=== PATIENT | female | born 1955 | race Caucasian/White ===

== ENCOUNTER 2024-02-07 10:33 | Emergency (ER) | payer MEDICARE, SELFPAY ==
[2024-02-07] VITALS (28 sets, daily range): BP systolic 164–186; BP diastolic 54–100; PULSE 82–110; RESP 12–38; TEMP 36.7; O2SAT 87–100; BMI 42.2
--- NOTE | 2024-02-07 11:01 | CT_ITS ---
The [address] [address] Patient Name: ALVIN MIX MRN: [id number] date: 1955 Sex: F Assigned Patient Location: ER Current Patient Location: ER Accession/Order Number: [id number] Exam Date: 02/07/2024 12:15 Report Date: 02/07/2024 12:54 At the request of: SANTOS NAVARRO Procedure: CT angio chest EXAM: CT angio chest HISTORY: sob COMPARISON: None. TECHNIQUE: Following intravenous administration of 100 mL of Omnipaque 350, axial soft tissue and lung windows of the chest were performed with coronal and sagittal reformats. 3-D MIPS reconstructions were created and reviewed. CT dose reduction technique was used including Automated Exposure Control. Findings: The heart is nonenlarged. No pericardial effusion. Coronary artery and aortic annular and valvular as well as mitral calcifications. The thoracic aorta is normal caliber with mild atherosclerotic disease. There is adequate opacification of the pulmonary arteries. No evidence of pulmonary embolism. There is a large left perihilar soft tissue mass invading into the mediastinum. This encases the adjacent vasculature and airways. The mass measures approximately 5.0 x 3.5 x 5.2 cm. No pneumothorax. No pleural effusion. Minimal by basilar atelectasis. There are mildly enlarged mediastinal and hilar lymph nodes, left greater than right. No enlarged axillary or supraclavicular nodes. Small hiatal hernia. The gallbladder is surgically absent. No aggressive sclerotic or lytic osseous lesions. Mild multilevel degenerative thoracic spondylosis. CT/CT angio chest IMPRESSION: 1. No pulmonary embolism. 2. Left perihilar soft tissue mass invading pneumomediastinum concerning for malignancy. 3. Enlarged mediastinal and hilar lymph nodes concerning for metastases. Electronically authenticated by: BENEDICTO PAUL Date: 02/07/2024 12:54
--- NOTE | 2024-02-07 11:03 | ED_ITS ---
HPI - General Adult General Chief complaint: Shortness of Breath/Dyspnea Stated complaint: SOB Time Seen by Provider: 02/07/24 11:00 Source: patient Mode of arrival: Wheelchair Limitations: no limitations History of Present Illness HPI narrative: Patient is a 68yo female who is presenting to the ER today with chief complaint of 2 days of cough, congestion, productive of yellowish sputum. Patient is a long-term smoker, patient says that she just quit smoking 2 days ago. Patient has not yet been diagnosed with emphysema or COPD. Patient has no nausea, vomiting, diarrhea, or any other acute complaints. Patient just traveled home from [place]. is at bedside. No sick contacts that patient is aware of. Patient has a significant history of left breast cancer. She had a lumpectomy 25 years ago, complete left mastectomy 5 years ago. Patient is on tamoxifen for 5 years after her mastectomy, this is her last year of taking tamoxifen. Patient has mild sinus congestion, intermittent blood-tinged rhinorrhea. Patient states when she has had rhinorrhea that is blood-tinged in the past she has had a sinus infection. Patient has a very harsh moist cough. All systems are negative except as noted/marked. All systems reviewed and otherwise negative. Nurses note and vital signs reviewed and patient is not hypoxic. General: The patient appears well and in no apparent distress. Patient is res ting comfortably on cart. Patient is not toxic, lethargic, or listless Skin: Warm, dry, no pallor noted. There is no rash noted. No petechiae, purpura. Head: Normocephalic, atraumatic; no tenderness to palpation to bilateral frontal and maxillary sinus Eye: Normal conjunctiva, no drainage, EOMI. PERRL Ears, Nose, Mouth, and Throat: oral mucosa is moist. Patient has clear/yellowish erythema to the posterior pharynx, no unilateral swelling, no other intraoral pathology. Nares patent. Mouth without vesicles. Cardiovascular: Regular Rate and Rhythm, no murmur, gallop, rub Respiratory: Patient is in no distress, no accessory muscle use, lungs decreased breath sounds bilateral, diffuse faint wheezing bilateral, no obvious rhonchi, crackles or rales. Back: non-tender, no CVA tenderness bilaterally to percussion. No CT LS midline pain GI: no tenderness to palpation, no masses appreciated. No rebound, guarding, or rigidity noted. No distention Musculoskeletal: Patient has full range of motion of all of the extremities, no motor, sensory, or focal neurological deficits Neurological: A&O x4, normal speech Psychiatric: Cooperative Related Data Home Medications Medication Instructions Recorded Confirmed metoprolol succinate 100 mg 100 mg PO DAILY 02/07/24 02/07/24 capsule sprinkle, ext. release 24 hr tamoxifen 20 mg tablet 20 mg PO DAILY 02/07/24 02/07/24 Previous Rx's Medication Instructions Recorded albuterol sulfate 90 mcg/actuation 2 inh inhalation Q4H PRN shortness 02/07/24 aerosol inhaler of breath or wheezing 7 days #8.5 grams mjhfdzmvrxbvevn-woxootjnusjxrzw-SJ 10 ml PO Q6H PRN cold symptoms 02/07/24 2 mg-30 mg-10 mg/5 mL oral syrup #200 mL (Bromfed DM) prednisone 50 mg tablet 50 mg PO DAILY 5 days #5 tabs 02/07/24 Allergies Allergy/AdvReac Type Severity Reaction Status Date / Time cephalexin Allergy Intermediate Rash Verified 02/07/24 12:04 Exam Constitutional Vital Signs, click to edit/add: Last Vital Signs Temp 98.0 F 02/07/24 10:40 Pulse 93 H 02/07/24 12:11 Resp 21 02/07/24 12:11 BP 173/70 H 02/07/24 12:11 Pulse Ox 95 02/07/24 12:11 O2 Del Method Room Air 02/07/24 10:40 Course Vital Signs Vital signs: Vital Signs Temperature 98.0 F 02/07/24 10:40 Pulse Rate 94 H 02/07/24 10:40 Respiratory Rate 22 02/07/24 10:40 Blood Pressure 184/100 H 02/07/24 10:40 Pulse Oximetry 88 L 02/07/24 10:40 Oxygen Delivery Method Room Air 02/07/24 10:40 Temperature 98.0 F 02/07/24 10:40 Pulse Rate 93 H 02/07/24 12:11 Respiratory Rate 21 02/07/24 12:11 Blood Pressure 173/70 H 02/07/24 12:11 Pulse Oximetry 95 02/07/24 12:11 Oxygen Delivery Method Room Air 02/07/24 10:40 Medical Decision Making MDM Narrative Medical decision making narrative: Patient had a cardiac workup along with a CTA of the chest was done. Patient was difficult IV access, patient had a ultrasound-guided IV placed by Sarah RAY, please see nursing notes. Patient did have a CT of the chest that did show concerns for left perihilar mass that is invading the left pneumomediastinum, and also several other lymph nodes that are concerning for possible metastasis. Patient has no signs of pneumonia or other infection. Patient felt better after DuoNeb breathing treatment initially. Patient was given a dose of IV Solu-Medrol along with IV fluids. Patient was given a second DuoNeb breathing treatment prior to discharge to help her with this afternoon. 1340 I did speak to Chata, nurse practitioner for Dr. Purcell. She is aware of the left perihilar mass that is invading the left pneumomediastinum, along with several lymph nodes that are suggestive for metastasis. Patient has no acute signs of infection. Patient refused to have influenza and COVID swabs. Patient will be treated for sinus congestion and upper respiratory infection with additional 5 days of steroids, along with inhaler and Tessalon Perles along with Bromfed. I had a discussion with patient and , they are aware and the concern of left lung cancer with mets. Difficult to assess at this time whether it secondary to previous left breast cancer or new left lung cancer secondary to her history of smoking. Patient quit smoking cold turkey 2 days ago. Patient has more thankful. Blameless apologies were given for length of stay in the ER today. They were understanding. No questions at discharge. Lab Data Lab results reviewed: Yes I reviewed the patient's lab results Labs: Lab Results 02/07/24 Range/Units 10:50 WBC 9.2 (4.0-11.0) 10^3/uL RBC 4.44 (4.20-5.40) 10^6/uL Hgb 14.2 (12.0-16.0) g/dL Hct 42.0 (36.0-48.0) % MCV 94.6 (81.0-99.0) fL MCH 32.0 (26.7-34.0) pg MCHC 33.8 (29.9-35.2) g/dL RDW 12.3 (11.0-15.0) % Plt Count 358 (150-450) 10^3/uL MPV 9.8 (9.5-13.5) fL Neut % (Auto) 72.0 (43.0-75.0) % Lymph % (Auto) 15.7 L (20.5-60.0) % [place] % (Auto) 11.7 (1.7-12.0) % Eos % (Auto) 0.2 L (0.9-7.0) % Baso % (Auto) 0.3 (0.2-2.0) % Neut # (Auto) 6.6 H (1.4-6.5) 10^3/uL Lymph # (Auto) 1.4 (1.2-3.8) 10^3/uL [place] # (Auto) 1.1 H (0.3-0.8) 10^3/uL Eos # (Auto) 0.0 (0.0-0.7) 10^3/uL Baso # (Auto) 0.0 (0.0-0.1) 10^3/uL Abs Immat Gran (auto) 0.01 (0.00-0.03) 10^3/uL Imm/Tot Granulo (auto) 0.1 (0.0-0.5) % VBG pH 7.397 (7.330-7.430) VBG pCO2 39.7 L (40.0-52.0) mmHg Sodium 126 L (136-145) mmol/L Potassium 4.6 (3.5-5.1) mmol/L Chloride 90 L (98-107) mmol/L Carbon Dioxide 23.7 (21.0-32.0) mmol/L Anion Gap 16.9 BUN 9.0 (7.0-18.0) mg/dL Creatinine 0.37 L (0.55-1.02) mg/dL Est GFR ( Amer) >60 (>=60) Est GFR (Non-Af Amer) >60 (>=60) BUN/Creatinine Ratio 24.3 Glucose 88 (74-106) mg/dL Calcium 8.5 (8.5-10.1) mg/dL Total Bilirubin 0.4 (0.2-1.0) mg/dL AST 61 H (15-37) U/L ALT 50 (14-59) U/L Alkaline Phosphatase 83 (46-116) U/L Troponin I High Sens 7.6 (4.0-51.3) pg/mL NT-Pro-B Natriuret Pep 1218.0 H* (<=900.0) pg/mL Total Protein 7.5 (6.4-8.2) g/dL Albumin 3.4 (3.4-5.0) g/dL Globulin 4.1 g/dL Albumin/Globulin Ratio 0.8 Imaging Data Chest x-ray: Radiologist's impression: ITS Impressions Chest CTA 02/07/24 11:01 IMPRESSION: 1. No pulmonary embolism. 2. Left perihilar soft tissue mass invading pneumomediastinum concerning for malignancy. 3. Enlarged mediastinal and hilar lymph nodes concerning for metastases. Electronically authenticated by: BENEDICTO PAUL Date: 02/07/2024 12:54 ECG Data Attestation: I personally reviewed and interpreted this ECG as follows: (EKG interpretation. Normal sinus rhythm 89 beats a minute. Normal axis deviation. No acute ST elevation, no acute ectopy. QTc 437.) Discharge Plan Discharge Stand Alone Forms: Portal Instructions Chief Complaint: Shortness of Breath/Dyspnea Clinical Impression: Sinus congestion, Mass of left lung, Bronchitis, Lymph node cancer Patient Disposition: Home, Self-Care Time of Disposition Decision: 13:54 Condition: Fair Prescriptions / Home Meds: New prednisone 50 mg tablet 50 mg PO DAILY 5 Days Qty: 5 0RF Rx Instructions: Start first dose on February 08, 2024 albuterol sulfate 90 mcg/actuation HFA aerosol inhaler 2 inh inhalation Q4H PRN (Reason: shortness of breath or wheezing) 7 Days Qty: 8.5 0RF hexlwjdmghropdj-ukhrmkura-UV [Bromfed DM] 2-30-10 mg/5 mL syrup 10 ml PO Q6H PRN (Reason: cold symptoms) Qty: 200 0RF No Action metoprolol succinate 100 mg capsule,sprinkle,ER 24hr 100 mg PO DAILY tamoxifen 20 mg tablet 20 mg PO DAILY Instructions: Upper Respiratory Infection (ED), Acute Bronchitis (ED), Cold Symptoms (ED), How to Use Nasal [place] (ED) Additional Instructions: Increase fluids at home, Gatorade, Powerade, or water. Alternate using DayQuil, NyQuil, and Flonase. Add Mucinex as well as needed. Alternate Tylenol and Motrin every 4 hours to help with fever control, body aches or joint pain. Use rzwg-jkn-hkmjvtm vitamin C, vitamin D3, and zinc to help fight infection and help with her immune system. A copy of your CTA chest report was given to you, there is concern for left lung cancer and lymph nodes that are concerning for possible cancer as well. I am not diagnosing you with left lung cancer or lymph node cancer, but there is a concern as discussed at bedside. You will need additional test through Dr. Purcell's office. I have spoken to Chata, nurse practitioner for Dr. Purcell. They will be calling you this afternoon to schedule a follow-up appointment for reevaluation. They will be looking at your images as well from your CTA chest. Take your next dose of prednisone tomorrow, use your inhaler every 4 hours while awake for the 4 to 5 days. Continue all other Occasions as prescribed. Referrals: MIRIAN CASTILLO [Primary Care Provider] - 1 week
[2024-02-07 11:09] LABS: Basophils Percent Auto 0.3 % (0.2-2.0); Eosinophils Percent Auto 0.2 % (0.9-7.0); Hemoglobin 14.2 g/dL (12.0-16.0); Immature Granulocytes Abs Auto 0.01 10^3/uL (0.00-0.03); Immature Granulocytes Pct Auto 0.1 % (0.0-0.5); Lymphocytes Absolute Auto 1.4 10^3/uL (1.2-3.8); Lymphocytes Percent Auto 15.7 % (20.5-60.0); Mean Corpuscular HGB Conc 33.8 g/dL (29.9-35.2); Mean Corpuscular Volume 94.6 fL (81.0-99.0); Mean Platelet Volume 9.8 fL (9.5-13.5); Monocytes Absolute Auto 1.1 10^3/uL (0.3-0.8); Monocytes Percent Auto 11.7 % (1.7-12.0); Neutrophils Absolute Auto 6.6 10^3/uL (1.4-6.5); Platelet Count 358 10^3/uL (150-450); Red Blood Count 4.44 10^6/uL (4.20-5.40); Red Cell Distribution Width 12.3 % (11.0-15.0); White Blood Count 9.2 10^3/uL (4.0-11.0)
[2024-02-07 11:10] LABS: PCO2 VBG 39.7 mmHg (40.0-52.0); pH VBG 7.397 (7.330-7.430)
[2024-02-07] MEDS: IPRATROPIUM/ALBUTEROL SULFATE 3 ML AMPUL.NEB IH ×2 (11:12→13:55)
[2024-02-07 11:41] LABS: Alanine Aminotransferase 50 U/L (14-59); Albumin Globulin Ratio 0.8; Albumin Level 3.4 g/dL (3.4-5.0); Alkaline Phosphatase 83 U/L (46-116); Anion Gap 16.9; Aspartate Amino Transferase 61 U/L (15-37); BUN Creatinine Ratio 24.3; Bilirubin Total 0.4 mg/dL (0.2-1.0); Calcium 8.5 mg/dL (8.5-10.1); Carbon Dioxide 23.7 mmol/L (21.0-32.0); Chloride 90 mmol/L (98-107); Estimated GFR (African America >60 (>=60); Estimated GFR (Non-African Ame >60 (>=60); Globulin 4.1 g/dL; Glucose 88 mg/dL (74-106); Potassium 4.6 mmol/L (3.5-5.1); Sodium 126 mmol/L (136-145); Total Protein 7.5 g/dL (6.4-8.2)
[2024-02-07 11:48] LABS: Troponin I High Sensitivity 7.6 pg/mL (4.0-51.3)
[2024-02-07] MEDS: METHYLPREDNISOLONE SOD SUCC PF 125 MG/2 ML VIAL IVP (12:06)
[2024-02-07] MEDS: 0.9 % SODIUM CHLORIDE 1,000 ML 1000 ML IV (13:32)
--- NOTE | 2024-02-07 13:42 | ECG_ITS ---
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
== END 2024-02-07 14:19 | disposition home or self-care (01) ==
PROVIDERS: Emergency Provider Emergency Medicine; PCP Family Medicine
DX: J40 Bronchitis, not specified as acute or chronic (principal); R09.81 Nasal congestion; R91.8 Other nonspecific abnormal finding of lung field; R59.0 Localized enlarged lymph nodes; Z87.891 Personal history of nicotine dependence; Z85.3 Personal history of malignant neoplasm of breast; Z90.12 Acquired absence of left breast and nipple; Z79.899 Other long term (current) drug therapy; R06.2 Wheezing
CPT/HCPCS: 36415; 71275; 80053; 82800; 83880; 84484; 85025; 87804; 87811; 93005; 94640; 99285; J2930; Q9967

== ENCOUNTER 2024-03-15 15:44 | Inpatient (IN) | payer MEDICARE, SELFPAY ==
[2024-03-15] VITALS (70 sets, daily range): BP systolic 120–177; BP diastolic 61–94; PULSE 72–158; TEMP 36.6–36.8; O2SAT 89–100; BMI 23.8
--- NOTE | 2024-03-15 16:00 | CT_ITS ---
The [address] [address] Patient Name: ALVIN MIX MRN: [id number] date: 1955 Sex: F Assigned Patient Location: ER Current Patient Location: Accession/Order Number: [id number] Exam Date: 03/15/2024 17:18 Report Date: 03/15/2024 20:22 At the request of: ATILIO MARTINEZ Procedure: CT angio abdomen pelvis EXAM: CT angio chest, CT angio abdomen pelvis HISTORY: Left sided chest pain . Left-sided abdominal pain. Breast cancer. COMPARISON: Prior CTA pulmonary artery study 02/07/2024. TECHNIQUE: Enhanced helical acquisition obtained during arterial phase through the chest, abdomen and the pelvis with MIP and MPR reconstructions. FINDINGS: CTA AORTA: Mild atherosclerotic disease of the thoracic aortic arch and descending thoracic aorta. The great vessels arising from the thoracic aortic arch are patent without evidence of significant stenosis. Moderate diffuse atherosclerotic disease throughout the abdominal aorta, iliac and common femoral arteries. No evidence of dissection or aneurysm. Moderate stenosis at the origin of the celiac trunk. Moderate focal stenosis of the proximal SMA secondary to noncalcified plaque. The NIKO is patent. The renal arteries are patent bilaterally without evidence of stenosis. CT CHEST: Moderate coronary arterial calcifications. Mild cardiomegaly. Large lobular left hilar soft tissue mass again identified, with the largest component currently measuring approximately 6.1 x 3.3 cm, invading into the adjacent mediastinum, encasing and severely narrowing the left superior pulmonary vein as well as the left upper lobe pulmonary artery and encasing and obstructing the left apical segmental bronchus. Enlarged left hilar lymph nodes are again noted, not significantly changed. Focal thrombus within the superior left pulmonary vein. The pleural spaces are clear. Moderate size sliding-type hiatal hernia is present with debris and fluid filling diffusely distended esophageal lumen. CT ABDOMEN: Free intraperitoneal gas within the abdomen. Extraluminal air noted adjacent to the distal sigmoid and rectosigmoid portions of the colon. Diffuse mesenteric edema with enhancement and diffuse thickening involving the small bowel throughout the abdomen and the pelvis, likely secondary to underlying peritonitis. Small volume of ascites throughout the abdomen and the pelvis. Hepatic steatosis. Prior cholecystectomy. Allowing for the early arterial phase of imaging, the spleen, pancreas and the right adrenal gland are unremarkable. Indeterminate 1.7 cm left adrenal nodule within the lateral limb. Mild to moderate left renal cortical scarring. Bilateral renal cysts. No enlarged lymph nodes within the abdomen. CT PELVIS: Normal appendix. No enlarged lymph nodes within the pelvis. Grade 1 degenerative anterolisthesis L5 on S1. Diffuse demineralization. CT/CT angio abdomen pelvis IMPRESSION: 1. Free intraperitoneal gas consistent with bowel perforation. Given extraluminal gas adjacent to the mid and distal sigmoid colon as well as thickening involving the distal sigmoid colon with pericolonic inflammation/edema, this is likely secondary to acute diverticulitis with perforation. 2. Diffuse thickening and enhancement involving small bowel throughout the abdomen and the pelvis, likely secondary to a diffuse peritonitis. Diffuse mesenteric edema is present. Small volume of ascites within the abdomen and the pelvis. 3. Interval increase size of a left hilar lobular soft tissue mass which invades the adjacent mediastinum. Encasement of the left superior pulmonary vein which is severely narrowed as well as the adjacent left upper lobe pulmonary artery. The mass encases and obstructs the left apical segmental bronchus. Stable enlarged left inferior hilar lymph nodes consistent with gurdeep metastatic disease. 4. Focal thrombus within the left superior pulmonary vein. 5. Moderate size sliding-type hernia. There is diffuse dilatation of fluid-filled and debris-filled esophagus. 6. Prior cholecystectomy. Hepatic steatosis. 7. Mild-moderate left renal cortical scarring. Bilateral renal cysts. Critical results were NOTIFIED by TELEPHONE BY Dr. Melvin Gomez to Dr. Peter At 03/15/2024 7:43 PM EDT. Electronically authenticated by: MELVIN GOMEZ Date: 03/15/2024 20:22
--- NOTE | 2024-03-15 16:00 | ECG_ITS ---
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
--- NOTE | 2024-03-15 16:00 | CT_ITS ---
The [address] [address] Patient Name: ALVIN MIX MRN: [id number] date: 1955 Sex: F Assigned Patient Location: ER Current Patient Location: ER Accession/Order Number: [id number] Exam Date: 03/15/2024 17:18 Report Date: 03/15/2024 20:22 At the request of: ATILIO MARTINEZ Procedure: CT angio chest EXAM: CT angio chest, CT angio abdomen pelvis HISTORY: Left sided chest pain . Left-sided abdominal pain. Breast cancer. COMPARISON: Prior CTA pulmonary artery study 02/07/2024. TECHNIQUE: Enhanced helical acquisition obtained during arterial phase through the chest, abdomen and the pelvis with MIP and MPR reconstructions. FINDINGS: CTA AORTA: Mild atherosclerotic disease of the thoracic aortic arch and descending thoracic aorta. The great vessels arising from the thoracic aortic arch are patent without evidence of significant stenosis. Moderate diffuse atherosclerotic disease throughout the abdominal aorta, iliac and common femoral arteries. No evidence of dissection or aneurysm. Moderate stenosis at the origin of the celiac trunk. Moderate focal stenosis of the proximal SMA secondary to noncalcified plaque. The NIKO is patent. The renal arteries are patent bilaterally without evidence of stenosis. CT CHEST: Moderate coronary arterial calcifications. Mild cardiomegaly. Large lobular left hilar soft tissue mass again identified, with the largest component currently measuring approximately 6.1 x 3.3 cm, invading into the adjacent mediastinum, encasing and severely narrowing the left superior pulmonary vein as well as the left upper lobe pulmonary artery and encasing and obstructing the left apical segmental bronchus. Enlarged left hilar lymph nodes are again noted, not significantly changed. Focal thrombus within the superior left pulmonary vein. The pleural spaces are clear. Moderate size sliding-type hiatal hernia is present with debris and fluid filling diffusely distended esophageal lumen. CT ABDOMEN: Free intraperitoneal gas within the abdomen. Extraluminal air noted adjacent to the distal sigmoid and rectosigmoid portions of the colon. Diffuse mesenteric edema with enhancement and diffuse thickening involving the small bowel throughout the abdomen and the pelvis, likely secondary to underlying peritonitis. Small volume of ascites throughout the abdomen and the pelvis. Hepatic steatosis. Prior cholecystectomy. Allowing for the early arterial phase of imaging, the spleen, pancreas and the right adrenal gland are unremarkable. Indeterminate 1.7 cm left adrenal nodule within the lateral limb. Mild to moderate left renal cortical scarring. Bilateral renal cysts. No enlarged lymph nodes within the abdomen. CT PELVIS: Normal appendix. No enlarged lymph nodes within the pelvis. Grade 1 degenerative anterolisthesis L5 on S1. Diffuse demineralization. CT/CT angio chest IMPRESSION: 1. Free intraperitoneal gas consistent with bowel perforation. Given extraluminal gas adjacent to the mid and distal sigmoid colon as well as thickening involving the distal sigmoid colon with pericolonic inflammation/edema, this is likely secondary to acute diverticulitis with perforation. 2. Diffuse thickening and enhancement involving small bowel throughout the abdomen and the pelvis, likely secondary to a diffuse peritonitis. Diffuse mesenteric edema is present. Small volume of ascites within the abdomen and the pelvis. 3. Interval increase size of a left hilar lobular soft tissue mass which invades the adjacent mediastinum. Encasement of the left superior pulmonary vein which is severely narrowed as well as the adjacent left upper lobe pulmonary artery. The mass encases and obstructs the left apical segmental bronchus. Stable enlarged left inferior hilar lymph nodes consistent with gurdeep metastatic disease. 4. Focal thrombus within the left superior pulmonary vein. 5. Moderate size sliding-type hernia. There is diffuse dilatation of fluid-filled and debris-filled esophagus. 6. Prior cholecystectomy. Hepatic steatosis. 7. Mild-moderate left renal cortical scarring. Bilateral renal cysts. Critical results were NOTIFIED by TELEPHONE BY Dr. Melvin Gomez to Dr. Peter At 03/15/2024 7:43 PM EDT. Electronically authenticated by: MELVIN GOMEZ Date: 03/15/2024 20:22
--- NOTE | 2024-03-15 16:04 | ED.ABDPAIN1 ---
Documented by User: [email or web address] Barker 03/15/24 21:31 HPI - Abdominal Pain General Chief Complaint: Abdominal Pain Stated Complaint: Abdominal Pain Time Seen by Provider: 03/15/24 15:46 Source: patient and family Mode of arrival: Wheelchair Limitations: no limitations History of Present Illness HPI narrative: Patient is a 68-year-old female who presents to the emergency department for an onset of pain to the left side of the abdomen and left chest that began yesterday. She states she was bending over to tie her shoe when she felt a sudden onset of pain. 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 She is currently being treated by [facility] oncology for this and is due to go to [facility] tomorrow for a gamma knife procedure for metastasis to the brain. She is currently on steroids for swelling from the brain cancer. She has not had any objective fevers, she reports pain diffusely from the left chest to the left abdomen, more significantly in the left abdomen. states they have also found cancer in her left kidney. She has not yet started chemotherapy. She has been having normal bowel movements although she did not have a bowel movement today. She states her abdomen hurts to Urinate. She has had a previous cholecystectomy. Related Data Home Medications ?Medication ?Instructions ?Recorded ?Confirmed metoprolol succinate 100 mg 150 mg PO DAILY 02/07/24 03/15/24 capsule sprinkle, ext. release 24 hr tamoxifen 20 mg tablet 20 mg PO DAILY 02/07/24 03/15/24 dexamethasone 4 mg tablet 4 mg PO DAILY 03/15/24 03/15/24 Previous Rx's ?Medication ?Instructions ?Recorded albuterol sulfate 90 mcg/actuation 2 inh inhalation Q4H PRN shortness 02/07/24 aerosol inhaler of breath or wheezing 7 days #8.5 grams Allergies Allergy/AdvReac Type Severity Reaction Status Date / Time cephalexin Allergy Intermediate Rash Verified 02/07/24 12:04 Review of Systems ROS Constitutional Denies: fever or chills Ears, nose, mouth, and throat Denies: throat pain or nasal congestion Cardiovascular Reports: chest pain Respiratory Reports: shortness of breath; Denies: cough Gastrointestinal Reports: abdominal pain and nausea; Denies: vomiting or diarrhea Genitourinary Denies: painful urination Integumentary/Breast Denies: rash Neurological Denies: headache Hematologic/Lymphatic Denies: easy bruising or easy bleeding Exam Narrative Exam Narrative: Gen.: Awake, alert, Moderately uncomfortable, restless on exam Head: Normocephalic, atraumatic ENT: Moist mucous membranes Respiratory: No respiratory distress, lungs clear bilaterally Cardio: Regular rate and rhythm Gastrointestinal: Abdomen is Distended but not rigid, diffusely tender in the left upper and left lower abdomen with no point tenderness, no guarding or rebound Extremities: Moves extremities equally Psych: Normal mood and affect Neuro: No focal neuro deficit Skin: Warm, dry, intact Constitutional Vital Signs, click to edit/add: Last Vital Signs Temp 97.8 F 03/15/24 18:33 Pulse 93 H 03/16/24 02:20 Resp 18 03/16/24 05:03 BP 178/76 H 03/16/24 05:30 Pulse Ox 91 L 03/16/24 05:30 O2 Del Method Nasal Cannula 03/16/24 03:15 O2 Flow Rate 2 03/16/24 03:15 Course Vital Signs Vital signs: Vital Signs Temperature 98.2 F 03/15/24 15:48 Pulse Rate 80 03/15/24 15:48 Respiratory Rate 20 03/15/24 15:48 Blood Pressure 172/86 H 03/15/24 15:48 Pulse Oximetry 96 03/15/24 15:48 Oxygen Delivery Method Room Air 03/15/24 15:48 Temperature 97.8 F 03/15/24 18:33 Pulse Rate 93 H 03/16/24 02:20 Respiratory Rate 18 03/16/24 05:03 Blood Pressure 178/76 H 03/16/24 05:30 Pulse Oximetry 91 L 03/16/24 05:30 Oxygen Delivery Method Nasal Cannula 03/16/24 03:15 Oxygen Delivery Flow Rate 2 03/16/24 03:15 MDM - Abdominal Pain MDM Narrative Medical decision making narrative: On arrival to the emergency department, patient was noted to have stable vital signs but had significant pain and had difficulty getting comfortable. We had difficulty establishing an IV and drawing labs for the patient but after multiple attempts an IV was able to be placed and Blood work was sent to the lab. Patient was found to have normal white blood cell count although she does have bandemia with an elevated lactic acid, hyponatremia which appears chronic for her as well as elevated LFTs. She is status postcholecystectomy. She has no focal tenderness in the right upper quadrant. Because of her sudden onset of pain and restlessness in the ER, she was sent for CT angio of the chest/abdomen/pelvis to rule out aortic dissection or other acute emergencies. There was significant delay in obtaining the radiology results due to a miscommunication with [facility]. We received results from the radiologist that were communicated to Dr. Peter over the phone after a 2-hour delay. Patient was found to have suspected diverticulitis with bowel perforation and free intraperitoneal gas as well as thickening of the distal sigmoid colon and pericolonic inflammation. Patient was also found to have diffuse thickening and enhancement of the small bowel secondary to diffuse peritonitis. The CT scan also shows an interval increase in a left hilar soft tissue mass invading the mediastinum with encasement of the left superior pulmonary vein which is severely narrowed and the patient was found to have a focal thrombus in the left superior pulmonary vein. I discussed these CT results with the patient and her . She and her verbalized understanding. Patient will need to be treated for the thrombus in the pulmonary vein, heparin infusion was started in the ER. Blood cultures were obtained with repeat lactic acid and Zosyn was given for antibiotic coverage for perforated diverticulitis with peritonitis. I discussed transfer to a tertiary care center with the patient and her , patient and her are in agreement with transferring to [facility] as she is supposed to have a gamma knife procedure there tomorrow for metastatic brain cancer and receives all of her cancer care through the [facility]. Transfer was initiated at 2030. Requesting ICU bed at [facility] facility. 2124: Discussed the case with Dr. Kaminski at [facility] for colorectal surgery, She accepted the patient for transfer for perforated diverticulitis. Patient will be put in as a level 1 transfer to [facility] but we were cautioned by the transfer center that there may be a significant delay in obtaining a bed for this patient. They feel she would be best served at [facility] given her comorbidities and additional pulmonary vein thrombosis which we have started IV heparin for her. At this time patient is hemodynamically stable. If there is a significant delay in transfer, patient may need to be transferred to a different facility. Case is turned over to attending physician at this time. Medical Records Attestation: I reviewed the patient's medical records. Lab Data Attestation: I reviewed the patient's lab results. Labs: Lab Results 03/15/24 03/15/24 03/15/24 Range/Units 16:40 18:55 20:40 WBC 6.4 (4.0-11.0) 10^3/uL RBC 4.33 (4.20-5.40) 10^6/uL Hgb 13.7 (12.0-16.0) g/dL Hct 41.5 (36.0-48.0) % MCV 95.8 (81.0-99.0) fL MCH 31.6 (26.7-34.0) pg MCHC 33.0 (29.9-35.2) g/dL RDW 13.4 (11.0-15.0) % Plt Count 315 (150-450) 10^3/uL MPV 10.3 (9.5-13.5) fL Seg Neuts % (Manual) 69.0 Band Neutrophils % 14.0 H (0-5) % Lymphocytes % (Manual) 10.0 L (20.5-60.0) % Atypical Lymphs % (Man) % Monocytes % (Manual) 7.0 (1.7-12.0) % Eosinophils % (Manual) 0.0 L (0.9-7.0) % Basophils % (Manual) 0.0 L (0.2-2.0) % Neutrophils # (Manual) 4.41 (1.4-6.5) 10^3/uL Band Neutrophils # 0.9 H (0.0-0.3) 10^3/uL Lymphocytes # (Manual) 0.64 L (1.20-3.80) 10^3/uL Abs Atypical Lymphs Man Monocytes # (Manual) 0.44 (0.30-0.80) 10^3/uL Eosinophils # (Manual) 0.00 (0.00-0.70) 10^3/uL Basophils # (Manual) 0.00 (0.00-0.10) 10^3/uL PT 11.5 (9.0-11.6) sec INR 1.09 PTT (Heparin Absorb) (48.2-68.6) sec Sodium 128 L (136-145) mmol/L Potassium 4.2 (3.5-5.1) mmol/L Chloride 95 L (98-107) mmol/L Carbon Dioxide 20.8 L (21.0-32.0) mmol/L Anion Gap 16.4 BUN 18.0 (7.0-18.0) mg/dL Creatinine 0.57 (0.55-1.02) mg/dL Est GFR ( Amer) >60 (>=60) Est GFR (Non-Af Amer) >60 (>=60) BUN/Creatinine Ratio 31.6 Glucose 129 H (74-106) mg/dL Lactate 3.2 H* 1.9 (0.4-2.0) mmol/L Calcium 8.8 (8.5-10.1) mg/dL Total Bilirubin 1.6 H (0.2-1.0) mg/dL Direct Bilirubin 1.0 H* (0.0-0.2) mg/dL AST 57 H (15-37) U/L ALT 81 H (14-59) U/L Alkaline Phosphatase 97 (46-116) U/L Troponin I High Sens 4.4 (4.0-51.3) pg/mL NT-Pro-B Natriuret Pep 1668.0 H* (<=900.0) pg/mL Total Protein 6.1 L (6.4-8.2) g/dL Albumin 2.5 L (3.4-5.0) g/dL Globulin 3.6 g/dL Albumin/Globulin Ratio 0.7 Lipase 18.0 (16.0-77.0) U/L Urine Color Dk. yellow (YELLOW) Urine Clarity Clear (CLEAR) Urine pH 7.0 (5.0-9.0) Ur Specific Blanchard <=1.005 A (1.005-1.025) Urine Protein 100 A (NEG/TRACE) mg/dL Urine Glucose (UA) Negative (NEGATIVE) mg/dL Urine Ketones Negative (NEGATIVE) mg/dL Urine Occult Blood Negative (NEGATIVE) Urine Nitrite Negative (NEGATIVE) Urine Bilirubin Small A (NEGATIVE) Urine Urobilinogen 2.0 A (0.2-1.0) EU/dL Ur Leukocyte Esterase Negative (NEGATIVE) Urine RBC 0-2 (0-2) #/HPF Urine WBC 5-10 A (NONE SEEN) #/HPF Ur Squamous Epith Cells Few A (NONE/RARE) #/LPF Urine Crystals None seen (None Seen) #/HPF Urine Bacteria None seen (NONE SEEN) #/HPF Urine Casts None seen (NONE SEEN) #/LPF Urine Mucus None seen (NONE SEEN) Ur Culture Indicated? Yes 03/16/24 03/16/24 Range/Units 03:15 04:55 WBC 5.3 (4.0-11.0) 10^3/uL RBC 4.39 (4.20-5.40) 10^6/uL Hgb 13.9 (12.0-16.0) g/dL Hct 42.1 (36.0-48.0) % MCV 95.9 (81.0-99.0) fL MCH 31.7 (26.7-34.0) pg MCHC 33.0 (29.9-35.2) g/dL RDW 13.4 (11.0-15.0) % Plt Count 237 (150-450) 10^3/uL MPV 10.3 (9.5-13.5) fL Seg Neuts % (Manual) 56.0 Band Neutrophils % 15.0 H (0-5) % Lymphocytes % (Manual) 5.0 L (20.5-60.0) % Atypical Lymphs % (Man) 6.0 % Monocytes % (Manual) 18.0 H (1.7-12.0) % Eosinophils % (Manual) 0.0 L (0.9-7.0) % Basophils % (Manual) 0.0 L (0.2-2.0) % Neutrophils # (Manual) 2.96 (1.4-6.5) 10^3/uL Band Neutrophils # 0.8 H (0.0-0.3) 10^3/uL Lymphocytes # (Manual) 0.26 L (1.20-3.80) 10^3/uL Abs Atypical Lymphs Man 0.31 Monocytes # (Manual) 0.95 H (0.30-0.80) 10^3/uL Eosinophils # (Manual) 0.00 (0.00-0.70) 10^3/uL Basophils # (Manual) 0.00 (0.00-0.10) 10^3/uL PT (9.0-11.6) sec INR PTT (Heparin Absorb) 39.9 L* (48.2-68.6) sec Sodium 131 L (136-145) mmol/L Potassium 4.4 (3.5-5.1) mmol/L Chloride 98 (98-107) mmol/L Carbon Dioxide 22.5 (21.0-32.0) mmol/L Anion Gap 14.9 BUN 18.0 (7.0-18.0) mg/dL Creatinine 0.61 (0.55-1.02) mg/dL Est GFR ( Amer) >60 (>=60) Est GFR (Non-Af Amer) >60 (>=60) BUN/Creatinine Ratio 29.5 Glucose 106 (74-106) mg/dL Lactate 1.6 (0.4-2.0) mmol/L Calcium 8.7 (8.5-10.1) mg/dL Total Bilirubin (0.2-1.0) mg/dL Direct Bilirubin (0.0-0.2) mg/dL AST (15-37) U/L ALT (14-59) U/L Alkaline Phosphatase (46-116) U/L Troponin I High Sens (4.0-51.3) pg/mL NT-Pro-B Natriuret Pep (<=900.0) pg/mL Total Protein (6.4-8.2) g/dL Albumin (3.4-5.0) g/dL Globulin g/dL Albumin/Globulin Ratio Lipase (16.0-77.0) U/L Urine Color (YELLOW) Urine Clarity (CLEAR) Urine pH (5.0-9.0) Ur Specific Blanchard (1.005-1.025) Urine Protein (NEG/TRACE) mg/dL Urine Glucose (UA) (NEGATIVE) mg/dL Urine Ketones (NEGATIVE) mg/dL Urine Occult Blood (NEGATIVE) Urine Nitrite (NEGATIVE) Urine Bilirubin (NEGATIVE) Urine Urobilinogen (0.2-1.0) EU/dL Ur Leukocyte Esterase (NEGATIVE) Urine RBC (0-2) #/HPF Urine WBC (NONE SEEN) #/HPF Ur Squamous Epith Cells (NONE/RARE) #/LPF Urine Crystals (None Seen) #/HPF Urine Bacteria (NONE SEEN) #/HPF Urine Casts (NONE SEEN) #/LPF Urine Mucus (NONE SEEN) Ur Culture Indicated? Imaging Data CT scan - chest: Attestation: I have reviewed the pertinent imaging results. Radiologist's impression: ITS Impressions Abdomen/Pelvis CTA 03/15/24 16:00 IMPRESSION: 1. Free intraperitoneal gas consistent with bowel perforation. Given extraluminal gas adjacent to the mid and distal sigmoid colon as well as thickening involving the distal sigmoid colon with pericolonic inflammation/edema, this is likely secondary to acute diverticulitis with perforation. 2. Diffuse thickening and enhancement involving small bowel throughout the abdomen and the pelvis, likely secondary to a diffuse peritonitis. Diffuse mesenteric edema is present. Small volume of ascites within the abdomen and the pelvis. 3. Interval increase size of a left hilar lobular soft tissue mass which invades the adjacent mediastinum. Encasement of the left superior pulmonary vein which is severely narrowed as well as the adjacent left upper lobe pulmonary artery. The mass encases and obstructs the left apical segmental bronchus. Stable enlarged left inferior hilar lymph nodes consistent with gurdeep metastatic disease. 4. Focal thrombus within the left superior pulmonary vein. 5. Moderate size sliding-type hernia. There is diffuse dilatation of fluid-filled and debris-filled esophagus. 6. Prior cholecystectomy. Hepatic steatosis. 7. Mild-moderate left renal cortical scarring. Bilateral renal cysts. Critical results were NOTIFIED by TELEPHONE BY Dr. Melvin Gomez to Dr. Peter At 03/15/2024 7:43 PM EDT. Electronically authenticated by: MELVIN GOMEZ Date: 03/15/2024 20:22 Chest CTA 03/15/24 16:00 IMPRESSION: 1. Free intraperitoneal gas consistent with bowel perforation. Given extraluminal gas adjacent to the mid and distal sigmoid colon as well as thickening involving the distal sigmoid colon with pericolonic inflammation/edema, this is likely secondary to acute diverticulitis with perforation. 2. Diffuse thickening and enhancement involving small bowel throughout the abdomen and the pelvis, likely secondary to a diffuse peritonitis. Diffuse mesenteric edema is present. Small volume of ascites within the abdomen and the pelvis. 3. Interval increase size of a left hilar lobular soft tissue mass which invades the adjacent mediastinum. Encasement of the left superior pulmonary vein which is severely narrowed as well as the adjacent left upper lobe pulmonary artery. The mass encases and obstructs the left apical segmental bronchus. Stable enlarged left inferior hilar lymph nodes consistent with gurdeep metastatic disease. 4. Focal thrombus within the left superior pulmonary vein. 5. Moderate size sliding-type hernia. There is diffuse dilatation of fluid-filled and debris-filled esophagus. 6. Prior cholecystectomy. Hepatic steatosis. 7. Mild-moderate left renal cortical scarring. Bilateral renal cysts. Critical results were NOTIFIED by TELEPHONE BY Dr. Melvin Gomez to Dr. Peter At 03/15/2024 7:43 PM EDT. Electronically authenticated by: MELVIN GOMEZ Date: 03/15/2024 20:22 ECG Data Attestation: I personally reviewed and interpreted this ECG as follows: (Sinus rhythm at a rate of 82 with artifact present, no acute ST elevation or ectopy. EKG reviewed by attending physician) Discharge Plan Discharge Patient Disposition: Still a Patient Documented by User: Kandis Peter MD 03/16/24 07:04 HPI - Abdominal Pain General Chief Complaint: Abdominal Pain Stated Complaint: Abdominal Pain Time Seen by Provider: 03/15/24 15:46 Related Data Home Medications ?Medication ?Instructions ?Recorded ?Confirmed metoprolol succinate 100 mg 150 mg PO DAILY 02/07/24 03/15/24 capsule sprinkle, ext. release 24 hr tamoxifen 20 mg tablet 20 mg PO DAILY 02/07/24 03/15/24 dexamethasone 4 mg tablet 4 mg PO DAILY 03/15/24 03/15/24 Previous Rx's ?Medication ?Instructions ?Recorded albuterol sulfate 90 mcg/actuation 2 inh inhalation Q4H PRN shortness 02/07/24 aerosol inhaler of breath or wheezing 7 days #8.5 grams Allergies Allergy/AdvReac Type Severity Reaction Status Date / Time cephalexin Allergy Intermediate Rash Verified 02/07/24 12:04 Exam Constitutional Vital Signs, click to edit/add: Last Vital Signs Temp 97.8 F 03/15/24 18:33 Pulse 93 H 03/16/24 02:20 Resp 18 03/16/24 05:03 BP 178/76 H 03/16/24 05:30 Pulse Ox 91 L 03/16/24 05:30 O2 Del Method Nasal Cannula 03/16/24 03:15 O2 Flow Rate 2 03/16/24 03:15 Course Vital Signs Vital signs: Vital Signs Temperature 98.2 F 03/15/24 15:48 Pulse Rate 80 03/15/24 15:48 Respiratory Rate 20 03/15/24 15:48 Blood Pressure 172/86 H 03/15/24 15:48 Pulse Oximetry 96 03/15/24 15:48 Oxygen Delivery Method Room Air 03/15/24 15:48 Temperature 97.8 F 03/15/24 18:33 Pulse Rate 93 H 03/16/24 02:20 Respiratory Rate 18 03/16/24 05:03 Blood Pressure 178/76 H 03/16/24 05:30 Pulse Oximetry 91 L 03/16/24 05:30 Oxygen Delivery Method Nasal Cannula 03/16/24 03:15 Oxygen Delivery Flow Rate 2 03/16/24 03:15 MDM - Abdominal Pain MDM Narrative Medical decision making narrative: On arrival to the emergency department, patient was noted to have stable vital signs but had significant pain and had difficulty getting comfortable. We had difficulty establishing an IV and drawing labs for the patient but after multiple attempts an IV was able to be placed and Blood work was sent to the lab. Patient was found to have normal white blood cell count although she does have bandemia with an elevated lactic acid, hyponatremia which appears chronic for her as well as elevated LFTs. She is status postcholecystectomy. She has no focal tenderness in the right upper quadrant. Because of her sudden onset of pain and restlessness in the ER, she was sent for CT angio of the chest/abdomen/pelvis to rule out aortic dissection or other acute emergencies. There was significant delay in obtaining the radiology results due to a miscommunication with [facility]. We received results from the radiologist that were communicated to Dr. Peter over the phone after a 2-hour delay. Patient was found to have suspected diverticulitis with bowel perforation and free intraperitoneal gas as well as thickening of the distal sigmoid colon and pericolonic inflammation. Patient was also found to have diffuse thickening and enhancement of the small bowel secondary to diffuse peritonitis. The CT scan also shows an interval increase in a left hilar soft tissue mass invading the mediastinum with encasement of the left superior pulmonary vein which is severely narrowed and the patient was found to have a focal thrombus in the left superior pulmonary vein. I discussed these CT results with the patient and her . She and her verbalized understanding. Patient will need to be treated for the thrombus in the pulmonary vein, heparin infusion was started in the ER. Blood cultures were obtained with repeat lactic acid and Zosyn was given for antibiotic coverage for perforated diverticulitis with peritonitis. I discussed transfer to a tertiary care center with the patient and her , patient and her are in agreement with transferring to [facility] as she is supposed to have a gamma knife procedure there tomorrow for metastatic brain cancer and receives all of her cancer care through the [facility]. Transfer was initiated at 2030. Requesting ICU bed at [facility] facility. 2124: Discussed the case with Dr. Kaminski at [facility] for colorectal surgery, She accepted the patient for transfer for perforated diverticulitis. Patient will be put in as a level 1 transfer to [facility] but we were cautioned by the transfer center that there may be a significant delay in obtaining a bed for this patient. They feel she would be best served at [facility] given her comorbidities and additional pulmonary vein thrombosis which we have started IV heparin for her. At this time patient is hemodynamically stable. If there is a significant delay in transfer, patient may need to be transferred to a different facility. Case is turned over to attending physician at this time. This patient was seen and evaluated in conjunction with the physician mail handler assistant. Please refer to her full H and P. We are awaiting transfer to [facility]. She was started on heparin and IV antibiotics were instituted for the perforated diverticulum. The patient has been comfortable and asleep and upon awakening is very anxious and complaining of pain. She has been remedicated with IV fluids and placed on normal saline 125 mL an hour. At 8 hours, a repeat dose of Zosyn was ordered. She was medicated with additional IV dose of Ativan. She remains hemodynamically stable in the emergency department. She understands that there is a wait for a bed at [facility]. AM labs were ordered; her WBC count is 5.3 with persistant bandemia of 15 and Hb of 13.9 and lactic acid remains stable at 1.6. She remains hemodynamically stable overnight in the ER and we will attempt to expedite her transfer to [facility] this morning Lab Data Attestation: I reviewed the patient's lab results. Labs: Lab Results 03/15/24 03/15/24 03/15/24 Range/Units 16:40 18:55 20:40 WBC 6.4 (4.0-11.0) 10^3/uL RBC 4.33 (4.20-5.40) 10^6/uL Hgb 13.7 (12.0-16.0) g/dL Hct 41.5 (36.0-48.0) % MCV 95.8 (81.0-99.0) fL MCH 31.6 (26.7-34.0) pg MCHC 33.0 (29.9-35.2) g/dL RDW 13.4 (11.0-15.0) % Plt Count 315 (150-450) 10^3/uL MPV 10.3 (9.5-13.5) fL Seg Neuts % (Manual) 69.0 Band Neutrophils % 14.0 H (0-5) % Lymphocytes % (Manual) 10.0 L (20.5-60.0) % Atypical Lymphs % (Man) % Monocytes % (Manual) 7.0 (1.7-12.0) % Eosinophils % (Manual) 0.0 L (0.9-7.0) % Basophils % (Manual) 0.0 L (0.2-2.0) % Neutrophils # (Manual) 4.41 (1.4-6.5) 10^3/uL Band Neutrophils # 0.9 H (0.0-0.3) 10^3/uL Lymphocytes # (Manual) 0.64 L (1.20-3.80) 10^3/uL Abs Atypical Lymphs Man Monocytes # (Manual) 0.44 (0.30-0.80) 10^3/uL Eosinophils # (Manual) 0.00 (0.00-0.70) 10^3/uL Basophils # (Manual) 0.00 (0.00-0.10) 10^3/uL PT 11.5 (9.0-11.6) sec INR 1.09 PTT (Heparin Absorb) (48.2-68.6) sec Sodium 128 L (136-145) mmol/L Potassium 4.2 (3.5-5.1) mmol/L Chloride 95 L (98-107) mmol/L Carbon Dioxide 20.8 L (21.0-32.0) mmol/L Anion Gap 16.4 BUN 18.0 (7.0-18.0) mg/dL Creatinine 0.57 (0.55-1.02) mg/dL Est GFR ( Amer) >60 (>=60) Est GFR (Non-Af Amer) >60 (>=60) BUN/Creatinine Ratio 31.6 Glucose 129 H (74-106) mg/dL Lactate 3.2 H* 1.9 (0.4-2.0) mmol/L Calcium 8.8 (8.5-10.1) mg/dL Total Bilirubin 1.6 H (0.2-1.0) mg/dL Direct Bilirubin 1.0 H* (0.0-0.2) mg/dL AST 57 H (15-37) U/L ALT 81 H (14-59) U/L Alkaline Phosphatase 97 (46-116) U/L Troponin I High Sens 4.4 (4.0-51.3) pg/mL NT-Pro-B Natriuret Pep 1668.0 H* (<=900.0) pg/mL Total Protein 6.1 L (6.4-8.2) g/dL Albumin 2.5 L (3.4-5.0) g/dL Globulin 3.6 g/dL Albumin/Globulin Ratio 0.7 Lipase 18.0 (16.0-77.0) U/L Urine Color Dk. yellow (YELLOW) Urine Clarity Clear (CLEAR) Urine pH 7.0 (5.0-9.0) Ur Specific Blanchard <=1.005 A (1.005-1.025) Urine Protein 100 A (NEG/TRACE) mg/dL Urine Glucose (UA) Negative (NEGATIVE) mg/dL Urine Ketones Negative (NEGATIVE) mg/dL Urine Occult Blood Negative (NEGATIVE) Urine Nitrite Negative (NEGATIVE) Urine Bilirubin Small A (NEGATIVE) Urine Urobilinogen 2.0 A (0.2-1.0) EU/dL Ur Leukocyte Esterase Negative (NEGATIVE) Urine RBC 0-2 (0-2) #/HPF Urine WBC 5-10 A (NONE SEEN) #/HPF Ur Squamous Epith Cells Few A (NONE/RARE) #/LPF Urine Crystals None seen (None Seen) #/HPF Urine Bacteria None seen (NONE SEEN) #/HPF Urine Casts None seen (NONE SEEN) #/LPF Urine Mucus None seen (NONE SEEN) Ur Culture Indicated? Yes 03/16/24 03/16/24 Range/Units 03:15 04:55 WBC 5.3 (4.0-11.0) 10^3/uL RBC 4.39 (4.20-5.40) 10^6/uL Hgb 13.9 (12.0-16.0) g/dL Hct 42.1 (36.0-48.0) % MCV 95.9 (81.0-99.0) fL MCH 31.7 (26.7-34.0) pg MCHC 33.0 (29.9-35.2) g/dL RDW 13.4 (11.0-15.0) % Plt Count 237 (150-450) 10^3/uL MPV 10.3 (9.5-13.5) fL Seg Neuts % (Manual) 56.0 Band Neutrophils % 15.0 H (0-5) % Lymphocytes % (Manual) 5.0 L (20.5-60.0) % Atypical Lymphs % (Man) 6.0 % Monocytes % (Manual) 18.0 H (1.7-12.0) % Eosinophils % (Manual) 0.0 L (0.9-7.0) % Basophils % (Manual) 0.0 L (0.2-2.0) % Neutrophils # (Manual) 2.96 (1.4-6.5) 10^3/uL Band Neutrophils # 0.8 H (0.0-0.3) 10^3/uL Lymphocytes # (Manual) 0.26 L (1.20-3.80) 10^3/uL Abs Atypical Lymphs Man 0.31 Monocytes # (Manual) 0.95 H (0.30-0.80) 10^3/uL Eosinophils # (Manual) 0.00 (0.00-0.70) 10^3/uL Basophils # (Manual) 0.00 (0.00-0.10) 10^3/uL PT (9.0-11.6) sec INR PTT (Heparin Absorb) 39.9 L* (48.2-68.6) sec Sodium 131 L (136-145) mmol/L Potassium 4.4 (3.5-5.1) mmol/L Chloride 98 (98-107) mmol/L Carbon Dioxide 22.5 (21.0-32.0) mmol/L Anion Gap 14.9 BUN 18.0 (7.0-18.0) mg/dL Creatinine 0.61 (0.55-1.02) mg/dL Est GFR ( Amer) >60 (>=60) Est GFR (Non-Af Amer) >60 (>=60) BUN/Creatinine Ratio 29.5 Glucose 106 (74-106) mg/dL Lactate 1.6 (0.4-2.0) mmol/L Calcium 8.7 (8.5-10.1) mg/dL Total Bilirubin (0.2-1.0) mg/dL Direct Bilirubin (0.0-0.2) mg/dL AST (15-37) U/L ALT (14-59) U/L Alkaline Phosphatase (46-116) U/L Troponin I High Sens (4.0-51.3) pg/mL NT-Pro-B Natriuret Pep (<=900.0) pg/mL Total Protein (6.4-8.2) g/dL Albumin (3.4-5.0) g/dL Globulin g/dL Albumin/Globulin Ratio Lipase (16.0-77.0) U/L Urine Color (YELLOW) Urine Clarity (CLEAR) Urine pH (5.0-9.0) Ur Specific [place] (1.005-1.025) Urine Protein (NEG/TRACE) mg/dL Urine Glucose (UA) (NEGATIVE) mg/dL Urine Ketones (NEGATIVE) mg/dL Urine Occult Blood (NEGATIVE) Urine Nitrite (NEGATIVE) Urine Bilirubin (NEGATIVE) Urine Urobilinogen (0.2-1.0) EU/dL Ur Leukocyte Esterase (NEGATIVE) Urine RBC (0-2) #/HPF Urine WBC (NONE SEEN) #/HPF Ur Squamous Epith Cells (NONE/RARE) #/LPF Urine Crystals (None Seen) #/HPF Urine Bacteria (NONE SEEN) #/HPF Urine Casts (NONE SEEN) #/LPF Urine Mucus (NONE SEEN) Ur Culture Indicated? Imaging Data CT scan - chest: Radiologist's impression: ITS Impressions Abdomen/Pelvis CTA 03/15/24 16:00 IMPRESSION: 1. Free intraperitoneal gas consistent with bowel perforation. Given extraluminal gas adjacent to the mid and distal sigmoid colon as well as thickening involving the distal sigmoid colon with pericolonic inflammation/edema, this is likely secondary to acute diverticulitis with perforation. 2. Diffuse thickening and enhancement involving small bowel throughout the abdomen and the pelvis, likely secondary to a diffuse peritonitis. Diffuse mesenteric edema is present. Small volume of ascites within the abdomen and the pelvis. 3. Interval increase size of a left hilar lobular soft tissue mass which invades the adjacent mediastinum. Encasement of the left superior pulmonary vein which is severely narrowed as well as the adjacent left upper lobe pulmonary artery. The mass encases and obstructs the left apical segmental bronchus. Stable enlarged left inferior hilar lymph nodes consistent with gurdeep metastatic disease. 4. Focal thrombus within the left superior pulmonary vein. 5. Moderate size sliding-type hernia. There is diffuse dilatation of fluid-filled and debris-filled esophagus. 6. Prior cholecystectomy. Hepatic steatosis. 7. Mild-moderate left renal cortical scarring. Bilateral renal cysts. Critical results were NOTIFIED by TELEPHONE BY Dr. Melvin Gomez to Dr. Peter At 03/15/2024 7:43 PM EDT. Electronically authenticated by: MELVIN GOMEZ Date: 03/15/2024 20:22 Chest CTA 03/15/24 16:00 IMPRESSION: 1. Free intraperitoneal gas consistent with bowel perforation. Given extraluminal gas adjacent to the mid and distal sigmoid colon as well as thickening involving the distal sigmoid colon with pericolonic inflammation/edema, this is likely secondary to acute diverticulitis with perforation. 2. Diffuse thickening and enhancement involving small bowel throughout the abdomen and the pelvis, likely secondary to a diffuse peritonitis. Diffuse mesenteric edema is present. Small volume of ascites within the abdomen and the pelvis. 3. Interval increase size of a left hilar lobular soft tissue mass which invades the adjacent mediastinum. Encasement of the left superior pulmonary vein which is severely narrowed as well as the adjacent left upper lobe pulmonary artery. The mass encases and obstructs the left apical segmental bronchus. Stable enlarged left inferior hilar lymph nodes consistent with gurdeep metastatic disease. 4. Focal thrombus within the left superior pulmonary vein. 5. Moderate size sliding-type hernia. There is diffuse dilatation of fluid-filled and debris-filled esophagus. 6. Prior cholecystectomy. Hepatic steatosis. 7. Mild-moderate left renal cortical scarring. Bilateral renal cysts. Critical results were NOTIFIED by TELEPHONE BY Dr. Melvin Gomez to Dr. Peter At 03/15/2024 7:43 PM EDT. Electronically authenticated by: MELVIN GOMEZ Date: 03/15/2024 20:22 Discharge Plan Discharge Patient Disposition: Still a Patient
[2024-03-15] MEDS: ONDANSETRON PF 4 MG/2 ML VIAL IV (16:12)
[2024-03-15] MEDS: HYDROMORPHONE HCL 1 MG/ML CARTRIDGE IVP (16:12)
[2024-03-15] MEDS: 0.9 % SODIUM CHLORIDE 1,000 ML 999 ML IV (16:13)
[2024-03-15] MEDS: LORAZEPAM 2 MG/ML VIAL 0.5 MG IV (16:34)
[2024-03-15 16:49] LABS: Hematocrit 41.5 % (36.0-48.0); Hemoglobin 13.7 g/dL (12.0-16.0); Mean Corpuscular Hemoglobin 31.6 pg (26.7-34.0); Mean Corpuscular Volume 95.8 fL (81.0-99.0); Mean Platelet Volume 10.3 fL (9.5-13.5); Platelet Count 315 10^3/uL (150-450); Red Blood Count 4.33 10^6/uL (4.20-5.40); Red Cell Distribution Width 13.4 % (11.0-15.0); White Blood Count 6.4 10^3/uL (4.0-11.0)
[2024-03-15 17:05] LABS: INR 1.09; Prothrombin Time 11.5 sec (9.0-11.6)
[2024-03-15 17:06] LABS: Alanine Aminotransferase 81 U/L (14-59); Albumin Globulin Ratio 0.7; Albumin Level 2.5 g/dL (3.4-5.0); Alkaline Phosphatase 97 U/L (46-116); Anion Gap 16.4; Aspartate Amino Transferase 57 U/L (15-37); BUN Creatinine Ratio 31.6; Bilirubin Total 1.6 mg/dL (0.2-1.0); Calcium 8.8 mg/dL (8.5-10.1); Carbon Dioxide 20.8 mmol/L (21.0-32.0); Chloride 95 mmol/L (98-107); Estimated GFR (African America >60 (>=60); Estimated GFR (Non-African Ame >60 (>=60); Globulin 3.6 g/dL; Glucose 129 mg/dL (74-106); Potassium 4.2 mmol/L (3.5-5.1); Sodium 128 mmol/L (136-145); Total Protein 6.1 g/dL (6.4-8.2)
[2024-03-15 17:12] LABS: Troponin I High Sensitivity 4.4 pg/mL (4.0-51.3)
[2024-03-15 17:14] LABS: Lactate/Lactic Acid 3.2 mmol/L (0.4-2.0)
[2024-03-15 17:19] LABS: Band Neutrophils Absolute 0.9 10^3/uL (0.0-0.3); Lymphocytes Absolute Manual 0.64 10^3/uL (1.20-3.80); Monocytes Absolute Manual 0.44 10^3/uL (0.30-0.80); Segmented Neut Absolute Manual 4.41 10^3/uL (1.4-6.5)
[2024-03-15 19:00] LABS: Bilirubin Urine SMALL (NEGATIVE); Blood Urine NEGATIVE (NEGATIVE); Clarity Urine CLEAR (CLEAR); Color Urine DK. YELLOW (YELLOW); Glucose Urine UA NEGATIVE (NEGATIVE); Ketones Urine NEGATIVE (NEGATIVE); Leukocyte Esterase Urine NEGATIVE (NEGATIVE); Nitrite Urine NEGATIVE (NEGATIVE); Protein Urine 100 mg/dL (NEG/TRACE); Specific Gravity Urine <=1.005 (1.005-1.025)
[2024-03-15 19:03] LABS: Urine Microscopic Indicated YES
[2024-03-15 19:08] LABS: Bacteria Urine NONE SEEN #/HPF (NONE SEEN); Mucus Urine NONE SEEN (NONE SEEN); RBC Urine 0-2 #/HPF (0-2); Squamous Epithelial Cell Urine FEW #/LPF (NONE/RARE)
[2024-03-15 19:09] LABS: Cast Seen? NONE SEEN #/LPF (NONE SEEN); Crystals Seen? None Seen #/HPF (None Seen); Urine Culture Indicated YES
[2024-03-15] MEDS: PIPERACILLIN SODIUM/TAZOBACTAM 4.5 GM in 0.9 % SODIUM CHLORIDE 50 ML IV (21:07)
[2024-03-15 21:12] LABS: Lactate/Lactic Acid 1.9 mmol/L (0.4-2.0)
[2024-03-15] MEDS: HYDROMORPHONE HCL 0.5 MG/0.5 ML SYRINGE IV (21:30)
[2024-03-15] MEDS: HEPARIN SODIUM,PORCINE/D5W 25,000 UNIT/500 ML IV.SOLN 18.6159999999999997 UNIT IV (21:35)
[2024-03-16] VITALS (117 sets, daily range): BP systolic 95–183; BP diastolic 53–103; PULSE 82–130; O2SAT 87–98
[2024-03-16] MEDS: LORAZEPAM 2 MG/ML VIAL 1 MG IV (01:37)
--- NOTE | 2024-03-16 02:02 | PC.NURSE ---
Patient was heard yelling out from the next room over. This RN went into her room to find her lying diagonally in the bed, crying, she states that she is in pain, she didn't know where she was at, she was upset because she could not figure out how to control her bed, she could not remember why she was here, she was anxious. I spent a great deal of time in her room explaining her situation to her, trying to calm her down. She did eventually calm down and was able to ambulate to the bathroom with assistance. She became emotional again, stating she couldn't deal with being in so much pain and didn't think she was going to make it through. She didn't want to put her family through this, she doesn't think her understands how bad she really is or how much pain she is really in. Patient is medicated with Ativan and is able to relax and go to sleep.
[2024-03-16] MEDS: LIDOCAINE 5% PATCH 1 PATCH TOPICAL (03:03)
[2024-03-16] MEDS: ONDANSETRON PF 4 MG/2 ML VIAL IV (03:03)
[2024-03-16] MEDS: FENTANYL CITRATE/PF 100 MCG/2 ML VIAL 50 MCG IV ×3 (03:03→21:40)
[2024-03-16] MEDS: 0.9 % SODIUM CHLORIDE 500 ML IV (03:08)
[2024-03-16] MEDS: PIPERACILLIN SODIUM/TAZOBACTAM 3.375 GM in 0.9 % SODIUM CHLORIDE 50 ML IV ×2 (03:30→16:05)
[2024-03-16 03:50] LABS: PTT Heparin Monitor 39.9 sec (48.2-68.6)
--- NOTE | 2024-03-16 03:53 | PC.NURSE ---
Patient was again heard yelling out from the room next to hers. When I entered her room, patient had removed her gown and all monitoring devices and was holding her abdomen rocking back and forth in her bed. She was crying in pain and also speaking about things that did not make sense. She thought she was at [facility]. After sitting and speaking with her for a short time, she became more oriented, however she would not put a gown back on. She was too hot and uncomfortable. She was asking for Voltaren gel to be rubbed on her back, but I asked Dr. Peter if we could have an order for a Lidocaine patch. One was entered, Lidocaine patch was applied to mid back where she said the greatest amount of pain was. Order for pain medication was given also. Oxygen was applied at 2LPNC after the pain medication was given due to SPo2 dropping to 87%. It came back up to 97% on the 2L. Patient is resting at this time, door to room remains open.
[2024-03-16] MEDS: 0.9 % SODIUM CHLORIDE 1,000 ML 125 ML IV (04:06)
[2024-03-16 05:00] LABS: Hematocrit 42.1 % (36.0-48.0); Hemoglobin 13.9 g/dL (12.0-16.0); Mean Corpuscular Hemoglobin 31.7 pg (26.7-34.0); Mean Corpuscular Volume 95.9 fL (81.0-99.0); Mean Platelet Volume 10.3 fL (9.5-13.5); Platelet Count 237 10^3/uL (150-450); Red Blood Count 4.39 10^6/uL (4.20-5.40); Red Cell Distribution Width 13.4 % (11.0-15.0); White Blood Count 5.3 10^3/uL (4.0-11.0)
[2024-03-16 05:09] LABS: Anion Gap 14.9; BUN Creatinine Ratio 29.5; Calcium 8.7 mg/dL (8.5-10.1); Carbon Dioxide 22.5 mmol/L (21.0-32.0); Chloride 98 mmol/L (98-107); Estimated GFR (African America >60 (>=60); Estimated GFR (Non-African Ame >60 (>=60); Glucose 106 mg/dL (74-106); Potassium 4.4 mmol/L (3.5-5.1); Sodium 131 mmol/L (136-145)
[2024-03-16 05:18] LABS: Lactate/Lactic Acid 1.6 mmol/L (0.4-2.0)
[2024-03-16 05:22] LABS: Atypical Lymphocytes Abs Man 0.31; Band Neutrophils Absolute 0.8 10^3/uL (0.0-0.3); Lymphocytes Absolute Manual 0.26 10^3/uL (1.20-3.80); Monocytes Absolute Manual 0.95 10^3/uL (0.30-0.80); Segmented Neut Absolute Manual 2.96 10^3/uL (1.4-6.5)
--- NOTE | 2024-03-16 05:33 | PC.NURSE ---
Bedside commode taken into patient room to assist with ease of toileting. Patient willing to put gown back on, and up to bedside commode. Once back to bed, she asked about the next time she would be allowed to have pain medication. She rated her pain a 7/10. Dr. Peter notified. Patient is back to bed at this time.
[2024-03-16] MEDS: HYDROMORPHONE HCL 1 MG/ML CARTRIDGE IV ×2 (08:35→13:58)
[2024-03-16] MEDS: PIPERACILLIN SODIUM/TAZOBACTAM 4.5 GM in 0.9 % SODIUM CHLORIDE 50 ML IV (09:35)
--- NOTE | 2024-03-16 15:37 | ECG_ITS ---
[facility] Test Date: 2024-03-16 Pat Name: ALVIN MIX Department: Room: - Gender: Female Director Business Travel: : 1955 Requested By: MIRIAN CASTILLO Order Number: [id number] Reading MD: REILLY HOROWITZ Measurements Intervals [place] Rate: 123 P: 74 PA: 146 QRS: 44 QRSD: 80 T: 65 QT: 310 QTc: 383 Interpretive Statements 1120 Sinus tachycardia 0102 ARTIFACT PRESENT 9140 abnormal rhythm ECG Compared to ECG 03/15/2024 16:21:25 Sinus rhythm no longer present Electronically Signed On 03-17-2024 6:53:00 EDT by REILLY HOROWITZ
[2024-03-16] MEDS: 0.9 % SODIUM CHLORIDE 1,000 ML 200 ML IV (16:05)
[2024-03-16] MEDS: LORAZEPAM 2 MG/ML VIAL 0.5 MG IV (16:06)
[2024-03-16 16:14] LABS: Hematocrit 43.2 % (36.0-48.0); Hemoglobin 14.1 g/dL (12.0-16.0); Mean Corpuscular HGB Conc 32.6 g/dL (29.9-35.2); Mean Corpuscular Hemoglobin 31.2 pg (26.7-34.0); Mean Corpuscular Volume 95.6 fL (81.0-99.0); Mean Platelet Volume 10.5 fL (9.5-13.5); Platelet Count 248 10^3/uL (150-450); Red Blood Count 4.52 10^6/uL (4.20-5.40); Red Cell Distribution Width 13.7 % (11.0-15.0); White Blood Count 9.5 10^3/uL (4.0-11.0)
[2024-03-16 16:35] LABS: Alanine Aminotransferase 58 U/L (14-59); Albumin Level 1.8 g/dL (3.4-5.0); Alkaline Phosphatase 126 U/L (46-116); Anion Gap 18.8; Aspartate Amino Transferase 38 U/L (15-37); BUN Creatinine Ratio 23.8; Bilirubin Total 1.4 mg/dL (0.2-1.0); Calcium 8.9 mg/dL (8.5-10.1); Carbon Dioxide 17.6 mmol/L (21.0-32.0); Chloride 97 mmol/L (98-107); Estimated GFR (African America >60 (>=60); Estimated GFR (Non-African Ame 52 (>=60); Glucose 103 mg/dL (74-106); Potassium 4.4 mmol/L (3.5-5.1); Sodium 129 mmol/L (136-145); Total Protein 5.8 g/dL (6.4-8.2)
[2024-03-16 16:47] LABS: Albumin Globulin Ratio 0.5
[2024-03-16 16:59] LABS: Band Neutrophils Absolute 3.1 10^3/uL (0.0-0.3); Lymphocytes Absolute Manual 0.66 10^3/uL (1.20-3.80); Metamyelocytes Absolute Manual 0.28; Monocytes Absolute Manual 0.85 10^3/uL (0.30-0.80); Segmented Neut Absolute Manual 4.56 10^3/uL (1.4-6.5)
[2024-03-16] MEDS: 0.9 % SODIUM CHLORIDE 1,000 ML 1000 ML IV (17:08)
--- NOTE | 2024-03-16 19:17 | PC.NURSE ---
Patient resting in bed, eyes closed, appears to be sleeping comfortably. at bedside. seems to understand the plan for patient to possibly be transferred to [place] [facility] at this point and no [facility] main [facility], and if that does not work out, she may end up being transferred to [facility]. He is on board with whatever ends up working out.
[2024-03-16] MEDS: METHYLPREDNISOLONE SOD SUCC PF 125 MG/2 ML VIAL IVP (21:40)
--- NOTE | 2024-03-16 22:13 | PC.NURSE ---
patient's is leaving for the evening. I tell him that I will call him if the patient ends up being transferred during my shift. Patient gets up to the bedside commode, needing significant assistance. This causes the patient a great deal of pain, also increased shortness of breath. There is also wheezing noted that was not present when this RN cared for this patient last evening. This finding is passed on to Dr. Gardner. He orders Solumedrol and for the normal saline infusion to be turned down to 150mL/hr. Patient asks for pain medication at this time. She gets back to bed and is medicated for pain with 50mcg Fentanyl.
[2024-03-16 22:59] LABS: PTT Heparin Monitor 113.2 sec (48.2-68.6)
[2024-03-17] VITALS (50 sets, daily range): BP systolic 102–174; BP diastolic 58–107; PULSE 99–131; TEMP 36.1–36.4; O2SAT 3–99; BMI 28.8
[2024-03-17] MEDS: IPRATROPIUM/ALBUTEROL SULFATE 3 ML AMPUL.NEB IH (00:22)
--- NOTE | 2024-03-17 00:40 | PC.NURSE ---
1449- call made to [facility] transfer line to get update on transfer to [place], since at 1730 Dr Buenrostro was told there were beds available and we still have not heard anything. At this time, I am told that there are not beds available at any facility and that they are all boarding patients in their own EDs awaiting admission. There are also patients ahead of this patient at other facilities awaiting transfer, so she will not be getting a bed anytime soon.
--- OUTSIDE RECORDS SUMMARY | 2024-03-17 01:42 | XMS_ITS | CCD ---
Author Organization [facility] Care Team Providers Care Telehealth Case Manager Name Role Phone Mirian Castillo Unavailable Unavailable Unavailable Unavailable DR MIRIAN CASTILLO Primary Care Unavailable DR AMALIA NGUYEN Consulting Unavailable POP BREAUX Attending Unavailable POP BREAUX Admitting Unavailable DO Mirian Castillo Primary Care Provider [phone] DO Mirian Castillo Attending Provider [phone] Mirian Castillo Unavailable Mirian Castillo Primary Care Physician DO Mirian Castillo Primary Care Provider DO Mirian Castillo Attending Provider MD Merissa Santizo Attending Provider [phone] DO Ramsey Kaur Attending Provider [phone] Mirian Castillo DO Primary Care Provider Merissa Santizo Attending Unavailable Mirian Castillo Referring Unavailabl e Merissa Santizo Admitting Unavailable Merissa Santizo Attending Unavailable Merissa Santizo Attending Unavailable Merissa Santizo Attending Unavailable Merissa Santizo Attending Unavailable DO Ramsey Kaur Attending Provider [phone] MD Marco Purcell Referring Provider DO Mirian Castillo Primary Care Provider Mirian Castillo Primary Care Unavailable Ramsey Kaur Attending Unavailable Ramsey Kaur Admitting Unavailable Marco Purcell Referring Unavailable VALARIE MONTERROSO Attending Unavailable RAMSEY KAUR H Attending Unavailable Mirian Castillo DO Primary Care Provider MIRIAN CASTILLO Primary Care Unavailable JEANNE AWAD Attending Unavailable JEANNE AWAD Admitting Unavailable Mirian Castillo DO Primary Care Provider [phone] MIRIAN CASTILLO Primary Care Unavailable MARCO PURCELL Attending Unavailable MIRIAN CASTILLO Primary Care Unavailable MARCO PURCELL Referring Unavailable MIRIAN CASTILLO Primary Care Unavailable MARCO PURCELL Referring Unavailable FLORIN CASILLAS Attending Unavailable MIRIAN CASTILLO Primary Care Unavailable MARCO PURCELL Referring Unavailable MIRIAN CASTILLO Primary Care Unavailable MARCO PURCELL Referring Unavailable MIRIAN CASTILLO Primary Care Unavailable MARCO PURCELL Referring Unavailable MIRIAN CASTILLO Primary Care Unavailable MIRIAN CASTILLO Primary Care Unavailable MARCO PURCELL Attending Unavailable MIRIAN CASTILLO Primary Care Unavailable ABBEY MCKEON Attending Unavailable MIRIAN CASTILLO Primary Care Unavailable MIRIAN CASTILLO Primary Care Unavailable MARCO PURCELL Referring Unavailable MARCO PURCELL Attending Unavailable MARCO PURCELL Referring Unavailable MIRIAN CASTILLO Primary Care Unavailable MARCO PURCELL Attending Unavailable MIRIAN CASTILLO Primary Care Unavailable MARCO PURCELL Referring Unavailable MARCO PURCELL Attending Unavailable MIRIAN CASTILLO Primary Care Unavailable MIRIAN CASTILLO Primary Care Unavailable MAX KAY Referring Unavailable MIRIAN CASTILLO Primary Care Unavailable MARCO PURCELL Referring Unavailable MIRIAN CASTILLO Primary Care Unavailable Allergies Allergy Classification Reported Allergen(s) Allergy Type Date of Onset Reaction(s) Facility (6 sources) Loratadine; Translations: [loratadine] [facility] [address] [facility] ([facility] Pseudoephedrine ; Translations: [pseudoephedrin e] Drug Allergy 9 Agitated [facility] (3 sources) Cephalexin Drug Allergy rash [facility] Other (18 sources) Loratadine / Pseudoephedrine ; Translations: [LORATADINE-PSE UDOEPHEDRINE] Drug Allergy 9 Other: See Comments [facility] (3 sources) Cephalexin; Translations: [CEPHALEXIN] Drug Allergy 2 [facility] (9 sources) Cephalexin Drug Allergy [address] [facility] Medications Current Medications Medication Drug Class(es) Dates Sig (Normalized) Sig (Original) acetaminophen 325 mg / HYDROcodone bitartrate 5 mg oral tablet (5 sources) Opioid Agonist Start: 09-15-2019 take 1 tablet by mouth every four to six hours Hydrocodone-Aceta minophen ([place]) 5-325 mg tablet Active 1 - 2 TAB PO EVERY 4-6 HOURS 20 September 15, 2019 acetaminophen 325 mg / oxyCODONE hydrochloride 5 mg oral tablet (5 sources) Opioid Agonist Start: 08-22-2019 take 1 tablet by mouth every four to six hours Oxycodone-Acetami nophen (Percocet) 5-325 mg tablet Active 1 - 2 TAB PO EVERY 4-6 HOURS 14 August 22, 2019 calcium carbonate 1250 mg oral tablet (3 sources) take 1 tablet by mouth every twelve hours Calcium 500 MG 1 tablet with meals Orally Twice a day for 30 day(s) Active calcium carbonate 1500 mg / cholecalciferol 0.01 mg oral tablet (20 sources) Vitamin D Start: 08-15-2019 take 1 tablet by mouth once daily calcium carbonate 600 mg-cholecalcifero l 400 units 600 mg(1,500mg) -400 unit tab Take 1 tablet by mouth once daily. 0 08/15/2019 Active Start: 08-15-2019 take 1 tablet by nicolasa th three times daily Calcium Carbonate-Vitamin D3 (Calcium 600 + D(3)) 600 mg(1,500mg) -400 unit Tablet Active 1 TAB PO Three times daily August 14, 2019 11:00pm Comment on above: Take 1 tablet by nicolasa th once daily. dexamethasone 4 mg oral tablet (5 sources) Corticosteroid Start: 03-01-20 take 1 tablet by mouth every twelve hours dexAMETHasone (DECADRON) 4 mg tablet Take 1 tablet by mouth every 12 hours. Or as directed 50 tablet 0 03/01/2024 Active Comment on above: Take 1 tablet by nicolasa th every 12 hours. Or as directed fluticasone propionate 0.05 mg/actuat metered dose nasal spray (20 sources) Corticosteroid Start: 03-25-20 take 2 spray(s) nasal route once daily Fluticasone Propionate 50 MCG/ACT 2 sprays each nostril Nasally Once a day for 90 days March, Active Start: 07-12-2019 fluticasone (F LONASE) 50 mcg/actuation nasal spray 1 [place] as needed. 0 07/12/2019 Active Start: 11-14-2018 Fluticasone Pr opionate (Flonase Allergy Relief) 50 mcg/actuation [place],Suspension Active 1 SPRAY INTRANASAL Daily November 14, 2018 12:00am Comment on above: 1 [place] as needed. gluc/chnd/om3/dha/epa/fis h/str ([id number]-[id number]-DHA-EPA-F GRACE-ST ORAL) (8 sources) take 2 tablets by mouth once daily gluc/chnd/om3/dha/epa/fi sh/str (QKEF-LKNQM-EE5-DHA-EPA- FISH-ST ORAL) Take by mouth. 2 tabs daily 0 Active Comment on above: Take by mouth. 2 tab s daily hydroCHLOROthiazide 12.5 mg oral tablet (2 sources) Thiazide Diuretic Start: 2021 take 1 tablet by mouth every twenty-four hours hydroCHLOROthiazide 12.5 MG 1 tablet in the morning Orally Once a day for 90 days Jul, Active ibuprofen 800 mg oral tablet (20 sources) Nonsteroidal Anti-inflammatory Drug Start: 2019 take 1 tablet by mouth every eight hours as needed for pain ibuprofen (MOTRIN) 800 mg tablet TAKE ONE TABLET BY MOUTH EVERY 8 HOUR NEEDED FOR PAIN 50 tablet 0 06/11/2020 Active Start: 08-22-2019 End: 11-02-2022 Ibuprofen Discontinued 600 M G PO EVERY 4-6 HOURS September 14, 2019 11:00pm November 02, 2022 12:07pm do not exceed 4 doses in a 24 hour period Comment on above: TAKE ONE TABLET BY M OUTH EVERY 8 HOUR NEEDED FOR PAIN iv contrast (will be provided with radiology test) (13 sources) Start: 03-07-2024 iv contrast (will be provided with radiology test) MRI Brain Localization Inject, intravenously, once for 1 dose.No IV access, insert saline lock prior to beginning of sedation, infusion, injection of imaging exam.Discontinue saline lock post exam. If Pt. has a central line or IVAD, may access for administration according to line specific nursing protocol.Once exam is complete flush line and de-access according to line specific nursing protocol in the MR contrast administration guidelines link 0 03/07/2024 Active Start: 03-07-2024 inject 1 dose intravenously on ce iv contrast (will be provided with radiology test) MRI Brain Inject, intravenously, once for 1 dose.No IV access, insert saline lock prior to beginning of sedation, infusion, injection of imaging exam.Discontinue saline lock post exam. If Pt. has a central line or IVAD, may access for administration according to line specific nursing protocol.Once exam is complete flush line and de-access according to line specific nursing protocol in the MR contrast administration guidelines link 1 Each 0 03/07/2024 Active Start: 02-29-2024 End: 03-01-2024 inject 1 dose intravenously once iv contrast (will be provided with radiology test) CT Brain W IVCON-No IV access, insert saline lock prior to the sedation, infusion, injection for imaging exam. Discontinue saline lock post exam. If Pt. has a central line or IVAD, may access for administration according to line specific nursing protocol. Once exam is complete flush line and de-access according to line specific nursing protocol in the CT contrast administration guidelines link. 1 Each 0 02/29/2024 03/01/2024 Start: 02-29-2024 End: 03-01-2024 iv contrast (will be provide d with radiology test) CT Chest ABD/PEL-Inject, intravenously, once for 1 dose.No IV access, insert saline lock prior to the beginning of sedation, infusion, injection of imaging exam. Discontinue saline lock post exam. If Pt. has a central line or IVAD, may access for administration according to line specific nursing protocol. Once exam is complete flush line and de-access according to line specific nursing protocol in the CT contrast administration guidelines link. 1 Each 0 02/29/2024 03/01/2024 Start: 02-29-2024 End: 03-01-2024 inject 1 dose intravenously once iv contrast (will be provided with radiology test) CT Brain W IVCON-No IV access, insert saline lock prior to the sedation, infusion, injection for imaging exam. Discontinue saline lock post exam. If Pt. has a central line or IVAD, may access for administration according to line specific nursing protocol. Once exam is complete flush line and de-access according to line specific nursing protocol in the CT contrast administration guidelines link. 1 Each 0 02/29/2024 03/01/2024 Active Start: 02-29-2024 End: 03-01-2024 iv contrast (will be provide d with radiology test) CT Chest ABD/PEL-Inject, intravenously, once for 1 dose.No IV access, insert saline lock prior to the beginning of sedation, infusion, injection of imaging exam. Discontinue saline lock post exam. If Pt. has a central line or IVAD, may access for administration according to line specific nursing protocol. Once exam is complete flush line and de-access according to line specific nursing protocol in the CT contrast administration guidelines link. 1 Each 0 02/29/2024 03/01/2024 Active Start: 02-10-2024 End: 02-11-2024 inject 1 dose intravenously once iv contrast (will be provided with radiology test) MRI Brain Inject, intravenously, once for 1 dose.No IV access, insert saline lock prior to beginning of sedation, infusion, injection of imaging exam.Discontinue saline lock post exam. If Pt. has a central line or IVAD, may access for administration according to line specific nursing protocol.Once exam is complete flush line and de-access according to line specific nursing protocol in the MR contrast administration guidelines link 1 Each 0 02/10/2024 02/11/2024 Start: 02-10-2024 End: 02-11-2024 inject 1 dose intravenously once iv contrast (will be provided with radiology test) MRI Brain Inject, intravenously, once for 1 dose.No IV access, insert saline lock prior to beginning of sedation, infusion, injection of imaging exam.Discontinue saline lock post exam. If Pt. has a central line or IVAD, may access for administration according to line specific nursing protocol.Once exam is complete flush line and de-access according to line specific nursing protocol in the MR contrast administration guidelines link 1 Each 0 02/10/2024 02/11/2024 Active Comment on above: MRI Brain Inject, in travenously, once for 1 dose.No IV access, insert saline lock prior to beginning of sedation, infusion, injection of imaging exam.Discontinue saline lock post exam. If Pt. has a central line or IVAD, may access for administration according to line specific nursing protocol.Once exam is complete flush line and de-access according to line specific nursing protocol in the MR contrast administration guidelines link CT Brain W IVCON-No IV access, insert saline lock prior to the sedation, infusion, injection for imaging exam. Discontinue saline lock post exam. If Pt. has a central line or IVAD, may access for administration according to line specific nursing protocol. Once exam is complete flush line and de-access according to line specific nursing protocol in the CT contrast administration guidelines link. CT Chest ABD/PEL-Inj ect, intravenously, once for 1 dose.No IV access, insert saline lock prior to the beginning of sedation, infusion, injection of imaging exam. Discontinue saline lock post exam. If Pt. has a central line or IVAD, may access for administration according to line specific nursing protocol. Once exam is complete flush line and de-access according to line specific nursing protocol in the CT contrast administration guidelines link. MRI Brain Localizati on Inject, intravenously, once for 1 dose.No IV access, insert saline lock prior to beginning of sedation, infusion, injection of imaging exam.Discontinue saline lock post exam. If Pt. has a central line or IVAD, may access for administration according to line specific nursing protocol.Once exam is complete flush line and de-access according to line specific nursing protocol in the MR contrast administration guidelines link LORazepam 0.5 mg oral tablet (5 sources) Benzodiazepine Start: 4 End: 4 LORazepam (ATIVAN) 0.5 mg Indications: Metastasis to brain (HCC) Take 1 tablet 1 hour prior to PET; may repeat 1 tablet 15 minutes prior to PET, if needed) for up to 4 doses. 4 tablet 0 03/01/2024 03/15/2024 Active Comment on above: Take 1 tablet 1 hour prior to PET; may repeat 1 tablet 15 minutes prior to PET, if needed) for up to 4 doses. 24 hr metoprolol succinate 50 mg extended release oral capsule (20 sources) beta-Adrenergic Alfonso Start: 2 take 50 mg by mouth once daily Metoprolol Succinate Active 50 MG PO Daily November 02, 2022 12:00am Start: 08-19-2022 take 1 tablet by nicolasa once daily in the evening Metoprolol Succinate ER 50 MG 1 tablet Orally once a day in the evening for 90 days Jul, Active Start: 08-27-2021 take 100 mg by mouth once daily, then take 100 mg by mouth in the morning, then take 50 mg by mouth in the evening metoprolol succinate ER (TOPROL XL) 100 mg Take 100 mg by mouth once daily. 100mg in AM, 50mg in PM 0 08/27/2021 Active Comment on above: Take 100 mg by mouth once daily. 100mg in AM, 50mg in PM multivit with minerals/lutein (MULTIVITAMIN 50 PLUS ORAL) (8 sources) take 1 tablet by mouth once daily multivit with minerals/lutein (MULTIVITAMIN 50 PLUS ORAL) Take by mouth. Take one(1) tablet daily. 0 Active Comment on above: Take by mouth. Take one(1) tablet daily. Multivitamin (Multiple Vitamins) Tablet (5 sources) Start: 08-15-2019 take 1 tablet by mouth once daily Multivitamin (Multiple Vitamins) Tablet Active 1 TAB PO Daily August 14, 2019 11:00pm Start: 08-15-2019 take 1 tablet by nicolasa th once daily Multivitamin (Multiple Vitamins) Tablet Active 1 TAB PO Daily August 15, 2019 12:00am Multivitamins (3 sources) Multivitamins as directed Orally Active Osteo Bi-Flex Adv Double St (3 sources) Osteo Bi-Flex Ad v Double St as directed Orally Active tamoxifen 20 mg oral tablet (20 sources) Estrogen Agonist/Antagonis t Start: take 1 tablet by mouth once daily tamoxifen (NOLVADEX) 20 mg tablet TAKE 1 TABLET BY MOUTH ONCE DAILY 90 tablet 3 11/26/2023 Active Start: 10-23-2022 tamoxifen Oral Start Date: 10/23/22 Status: Ordered Start: 01-15-2022 End: 01-29-2023 take 1 tablet by mouth once daily tamoxifen (NOLVADEX) 20 mg tablet Take 1 tablet (20 mg) by mouth once daily. 90 tablet 3 01/29/2023 Active Tamoxifen Citrat e Active take 1 tablet by nicolasa th once daily Tamoxifen Citrate 20 MG Oral Tablet TAKE 1 TABLET DAILY. Quantity: 0 Refills: 0 Ordered: 27-Aug-2021 DO Active Comment on above: Take 1 tablet (20 mg ) by mouth once daily. TAKE 1 TABLET BY NICOLASA TH ONCE DAILY 24 hr venlafaxine 37.5 mg extended release oral capsule (16 sources) Serotonin and Norepinephrine Reuptake Inhibitor Start: 05-30-20 take 1 capsule by mouth once daily venlafaxine ER (EFFEXOR XR) 37.5 mg 24 hr capsule Take 1 capsule by mouth once daily. 90 capsule 3 05/30/2021 Active Comment on above: Take 1 capsule by [facility] once daily. Completed/Discontinued Medications Medication Drug Class(es) Dates Sig (Normalized) Sig (Original) B Complex - (3 sources) Start: 07-23-2021 B Complex - as directed Orally Jul, Not-Taking enteric contrast (will be provided with radiology test) (2 sources) Start: 02-29-2024 End: 03-01-2024 enteric contrast (will be provided with radiology test) For CT CHESTABD/PEL W IVCON Routine order Administer, As Directed One Time Only, via Oral, Rectal, both Oral and Rectal, Enteric Tube, Stoma or Indwelling Catheter, Enteric Contrast as designated per enteric contrast guidelines 1 Each 0 02/29/2024 03/01/2024 Start: 02-29-2024 End: 03-01-2024 enteric contrast (will be pr ovided with radiology test) For CT CHESTABD/PEL W IVCON Routine order Administer, As Directed One Time Only, via Oral, Rectal, both Oral and Rectal, Enteric Tube, Stoma or Indwelling Catheter, Enteric Contrast as designated per enteric contrast guidelines 1 Each 0 02/29/2024 03/01/2024 Active Comment on above: For CT CHESTABD/PEL W IVCON Routine order Administer, As Directed One Time Only, via Oral, Rectal, both Oral and Rectal, Enteric Tube, Stoma or Indwelling Catheter, Enteric Contrast as designated per enteric contrast guidelines irbesartan 300 mg oral tablet (20 sources) Angiotensin 2 Receptor Alfonso Start: 8 End: 4 take 1 tablet by mouth once daily irbesartan (AVAPRO) 300 mg tablet Take 300 mg by mouth once daily. 0 06/19/2019 02/17/2024 Discontinued Comment on above: Take 300 mg by mouth once daily. nystatin [id number] unt/ml topical cream (8 sources) Polyene Antifungal Start: 9 End: 4 nystatin (MYCOSTATIN) cream Apply to affected area as needed. 0 07/21/2019 02/17/2024 Discontinued Comment on above: Apply to affected ar ea as needed. Vitamin B12 1000 MCG (3 sources) Start: 1 take 1 tablet by mouth once daily Vitamin B12 1000 MCG 1 tablet Orally Once a day Jul, Not-Taking Problems Active Problems Problem Classification Problem Date Documented Date Episodic/Chronic Biliary tract disease (4 sources) Gallstone 10-23-2022 Episodic Cancer of breast (20 sources) Malignant tumor of breast ; Translations: [Malignant neoplasm of breast (female), unspecified] Onset: 07-29-2022 Resolved: 07-29-2022 Chronic Cancer of breast (8 sources) History of malignant neoplasm of breast; Translations: [Personal history of malignant neoplasm of breast] Onset: 11-03-2023 07-10-2019 Episodic Cancer of bronchus; lung (8 sources) Malignant tumor of lung; Translations: [Malignant neoplasm of left main bronchus] Onset: 02-29-2024 02-10-2024 Chronic Chronic obstructive pulmonary disease and bronchiectasis (2 sources) Chronic obstructive lung disease; Translations: [Chronic obstructive pulmonary disease, unspecified] 02-29-2024 Chronic Disorders of teeth and jaw (1 source) Dislocation of tooth, initial encounter; Translations: [DISLOCATION TOOTH INITIAL ENCOUNTER] Onset: 07-23-2022 Episodic E Codes: Fall (1 source) Unspecified fall, initial encounter; Translations: [UNSPECIFIED FALL INITIAL ENCOUNTER] Onset: 07-23-2022 Episodic Essential hypertension (20 sources) Benign essential hypertension; Translations: [Benign essential hypertension] Onset: 07-29-2022 Resolved: 07-29-2022 Chronic Genitourinary symptoms and ill-defined conditions (7 sources) Stress incontinence (female) (male); Translations: [Female stress incontinence] Onset: 10-23-2022 Chronic Genitourinary symptoms and ill-defined conditions (7 sources) Hematuria, unspecified; Translations: [Nocturia] Onset: 07-29-2022 Resolved: 07-29-2022 Episodic Menopausal disorders (2 sources) Atrophic vaginitis; Translations: [Postmenopausal atrophic vaginitis] Onset: 12-08-2022 Chronic Neoplasms of unspecified nature or uncertain behavior (1 source) Neoplasm of unspecified behavior of respiratory system; Translations: [Neoplasm of lung] Onset: 03-06-2024 Episodic Nonmalignant breast conditions (5 sources) Mammographic breast mass; Translations: [Unspecified lump in the left breast, unspecified quadrant] 07-10-2019 Episodic Open wounds of head; neck; and trunk (4 sources) Laceration without foreign body of lip, initial encounter; Translations: [LACERATION W/O FB LIP INITIAL ENC] Onset: 07-22-2022 Episodic Osteoarthritis (4 sources) Arthritis 10-23-2022 Chronic Other lower respiratory disease (10 sources) Lung mass; Translations: [Other nonspecific abnormal finding of lung field] Onset: 02-17-2024 02-10-2024 Episodic Other lower respiratory disease (1 source) Other nonspecific abnormal finding of lung field; Translations: [Lung mass] Onset: 02-17-2024 Episodic Other screening for suspected conditions (not mental disorders or infectious disease) (1 source) Abnormal findings on diagnostic imaging of other specified body structures; Translations: [Abnormal chest CT] Onset: 02-10-2024 Chronic Cuca-; endo-; and myocarditis; cardiomyopathy (except that caused by tuberculosis or sexually transmitted disease) (2 sources) Idiopathic hypertrophic subaortic stenosis; 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 Residual codes; unclassified (2 sources) Estrogen receptor positive status [ER+]; Translations: [Malignant neoplasm of upper-outer quadrant of left breast in female, estrogen receptor positive (HCC)] Onset: 11-11-2023 Episodic Screening and history of mental health and substance abuse codes (9 sources) Ex-smoker; Translations: [Personal history of nicotine dependence] Onset: 02-17-2024 02-17-2024 Episodic Secondary malignancies (3 sources) Secondary malignant neoplasm of brain; Translations: [Secondary malignant neoplasm of brain] 02-29-2024 Chronic Secondary malignancies (1 source) Secondary malignant neoplasm of brain; Translations: [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)] Onset: 03-03-2024 Chronic Substance-related disorders (10 sources) Smokes tobacco daily; Translations: [Tobacco use disorder] Onset: 07-23-2022 Chronic Comment on above: 1/2 PPD; Thyroid disorders (4 sources) Hyperthyroidism 10-23-2022 Chronic Unclassified (4 sources) Asymptomatic microscopic hematuria 10-23-2022 Urinary tract infections (4 sources) Cystitis; Translations: [Other cystitis without hematuria] Onset: 11-10-2022 Episodic Past or Other Problems Problem Classification Problem Date Documented Da te Episodic/Chronic Heart valve disorders (1 source) Cardiac murmur, unspecified Onset: 09-07-2022 Resolved: 07-29-2022 Episodic Other aftercare (1 source) Other [facility] (current) drug therapy Onset: 07-29-2022 Resolved: 07-29-2022 Episodic Other nutritional; endocrine; and metabolic disorders (1 source) Abnormal weight loss Onset: 07-29-2022 Resolved: 07-29-2022 Episodic Results Test Name Value Interpretation Reference Range Facility CBC W Auto Differential pane l (Bld)on 03-14-2024 Basophils (Bld) [#/Vol] 0.03 10*3/uL Normal <0.11 [facility] Comment on above: Order Comment: Speci men Type: BLOOD SPECIMENOrdering Facility: [facility] Address: [address] [place] [address] Performed By: #### [id number] 7021-8 ####[facility] LABCLIA [id number] [place] [address] Basophils/100 WBC (Bld) 0.2 % Normal [facility] Comment on above: Order Comment: Speci men Type: BLOOD SPECIMENOrdering Facility: [facility] Address: [address] [place] [address] Performed By: #### [id number] 7021-8 ####[facility] LABCLIA [id number] [place] [address] Differential cell count method Nom (Bld) Auto Normal [facility] Comment on above: Order Comment: Speci men Type: BLOOD SPECIMENOrdering Facility: [facility] Address: [address] [place] [address] Performed By: #### 5 7021-8 ####[facility] LABCLIA [id number] [place] [address] Eosinophils (Bld) [#/Vol] 10*3/uL Normal <0.46 [facility] Comment on above: Order Comment: Speci men Type: BLOOD SPECIMENOrdering Facility: [facility] Address: [address] [place] [address] Performed By: #### 5 7021-8 ####[facility] LABCLIA [id number] [place] [address] Eosinophils/100 WBC (Bld) 0.1 % Normal [facility] Comment on above: Order Comment: Speci men Type: BLOOD SPECIMENOrdering Facility: [facility] Address: [address] [place] [address] Performed By: #### 5 7021-8 ####[facility] LABCLIA [id number] [place] [address] Erythrocyte distribution width (RBC) [Ratio] 13.1 % Normal 11.5-15.0 [facility] Comment on above: Order Comment: Speci men Type: BLOOD SPECIMENOrdering Facility: [facility] Address: [address] [place] [address] Performed By: #### 5 7021-8 ####[facility] LABIA [id number] [place] [address] Hematocrit (Bld) [Volume fraction] 39.1 % Normal 36.0-46.0 [facility] Comment on above: Order Comment: Speci men Type: BLOOD SPECIMENOrdering Facility: [facility] Address: [address] [place] [address] Performed By: #### 5 7021-8 ####[facility] LABCLIA [id number] [place] [address] Hemoglobin (Bld) [Mass/Vol] 13.3 g/dL Normal 11.5-15.5 [facility] Comment on above: Order Comment: Speci men Type: BLOOD SPECIMENOrdering Facility: [facility] Address: [address] [place] [address] Performed By: #### 5 7021-8 ####[facility] LABIA [id number] [place] [address] Immature granulocytes (Bld) [#/Vol] 0.10 10*3/uL High <0.10 [facility] Comment on above: Order Comment: Speci men Type: BLOOD SPECIMENOrdering Facility: [facility] Address: [address] [place] [address] Performed By: #### 5 7021-8 ####[facility] LABCLIA [id number] [place] [address] Immature granulocytes/100 WBC (Bld) 0.7 % Normal [facility] Comment on above: Order Comment: Speci men Type: BLOOD SPECIMENOrdering Facility: [facility] Address: [address] [place] [address] Performed By: #### 5 7021-8 ####[facility] LABCLIA [id number] [place] [address] Lymphocytes (Bld) [#/Vol] 1.07 10*3/uL Normal 1.00-4.00 [facility] Comment on above: Order Comment: Speci men Type: BLOOD SPECIMENOrdering Facility: [facility] Address: [address] [place] [address] Performed By: #### 5 7021-8 ####[facility] LABCLIA [id number] [place] [address] Lymphocytes/100 WBC (Bld) 7.1 % Normal [facility] Comment on above: Order Comment: Speci men Type: BLOOD SPECIMENOrdering Facility: [facility] Address: [address] [place] [address] Performed By: #### 5 7021-8 ####[facility] LABCLIA [id number] [place] [address] MCH (RBC) [Entitic mass] 31.3 pg Normal 26.0-34.0 [facility] Comment on above: Order Comment: Speci men Type: BLOOD SPECIMENOrdering Facility: [facility] Address: [address] [place] [address] Performed By: #### 5 7021-8 ####[facility] LABCLIA [id number] [place] [address] MCHC (RBC) [Mass/Vol] 34.0 g/dL Normal 30.5-36.0 [facility] Comment on above: Order Comment: Speci men Type: BLOOD SPECIMENOrdering Facility: [facility] Address: [address] [place] [address] Performed By: #### 5 7021-8 ####[facility] LABCLIA [id number] [place] [address] MCV (RBC) [Entitic vol] 92.0 fL Normal 80.0-100.0 [facility] Comment on above: Order Comment: Speci men Type: BLOOD SPECIMENOrdering Facility: [facility] Address: [address] [place] [address] Performed By: #### 5 7021-8 ####[facility] LABCLIA [id number] [place] [address] Monocytes (Bld) [#/Vol] 0.65 10*3/uL Normal <0.87 [facility] Comment on above: Order Comment: Speci men Type: BLOOD SPECIMENOrdering Facility: [facility] Address: [address] [place] [address] Performed By: #### 5 7021-8 ####[facility] LABCLIA [id number] [place] [address] Monocytes/100 WBC (Bld) 4.3 % Normal [facility] Comment on above: Order Comment: Speci men Type: BLOOD SPECIMENOrdering Facility: [facility] Address: [address] [place] [address] Performed By: #### 5 7021-8 ####[facility] LABCLIA [id number] [place] [address] Neutrophils (Bld) [#/Vol] 13.15 10*3/uL High 1.45-7.50 [facility] Comment on above: Order Comment: Speci men Type: BLOOD SPECIMENOrdering Facility: [facility] Address: [address] [place] [address] Performed By: #### 5 7021-8 ####[facility] LABCLIA [id number] [place] [address] Neutrophils/100 WBC (Bld) 87.6 % Normal [facility] Comment on above: Order Comment: Speci men Type: BLOOD SPECIMENOrdering Facility: [facility] Address: [address] [place] [address] Performed By: #### 5 7021-8 ####[facility] LABCLIA [id number] [place] [address] Nucleated RBC (Bld) [#/Vol] 10*3/uL Normal <0.01 [facility] Comment on above: Order Comment: Speci men Type: BLOOD SPECIMENOrdering Facility: [facility] Address: [address] [place] [address] Performed By: #### 5 7021-8 ####[facility] LABCLIA [id number] [place] [address] Nucleated RBC/100 WBC (Bld) [Ratio] 0.0 /100 WBC Normal [facility] Comment on above: Order Comment: Speci men Type: BLOOD SPECIMENOrdering Facility: [facility] Address: [address] [place] [address] Performed By: #### 5 7021-8 ####[facility] LABCLIA [id number] [place] [address] Platelet mean volume (Bld) [Entitic vol] 9.8 fL Normal 9.0-12.7 [facility] Comment on above: Order Comment: Speci men Type: BLOOD SPECIMENOrdering Facility: [facility] Address: [address] [place] [address] Performed By: #### 5 7021-8 ####[facility] LABCLIA [id number] [place] [address] Platelets (Bld) [#/Vol] 346 10*3/uL Normal 150-400 [facility] Comment on above: Order Comment: Speci men Type: BLOOD SPECIMENOrdering Facility: [facility] Address: [address] [place] [address] Performed By: #### 5 7021-8 ####[facility] LABIA [id number] [place] [address] RBC (Bld) [#/Vol] 4.25 10*6/uL Normal 3.90-5.20 [facility] Comment on above: Order Comment: Speci men Type: BLOOD SPECIMENOrdering Facility: [facility] Address: [address] [place] [address] Performed By: #### 5 7021-8 ####[facility] LABIA [id number] [place] [address] WBC (Bld) [#/Vol] 15.01 10*3/uL High 3.70-11.00 [facility] Comment on above: Order Comment: Speci men Type: BLOOD SPECIMENOrdering Facility: [facility] Address: [address] [place] [address] Performed By: #### 5 7021-8 ####[facility] LABIA [id number] [place] [address] Basophils (Bld) [#/Vol] 0.03 10*3/uL [facility] Basophils/100 WBC (Bld) 0.2 % [facility] Differential cell count method Nom (Bld) Auto [facility] Eosinophils (Bld) [#/Vol] [facility] Eosinophils/100 WBC (Bld) 0.1 % [facility] Erythrocyte distribution width (RBC) [Ratio] 13.1 % 11.5 - 15.0 % [facility] Hematocrit (Bld) [Volume fraction] 39.1 % 36.0 - 46.0 % [facility] Hemoglobin (Bld) [Mass/Vol] 13.3 g/dL 11.5 - 15.5 g/dL [facility] Immature granulocytes (Bld) [#/Vol] 0.10 10*3/uL High [facility] Immature granulocytes/100 WBC (Bld) 0.7 % [facility] Interpretation and review of laboratory results Abnormal [facility] Lymphocytes (Bld) [#/Vol] 1.07 10*3/uL [facility] Lymphocytes/100 WBC (Bld) 7.1 % [facility] MCH (RBC) [Entitic mass] 31.3 pg 26.0 - 34.[address] [facility] MCHC (RBC) [Mass/Vol] 34.0 g/dL 30.5 - 36.0 g/dL [facility] MCV (RBC) [Entitic vol] 92.0 fL 80.0 - 100.[address] [facility] Monocytes (Bld) [#/Vol] 0.65 10*3/uL [facility] Monocytes/100 WBC (Bld) 4.3 % [facility] Neutrophils (Bld) [#/Vol] 13.15 10*3/uL High [facility] Neutrophils/100 WBC (Bld) 87.6 % [facility] Nucleated RBC (Bld) [#/Vol] [facility] Nucleated RBC/100 WBC (Bld) [Ratio] 0.0 % /[address] [facility] Platelet mean volume (Bld) [Entitic vol] 9.8 fL 9.0 - 12.[address] [facility] Platelets (Bld) [#/Vol] 346 10*3/uL [facility] RBC (Bld) [#/Vol] 4.25 10*6/uL 3.90 - 5.2 0 m/uL [facility] WBC (Bld) [#/Vol] 15.01 10*3/uL High [facility] CNOVSPon 03-14-2024 CNOVSP Visit (SP) Office (HEMCELENA) KARIN MIX ([id number]) 1955 F Date Time Provider Department 03/14/24 8:15 AM MARCO PURCELL During your visit today, we recorded the following information about you: Temperature Pulse Respiration Blood pressure 97.8 degrees 60/minute 16/minute 198/81 Weight Height 52.4 kg 1.485 m Marco Purcell MD 03/15/2024 6:00 AM Signed PATIENT NAME: Karin Mix DATE: 03/14/2024 PRIMARY CARE PHYSICIAN: Dr. Tariq Paul OTHER PHYSICIANS: Dr. Kaur, Dr. Peres, Dr. Jack Rees Portions of this encounter note have been copied from the note from 02/29/2024 and has been updated where appropriate, and reflect my current medical decision making from today. CC: This is a 68 year old female with recently diagnosed metastatic lung cancer, seen for scheduled follow-up. INTERIM HISTORY: Since the patient's last visit here she underwent a brain CT, which unfortunately revealed evidence of brain metastases. She was started on steroids (Decadron 4 mg twice daily) and was referred to [facility] to evaluate for gamma knife. Further staging with a PET scan revealed locally advanced disease in her left lung, as well as evidence of metastases to the left adrenal gland and mesenteric lymph nodes. She has ongoing anxiety which has been a long-term problem. Her breathing actually has improved since she stopped smoking. She remains on tamoxifen for breast cancer. She has noticed no changes in her breasts. MEDICATIONS: iv contrast (will be provided with radiology test) MRI Brain Localization Inject, intravenously, once for 1 dose.No IV access, insert saline lock prior to beginning of sedation, infusion, injection of imaging exam.Discontinue saline lock post exam. If Pt. has a central line or IVAD, may access for administration according to line specific nursing protocol.Once exam is complete flush line and de-access according to line specific nursing protocol in the MR contrast administration guidelines link iv contrast (will be provided with radiology test) MRI Brain Inject, intravenously, once for 1 dose.No IV access, insert saline lock prior to beginning of sedation, infusion, injection of imaging exam.Discontinue saline lock post exam. If Pt. has a central line or IVAD, may access for administration according to line specific nursing protocol.Once exam is complete flush line and de-access according to line specific nursing protocol in the MR contrast administration guidelines link LORazepam (ATIVAN) 0.5 mg Take 1 tablet 1 hour prior to PET; may repeat 1 tablet 15 minutes prior to PET, if needed) for up to 4 doses. dexAMETHasone (DECADRON) 4 mg tablet Take 1 tablet by mouth every 12 hours. Or as directed multivit with minerals/lutein (MULTIVITAMIN 50 PLUS ORAL) Take by mouth. Take one(1) tablet daily. gluc/chnd/om3/dha/epa/f grace/str (SJJQ-UOJJH-PL6-DHA-EPA -FISH-ST ORAL) Take by mouth. 2 tabs daily tamoxifen (NOLVADEX) 20 mg tablet TAKE 1 TABLET BY MOUTH ONCE DAILY metoprolol succinate ER (TOPROL XL) 100 mg Take 100 mg by mouth once daily. 100mg in AM, 50mg in PM venlafaxine ER (EFFEXOR XR) 37.5 mg 24 hr capsule Take 1 capsule by mouth once daily. ibuprofen (MOTRIN) 800 mg tablet TAKE ONE TABLET BY MOUTH EVERY 8 HOUR NEEDED FOR PAIN calcium carbonate 600 mg-cholecalciferol 400 units 600 mg(1,500mg) -400 unit tab Take 1 tablet by mouth once daily. fluticasone (FLONASE) 50 mcg/actuation nasal spray 1 [place] as needed. 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 Positive hot flashes. HEENT: Negative for frequent or significant headaches. No changes in hearing or vision, no nose bleeds or other nasal problems. Respiratory: Negative for cough, wheezing or shortness of breath. Cardiovascular: Negative for chest pain, leg swelling or palpitations. GI: Negative for abdominal discomfort, blood in stools or black stools or change in bowel habits. : No history of dysuria, frequency or incontinence. Musculoskeletal: Negative for joint pain or swelling, back pain and muscle pain. Skin: Negative for lesions, rash and itching. Hematology/Lymphology: Negative for prolonged bleeding, bruising easily or swollen nodes. Neuro: No history of headaches, syncope, paralysis, seizures or tremors. PHYSICAL EXAM: Vitals: BP 198/81 Pulse 60 Temp 36.6 ?C (97.8 ?F) (Temporal) Resp 16 Ht 148.5 cm (4' 10.47 ) Wt 52.4 kg (11 (more content not included)... Normal [facility] Comprehensive metabolic 2000 panelon 03-14-2024 Albumin [Mass/Vol] 3.9 g/dL Normal 3.9-4.9 [facility] Comment on above: Order Comment: Speci men Type: BLOOD SPECIMENOrdering Facility: [facility] Address: [address] [place] [address] Performed By: #### 2 4323-8 ####[facility] LABCLIA [id number] [place] [address] ALP [Catalytic activity/Vol] 64 U/L Normal 34-123 [facility] Comment on above: Order Comment: Speci men Type: BLOOD SPECIMENOrdering Facility: [facility] Address: [address] [place] [address] Performed By: #### 2 4323-8 ####[facility] LABCLIA [id number] [place] [address] ALT [Catalytic activity/Vol] 50 U/L High 7-38 [facility] Comment on above: Order Comment: Speci men Type: BLOOD SPECIMENOrdering Facility: [facility] Address: [address] [place] [address] Performed By: #### 2 4323-8 ####[facility] LABCLIA [id number] [place] [address] Anion gap [Moles/Vol] 12 mmol/L Normal 9-18 [facility] Comment on above: Order Comment: Speci men Type: BLOOD SPECIMENOrdering Facility: [facility] Address: [address] [place] [address] Performed By: #### 2 4323-8 ####[facility] LABCLIA [id number] [place] [address] AST [Catalytic activity/Vol] 27 U/L Normal 13-35 [facility] Comment on above: Order Comment: Speci men Type: BLOOD SPECIMENOrdering Facility: [facility] Address: [address] [place] [address] Performed By: #### 2 4323-8 ####[facility] LABCLIA [id number] [place] [address] Bilirubin [Mass/Vol] 0.3 mg/dL Normal 0.2-1.3 [facility] Comment on above: Order Comment: Speci men Type: BLOOD SPECIMENOrdering Facility: [facility] Address: [address] [place] [address] Performed By: #### 2 4323-8 ####[facility] LABCLIA [id number] [place] [address] Calcium [Mass/Vol] 9.1 mg/dL Normal 8.5-10.2 [facility] Comment on above: Order Comment: Speci men Type: BLOOD SPECIMENOrdering Facility: [facility] Address: [address] [place] [address] Performed By: #### 2 4323-8 ####[facility] LABCLIA [id number] [place] [address] Chloride [Moles/Vol] 99 mmol/L Normal 97-105 [facility] Comment on above: Order Comment: Speci men Type: BLOOD SPECIMENOrdering Facility: [facility] Address: [address] [place] [address] Performed By: #### 2 4323-8 ####[facility] LABCLIA [id number] [place] [address] CO2 [Moles/Vol] 24 mmol/L Normal 22-30 [facility] Comment on above: Order Comment: Speci men Type: BLOOD SPECIMENOrdering Facility: [facility] Address: [address] [place], [place] [address] Performed By: #### 2 4323-8 ####[facility] LABCLIA [id number] [place] [address] Creatinine [Mass/Vol] 0.49 mg/dL Low 0.58-0.96 [facility] Comment on above: Order Comment: Ilene green Type: BLOOD SPECIMENOrdering Facility: [facility] Address: [address] [place] [address] Performed By: #### 2 4323-8 ####[facility] LABCLIA [id number] [place] [address] Creatinine and Glomerular filtration rate.predicted panel (S/P/Bld) 102 mL/min/1.73m??? Normal >=60 [facility] Comment on above: Order Comment: Ilene green Type: BLOOD SPECIMENOrdering Facility: [facility] Address: [address] [place] [address] Result Comment: Radha mated Glomerular Filtration Rate (eGFR) is calculated using the 2020 CKD-EPI creatinine equation. This equation utilizes serum creatinine, sex, and age as parameters. The creatinine assay has traceable calibration to isotope dilution-mass spectrometry. Refer to KDIGO guidelines for clinical interpretation. In patients with unstable renal function, e.g. those with acute kidney injury, the eGFR may not accurately reflect actual GFR. Performed By: #### 2 4323-8 ####[facility] LABCLIA [id number] [place] [address] Glucose [Mass/Vol] 109 mg/dL High 74-99 [facility] Comment on above: Order Comment: Ilene green Type: BLOOD SPECIMENOrdering Facility: [facility] Address: [address] [place], [place] [address] Result Comment: The [place] Diabetes Association (ADA) provides guidance for cutoff values for fasting glucose and random glucose. The ADA defines fasting as no caloric intake for at least 8 hours. Fasting plasma glucose results between 100 to 125 mg/dL indicate increased risk for diabetes (prediabetes). Fasting plasma glucose results greater than or equal to 126 mg/dL meet the criteria for diagnosis of diabetes. In the absence of unequivocal hyperglycemia, results should be confirmed by repeat testing. In a patient with classic symptoms of hyperglycemia or hyperglycemic crisis, random plasma glucose results greater than or equal to 200 mg/dL meet the criteria for diagnosis of diabetes. Reference: Standards of Medical Care in Diabetes 2016, [place] Diabetes Association. Diabetes Care. 2016.39(Suppl 1). Performed By: #### 2 4323-8 ####[facility] LABCLIA [id number] [place] [address] Potassium [Moles/Vol] 4.5 mmol/L Normal 3.7-5.1 [facility] Comment on above: Order Comment: Speci men Type: BLOOD SPECIMENOrdering Facility: [facility] Address: [address] [place] [address] Performed By: #### 2 4323-8 ####[facility] LABCLIA [id number] [place] [address] Protein [Mass/Vol] 6.5 g/dL Normal 6.3-8.0 [facility] Comment on above: Order Comment: Speci men Type: BLOOD SPECIMENOrdering Facility: [facility] Address: [address] [place] [address] Performed By: #### 2 4323-8 ####[facility] LABCLIA [id number] [place] [address] Sodium [Moles/Vol] 135 mmol/L Low 136-144 [facility] Comment on above: Order Comment: Speci men Type: BLOOD SPECIMENOrdering Facility: [facility] Address: [address] [place] [address] Performed By: #### 2 4323-8 ####[facility] LABCLIA [id number] [place] [address] Urea nitrogen [Mass/Vol] 16 mg/dL Normal 7-21 [facility] Comment on above: Order Comment: Speci men Type: BLOOD SPECIMENOrdering Facility: [facility] Address: [address] [place] [address] Performed By: #### 2 4323-8 ####[facility] LABCLIA [id number] [place] [address] Comprehensive metabolic 2000 panelOrdered By: Onel Araya on 03-14-2024 Albumin [Mass/Vol] 3.9 g/dL 3.9 - 4.9 g/dL [facility] ALP [Catalytic activity/Vol] 64 U[facility]L 34 - [facility] [Catalytic activity/Vol] 50 U/L [facility] 7 - 38 [facility] Anion gap [Moles/Vol] 12 mmol/L 9 - 18 mmol/L [facility] AST [Catalytic activity/Vol] 27 U/L 13 - 35 U/L [facility] Bilirubin [Mass/Vol] 0.3 mg/dL 0.2 - 1 .3 mg/dL [facility] Calcium [Mass/Vol] 9.1 mg/dL 8.5 - 10. 2 mg/dL [facility] Chloride [Moles/Vol] 99 mmol/L 97 - 10 5 mmol/L [facility] CO2 [Moles/Vol] 24 mmol/L 22 - 30 mmol/L [facility] Creatinine [Mass/Vol] 0.49 mg/dL Low 0.58 - 0.96 mg/dL [facility] GFR/1.73 sq M.predicted among non-blacks MDRD (S/P/Bld) [Vol rate/Area] 102 mL/min/{1.73_m2} - PINF [facility] Comment on above: Estimated Glomerular Filtration Rate (eGFR) is calculated using the 2020 CKD-EPI creatinine equation. This equation utilizes serum creatinine, sex, and age as parameters. The creatinine assay has traceable calibration to isotope dilution-mass spectrometry. Refer to KDIGO guidelines for clinical interpretation. In patients with unstable renal function, e.g. those with acute kidney injury, the eGFR may not accurately reflect actual GFR. Glucose [Mass/Vol] 109 mg/dL High 74 - 99 mg/dL [facility] Comment on above: The [place] Diabete s Association (ADA) provides guidance for cutoff values for fasting glucose and random glucose. The ADA defines fasting as no caloric intake for at least 8 hours. Fasting plasma glucose results between 100 to 125 mg/dL indicate increased risk for diabetes (prediabetes). Fasting plasma glucose results greater than or equal to 126 mg/dL meet the criteria for diagnosis of diabetes. In the absence of unequivocal hyperglycemia, results should be confirmed by repeat testing. In a patient with classic symptoms of hyperglycemia or hyperglycemic crisis, random plasma glucose results greater than or equal to 200 mg/dL meet the criteria for diagnosis of diabetes. Reference: Standards of Medical Care in Diabetes 2016, [place] Diabetes Association. Diabetes Care. 2016.39(Suppl 1). Interpretation and review of laboratory results Abnormal [facility] Potassium [Moles/Vol] 4.5 mmol/L 3.7 - 5.1 mmol/L [facility] Protein [Mass/Vol] 6.5 g/dL 6.3 - 8.0 g/dL [facility] Sodium [Moles/Vol] 135 mmol/L Low 136 - 144 mmol/L [facility] Urea nitrogen [Mass/Vol] 16 mg/dL 7 - 21 mg/dL [facility] CNPNon 03-09-2024 CNPN Telephone (HEMASA) KARIN MIX ([id number]) 1955 F Date Time Provider Department 03/09/24 JULIANE CHANDLER During your visit today, we recorded the following information about you: Juliane Chandler RN 03/09/2024 2:32 PM Signed Pt requesting her PET results. Please review and advise. Thanks! FLOR Olmstead Rebecca, RN 03/09/2024 2:59 PM Signed Results reviewed w/ Dr Purcell. instructs to inform the pt that the scans show disease in the lung and lymph nodes which we knew about. There appears to be disease in the left adrenal gland and surrounding lymph nodes. Per Dr Purcell, this is a common site of mets in lung cancer. On a positive note, there was no disease found in the bones or liver. Will review scans is greater detail at next week's visit. Pt notified and verbalizes understanding. States that they've had plans come up and asks if she can move her appointment time to either Wednesday or earlier in the day on Wednesday. Call transferred to ADEEL Yeboah, for scheduling. Juliane Chandler RN Allergies As of Date: 03/09/2024 Noted Allergy Reaction CEPHALEXIN 07/29/2022 2 - Rash LORATADINE-PSEUDOEPHEDR INE 07/21/2019 14 - Other: See Comments Comments: keeps me up all night Date Reviewed: 02/29/2024 Reviewed by: Sherita Nguyen MA - Fully Assessed Reason for Visit: Care Coordination [3491] Cmt: PET Results Prescriptions as of 03/09/2024 - iv contrast (will be provided with radiology test) MRI Brain Localization Inject, intravenously, once for 1 dose.No IV access, insert saline lock prior to beginning of sedation, infusion, injection of imaging exam.Discontinue saline lock post exam. If Pt. has a central line or IVAD, may access for administration according to line specific nursing protocol.Once exam is complete flush line and de-access according to line specific nursing protocol in the MR contrast administration guidelines link - iv contrast (will be provided with radiology test) MRI Brain Inject, intravenously, once for 1 dose.No IV access, insert saline lock prior to beginning of sedation, infusion, injection of imaging exam.Discontinue saline lock post exam. If Pt. has a central line or IVAD, may access for administration according to line specific nursing protocol.Once exam is complete flush line and de-access according to line specific nursing protocol in the MR contrast administration guidelines link - LORazepam (ATIVAN) 0.5 mg Take 1 tablet 1 hour prior to PET; may repeat 1 tablet 15 minutes prior to PET, if needed) for up to 4 doses. - dexAMETHasone (DECADRON) 4 mg tablet Take 1 tablet by mouth every 12 hours. Or as directed - multivit with minerals/lutein (MULTIVITAMIN 50 PLUS ORAL) Take by mouth. Take one(1) tablet daily. - gluc/chnd/om3/dha/epa/f grace/str ([id number]-DHA-EPA -FISH-ST ORAL) Take by mouth. 2 tabs daily - tamoxifen (NOLVADEX) 20 mg tablet TAKE 1 TABLET BY MOUTH ONCE DAILY - metoprolol succinate ER (TOPROL XL) 100 mg Take 100 mg by mouth once daily. 100mg in AM, 50mg in PM - venlafaxine ER (EFFEXOR XR) 37.5 mg 24 hr capsule Take 1 capsule by mouth once daily. - ibuprofen (MOTRIN) 800 mg tablet TAKE ONE TABLET BY MOUTH EVERY 8 HOUR NEEDED FOR PAIN - calcium carbonate 600 mg-cholecalciferol 400 units 600 mg(1,500mg) -400 unit tab Take 1 tablet by mouth once daily. - fluticasone (FLONASE) 50 mcg/actuation nasal spray 1 [place] as needed. Problem List As Of Date 03/09/2024 Noted Resolved Benign essential hypertension [I10] 10/25/2023 Malignant neoplasm of unspecified site of left *04/26/2023 Lung mass [R91.8] 02/17/2024 Former smoker [Z87.891] 02/17/2024 Encounter Status:Closed by [facility]09[facility] (HEMASA[facility] KARIN MIX ([id number]) 1955 F Date Time Provider Department 03/08/24 JULIANE CHANDLER During your visit today, we recorded the following information about you: Juliane Chandler RN 03/08/2024 11:00 AM Signed Pt taking Dexamethasone 4 mg BID. C/o severe heartburn and indigestion since starting the med. Pt has been taking it w/ food as suggested. Recommended she begin taking OTC Pepcid twice daily while taking the dexamethasone. Do you have any other suggestions? FLOR Olmstead Holly, JEREMIAS.PHYSICIAN OBSTETRICIAN 03/08/2024 12:02 PM Signed Agree with recommendation. Thanks, Vidhya Kamara APRN.Juliane Barahona RN 03/08/2024 12:09 PM Signed Call placed to pt. No answer. No voicemail. Unable to leave a message. FLOR Olmstead Rebecca, RN 03/08/2024 1:25 PM Signed Pt notified and verbalizes understanding. Juliane Chandler RN Allergies As of Date: 03/08/2024 Noted Allergy Reaction CEPHALEXIN 07/29/2022 2 - Rash LORATADINE-PSEUDOEPHEDR INE 07/21/2019 14 - Other: See Comments Comments: keeps me up all night Date Reviewed: 02/29/2024 Reviewed by: Sherita Nguyen MA - Fully Assessed Reason for Visit: Care Coordination [3491] Cmt: Heartburn AND Indigestion Prescriptions as of 03/08/2024 - iv contrast (will be provided with radiology test) MRI Brain Localization Inject, intravenously, once for 1 dose.No IV access, insert saline lock prior to beginning of sedation, infusion, injection of imaging exam.Discontinue saline lock post exam. If Pt. has a central line or IVAD, may access for administration according to line specific nursing protocol.Once exam is complete flush line and de-access according to line specific nursing protocol in the MR contrast administration guidelines link - iv contrast (will be provided with radiology test) MRI Brain Inject, intravenously, once for 1 dose.No IV access, insert saline lock prior to beginning of sedation, infusion, injection of imaging exam.Discontinue saline lock post exam. If Pt. has a central line or IVAD, may access for administration according to line specific nursing protocol.Once exam is complete flush line and de-access according to line specific nursing protocol in the MR contrast administration guidelines link - LORazepam (ATIVAN) 0.5 mg Take 1 tablet 1 hour prior to PET; may repeat 1 tablet 15 minutes prior to PET, if needed) for up to 4 doses. - dexAMETHasone (DECADRON) 4 mg tablet Take 1 tablet by mouth every 12 hours. Or as directed - multivit with minerals/lutein (MULTIVITAMIN 50 PLUS ORAL) Take by mouth. Take one(1) tablet daily. - gluc/chnd/om3/dha/epa/f grace/str (OWHQ-QMLZJ-CC8-DHA-EPA -FISH-ST ORAL) Take by mouth. 2 tabs daily - tamoxifen (NOLVADEX) 20 mg tablet TAKE 1 TABLET BY MOUTH ONCE DAILY - metoprolol succinate ER (TOPROL XL) 100 mg Take 100 mg by mouth once daily. 100mg in AM, 50mg in PM - venlafaxine ER (EFFEXOR XR) 37.5 mg 24 hr capsule Take 1 capsule by mouth once daily. - ibuprofen (MOTRIN) 800 mg tablet TAKE ONE TABLET BY MOUTH EVERY 8 HOUR NEEDED FOR PAIN - calcium carbonate 600 mg-cholecalciferol 400 units 600 mg(1,500mg) -400 unit tab Take 1 tablet by mouth once daily. - fluticasone (FLONASE) 50 mcg/actuation nasal spray 1 [place] as needed. Problem List As Of Date 03/08/2024 Noted Resolved Benign essential hypertension [I10] 10/25/2023 Malignant neoplasm of unspecified site of left *04/26/2023 Lung mass [R91.8] 02/17/2024 Former smoker [Z87.891] 02/17/2024 Encounter Status:Closed by JULIANE CHANDLER on 03/08/24 Normal [facility] PET/CT SKULL-THIGH INITon 03-06-2024 TX PET/CT SKULL-THIGH INIT * * *Final Report* * * DATE OF EXAM: Mar 06 2024 11:25AM NRN [id number] - TX PET/CT SKULL-THIGH INIT / PROCEDURE REASON: Neoplasm of lung * * * * Physician Interpretation * * * * RESULT: EXAMINATION: BODY FDG PET-CT CLINICAL HISTORY: 68 years old Female with Neoplasm of lung . INDICATION: Initial treatment strategy. TECHNIQUE: Radiopharmaceutical was administered IV followed about 60 minutes later by PET imaging from skull base to proximal thighs. Free breathing, low dose CT of the same body region was acquired without IV contrast for attenuation correction and anatomic localization. * CT Dose-Length Product (DLP): 144 mGy*cm * CT Dose Reduction Employed: Yes * Blood glucose (mg/dL): 98 * Radiopharmaceutical Dose: 6.8 mCi * Radiopharmaceutical: V11-Wuvzvchbntcimffzvw (FDG) COMPARISON: No prior PET/CT CORRELATION: CT chest abdomen pelvis 02/29/2024 RESULT: REFERENCES: SUV reference values: * Blood pool (descending aorta) activity: SUVmax 2.1 * Background liver activity: SUVmax 2.7; SUVmean 1.8 Engineering Supervisor (topogram) images: Unremarkable. Notes and limitations: * Standardized uptake values indicate the highest activity concentration (SUVmax) at a given location but can be variable and are not absolute. * Physiologic/non-neoplas tic uptake is common in the brain, extraocular muscles, oral cavity, tonsils, salivary glands, vocal cords, myocardium, liver, GI tract, urinary tract, and bone marrow among others. Certain regions and organ systems can have more intense uptake, which could confound or obscure some pathology. * Unenhanced imaging is limited for the evaluation of some pathology and the acquired CT was not designed to produce or replace diagnostic CT scan quality. * PET-CT is often not sensitive for pulmonary nodules less than 8 mm. HEAD AND NECK: Imaged Head: No abnormal uptake. Neck and Lymph Nodes: No abnormal uptake. Thyroid: No abnormal uptake. CHEST: Lungs and Airways: FDG avid left perihilar lung mass measuring approximately 5.3 x 3.6 cm in largest transaxial metabolic extent with SUV max 15.9. No other FDG avid lung nodules or lesions. Pleura and Pericardium: No abnormal uptake. Cardiovascular: No abnormal uptake. Coronary artery and aortic atherosclerotic calcifications. Mediastinum and Lymph Nodes: Multiple FDG avid mediastinal and right hilar lymphadenopathy including subcarinal 2.7 x 2.3 cm conglomerate with SUV max 17.2, prevascular/AP window 4.6 x 1.4 cm conglomerate with SUV max 15.8. ABDOMEN AND PELVIS: Hepatobiliary: No abnormal uptake. Cholecystectomy. Spleen: No abnormal uptake. Pancreas: No abnormal uptake. Adrenals: FDG avid left adrenal lesion 1.5 x 1.9 cm with SUV max 14.2. Urinary Tract: No abnormal uptake. GI Tract: No abnormal uptake. Peritoneum: Mid to lower abdomen FDG avid lesions including 2.8 x 2.5 cm conglomerate with SUV max 10.2. Vasculature: No abnormal uptake. Retroperitoneum and Lymph Nodes: No abnormal uptake. Pelvis: No abnormal uptake. MUSCULOSKELETAL: Osseous: No abnormal uptake. Soft Tissues: No abnormal uptake. IMPRESSION: HEAD/NECK: * No FDG avid neoplastic process. CHEST: * FDG avid left upper lobe perihilar mass likely primary, with FDG avid enlarged mediastinal and right hilar lymphadenopathy. ABDOMEN/PELVIS: * FDG avid left adrenal lesion and mesenteric lymphadenopathy likely metastatic. MUSCULOSKELETAL: * No FDG avid neoplastic process. Transcribe Date/Time: Mar 08 2024 12:24P Dictated by: BRIGITTE VANESSA MD This examination was interpreted and the report reviewed and electronically signed by: BRIGITTE VANESSA MD on Mar 08 2024 12:41PM EST Thank you for allowing us to participate in the care of your patient. Should there be any questions regarding this interpretation, please call [phone]. If you are unable to reach us at the number above, please feel free to contact [facility] eRadiology at [phone]. [id number] Normal [facility] CNPNon 03-01-2024 CNPN Telephone (HEMASA) KARIN MIX ([id number]) 1955 F Date Time Provider Department 03/01/24 ATILIO BARRAGAN During your visit today, we recorded the following information about you: Atilio Barragan RN 03/01/2024 1:13 PM Addendum BRM called with orders for pt to begin Decadron 4mg (#50)BID for brain met. He discussed the results of CT CAP from yesterday. Pt will need to complete PET, as ordered, for further evaluation of endometrial and adrenal abnormal findings on CT. RX for Ativan 0.5mg (#4) to be sent to complete PET scan. I called and spoke with pt. She is overwhelmed, but agreeable to plan of care; gamma knife, PET, etc. Discussed RX's. She will come today to [employer] spot [facility] and begin the Decadron, as prescribed. Pt is aware she can call at any time to discuss any questions, needs concerns. BRM: please review and sign pended RX's PSS: Please call to schedule pt for PET CHUCHO FLOR Estrada Tiffany 03/01/2024 1:57 PM Signed Patient is scheduled for Wednesday for pet scan Allergies As of Date: 03/01/2024 Noted Allergy Reaction CEPHALEXIN 07/29/2022 2 - Rash LORATADINE-PSEUDOEPHEDR INE 07/21/2019 14 - Other: See Comments Comments: keeps me up all night Date Reviewed: 02/29/2024 Reviewed by: Sherita Nguyen MA - Fully Assessed Reason for Visit: Results [95] Orders [681] Primary Visit Diagnosis:Metastasis to brain (HCC) [C79.31] Order(s):LORazepam (ATIVAN) 0.5 mgTake 1 tablet 1 hour prior to PET; may repeat 1 tablet 15 minutes prior to PET, if needed) for up to 4 doses.Disp: 4 tabletRfl: 0 dexAMETHasone (DECADRON) 4 mg tabletTake 1 tablet by mouth every 12 hours. Or as directedDisp: 50 tabletRfl: 0 Prescriptions as of 03/01/2024 - LORazepam (ATIVAN) 0.5 mg Take 1 tablet 1 hour prior to PET; may repeat 1 tablet 15 minutes prior to PET, if needed) for up to 4 doses. - dexAMETHasone (DECADRON) 4 mg tablet Take 1 tablet by mouth every 12 hours. Or as directed - iv contrast (will be provided with radiology test) CT Brain W IVCON-No IV access, insert saline lock prior to the sedation, infusion, injection for imaging exam. Discontinue saline lock post exam. If Pt. has a central line or IVAD, may access for administration according to line specific nursing protocol. Once exam is complete flush line and de-access according to line specific nursing protocol in the CT contrast administration guidelines link. - iv contrast (will be provided with radiology test) CT Chest ABD/PEL-Inject, intravenously, once for 1 dose.No IV access, insert saline lock prior to the beginning of sedation, infusion, injection of imaging exam. Discontinue saline lock post exam. If Pt. has a central line or IVAD, may access for administration according to line specific nursing protocol. Once exam is complete flush line and de-access according to line specific nursing protocol in the CT contrast administration guidelines link. - enteric contrast (will be provided with radiology test) For CT CHESTABD/PEL W IVCON Routine order Administer, As Directed One Time Only, via Oral, Rectal, both Oral and Rectal, Enteric Tube, Stoma or Indwelling Catheter, Enteric Contrast as designated per enteric contrast guidelines - multivit with minerals/lutein (MULTIVITAMIN 50 PLUS ORAL) Take by mouth. Take one(1) tablet daily. - gluc/chnd/om3/dha/epa/f grace/str ([id number]-TT7-DHA-EPA -FISH-ST ORAL) Take by mouth. 2 tabs daily - tamoxifen (NOLVADEX) 20 mg tablet TAKE 1 TABLET BY MOUTH ONCE DAILY - metoprolol succinate ER (TOPROL XL) 100 mg Take 100 mg by mouth once daily. 100mg in AM, 50mg in PM - venlafaxine ER (EFFEXOR XR) 37.5 mg 24 hr capsule Take 1 capsule by mouth once daily. - ibuprofen (MOTRIN) 800 mg tablet TAKE ONE TABLET BY MOUTH EVERY 8 HOUR NEEDED FOR PAIN - calcium carbonate 600 mg-cholecalciferol 400 units 600 mg(1,500mg) -400 unit tab Take 1 tablet by mouth once daily. - fluticasone (FLONASE) 50 mcg/actuation nasal spray 1 [place] as needed. Problem List As Of Date 03/01/2024 Noted Resolved Benign essential hypertension [I10] 10/25/2023 Malignant neoplasm of unspecified site of left *04/26/2023 Lung mass [R91.8] 02/17/2024 Former smoker [Z87.891] 02/17/2024 Prescriptions ordered this encounter Disp Refills Start End LORAZEPAM 0.5 MG TABLET 4 ta* 0 03/01/2024 03/15/2024 Route: ORAL Sig: Take 1 tablet 1 hour prior to PET; may repeat 1 tablet 15 minutes prior to PET, if needed) for up to 4 doses. DEXAMETHASONE 4 MG TABLET 50 t* 0 03/01/2024 Route: ORAL Sig: Take 1 tablet by mouth every 12 hours. Or as directed Encounter Status:Closed by ATILIO BARRAGAN on 03/01/24 [facility] CNOVSSilvestre 02-29-2024 OVS Visit (SP) Office (FERNANDO) KARIN MIX ([id number]) 1955 F Date Time Provider Department 02/29/24 1:00 PM MARCO PURCELL During your visit today, we recorded the following information about you: Temperature Pulse Respiration Blood pressure 97.6 degrees 81/minute 16/minute 172/70 Weight Height 51.2 kg 1.485 m Marco Purcell MD 02/29/2024 8:19 PM Signed PATIENT NAME: Karin Mix DATE: 02/29/2024 PRIMARY CARE PHYSICIAN: Dr. Tariq Paul OTHER PHYSICIANS: Dr. Kaur, Dr. Peres, Dr. Jack Rees Portions of this encounter note have been copied from the note from 02/10/2024 and has been updated where appropriate, and reflect my current medical decision making from today. CC: This is a 68 year old female with a history of left-sided breast cancer and recently diagnosed lung cancer, seen for scheduled follow-up. INTERIM HISTORY: Since the patient's last visit here she was seen by [facility] pulmonary and underwent bronchoscopy with EBUS biopsy on 02/22/2024. She was found to have no endobronchial lesions. However, bronchoscopic biopsy of the regional lymph nodes revealed adenocarcinoma consistent with pulmonary origin. Further staging was a PET scan was scheduled, but the patient could not complete the scan due to anxiety/claustrophobia. Brain MRI also was scheduled, but the patient canceled the scan for fear of anxiety. Clinically she feels about the same. Chronic shortness of breath with dry cough persist. No hemoptysis. No fevers or other signs of infection. She denies any headaches or other neurological symptoms. She has ongoing anxiety which has been a long-term problem. She remains on tamoxifen for breast cancer. She has noticed no changes in her breasts. MEDICATIONS: multivit with minerals/lutein (MULTIVITAMIN 50 PLUS ORAL) Take by mouth. Take one(1) tablet daily. gluc/chnd/om3/dha/epa/f grace/str (WEYD-YFYPM-TO8-DHA-EPA -FISH-ST ORAL) Take by mouth. 2 tabs daily tamoxifen (NOLVADEX) 20 mg tablet TAKE 1 TABLET BY MOUTH ONCE DAILY metoprolol succinate ER (TOPROL XL) 100 mg Take 100 mg by mouth once daily. 100mg in AM, 50mg in PM venlafaxine ER (EFFEXOR XR) 37.5 mg 24 hr capsule Take 1 capsule by mouth once daily. (Patient not taking: Reported on 02/17/2024) ibuprofen (MOTRIN) 800 mg tablet TAKE ONE TABLET BY MOUTH EVERY 8 HOUR NEEDED FOR PAIN calcium carbonate 600 mg-cholecalciferol 400 units 600 mg(1,500mg) -400 unit tab Take 1 tablet by mouth once daily. fluticasone (FLONASE) 50 mcg/actuation nasal spray 1 [place] as needed. 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 Positive hot flashes. HEENT: Negative for frequent or significant headaches. No changes in hearing or vision, no nose bleeds or other nasal problems. Respiratory: Negative for cough, wheezing or shortness of breath. Cardiovascular: Negative for chest pain, leg swelling or palpitations. GI: Negative for abdominal discomfort, blood in stools or black stools or change in bowel habits. : No history of dysuria, frequency or incontinence. Musculoskeletal: Negative for joint pain or swelling, back pain and muscle pain. Skin: Negative for lesions, rash and itching. Hematology/Lymphology: Negative for prolonged bleeding, bruising easily or swollen nodes. Neuro: No history of headaches, syncope, paralysis, seizures or tremors. PHYSICAL EXAM: Vitals: BP 172/70 Pulse 81 Temp 36.4 ?C (97.6 ?F) (Temporal) Resp 16 Ht 148.5 cm (4' 10.47 ) Wt 51.2 kg (112 lb 14 oz) SpO2 97% BMI 23.22 kg/m? ECOG 1 Exam limited to gross visualization where appropriate due to COVID-19. Gen.: This is an age-appropriate patient in no acute distress. Head: Appears atraumatic with no visible lesions. Eyes: Pupils equally round and reactive to light, extraocular muscles are intact. Neck: Supple. Mouth: Mucous membranes appeared to be moist. Respiratory: Appears to be respiring comfortably. Neurologic: Nonfocal to gross visualization. Alert and oriented ?3. Psychiatric: No evidence of inappropriate anxiety or depression. Skin: Visible areas of skin without rash, lesions, wounds or petechiae. Pulmonary exam: Bilateral wheezing, no rales. PATHOLOGY: 02/22/2024 Bronchoscopic EBUS biopsy lymph node, station 7: Adenocarcinoma, consistent with pulmonary origin PD-L1 analysis: ALK1: NGS analysis: RADIOLOGIC DATA: 02/29/2024 CT brain IMPRESSION: Right orbital frontal pole meta (more content not included)... Normal [facility] CNPNon 02-29-2024 CNPN Telephone (RADTSA) KARIN MIX ([id number]) 1955 F Date Time Provider Department 02/29/24 MARCO PURCELL During your visit today, we recorded the following information about you: Hannah Torres RN 02/29/2024 3:45 PM Signed Pt has solitary brain met per CT. She did not do MRI due to claustrophobia. Dr Peres and Dr Purcell spoke. Pt needs set up for Gamma knife [facility]. They will likely need to sedate her for MRI. PSS- please coordinate with Gamma Knife team. Thank you! BRM- please sign pended Rad Onc Order. FLOR Staples Tiffany 03/01/2024 7:08 AM Signed Sent Email to Gammaknife team Eri Julian 03/01/2024 10:04 AM Signed Called patient to help set up my chart, spoke with roula they are hoping to schedule patient for Wednesday to meet with the doctors,thanks Eri Julian 03/02/2024 8:18 AM Signed Patient is scheduled for Pet on Wednesday and gammaknife tommoorw she is aware of all appointment dates and times. Allergies As of Date: 02/29/2024 Noted Allergy Reaction CEPHALEXIN 07/29/2022 2 - Rash LORATADINE-PSEUDOEPHEDR INE 07/21/2019 14 - Other: See Comments Comments: keeps me up all night Date Reviewed: 02/29/2024 Reviewed by: Sherita Nguyen MA - Fully Assessed Reason for Visit: Future Appointment [256] Primary Visit Diagnosis: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) [C34.90, C79.31] Order(s):RAD/ONC CONSULT [9037] Order #: [id number]: 1 FUTURE Prescriptions as of 03/02/2024 - LORazepam (ATIVAN) 0.5 mg Take 1 tablet 1 hour prior to PET; may repeat 1 tablet 15 minutes prior to PET, if needed) for up to 4 doses. - dexAMETHasone (DECADRON) 4 mg tablet Take 1 tablet by mouth every 12 hours. Or as directed - multivit with minerals/lutein (MULTIVITAMIN 50 PLUS ORAL) Take by mouth. Take one(1) tablet daily. - gluc/chnd/om3/dha/epa/f grace/str (LPIA-OAYHW-RF3-DHA-EPA -FISH-ST ORAL) Take by mouth. 2 tabs daily - tamoxifen (NOLVADEX) 20 mg tablet TAKE 1 TABLET BY MOUTH ONCE DAILY - metoprolol succinate ER (TOPROL XL) 100 mg Take 100 mg by mouth once daily. 100mg in AM, 50mg in PM - venlafaxine ER (EFFEXOR XR) 37.5 mg 24 hr capsule Take 1 capsule by mouth once daily. - ibuprofen (MOTRIN) 800 mg tablet TAKE ONE TABLET BY MOUTH EVERY 8 HOUR NEEDED FOR PAIN - calcium carbonate 600 mg-cholecalciferol 400 units 600 mg(1,500mg) -400 unit tab Take 1 tablet by mouth once daily. - fluticasone (FLONASE) 50 mcg/actuation nasal spray 1 [place] as needed. Problem List As Of Date 02/29/2024 Noted Resolved Benign essential hypertension [I10] 10/25/2023 Malignant neoplasm of unspecified site of left *04/26/2023 Lung mass [R91.8] 02/17/2024 Former smoker [Z87.891] 02/17/2024 Encounter Status:Closed by ATILIO BARRAGAN on 03/02/[address] [facility] [address] ABD/PEL W IVCONon 09-[address] ABD/PEL W IVCON * * *Final Report* * * DATE OF EXAM: Feb 29 2024 3:05PM [facility] 0530 - CT ABD/PEL W IVCON / PROCEDURE REASON: Malignant neoplasm of upper lobe of left lung (HCC) * * * * Physician Interpretation * * * * RESULT: EXAMINATION: CT ABDOMEN AND PELVIS WITH IV CONTRAST CLINICAL HISTORY: Lung cancer follow-up TECHNIQUE: CT of the abdomen and pelvis was performed using standard technique, scanning from just above the dome of the diaphragm to the symphysis pubis. MQ: CTAP_3 Contrast: IV: 105 ml of Omnipaque 300 Oral: 500 ml of Omni 240 10-25ml diluted with water CT Radiation dose: Integrated Dose-length product (DLP) for this visit = 1290 mGy*cm. CT Dose Reduction Employed: Automated exposure control (AEC) COMPARISON: CT chest dated 02/07/24. RESULT: Liver: No mass. Biliary: No bile duct dilation. Gallbladder is absent. Spleen: No mass. No splenomegaly. Pancreas: No mass or duct dilation. Main pancreatic duct drain separately from the common duct compatible with pancreatic divisum. Adrenals: Indeterminate 1.7 x 1.2 cm left adrenal nodule. Right adrenal gland is unremarkable. Kidneys: Bilateral renal cysts measuring up to 3-4 cm. No suspicious enhancing renal mass or hydronephrosis. GI tract: No dilation or wall thickening. Sigmoid colon diverticulosis is noted without evidence of diverticulitis. Lymph nodes: Mesenteric lymphadenopathy. For example (short axis measurement): 1.4 cm left mesenteric (3:70) 1.1 cm left mesenteric (3:72) Mesentery/Peritoneum: No ascites or mass. Retroperitoneum: No mass. Vasculature: - Abdominal aorta and iliac arteries: Atherosclerotic calcifications without aneurysm. - Celiac and SMA: Borderline/mild enlargement of the SMA measuring 1.3 x 1.0 cm in diameter, containing mural thrombus. The celiac artery is diminutive. The gastroduodenal artery is replaced to the SMA. - Portal venous system (SMV, splenic vein, portal vein and branches): Patent. - Hepatic veins: Incompletely opacified, likely due to early phase of enhancement. Pelvis: Indeterminate heterogeneous enlargement of the endometrium measuring up to 1.7 cm in thickness (sagittal image 5:45). Urinary bladder is decompressed. Bones/Soft Tissues: No suspicious lytic or blastic osseous lesions. Lower thorax: A chest CT performed will be reported separately. Engineering Supervisor (topogram) images: No additional findings. IMPRESSION: 1. Indeterminate heterogeneous enlargement of the endometrium measuring 1.7 cm in thickness. Differential diagnosis includes second primary neoplasm (such as an endometrial neoplasm) and endometrial hyperplasia. Recommend further workup. 2. Indeterminate 1.7 cm left adrenal nodule. Consider further evaluation via PET scan, adrenal protocol CT/MRI or interval follow-up. 3. Mild mesenteric lymphadenopathy. 4. Sigmoid colon diverticulosis without evidence of diverticulitis. Transcribe Date/Time: Mar 01 2024 11:44A Dictated by: MENDY VELA MD This examination was interpreted and the report reviewed and electronically signed by: MENDY VELA MD on Mar 01 2024 11:59AM EST Thank you for allowing us to participate in the care of your patient. Should there be any questions regarding this interpretation, please call [phone]. If you are unable to reach us at the number above, please feel free to contact [facility] eRadiology at [phone]. [id number] Normal [facility] CT BRAIN W IVCONon 4 CT BRAIN W IVCON * * *Final Report* * * DATE OF EXAM: Feb 29 2024 3:05PM [facility] 0005 - CT BRAIN W IVCON / PROCEDURE REASON: Malignant neoplasm of upper lobe of left lung (HCC) * * * * Physician Interpretation * * * * RESULT: EXAMINATION: CT BRAIN W IVCON CLINICAL HISTORY: Malignant neoplasm of upper lobe of left lung (HCC) TECHNIQUE: Serial axial images with IV contrast were obtained from the vertex to the foramen magnum. MQ: CTBWOW_1 Contrast: 105 mL Omnipaque [address] Radiation dose: Integrated Dose-Length Product (DLP) for this visit = 1290 mGy*cm CT Dose Reduction Employed: Automated exposure control (AEC) COMPARISON: None. RESULT: Localizer images: No significant findings. Post-operative change: None. Acute change: No evidence of an acute intracranial process. Hemorrhage: There is no clear evidence of acute intracranial hemorrhage with the constraints of the contrast enhanced acquisition. ECASS hemorrhagic transformation score: Not Applicable Mass Lesion / Mass Effect: There is a peripheral enhancing lesion in the right orbital frontal pole, measuring up to 1 cm, consistent with intracranial metastasis with adjacent vasogenic edema and local mass effect Chronic change: None apparent. Parenchyma: There is no significant volume loss. The brain parenchyma is otherwise within normal limits for age. Ventricles: The ventricles are within normal limits of size and configuration for age. Paranasal sinuses and skull base: Mild mucosal thickening in the visualized portion of the right maxillary sinus. . The skull base and imaged soft tissues are unremarkable. IMPRESSION: Right orbital frontal pole metastasis with local mass effect. COMMUNICATION: Communicated with MARCO PURCELL on 02/29/2024 3:21 PM via verbal communication. Transcribe Date/Time: Feb 29 2024 3:11P Dictated by: BETHANY SILVER MD This examination was interpreted and the report reviewed and electronically signed by: BETHANY SILVER MD on Feb 29 2024 3:21PM EST Thank you for allowing us to participate in the care of your patient. Should there be any questions regarding this interpretation, please call [phone]. If you are unable to reach us at the number above, please feel free to contact [facility] eRadiology at [phone]. [id number] Normal [facility] CT CHEST W IVCONon 4 CT CHEST W IVCON * * *Final Report* * * DATE OF EXAM: Feb 29 2024 3:05PM [facility] 0539 - CT CHEST W IVCON / PROCEDURE REASON: Malignant neoplasm of upper lobe of left lung (HCC) * * * * Physician Interpretation * * * * RESULT: EXAMINATION: CHEST CT WITH CONTRAST CLINICAL HISTORY: Lung cancer follow-up Technique: Spiral CT acquisition of the chest from the thoracic inlet to the upper abdomen following IV contrast. MQ: CTCW_6 Contrast: 105 mL Omnipaque [address] Radiation dose: Integrated Dose-length product (DLP) for this visit = 1290 mGy*cm CT Dose Reduction Employed: Automated exposure control (AEC) Comparison: 02/07/24 RESULT: Limitations: None. Lines, tubes, and devices: None. Lung parenchyma and airways: Left upper lobe perihilar mass/lymphadenopathy measuring 6.2 x 3.8 cm (3:76), previously 5.8 x 3.3 cm, stable. Opacification of the adjacent left upper lobe bronchi are noted. Patchy opacities and reticular nodular opacities in the left upper lobe may represent a combination of postobstructive pneumonia and lymphangitic carcinomatosis. Subpleural reticular opacities in the left anterior lung field most likely due to post radiation change. Moderately severe emphysematous changes of the lungs. New subtle groundglass opacities in right lower lobe (4:144) most likely infectious/inflammatory in etiology. More conspicuous 3 mm left lower lobe nodular opacity (4:159). Pleural space: No pleural effusion. No pleural thickening. Lower neck, lymph nodes, and mediastinum: The imaged thyroid gland is normal. Thoracic lymphadenopathy. For example (short axis measurement): * 1.8 cm subcarinal (3:96), previously 1.4 cm, increased * 2.3 cm left infrahilar (3:87), previously 2.1 cm, stable Heart, pericardium, and thoracic vessels: The thoracic aorta and main pulmonary artery are normal in caliber. The cardiac chambers are normal in size. Atherosclerotic coronary artery calcifications are noted. No pericardial effusion or thickening. Bones and soft tissues: Status post left mastectomy. No new osseous abnormalities. Upper abdomen: Please refer to the abdomen CT scan report for the abdomen findings. Engineering Supervisor (topogram) images: No additional findings. IMPRESSION: 1. 6.2 x 3.8 cm left upper lobe perihilar masslike opacity, stable since 02/07/24. 2. Persistent opacification of adjacent left upper lobe bronchi. Associated upper lobe reticular nodular opacities and patchy opacities may represent a combination of postobstructive pneumonia and lymphangitic carcinomatosis. 3. Moderate mediastinal and hilar lymphadenopathy, some are stable and some have increased. 4. More conspicuous 3 mm left lower lobe nodular opacity. 4. New subtle right lower lobe groundglass opacity. . Transcribe Date/Time: Mar 01 2024 10:46A Dictated by: MENDY VELA MD This examination was interpreted and the report reviewed and electronically signed by: MENDY VELA MD on Mar 01 2024 11:57AM EST Thank you for allowing us to participate in the care of your patient. Should there be any questions regarding this interpretation, please call [phone]. If you are unable to reach us at the number above, please feel free to contact [facility] eRadiology at [phone]. [id number] Normal [facility] No Panel Informationon 02-[address] [facility] CNPNon 02-24-2024 CNPN Telephone (NCCAP) KARIN MIX ([id number]) 1955 F Date Time Provider Department 02/24/24 MARCO PURCELL NCCAP During your visit today, we recorded the following information about you: Vania Fofana 02/24/2024 12:34 PM Signed Patient on the schedule for PET scan on 02/27. Calling to confirm patient's appointment due to solar eclipse. Per patient, she wants to cancel this PET scan and not reschedule. Per patient, she just doesn't want to go through with it. She will be here as scheduled on Wednesday, 02/28 w/ [facility]. PET scan cancelled. Vania Fofana Allergies As of Date: 02/24/2024 Noted Allergy Reaction CEPHALEXIN 07/29/2022 2 - Rash LORATADINE-PSEUDOEPHEDR INE 07/21/2019 14 - Other: See Comments Comments: keeps me up all night Date Reviewed: 02/22/2024 Reviewed by: Amber Helms, RN - Fully Assessed Reason for Visit: FYI-No Action Needed [265] Cmt: PET scan Prescriptions as of 03/06/2024 - LORazepam (ATIVAN) 0.5 mg Take 1 tablet 1 hour prior to PET; may repeat 1 tablet 15 minutes prior to PET, if needed) for up to 4 doses. - dexAMETHasone (DECADRON) 4 mg tablet Take 1 tablet by mouth every 12 hours. Or as directed - multivit with minerals/lutein (MULTIVITAMIN 50 PLUS ORAL) Take by mouth. Take one(1) tablet daily. - gluc/chnd/om3/dha/epa/f grace/str (RFRP-FFMSK-AD2-DHA-EPA -FISH-ST ORAL) Take by mouth. 2 tabs daily - tamoxifen (NOLVADEX) 20 mg tablet TAKE 1 TABLET BY MOUTH ONCE DAILY - metoprolol succinate ER (TOPROL XL) 100 mg Take 100 mg by mouth once daily. 100mg in AM, 50mg in PM - venlafaxine ER (EFFEXOR XR) 37.5 mg 24 hr capsule Take 1 capsule by mouth once daily. - ibuprofen (MOTRIN) 800 mg tablet TAKE ONE TABLET BY MOUTH EVERY 8 HOUR NEEDED FOR PAIN - calcium carbonate 600 mg-cholecalciferol 400 units 600 mg(1,500mg) -400 unit tab Take 1 tablet by mouth once daily. - fluticasone (FLONASE) 50 mcg/actuation nasal spray 1 [place] as needed. Problem List As Of Date 02/24/2024 Noted Resolved Benign essential hypertension [I10] 10/25/2023 Malignant neoplasm of unspecified site of left *04/26/2023 Lung mass [R91.8] 02/17/2024 Former smoker [Z87.891] 02/17/2024 Encounter Status:Closed by VANIA FOFANA on 03/06/24 [facility] ANES POSTPROC EVALon 024 ANES POSTPROC EVAL HNO ID: [id number] Author: JESSICA GOMEZ MD Service: Anesthesiology Author Type: Anesthesiologist Type: Anesthesia Postprocedure Evaluation Filed: 02/22/2024 11:55 Note Text: POST ANESTHESIA EVALUATION NOTE : 1955 Procedure Summary Date: 02/22/24 Room / Location: GI02 / [facility] Anesthesia Start: 1027 Anesthesia Stop: 1149 Procedure: BRONCHOSCOPY,RIGID/FLEX IBLE W/ FLUORO,W/ENDOBRONCHIAL ULTRASOUND (EBUS) GUIDED TRANSTRACHEAL/ TRANSBRONCHIAL ASPIRATION/BIOPSY,1 OR 2 MEDIASTINAL AND/OR HILAR LYMPH NODE STATIONS/STRUCTURES (Bronchus) Diagnosis: Lung mass (Lung mass [R91.8]) Surgeons: Jeanne Awad MD Responsible Provider: Jessica Gomez MD Anesthesia Type: general ASA Status: 3 Anesthesia Type: general Airway Type: LMA Last Vitals Vitals Value Taken Time BP 129/59 02/22/24 1149 Temp 36.4 ?C (97.5 ?F) 02/22/24 1147 Pulse 83 02/22/24 1155 Resp 20 02/22/24 1155 SpO2 92 % 02/22/24 1155 Vitals shown include unfiled device data. Post Anesthesia Patient Status Patient Evaluation: PACU. PACU/ICU Patient Condition: stable. Neurological Status: aware and responsive. Pulmonary Status: breathing comfortably on room air Airway Control: returned to baseline unsupported. Cardiovascular Status: stable. Pain Management: clinically adequate Postoperative Hydration: acceptable. Intraoperative Events: no significant anesthesia events Post Operative Nausea/Vomiting Status: no significant post operative nausea or vomiting Recommendation: continue current plan of care. Anesthesia Observations No Documentation SIGNATURE: Jessica Gomez MD PATIENT NAME: Karin Mix DATE: February 22, 2024 TIME: 11:55 AM CSN: [id number] [facility] ANES PRE-OPon 02-22-2024 ANES PRE-OP HNO ID: [id number] Author: JESSICA GOMEZ MD Service: Anesthesiology Author Type: Anesthesiologist Type: Anesthesia Preprocedure Evaluation Filed: 02/22/2024 10:12 Note Text: ANESTHESIOLOGY DAY OF SURGERY NOTE : 1955 Procedure Information Date/Time: 02/22/24 1030 Procedure: BRONCHOSCOPY,RIGID/FLEX IBLE W/ FLUORO,W/ENDOBRONCHIAL ULTRASOUND (EBUS) GUIDED TRANSTRACHEAL/ TRANSBRONCHIAL ASPIRATION/BIOPSY,1 OR 2 MEDIASTINAL AND/OR HILAR LYMPH NODE STATIONS/STRUCTURES (Bronchus) Location: [facility] Surgeons: Jeanne Awad MD Estimated body mass index is 22.67 kg/m? as calculated from the following: Height as of 02/17/24: 148.5 cm (4' 10.47 ). Weight as of 02/17/24: 50 kg (110 lb 3.7 oz). Most recent hematocrit and potassium results: Hematocrit 40.6 02/10/2024 Potassium 4.3 02/10/2024 Relevant Problems CARDIO (+) Benign essential hypertension I - PHYSICAL EVALUATION AIRWAY Patient intubated: No. Tracheostomy tube not present Mallampati: II. TM distance: >3 FB. Neck ROM: full ROM without neurological symptoms. Mouth opening: adequate. Short neck: no. Thick neck: no DENTAL Dental findings: teeth intact. Additional exam findings: no II - ANESTHESIA PLAN ASA Score: 3 Anesthetic Plan: general Airway type: LMA The patient is not a current smoker. NPO Status: adequate Beta Alfonso Monitoring Plan Monitoring plan: standard ASA. Post Procedure Analgesic Plan Postoperative analgesic plan: multimodal analgesia. Informed Consent Anesthetic risks, benefits, alternatives, personnel and consent discussed: yes. Patient / Responsible Libertarian agrees to proceed: yes Patient / Surrogate agrees to blood products: Yes Potential Anesthesia issues that may suggest increased risk of complications or contraindication to planned procedure: none. No vitals data found for the desired time range. No current facility-administered medications on file as of 02/22/2024. Outpatient Medications as of 02/22/2024 Medication Sig - tamoxifen (NOLVADEX) 20 mg tablet TAKE 1 TABLET BY MOUTH ONCE DAILY - metoprolol succinate ER (TOPROL XL) 100 mg Take 100 mg by mouth once daily. 100mg in AM, 50mg in PM - ibuprofen (MOTRIN) 800 mg tablet TAKE ONE TABLET BY MOUTH EVERY 8 HOUR NEEDED FOR PAIN - calcium carbonate 600 mg-cholecalciferol 400 units 600 mg(1,500mg) -400 unit tab Take 1 tablet by mouth once daily. - fluticasone (FLONASE) 50 mcg/actuation nasal spray 1 [place] as needed. - venlafaxine ER (EFFEXOR XR) 37.5 mg 24 hr capsule Take 1 capsule by mouth once daily. (Patient not taking: Reported on 02/17/2024) I have interviewed and examined the patient. I have reviewed the medical record and/or the pre-anesthesia evaluation, pertinent labs, and test results. This contains updated information obtained within 48 hours of Surgery/Procedure. SIGNATURE: Jessica Gomez MD PATIENT NAME: Karin Mix DATE: February 22, 2024 TIME: 10:12 AM CSN: [id number] Normal [facility] CYTOLOGY NON-GYNon ADEQUACY INTERPRETATION Normal [facility] Comment on above: Order Comment: Speci men Type: SPECIMEN OBTAINED BY ASPIRATION Ordering Facility: [facility] Address: [address] [place] [address] Result Comment: A: # 1: Limited lymphoid sample #2: Lymphoid sample B: #1: Limited lymphoid sample #2: Lymphoid sample #3: Non-diagnostic C: #1: Rare atypical cells #2-5: Non-diagnostic D: #1: Rare atypical cells #2: Non-diagnostic #3: Positive, non-small cell carcinoma Dr. Bossman South / Chay Shahid Each letter in the above intra-procedural assessment refers to a unique site. The specific site is indicated in the final diagnosis portion of the report. Each number in this assessment references a discrete evaluation episode. Intra-procedural assessment performed at [facility], [address] [place] [address] Performed By: #### T KLAUS DAMIAN #### [facility] CLIA [id number] [address] [place] [address] [place] #### [place] #### [facility] CLIA [id number] [address] [place] [address] [place] CASE REPORT Normal [facility] Comment on above: Order Comment: Speci men Type: SPECIMEN OBTAINED BY ASPIRATION Ordering Facility: [facility] Address: [address] [place] [address] Result Comment: [facility] Cytology Report Case: [id number] Authorizing Provider: Jeanne Awad MD Collected: 02/22/2024 10:28 AM Ordering Location: [facility] Received: 02/22/2024 11:44 AM Endoscopy - ENDO Pathologist: Amalia South MD Specimens: A) - EBUS TRANSBRONCHIAL FINE NEEDLE ASPIRATE, LYMPH NODE, 11RS B) - EBUS TRANSBRONCHIAL FINE NEEDLE ASPIRATE, LYMPH NODE, 4R C) - EBUS TRANSBRONCHIAL FINE NEEDLE ASPIRATE, LYMPH NODE, 4L D) - EBUS TRANSBRONCHIAL FINE NEEDLE ASPIRATE, LYMPH NODE, STATION 7 Performed By: #### T OPCJuly FSHTPA #### [facility] CLIA [id number] [address] [place] [address] [place] #### [place] #### [facility] CLIA [id number] [address] [place] [address] CLINICAL HISTORY Normal [facility] Comment on above: Order Comment: Speci men Type: SPECIMEN OBTAINED BY ASPIRATION Ordering Facility: [facility] Address: [address] [place] [address] Result Comment: Pre- op diagnosis: Lung mass [R91.8] Large left perihilar mass Performed By: #### T OPCY, FSHTPA #### [facility] CLIA [id number] [address] [place] [address] [place] #### [place] #### [facility] CLIA [id number] [address] [place] [address] DIAGNOSIS COMMENT C, D. This case was interpreted in conjunction with the related surgical pathology case [id number] with diagnostic concurrence. The atypical cells seen at NEEL correspond to the adenocarcinoma, which is best seen on both ThinPrep slides. Molecular studies are pending and the results will be reported separately. Normal [facility] Comment on above: Order Comment: Speci men Type: SPECIMEN OBTAINED BY ASPIRATION Ordering Facility: [facility] Address: [address] [place] [address] Performed By: #### T OPCY, FSHTPA #### [facility] CLIA [id number] [address] [place] [address] [place] #### [place] #### [facility] CLIA [id number] [address] [place] [address] FINAL DIAGNOSIS [facility] Comment on above: Order Comment: Speci men Type: SPECIMEN OBTAINED BY ASPIRATION Ordering Facility: [facility] Address: [address] [place] [address] Result Comment: A - EBUS TRANSBRONCHIAL FINE NEEDLE ASPIRATE, LYMPH NODE - 11RS Negative for malignant cells. Benign lymphoid sample. B - EBUS TRANSBRONCHIAL FINE NEEDLE ASPIRATE, LYMPH NODE - 4R Negative for malignant cells. Benign lymphoid sample. C - EBUS TRANSBRONCHIAL FINE NEEDLE ASPIRATE, LYMPH NODE - 4L Positive for malignant cells. Scant malignant cells derived from adenocarcinoma. D - EBUS TRANSBRONCHIAL FINE NEEDLE ASPIRATE, LYMPH NODE - STATION 7 Positive for malignant cells. Adenocarcinoma (see comment). The following cell blocks were associated with this case: A1 Cell Block, Alcohol Fixed B1 Cell Block, Alcohol Fixed C1 Cell Block, Alcohol Fixed D1 Cell Block, Alcohol Fixed Performed By: #### T OPCY, FSHTPA #### [facility] CLIA [id number] [address] [place] [address] [place] #### [place] #### [facility] CLIA [id number] [address] [place] [address] [place] [facility] FIN[facility] PERFORMING [facility] Normal [facility] Comment on above: Order Comment: Speci men Type: SPECIMEN OBTAINED BY ASPIRATION Ordering Facility: [facility] Address: [address] [place] [address] Result Comment: Tech nical component, nuclear powerplant supervisor screening performed at [facility], [id number] [place] [address] CLIA# [id number] Diagnostic interpretation performed at [facility], [address] [place] [address] CLIA# [id number] Insulating Machine Operator: Amalia South M.D. Performed By: #### T OPCY, FSHTPA #### [facility] CLIA [id number] [address] [place] [address] STATES [place] #### [place] #### [facility] CLIA [id number] [address] [place] [address] STATES [facility] GROSS DESCRIPTION Normal [facility] Comment on above: Order Comment: Speci men Type: SPECIMEN OBTAINED BY ASPIRATION Ordering Facility: [facility] Address: [address] [place] [address] Result Comment: A. E BUS TRANSBRONCHIAL FINE NEEDLE ASPIRATE, LYMPH NODE 30 cc clear pink CytoLyt with particles. ThinPrep and Cell Block prepared and 4 smears (2 air dried and 2 fixed). B. EBUS TRANSBRONCHIAL FINE NEEDLE ASPIRATE, LYMPH NODE 30 cc hazy red CytoLyt with particles. ThinPrep and Cell Block prepared and 6 smears (3 air dried and 3 fixed). C. EBUS TRANSBRONCHIAL FINE NEEDLE ASPIRATE, LYMPH NODE 30 cc clear red CytoLyt with particles. ThinPrep and Cell Block prepared and 10 smears (5 air dried and 5 fixed). D. EBUS TRANSBRONCHIAL FINE NEEDLE ASPIRATE, LYMPH NODE 30 cc hazy red CytoLyt with particles. ThinPrep and Cell Block prepared and 6 smears (3 air dried and 3 fixed). Performed By: #### T OPCY, FSHTPA #### [facility] CLIA [id number] [address] [place] [address] [place] #### [place] #### [facility] CLIA [id number] [address] [place] [address] [place] ORDER COMMENT Normal [facility] Comment on above: Order Comment: Speci men Type: SPECIMEN OBTAINED BY ASPIRATION Ordering Facility: [facility] Address: [address] [place] [address] Result Comment: Pre- op diagnosis: Lung mass [R91.8] Performed By: #### T OPCY, FSHTPA #### [facility] CLIA [id number] [address] [place] [address] [place] #### [place] #### [facility] CLIA [id number] [address] [place] [address] [place] FISH FOR ALK (2P23) THINPREP NSCLCon 02-22-2024 FISH FOR ALK (2P23) THINPREP NSCLC Normal [facility] Comment on above: Order Comment: Speci men Type: SPECIMEN OBTAINED BY ASPIRATION Ordering Facility: [facility] Address: [address] [place] [address] Result Comment: FISH FOR ALK (2P23) THINPREP NSCLC Laboratory Accession Number: [id number] Case: [id number] Block: D1 Sample Type: FNA Sample Description: TRANSBRONCHIAL FNA, LYMPH NODE, STATION 7 Received Date: 02/25/2024 Number of nuclei scored: 50 RESULT: Result Reference Range ALK Rearrangement 0% (0-14%) INTERPRETATION: Interphase FISH was negative for a rearrangement involving the ALK gene at 2p23.2. Nomenclature: nuc grace(ALKx3~5)[44/50] METHODOLOGY: The dual color, ALK (2p23.2-2p23.1) Break Apart FISH Probe Kit ([place], [place], [place]), approved for formalin-fixed, paraffin- embedded tissue by the Food and Drug Administration (FDA) for selection of locally advanced or metastatic non-small cell lung cancer patients for treatment with crizotinib, was modified for use with ThinPrep cytopathology slides as a laboratory developed test. Fifty (50) interphase cancer cells were analyzed. The slides were scored manually. REFERENCES: 1) Vanessa EL, Dat Y-J, Kyara CARDOZA, et al. Anaplastic Lymphoma Kinase Inhibition in Dhm-Vemyy-Hqkk Lung Cancer. N Engl J Med 2010;363:1325-5387. 2) Tara NI, Trini PT, González MARIE, et al. Molecular Testing Guideline for the Selection of Lung Cancer Patients for EGFR and ALK Tyrosine Kinase Inhibitors: Guideline from the [employer] [place] [employer] [place] Pathologists, International Association for the Study of Lung Cancer, and Association for Molecular Pathology. J Mol Diagn 2013;15:415-53. 3) NCCN Clinical Practice Guidelines in Oncology: Non-Small Cell Lung Cancer, National Comprehensive Cancer Network, Inc. Available at NCCN.org. 4) Theo SJ, Diana M, Mary S, et al. Unique clinicopathologic features characterize ALK-rearranged lung adenocarcinoma in the western population. Clin Cancer Res 2009;15:2973-8850. LIMITATIONS: This test will not identify all rearrangements in ALK. Rare, cryptic abnormalities may be below the resolution of the assay, or may otherwise be undetected. Specimen size, quality or representativeness can affect the quality of the results. DISCLAIMER: This test was developed and its performance characteristics determined by the [facility]'s Russ Suzette [facility] Pathology and Laboratory Medicine [place] ([facility]). It has not been cleared or approved by the FDA. [facility] is regulated under CLIA as qualified to perform high- complexity testing. This test is used for clinical purposes. It should not be regarded as investigational or for research. Interpretation performed at [facility], [address] [place], [place] [id number]. CLIA Number: [id number] As reviewed by Evelyn Tejada MD Performed By: #### T OPCY, FSHTPA #### [facility] CLIA [id number] [address] [place] #### CYTONON #### [facility] CLIA [id number] NURSING PROGon 02-22-2024 NURSING PROG HNO ID: [id number] Author: AMBER HELMS RN Service: Nursing Author Type: Registered Nurse Type: Nursing Progress Note Filed: 02/22/2024 12:54 Note Text: PATIENT EDUCATION TOPIC: PROCEDURE / SURGERY: Post Procedure Teaching: Symptom Management PATIENT NAME: Karin Mix PATIENT LOCATION: [facility] ENDO POOL/[facility] ENDO POOL READINESS TO LEARN COGNITIVE ABILITY: Alert and oriented MOTIVATION TO LEARN: Interested FAMILY SUPPORT: High - Very involved in pt care INSTRUCTION PROVIDED TO: Patient and family member PATIENT LEARNS BEST BY: Written Instruction - Hand-outs Verbal Instruction FACTORS AFFECTING LEARNING: None PHYSICAL LIMITATIONS AFFECTING LEARNING: None LEARNING RESPONSE PATIENT/FAMILY RESPONSE: Verbalizes understanding of: PAIN MANAGEMENT-Effective strategies to manage pain in addition to pain medication PHYSICAL RESTRICTIONS-Physical restrictions and recommendations after discharge from the hospital WORSENING CONDITION-Signs and symptoms of a worsening condition that warrant a call to the physician METHOD OF INSTRUCTION: Written instruction - handouts Verbal instruction FOLLOW-UP PLAN: Patient instructed to call with any further issues INSTRUCTIONAL AIDS USED: NA SUPPLEMENTAL MATERIAL PROVIDED TO PATIENT: None REFERRAL (RECOMMENDATION): None Electronically Signed By: Amber Helms [facility] NURSING PROG HNO ID: [id number] Author: MIRACLE VILLALTA RN Service: Nursing Author Type: Registered Nurse Type: Nursing Progress Note Filed: 02/22/2024 10:12 Note Text: PATIENT EDUCATION TOPIC: PROCEDURE / SURGERY: Pre Procedure Teaching: EBUS PATIENT NAME: Karin Mix PATIENT LOCATION: [facility] ENDO POOL READINESS TO LEARN COGNITIVE ABILITY: Alert and oriented MOTIVATION TO LEARN: Interested FAMILY SUPPORT: Unable to assess - Family not present INSTRUCTION PROVIDED TO: Patient PATIENT LEARNS BEST BY: Written Instruction - Hand-outs Verbal Instruction FACTORS AFFECTING LEARNING: None PHYSICAL LIMITATIONS AFFECTING LEARNING: None LEARNING RESPONSE DIAGNOSIS: ADULT: EBUS PATIENT/FAMILY RESPONSE: Verbalizes understanding of: PRE-PROCEDURE INSTRUCTIONS-Correct action to take to follow pre-procedure instructions METHOD OF INSTRUCTION: Written instruction - handouts Verbal instruction FOLLOW-UP PLAN: TBD INSTRUCTIONAL AIDS USED: NA SUPPLEMENTAL MATERIAL PROVIDED TO PATIENT: None REFERRAL (RECOMMENDATION): None Electronically Signed By: Miracle Villalta [facility] PD-L1 22C3on 02-22-2024 PD-L1 BY IMMUNOHISTOCHEMISTY [facility] Comment on above: Order Comment: Speci men Type: TISSUE SPECIMEN Ordering Facility: [facility] Address: [address] [place] [address] Result Comment: Immu nohistochemistry for PD-L1 expression Tumor Proportion Score: 1% Block Analyzed: A1 PD-L1 Clone: 22C3 Comment: N/A Method: Immunohistochemistry was performed on formalin fixed paraffin-embedded tissue using the mouse monoclonal antibody 22C3 ([employer]; [place], [place]) followed by ultrasensitive bright field detection (Optiview with amplification [[employer], [place]]). Criteria for interpretation require that tumor cells show membrane staining of any intensity for PD-L1. Laboratory Developed Test (LDT) Disclaimer: Performance characteristics of immunohistochemical, immunofluorescent and chromogenic in-situ hybridization tests have been determined by the performing laboratory within [facility]???s Russ Juárez Pathology and Laboratory Medicine [place] ([facility], [facility], [facility], [facility], [facility], [facility], or [facility]) in a manner consistent with CLIA requirements. One or more of these tests have not been cleared or approved by the FDA. [facility] is regulated under CLIA as qualified to perform high-complexity testing. These tests are used for clinical purposes. They should not be regarded as investigational or for research. Positive and negative controls stain appropriately. Electronically signed out by: Lm Lemos MD Performed By: #### S , [id number] #### [facility] CLIA [id number] [address] [place] [address] [place] [address] [place] SURGICAL PATHOLOGYon 024 ADDENDUM 1: [facility] Comment on above: Order Comment: Speci men Type: TISSUE SPECIMEN Ordering Facility: [facility] Address: [address] [place] [address] Result Comment: PAX8 immunostain was also performed on the biopsy and was negative in tumor cells. Addendum electronically signed by Lm Lemos MD on 02/28/2024 at 10:42 AM Performed By: #### S , [id number] #### [facility] CLIA [id number] [address] [place] [address] [place] CASE REPORT Normal [facility] Comment on above: Order Comment: Specedmundo green Type: TISSUE SPECIMEN Ordering Facility: [facility] Address: [address] [place] [address] Result Comment: Surg [facility] Pathology Report Case: [id number] Authorizing Provider: Jeanne Awad MD Collected: 02/22/2024 11:23 AM Ordering Location: [facility] Received: 02/22/2024 01:43 PM Endoscopy - ENDO Pathologist: Lm Leoms MD Specimen: BRONCHUS BIOPSY, station 7 core biopsy Performed By: #### S , [id number] #### [facility] CLIA [id number] [address] [place] [address] [place] CLINICAL HISTORY Normal [facility] Comment on above: Order Comment: Ilene green Type: TISSUE SPECIMEN Ordering Facility: [facility] Address: [address] [place] [address] Result Comment: Pre- op diagnosis: Lung mass [R91.8] History of DCIS Performed By: #### S , [id number] #### [facility] CLIA [id number] [address] [place] [address] [place] DIAGNOSIS COMMENT Normal [facility] Comment on above: Order Comment: Ilene green Type: TISSUE SPECIMEN Ordering Facility: [facility] Address: [address] [place] [address] Result Comment: By i mmunohistochemistry, tumor cells are weakly positive for TTF-1 and negative for p40, GATA3 and ER. PD-L1 immunostain will be performed on the biopsy. See concurrent cytology specimen [id number]. Laboratory Developed Test (LDT) Disclaimer: Performance characteristics of immunohistochemical, immunofluorescent and chromogenic in-situ hybridization tests have been determined by the performing laboratory within [facility]???s Russ [facility] Pathology and Laboratory Medicine [place] ([facility], [facility], [facility], [facility], [facility], [facility], or [facility]) in a manner consistent with CLIA requirements. One or more of these tests have not been cleared or approved by the FDA. [facility] is regulated under CLIA as qualified to perform high-complexity testing. These tests are used for clinical purposes. They should not be regarded as investigational or for research. Positive and negative controls stain appropriately. Performed By: #### S , [id number] #### [facility] CLIA [id number] [address] [place] [address] [place] FINAL DIAGNOSIS Normal [facility] Comment on above: Order Comment: Speci men Type: TISSUE SPECIMEN Ordering Facility: [facility] Address: [address] [place] [address] Result Comment: Lymp h node, station 7, biopsy: -Adenocarcinoma, consistent with pulmonary origin (see comment). -Lymph tissue present. Performed By: #### S , [id number] #### [facility] CLIA [id number] [address] [place] [address] [place] FINAL PERFORMING LAB Normal [facility] Comment on above: Order Comment: Speci men Type: TISSUE SPECIMEN Ordering Facility: [facility] Address: [address] [place] [address] Result Comment: Diag nostic interpretation performed at [facility], [address] [place] [address] CLIA# [id number] Insulating Machine Operator: Jimmy Carlton M.D. Performed By: #### S , [id number] #### [facility] CLIA [id number] [address] [place] [address] [place] GROSS DESCRIPTION Normal [facility] Comment on above: Order Comment: Speci men Type: TISSUE SPECIMEN Ordering Facility: [facility] Address: [address] [place] [address] Result Comment: A. B CARLOSUS BIOPSY Received in formalin, labeled station 7 core biopsy, are multiple brown, soft and friable cylindrical tissue segments aggregating to 1.5 x 1.0 x 0.1 cm. Totally submitted in one cassette. Gross examination performed at [facility], [address] [place] [address]. MDM 02/22/2024 4:37 PM Performed By: #### S , [id number] #### [facility] CLIA [id number] [address] [place] [address] [place] [address] [place] TARGETED ONCOLOGY PANEL NEXT GENERATION SEQUENCING CYTOLOGYon 02-22-2024 TARGETED ONCOLOGY PANEL NEXT GENERATION SEQUENCING CYTOLOGY Normal [facility] Comment on above: Order Comment: Speci men Type: SPECIMEN OBTAINED BY ASPIRATION Ordering Facility: [facility] Address: [address] [place] [address] Result Comment: [facility] Targeted Oncology Panel Laboratory Accession Number: [id number] Case #: [id number] Part ID: D1 Sample Type: FFPET % Tumor: 30 CASE SUMMARY: 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 Please note that the detected TP53 variant has been previously reported as a pathogenic germline change in individuals with Li-Fraumeni syndrome. This test does not distinguish between variants that are germline versus somatic. These results should be interpreted in the context of the clinical and pathological findings for a final evaluation. *Unless otherwise stated, all assay hotspot regions have been tested (see EVALUATED GENES below) and only positive genes are reported. 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 This alteration, located in the DNA binding domain, has a loss of function effect. This alteration has been reported as a pathogenic germline alteration associated with Li-Fraumeni syndrome (ClinVar [id number]). TP53 encodes for tumor protein p53, a survey rodman factor involved in DNA damage pathway, cell cycle arrest and apoptosis (PMID: 06456856). Germline mutations occur in cancer predisposition syndrome and Li-Fraumeni syndrome (PMID: 04995899). Somatic missense and loss of function mutations are common in every tumor type and some impart resistance to chemotherapy (PMID: 2208646). Variants of uncertain significance detected: None Detected METHODOLOGY: Extracted nucleic acid from the specimen, both DNA and RNA, were subjected to separate targeted amplification reactions, using AmpliSeq custom primers designed by [employer] ([employer], [place], [place]). Hotspots and selected fusions in gene regions listed below were sequenced using [employer] ([place], [place]) 2x150 paired-end cycle chemistry. A customized bioinformatics analytical platform was used for read alignment (Genome Build GRCh37/hg19), variant identification and annotation. Single nucleotide variants (SNVs), insertion, deletion (indels) and copy number gain variants are detected by DNA sequencing. Select fusions and aberrant transcripts (EGFR vIII and MET exon 14 skipping transcripts) are detected by RNA sequencing. Variants are classified according to established guidelines (1). Reported results include variants of strong or potential clinical significance and variants of unclear clinical significance. Benign population polymorphisms are not included in the report. Based on validation, the DNA testing delivered an average of >500x coverage and >99% of targeted regions showed over 100x coverage. A minimum coverage depth of 100 reads is required across the entire region of interest; a list of low coverage areas is included in the report as applicable. The test demonstrated 100% sensitivity and 100% specificity in identifying SNVs, indels and copy number gains. The lower limit of detection of this assay is approximately 5% variant allele fraction (VAF) for SNV/indels and 6 copies or greater for copy number gains. Variants below these thresholds may be reported at the discretion of the molecular pathology professional staff if the technical quality of the sequencing is sufficient at that location and the call is unequivocal. Based on validation, the RNA fusion testing averaged >150,000 total reads. The test demonstrated 93% sensitivity and 100% specificity in gene fusion identification compared to NGS sequencing, and 69% sensitivity and 100% specificity compared to FISH of fusion drivers (unknown fusion partner). Overall sensitivity is 78% and accuracy is 99%. The lower limit of detection is approximately 1% of total sequencing reads. LIMITATIONS: Sequence changes outside the analyzed alterations hotspots, including intronic and noncoding regions, will not be identified by this test. Insertions and deletions larger than 20 and 40 bp, respectively, may not be identified by this test. Negative results from specimens for which the percentage of tumor cells is 10% or less should be interpreted with caution. Although variant allele fraction is provided as a percentage, this is not a quantitative test. RNA fusions involving alternative partners or breakpoints outside of the targeted regions cannot be detected by this test. This test does not distinguish between somatic and inherited variants. Tumor heterogeneity, tumor burden, specimen degradation or other limitations of the technology may affect the sensitivity and limit of detection, either broadly across the regions of interest or for specific regions and may lead to false negative resu (more content not included)... Performed By: #### T OPCY, FSHTPA #### [facility] CLIA [id number] [address] OF [place] #### CYTODALIA #### [facility] CLIA [id number] [place] [address] [facility] KARIN MIX ([id number]) 1955 F Date Time Provider Department 02/18/24 2:00 PM SAMMY NURSE LEENA KING During your visit today, we recorded the following information about you: Jeanine Iyer MA 02/18/2024 2:12 PM Signed EKG performed as ordered. Electronically sent to [facility] main. Placed paper copy in scan folder. 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 Take one(1) tablet daily. - gluc/chnd/om3/dha/epa/f grace/str (NPFY-EQFKF-JX6-DHA-EPA -FISH-ST ORAL) Take by mouth. 2 tabs daily - diazePAM (VALIUM) 5 mg tablet Take 0.5 tablets by mouth as directed for 1 day. Take 2.5 mg(1/2 tablet) 1 hour prior to scan; may repeat 30 mins prior to scan, if needed. Pt must have sales route driver helper when taking - tamoxifen (NOLVADEX) 20 mg tablet TAKE 1 TABLET BY MOUTH ONCE DAILY - metoprolol succinate ER (TOPROL XL) 100 mg Take 100 mg by mouth once daily. 100mg in AM, 50mg in PM - venlafaxine ER (EFFEXOR XR) 37.5 mg 24 hr capsule Take 1 capsule by mouth once daily. - ibuprofen (MOTRIN) 800 mg tablet TAKE ONE TABLET BY MOUTH EVERY 8 HOUR NEEDED FOR PAIN - calcium carbonate 600 mg-cholecalciferol 400 units 600 mg(1,500mg) -400 unit tab Take 1 tablet by mouth once daily. - fluticasone (FLONASE) 50 mcg/actuation nasal spray 1 [place] as needed. Problem List As Of Date 02/18/2024 Noted Resolved Benign essential hypertension [I10] 10/25/2023 Malignant neoplasm of unspecified site of left *04/26/2023 Lung mass [R91.8] 02/17/2024 Former smoker [Z87.891] 02/17/2024 Visit Notes: >> Jeanine Iyer MA Fri Feb 18, 2024 2:06 PM Status: Signed EKG performed as ordered. Electronically sent to [facility] main. Placed paper copy in scan folder. Jeanine Iyer MA Encounter Status:Closed by IYERJEANINE on 02/18/24 [facility] 02-17-2024 SAÚL Telephone (KEIKO) MIXKARIN FAGAN ([id number]) 1955 F Date Time Provider Department 02/17/24 RUBINA HASSAN During your visit today, we recorded the following information about you: Rubina Hassan APRN.SHANIA 02/17/2024 2:10 PM Signed I saw patient for pre anesthesia appointment today. She relays she tried to get PET scan but was unable d/t claustrophobia. Said she never heard back from your office regarding the valium. I told her it was sent over so it must have been a miscommunication. Patient would like a call from office in regard as to how to proceed. Patient is getting a Bronchoscopy 02/21 and is on tamoxifen is it okay for her to continue all the way up until Wednesday? Thank you for reviewing, Rubina Hassan APRN.Marco Wilson MD 02/17/2024 4:23 PM Signed Thanks for the update. There should be no contraindications to taking tamoxifen with her upcoming bronchoscopy. We will call the patient today to reschedule her PET, make sure she has Valium to take before the procedure. Yours, Atilio Shane RN 02/17/2024 4:45 PM Signed Attempted to call and notify pt of Valium ready for molded goods spot picker at our [place] location, as she requested. No answer; no VM. PSS: Pt will need r/s for her PET scan when here tomorrow for EKG at 2pm. Please let her know the prescription for Valium is ready in pharmacy for pickup. FLOR Estrada Courtney 02/18/2024 7:43 AM Signed Patient is scheduled for her PET scan on Wednesday, 02/27 at 12:45pm. The front end specialist will notify her today, 02/17 when she comes in for her EKG of her PET scan date/time. Also, we will let her know her prescription for Valium is ready in the pharmacy. Thanks, Edilia Jacob Allergies As of Date: 02/17/2024 Noted Allergy Reaction CEPHALEXIN 07/29/2022 2 - Rash LORATADINE-PSEUDOEPHEDR INE 07/21/2019 14 - Other: See Comments Comments: keeps me up all night Date Reviewed: 02/17/2024 Reviewed by: Rubina Hassan APRN.PHYSICIAN OBSTETRICIAN - Fully Assessed Reason for Visit: Anesthesia Consult [0152] Prescriptions as of 02/18/2024 - multivit with minerals/lutein (MULTIVITAMIN 50 PLUS ORAL) Take by mouth. Take one(1) tablet daily. - gluc/chnd/om3/dha/epa/f grace/str (AVKO-RHQGN-KZ3-DHA-EPA -FISH-ST ORAL) Take by mouth. 2 tabs daily - tamoxifen (NOLVADEX) 20 mg tablet TAKE 1 TABLET BY MOUTH ONCE DAILY - metoprolol succinate ER (TOPROL XL) 100 mg Take 100 mg by mouth once daily. 100mg in AM, 50mg in PM - venlafaxine ER (EFFEXOR XR) 37.5 mg 24 hr capsule Take 1 capsule by mouth once daily. - ibuprofen (MOTRIN) 800 mg tablet TAKE ONE TABLET BY MOUTH EVERY 8 HOUR NEEDED FOR PAIN - calcium carbonate 600 mg-cholecalciferol 400 units 600 mg(1,500mg) -400 unit tab Take 1 tablet by mouth once daily. - fluticasone (FLONASE) 50 mcg/actuation nasal spray 1 [place] as needed. Problem List As Of Date 02/17/2024 Noted Resolved Benign essential hypertension [I10] 10/25/2023 Malignant neoplasm of unspecified site of left *04/26/2023 Lung mass [R91.8] 02/17/2024 Former smoker [Z87.891] 02/17/2024 Encounter Status:Closed by ATILIO BARRAGAN on 02/18/24 [facility] H[facility] PHYSICAL[facility] HISTORY PHYSICAL HNO ID: [id number] Author: RUBINA HASSAN APRN.SHANIA Service: ? Author Type: Nurse Practitioner Type: H&P Filed: 02/21/2024 09:17 Note Text: HISTORY AND PHYSICAL EXAMINATION SERVICE DATE: 02/17/2024 SERVICE TIME: 1:38 PM PRIMARY CARE PHYSICIAN: Mirian Castillo DO REASON FOR VISIT: Karin Mix is a 68 year old female who is scheduled for BRONCHOSCOPY,RIGID/FLEX IBLE W/ FLUORO,W/ENDOBRONCHIAL ULTRASOUND (EBUS) GUIDED TRANSTRACHEAL/ TRANSBRONCHIAL ASPIRATION/BIOPSY,1 OR 2 MEDIASTINAL AND/OR HILAR LYMPH NODE STATIONS/STRUCTURES at the request of Dr. Max Kay for consultation. My final recommendation will be communicated back to the requesting physician by way of shared medical record or letter. Assessment Patient has the following medical conditions which may affect cuca-operative course: Benign essential hypertension Assessment: Stable on medication Has white coat syndrome Follows with PCP Malignant neoplasm of unspecified site of left female breast (HCC) Assessment: S/p mastectomy 2019 On Tamoxifen Former smoker Assessment: States she quit 02/07/2024 Benign essential hypertension Assessment: Stable on medication Has white coat syndrome Follows with PCP Malignant neoplasm of unspecified site of left female breast (HCC) Assessment: S/p mastectomy 2019 On Tamoxifen Former smoker Assessment: States she quit 02/07/2024 Miller Activity Status Index: METS: Do moderate work around the house, such as vacuuming, sweeping floors, or carrying in groceries (3.50 METs) Climb a flight of stairs or walk up a hill (5.50 METs) DASI Score: 9 Patient denies any chest pain or undue shortness of breath with the above physical activity. STOP-Bang Score: Has or is being treated for high blood pressure Patient over 50 years old Denies snoring loudly Denies feeling tired, fatigued, or sleepy during the daytime Has not been observed to stop breathing or choking/gasping during sleep BMI less than or equal to 35 kg/m2 Does not have a large neck Non-male patient STOP-Bang Score: 2 ANESTHESIA FINDINGS: Intubation History: No history of difficult intubation Significant Anesthesia Considerations: none Airway History: No history of difficult airway I - PHYSICAL EVALUATION AIRWAY Patient intubated: No. Tracheostomy tube not present Mallampati: I. TM distance: >3 FB. Neck ROM: full ROM without neurological symptoms. Mouth opening: adequate. Short neck: no. Thick neck: no Lip Bite Test: I Microretrognathia/Micro nagthia/Recessed Chin: No DENTAL Dental findings: teeth intact. II - ANESTHESIA PLAN Beta Alfonso Monitoring Plan Post Procedure Analgesic Plan Prepared for surgery: This patient is optimally prepared for surgery. Per Dr. Binh walls for patient to continue Tamoxifen- See tele enc. CONSULTS: Patient does not require consults for optimization at this time. The Following Tests/Procedures Have Been Initiated: Labs not indicated per [facility] protocol, EKG not indicated per [facility] protocol Planned Anesthetic: Per anesthesia choice Subjective CHIEF COMPLAINT: Lung Mass HPI: 68 year old year old presents to [facility] for evaluation. Patient found to have lung mass has been recommended for above procedure. She has elected for surgical intervention. PAST MEDICAL HISTORY Diagnosis Date Breast mass, left DCIS (ductal carcinoma in situ) of breast 06/2019 Lump of left breast PAST SURGICAL HISTORY Procedure Laterality Date BREAST BIOPSY Left PAST SURGICAL HISTORY OF Ankle sx with hardware REMOVAL GALLBLADDER TONSILLECTOMY AND ADENOIDECTOMY FAMILY HISTORY Problem Relation Age of Onset Cancer Mother Cervical Cancer Mother Anesthesia Problems No Family History SOCIAL HISTORY: Social History Tobacco Use Smoking status: Former Types: Cigarettes Quit date: 02/07/2024 Years since quittin.0 Passive exposure: Past Smokeless tobacco: Never Vaping Use Vaping Use: Never used Substance Use Topics Alcohol use: Yes Comment: socially Drug use: Never Prior to Admission medications as of 02/17/24 1342 Medication Sig Last Dose Taking multivit with minerals/lutein (MULTIVITAMIN 50 PLUS ORAL) Take by mouth. Take one(1) tablet daily. Taking Yes gluc/chnd/om3/dha/epa/f grace/str (DSBT-OYMPF-NH6-DHA-EPA -FISH-ST ORAL) Take by mouth. 2 tabs daily Taking Yes tamoxifen (NOLVADEX) 20 mg tablet TAKE 1 TABLET BY MOUTH ONCE DAILY Taking Yes metoprolol succinate ER (TOPROL XL) 100 mg Take 100 mg by mouth once daily. 100mg in AM, 50mg in PM Taking Yes calcium carbonate 600 mg-cholecalciferol 400 units 600 mg(1,500mg) -400 unit tab Take 1 tablet by mouth once daily. Taking Yes fluticasone (FLONASE) 50 mcg/actuation nasal spray 1 [place] as needed. Taking Yes diazePAM (VALIUM) 5 mg tablet Take 0.5 tablets by mouth as directed for 1 day. Take 2.5 mg(1/2 tablet) 1 hour prior to scan; may repeat 30 mins prior to scan, if n (more content not included)... Normal [facility] NM PET/CT SKULL-THIGH INITon 02-17-2024 NM PET/CT SKULL-THIGH INIT * * *Final Report* * * DATE OF EXAM: Feb 17 2024 11:39AM LNP 0060 - NM PET/CT SKULL-THIGH INIT / PROCEDURE REASON: Neoplasm of lung * * * * Physician Interpretation * * * * CANCELLED IMAGING EXAM RESULT: Radiation Exposure: Nuclear Medicine Dose: 6.9?mCi?F18 FDG IV Intravenous Contrast Administered: No IV contrast administered Findings: No images were obtained. IMPRESSION: NM PET/CT SKULL-THIGH INIT could not be completed. Reason for cancellation: Patient was not able to tolerate the exam. By time of dictation on 02/18/2024, ordering provider has already been made aware of study cancellation. New PET/CT order is in place. Bander And Cell[employer]er Machine Helper: AYO Transcribe Date/Time: Feb 18 2024 3:23P Dictated by : DAISY HINOJOSA MD This examination was interpreted and the report reviewed and electronically signed by: SADE GRESHAM MD on Feb 18 2024 4:40PM EST [id number] Normal [facility] Abhishek 02-16-2024 SAÚL Telephone (FERNANDO) KARIN MIX ([id number]) 1955 F Date Time Provider Department 02/16/24 ATILIO BARRAGAN During your visit today, we recorded the following information about you: Atilio Barragan RN 02/16/2024 10:16 AM Signed Pt claustrophobic and requesting medication for PET tomorrow. 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 Take 2.5 mg(1/2 tablet) 1 hour prior to scan; may repeat 30 mins prior to scan, if needed. Pt must have sales route driver helper when takingDisp: 1 tabletRfl: 0 Prescriptions as of 02/16/2024 - diazePAM (VALIUM) 5 mg tablet Take 0.5 tablets by mouth as directed for 1 day. Take 2.5 mg(1/2 tablet) 1 hour prior to scan; may repeat 30 mins prior to scan, if needed. Pt must have sales route driver helper when taking - tamoxifen (NOLVADEX) 20 mg tablet TAKE 1 TABLET BY MOUTH ONCE DAILY - metoprolol succinate ER (TOPROL XL) 100 mg Take 100 mg by mouth once daily. 100mg in AM, 50mg in PM - venlafaxine ER (EFFEXOR XR) 37.5 mg 24 hr capsule Take 1 capsule by mouth once daily. - ibuprofen (MOTRIN) 800 mg tablet TAKE ONE TABLET BY MOUTH EVERY 8 HOUR NEEDED FOR PAIN - calcium carbonate 600 mg-cholecalciferol 400 units 600 mg(1,500mg) -400 unit tab Take 1 tablet by mouth once daily. - nystatin (MYCOSTATIN) cream Apply to affected area as needed. - irbesartan (AVAPRO) 300 mg tablet Take 300 mg by mouth once daily. - fluticasone (FLONASE) 50 mcg/actuation nasal spray 1 [place] as needed. Problem List As Of Date: 02/16/2024 (None) Prescriptions ordered this encounter Disp Refills Start End DIAZEPAM 5 MG TABLET 1 ta* 0 02/16/2024 02/17/2024 Route: ORAL Sig: Take 0.5 tablets by mouth as directed for 1 day. Take 2.5 mg(1/2 tablet) 1 hour prior to scan; may repeat 30 mins prior to scan, if needed. Pt must have sales route driver helper when taking Encounter Status:Closed by MARCO PURCELL on 02/16/24 Normal [facility] CA 27.29 BLOODon 02-10-2024 Cancer Ag - Qn 93.0 [arb'U]/mL High <38.6 U/mL [facility] CBC W Auto Differential pane l (Bld)on 02-10-2024 Basophils (Bld) [#/Vol] 0.03 10*3/uL Normal <0.11 [facility] Comment on above: Order Comment: Speci men Type: BLOOD SPECIMEN Ordering Facility: [facility] Address: [address] [place] [address] Performed By: #### 5 7021-8 #### [facility] CLIA [id number] [address] [place] [address] 08686 Basophils/100 WBC (Bld) 0.2 % Normal [facility] Comment on above: Order Comment: Speci men Type: BLOOD SPECIMEN Ordering Facility: [facility] Address: [address] [place] [address] Performed By: #### 5 7021-8 #### [facility] CLIA [id number] [address] [place] [address] 25265 Differential cell count method Nom (Bld) Auto Normal [facility] Comment on above: Order Comment: Speci men Type: BLOOD SPECIMEN Ordering Facility: [facility] Address: [address] [place] [address] Performed By: #### 5 7021-8 #### [facility] CLIA [id number] [address] [place] [address] 13928 Eosinophils (Bld) [#/Vol] 10*3/uL Normal <0.46 [facility] Comment on above: Order Comment: Speci men Type: BLOOD SPECIMEN Ordering Facility: [facility] Address: [address] [place] [address] Performed By: #### 5 7021-8 #### [facility] CLIA [id number] [address] [place] [address] 58524 Eosinophils/100 WBC (Bld) 0.2 % Normal [facility] Comment on above: Order Comment: Speci men Type: BLOOD SPECIMEN Ordering Facility: [facility] Address: [address] [place] [address] Performed By: #### 5 7021-8 #### [facility] CLIA [id number] [address] [place] [address] 32677 Erythrocyte distribution width (RBC) [Ratio] 12.5 % Normal 11.5-15.0 [facility] Comment on above: Order Comment: Speci men Type: BLOOD SPECIMEN Ordering Facility: [facility] Address: [address] [place] [address] Performed By: #### 5 7021-8 #### [facility] CLIA [id number] [address] [place] [address] 04773 Hematocrit (Bld) [Volume fraction] 40.6 % Normal 36.0-46.0 [facility] Comment on above: Order Comment: Speci men Type: BLOOD SPECIMEN Ordering Facility: [facility] Address: [address] [place] [address] Performed By: #### 5 7021-8 #### [facility] CLIA [id number] [address] [place] [address] 46173 Hemoglobin (Bld) [Mass/Vol] 14.0 g/dL Normal 11.5-15.5 [facility] Comment on above: Order Comment: Speci men Type: BLOOD SPECIMEN Ordering Facility: [facility] Address: [address] [place] [address] Performed By: #### 5 7021-8 #### [facility] CLIA [id number] [address] [place] [address] 42857 Immature granulocytes (Bld) [#/Vol] 0.04 10*3/uL Normal <0.10 [facility] Comment on above: Order Comment: Speci men Type: BLOOD SPECIMEN Ordering Facility: [facility] Address: [address] [place] [address] Performed By: #### 5 7021-8 #### [facility] CLIA [id number] [address] [place] [address] Immature granulocytes/100 WBC (Bld) 0.3 % Normal [facility] Comment on above: Order Comment: Speci men Type: BLOOD SPECIMEN Ordering Facility: [facility] Address: [address] [place] [address] Performed By: #### 5 7021-8 #### [facility] CLIA [id number] [address] [place] [address] 26596 Lymphocytes (Bld) [#/Vol] 3.65 10*3/uL Normal 1.00-4.00 [facility] Comment on above: Order Comment: Speci men Type: BLOOD SPECIMEN Ordering Facility: [facility] Address: [address] [place] [address] Performed By: #### 5 7021-8 #### [facility] CLIA [id number] [address] [place] [address] 08997 Lymphocytes/100 WBC (Bld) 27.9 % Normal [facility] Comment on above: Order Comment: Speci men Type: BLOOD SPECIMEN Ordering Facility: [facility] Address: [address] [place] [address] Performed By: #### 5 7021-8 #### [facility] CLIA [id number] [address] [place] [address] 18470 MCH (RBC) [Entitic mass] 31.6 pg Normal 26.0-34.0 [facility] Comment on above: Order Comment: Speci men Type: BLOOD SPECIMEN Ordering Facility: [facility] Address: [address] [place] [address] Performed By: #### 5 7021-8 #### [facility] CLIA [id number] [address] [place] [address] 24615 MCHC (RBC) [Mass/Vol] 34.5 g/dL Normal 30.5-36.0 [facility] Comment on above: Order Comment: Speci men Type: BLOOD SPECIMEN Ordering Facility: [facility] Address: [address] [place], [place] [address] Performed By: #### 5 7021-8 #### [facility] CLIA [id number] [address] [place] [address] 06887 MCV (RBC) [Entitic vol] 91.6 fL Normal 80.0-100.0 [facility] Comment on above: Order Comment: Speci men Type: BLOOD SPECIMEN Ordering Facility: [facility] Address: [address] [place] [address] 95[address] Performed By: #### 5 7021-8 #### [facility] CLIA [id number] [address] [place] [address] 83049 Monocytes (Bld) [#/Vol] 1.08 10*3/uL High <0.87 [facility] Comment on above: Order Comment: Speci men Type: BLOOD SPECIMEN Ordering Facility: [facility] Address: [address] [place] [address] 38741 Performed By: #### 5 7021-8 #### [facility] CLIA [id number] [address] [place] [address] 18867 Monocytes/100 WBC (Bld) 8.2 % Normal [facility] Comment on above: Order Comment: Speci men Type: BLOOD SPECIMEN Ordering Facility: [facility] Address: [address] [place] [address] 64780 Performed By: #### 5 7021-8 #### [facility] CLIA [id number] [address] [place] [address] 37128 Neutrophils (Bld) [#/Vol] 8.28 10*3/uL High 1.45-7.50 [facility] Comment on above: Order Comment: Speci men Type: BLOOD SPECIMEN Ordering Facility: [facility] Address: [address] [place] [address] 27970 Performed By: #### 5 7021-8 #### [facility] CLIA [id number] [address] [place] [address] Neutrophils/100 WBC (Bld) 63.2 % Normal [facility] Comment on above: Order Comment: Speci men Type: BLOOD SPECIMEN Ordering Facility: [facility] Address: [address] [place] [address] Performed By: #### 5 7021-8 #### [facility] CLIA [id number] [address] [place] [address] Nucleated RBC (Bld) [#/Vol] 10*3/uL Normal <0.01 [facility] Comment on above: Order Comment: Speci men Type: BLOOD SPECIMEN Ordering Facility: [facility] Address: [address] [place] [address] Performed By: #### 5 7021-8 #### [facility] CLIA [id number] [address] [place] [address] 94808 Nucleated RBC/100 WBC (Bld) [Ratio] 0.0 /100 WBC Normal [facility] Comment on above: Order Comment: Speci men Type: BLOOD SPECIMEN Ordering Facility: [facility] Address: [address] [place] [address] Performed By: #### 5 7021-8 #### [facility] CLIA [id number] [address] [place] [address] 55344 Platelet mean volume (Bld) [Entitic vol] 9.1 fL Normal 9.0-12.7 [facility] Comment on above: Order Comment: Speci men Type: BLOOD SPECIMEN Ordering Facility: [facility] Address: [address] [place] [address] Performed By: #### 5 7021-8 #### [facility] CLIA [id number] [address] [place] [address] 55743 Platelets (Bld) [#/Vol] 353 10*3/uL Normal 150-400 [facility] Comment on above: Order Comment: Speci men Type: BLOOD SPECIMEN Ordering Facility: [facility] Address: [address] [place], [place] [address] Performed By: #### 5 7021-8 #### [facility] CLIA [id number] [address] [place] [address] 31722 RBC (Bld) [#/Vol] 4.43 10*6/uL Normal 3.90-5.20 [facility] Comment on above: Order Comment: Speci men Type: BLOOD SPECIMEN Ordering Facility: [facility] Address: [address] [place], [place] [address] Performed By: #### 5 7021-8 #### [facility] CLIA [id number] [address] [place] [address] 02370 WBC (Bld) [#/Vol] 13.10 10*3/uL High 3.70-11.00 [facility] Comment on above: Order Comment: Speci men Type: BLOOD SPECIMEN Ordering Facility: [facility] Address: [address] [place], [place] [address] Performed By: #### 5 7021-8 #### [facility] CLIA [id number] [address] [place] [address] 02024 Basophils (Bld) [#/Vol] 0.03 10*3/uL <0.11 k/uL [facility] Basophils/100 WBC (Bld) 0.2 % [facility] Differential cell count method Nom (Bld) Auto [facility] Eosinophils (Bld) [#/Vol] <0.46 k/uL [facility] Eosinophils/100 WBC (Bld) 0.2 % [facility] Erythrocyte distribution width (RBC) [Ratio] 12.5 % 11.5 - 15.0 % [facility] Hematocrit (Bld) [Volume fraction] 40.6 % 36.0 - 46.0 % [facility] Hemoglobin (Bld) [Mass/Vol] 14.0 g/dL 11.5 - 15.5 g/dL [facility] Immature granulocytes (Bld) [#/Vol] 0.04 10*3/uL <0.10 k/uL [facility] Immature granulocytes/100 WBC (Bld) 0.3 % [facility] Lymphocytes (Bld) [#/Vol] 3.65 10*3/uL 1.00 - 4.00 k/uL [facility] Lymphocytes/100 WBC (Bld) 27.9 % [facility] MCH (RBC) [Entitic mass] 31.6 pg 26.0 - 34.[address] [facility] MCHC (RBC) [Mass/Vol] 34.5 g/dL 30.5 - 36.0 g/dL [facility] MCV (RBC) [Entitic vol] 91.6 fL 80.0 - 100.[address] [facility] Monocytes (Bld) [#/Vol] 1.08 10*3/uL High <0.87 k/uL [facility] Monocytes/100 WBC (Bld) 8.2 % [facility] Neutrophils (Bld) [#/Vol] 8.28 10*3/uL High 1.45 - 7.50 k/uL [facility] Neutrophils/100 WBC (Bld) 63.2 % [facility] Nucleated RBC (Bld) [#/Vol] <0.01 k/uL [facility] Nucleated RBC/100 WBC (Bld) [Ratio] 0.0 /[address] [facility] Platelet mean volume (Bld) [Entitic vol] 9.1 fL 9.0 - 12.[address] [facility] Platelets (Bld) [#/Vol] 353 10*3/uL 150 - 400 k/uL [facility] RBC (Bld) [#/Vol] 4.43 10*6/uL 3.90 - 5.2 0 m/uL [facility] WBC (Bld) [#/Vol] 13.10 10*3/uL High 3.70 - 11.00 k/uL [facility] CNOVSPon 02-10-2024 CNOVSP Visit (SP) Office ([facility]) KARIN MIX ([id number]) 1955 F Date Time Provider Department 02/10/24 8:45 AM MARCO PURCELL During your visit today, we recorded the following information about you: Temperature Pulse Respiration Blood pressure 97.4 degrees 80/minute 16/minute 214/82 Weight Height 51.9 kg 1.472 m Marco Purcell MD 02/10/2024 5:24 PM Signed PATIENT NAME: Karin Mix DATE: 02/10/2024 PRIMARY CARE PHYSICIAN: Dr. Tariq Paul OTHER PHYSICIANS: Dr. Kaur, Dr. Peres, Dr. Jack Rees Portions of this encounter note have been copied from the note from 11/11/2023 and has been updated where appropriate, and reflect my current medical decision making from today. CC: This is a 68 year old female with a history of left-sided breast cancer, seen on an urgent basis for evaluation of abnormal chest CT. INTERIM HISTORY: Since the patient's last visit here she was seen at the [facility] emergency room on 02/07/2024 for acute shortness of breath. The patient has a long history of smoking, but has had minimal pulmonary symptoms. For just 2 to 3 days prior to arrival she developed increasing shortness of breath and a dry cough. She was found to have extensive wheezing, given bronchodilators, steroids, and a cough syrup, and her symptoms have improved significantly. However, chest CT obtained in the emergency room revealed a large left perihilar mass with regional lymphadenopathy, suspicious for malignancy. On follow-up today she feels fairly well. Still shortness of breath, not severe. She has had no hemoptysis. No unusual pain. No weight loss. She has a history of smoking 1 pack/day since age 15. She states that she quit on 02/05/2024, and has no intentions of resuming. She remains on tamoxifen for breast cancer. She has noticed no changes in her breasts. MEDICATIONS: tamoxifen (NOLVADEX) 20 mg tablet TAKE 1 TABLET BY MOUTH ONCE DAILY metoprolol succinate ER (TOPROL XL) 100 mg Take 100 mg by mouth once daily. 100mg in AM, 50mg in PM venlafaxine ER (EFFEXOR XR) 37.5 mg 24 hr capsule Take 1 capsule by mouth once daily. ibuprofen (MOTRIN) 800 mg tablet TAKE ONE TABLET BY MOUTH EVERY 8 HOUR NEEDED FOR PAIN calcium carbonate 600 mg-cholecalciferol 400 units 600 mg(1,500mg) -400 unit tab Take 1 tablet by mouth once daily. nystatin (MYCOSTATIN) cream Apply to affected area as needed. irbesartan (AVAPRO) 300 mg tablet Take 300 mg by mouth once daily. (Patient not taking: Reported on 12/03/2022) fluticasone (FLONASE) 50 mcg/actuation nasal spray 1 [place] as needed. 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 Positive hot flashes. HEENT: Negative for frequent or significant headaches. No changes in hearing or vision, no nose bleeds or other nasal problems. Respiratory: Negative for cough, wheezing or shortness of breath. Cardiovascular: Negative for chest pain, leg swelling or palpitations. GI: Negative for abdominal discomfort, blood in stools or black stools or change in bowel habits. : No history of dysuria, frequency or incontinence. Musculoskeletal: Negative for joint pain or swelling, back pain and muscle pain. Skin: Negative for lesions, rash and itching. Hematology/Lymphology: Negative for prolonged bleeding, bruising easily or swollen nodes. Neuro: No history of headaches, syncope, paralysis, seizures or tremors. PHYSICAL EXAM: Vitals: BP (!) 214/82 Pulse 80 Temp 36.3 ?C (97.4 ?F) (Temporal) Resp 16 Ht 147.2 cm (4' 9.95 ) Wt 51.9 kg (114 lb 6.7 oz) SpO2 92% BMI 23.95 kg/m? ECOG 1 Exam limited to gross visualization where appropriate due to COVID-19. Gen.: This is an age-appropriate patient in no acute distress. Head: Appears atraumatic with no visible lesions. Eyes: Pupils equally round and reactive to light, extraocular muscles are intact. Neck: Supple. Mouth: Mucous membranes appeared to be moist. Respiratory: Appears to be respiring comfortably. Neurologic: Nonfocal to gross visualization. Alert and oriented ?3. Psychiatric: No evidence of inappropriate anxiety or depression. Skin: Visible areas of skin without rash, lesions, wounds or petechiae. Pulmonary exam: Bilateral wheezing, no rales. RADIOLOGIC DATA: 02/07/2024 Chest CTA ([facility]) There is a large left perihilar soft tissue mass invading into the mediastinum. This encases the adjacent vasculature and airways. The mass measures approximately 5 x 3.5 x 5.2 cm. There are mildly enlarged mediastinal and hilar lymph nodes, left greater than (more content not included)... Normal [facility] CNPNon 02-10-2024 CNPN Telephone (NCCAP) KARIN MIX ([id number]) 1955 F Date Time Provider Department 02/10/24 [facility] During your visit today, we recorded the following information about you: Vania Fofana 02/10/2024 12:55 PM Addendum [facility] would like to refer this patient to: Scheduling Instructions Dr Lisa Sesay or Dr Ahuja - PT NEEDS BRONCHOSCOPY Dx: Abnormal CT chest Thank you, Vania Faustin 02/15/2024 10:57 AM Signed Trevin Blanco, Is this appointment still in the works? Just making sure she's not missed! Thank you! Vania Munoz Fitting Room Checker, Daniela Castillo MD 4 days ago JT thank you Daniela Mack MD You; Alexander Fitting Room CheckerBella; Peyman Sesay MD 4 days ago SG Yes she needs a New patient visit with a pulmonary provider at [facility]. As this is just for ebus This can be me, calin or any pulmonary doctor at who ever has availability prior to 02/21 Thank you. Alexander Fitting Room CheckerBella You; Daniela Mack MD; Peyman Sesay MD 4 days ago JT Good Morning, This patient was scheduled today for a Bronchoscopy with Dr. Kay on 02/22/2024 (at [facility]). Is a New Consultation needed prior to procedure. Did you still want patient to see Dr. Mack or Dr. Sesay? Please let me know either way. thanks Allergies As of Date: 02/10/2024 Noted Allergy Reaction LORATADINE-PSEUDOEPHEDR INE 07/21/2019 14 - Other: See Comments Comments: keeps me up all night Date Reviewed: 02/10/2024 Reviewed by: Emily Lewis MA - Fully Assessed Reason for Visit: Consult [173] Prescriptions as of 02/21/2024 - multivit with minerals/lutein (MULTIVITAMIN 50 PLUS ORAL) Take by mouth. Take one(1) tablet daily. - gluc/chnd/om3/dha/epa/f grace/str (BTNJ-XTVQB-GA7-DHA-EPA -FISH-ST ORAL) Take by mouth. 2 tabs daily - tamoxifen (NOLVADEX) 20 mg tablet TAKE 1 TABLET BY MOUTH ONCE DAILY - metoprolol succinate ER (TOPROL XL) 100 mg Take 100 mg by mouth once daily. 100mg in AM, 50mg in PM - venlafaxine ER (EFFEXOR XR) 37.5 mg 24 hr capsule Take 1 capsule by mouth once daily. - ibuprofen (MOTRIN) 800 mg tablet TAKE ONE TABLET BY MOUTH EVERY 8 HOUR NEEDED FOR PAIN - calcium carbonate 600 mg-cholecalciferol 400 units 600 mg(1,500mg) -400 unit tab Take 1 tablet by mouth once daily. - fluticasone (FLONASE) 50 mcg/actuation nasal spray 1 [place] as needed. Problem List As Of Date: 02/10/2024 (None) Encounter Status:Closed by VANIA FOFANA on 02/21/24 Normal [facility] Cancer Ag27-29 SerPl-aCncon 02-10-2024 Cancer Ag 27-29 Qn 93.0 [arb'U]/mL [facility].6 [facility] Comment on above: Order Comment: Speci men Type: BLOOD SPECIMEN Ordering Facility: [facility] Address: [address] [place] [address] [place] [address] Result Comment: The CA27.29 test was performed using the Siemens Centaur XP chemiluminometric immunoassay method. Results obtained with different assay methods or kits cannot be used interchangeably. Performed By: #### 2 4323-8, 2531-0 #### [facility] CLIA [id number] [address] [place] [address] 58376 Comprehensive metabolic 2000 panelon 02-10-2024 Albumin [Mass/Vol] 4.2 g/dL Normal 3.9-4.9 [facility] [facility] Comment on above: Order Comment: Speci men Type: BLOOD SPECIMEN Ordering Facility: [facility] Address: [address] [id number] Performed By: #### 2 4323-8, 2531-0 #### [facility] CLIA [id number] [address] [place] [address] 85733 ALP [Catalytic activity/Vol] 82 U/L Normal 34-123 [facility] Comment on above: Order Comment: Speci men Type: BLOOD SPECIMEN Ordering Facility: [facility] Address: [address] [place] [address] Performed By: #### 2 432-8, 2531-0 #### [facility] CLIA [id number] [address] [place] [address] 56688 ALT [Catalytic activity/Vol] 28 U/L Normal 7-38 [facility] Comment on above: Order Comment: Speci men Type: BLOOD SPECIMEN Ordering Facility: [facility] Address: [address] [id number] Performed By: #### 2 4323-8, 2-0 #### [facility] CLIA [id number] [address] [place] [address] 67208 Anion gap [Moles/Vol] 10 mmol/L Normal 9-18 [facility] Comment on above: Order Comment: Speci men Type: BLOOD SPECIMEN Ordering Facility: [facility] Address: [address] [place] [address] Performed By: #### 2 4323-8, 2532-0 #### [facility] CLIA [id number] [address] [place] [address] AST [Catalytic activity/Vol] 30 U/L Normal 13-35 [facility] Comment on above: Order Comment: Speci men Type: BLOOD SPECIMEN Ordering Facility: [facility] Address: [address] [place], [place] [address] Performed By: #### 2 4323-8, 2531-0 #### [facility] CLIA [id number] [address] [place] [address] 57109 Bilirubin [Mass/Vol] 0.3 mg/dL Normal 0.2-1.3 [facility] Comment on above: Order Comment: Speci men Type: BLOOD SPECIMEN Ordering Facility: [facility] Address: [address] [place], [place] [address] Performed By: #### 2 4323-8, 2531-0 #### [facility] CLIA [id number] [address] [place] [address] 92819 Calcium [Mass/Vol] 9.3 mg/dL Normal 8.5-10.2 [facility] Comment on above: Order Comment: Speci men Type: BLOOD SPECIMEN Ordering Facility: [facility] Address: [address] [place], [place] [address] Performed By: #### 2 4323-8, 2531-0 #### [facility] CLIA [id number] [address] [place] [address] 72705 Chloride [Moles/Vol] 91 mmol/L Low 97-105 [facility] Comment on above: Order Comment: Speci men Type: BLOOD SPECIMEN Ordering Facility: [facility] Address: [address] [place] [address] Performed By: #### 2 4323-8, 2-0 #### [facility] CLIA [id number] [address] [place] [address] 67131 CO2 [Moles/Vol] 25 mmol/L Normal 22-30 [facility] Comment on above: Order Comment: Speci men Type: BLOOD SPECIMEN Ordering Facility: [facility] Address: [address] [place] [address] Performed By: #### 2 4323-8, 2531-0 #### [facility] CLIA [id number] [address] [place] [address] 44397 Creatinine [Mass/Vol] 0.48 mg/dL Low 0.58-0.96 [facility] Comment on above: Order Comment: Ilene green Type: BLOOD SPECIMEN Ordering Facility: [facility] Address: [address] [address] Performed By: #### 2 4323-8, 2531-0 #### [facility] CLIA [id number] [address] [place] [address] 62056 Creatinine and Glomerular filtration rate.predicted panel (S/P/Bld) 102 mL/min/1.73m??? Normal >=60 [facility] Comment on above: Order Comment: Ilene green Type: BLOOD SPECIMEN Ordering Facility: [facility] Address: [address] [place] [address] Result Comment: Radha mated Glomerular Filtration Rate (eGFR) is calculated using the 2020 CKD-EPI creatinine equation. This equation utilizes serum creatinine, sex, and age as parameters. The creatinine assay has traceable calibration to isotope dilution-mass spectrometry. Refer to KDIGO guidelines for clinical interpretation. In patients with unstable renal function, e.g. those with acute kidney injury, the eGFR may not accurately reflect actual GFR. Performed By: #### 2 4323-8, 2531-0 #### [facility] CLIA [id number] [address] [place] [address] 38826 Glucose [Mass/Vol] 116 mg/dL High 74-99 [facility] Comment on above: Order Comment: Ilene green Type: BLOOD SPECIMEN Ordering Facility: [facility] Address: [address] [place] [address] Result Comment: The [place] Diabetes Association (ADA) provides guidance for cutoff values for fasting glucose and random glucose. The ADA defines fasting as no caloric intake for at least 8 hours. Fasting plasma glucose results between 100 to 125 mg/dL indicate increased risk for diabetes (prediabetes). Fasting plasma glucose results greater than or equal to 126 mg/dL meet the criteria for diagnosis of diabetes. In the absence of unequivocal hyperglycemia, results should be confirmed by repeat testing. In a patient with classic symptoms of hyperglycemia or hyperglycemic crisis, random plasma glucose results greater than or equal to 200 mg/dL meet the criteria for diagnosis of diabetes. Reference: Standards of Medical Care in Diabetes 2016, [place] Diabetes Association. Diabetes Care. 2016.39(Suppl 1). Performed By: #### 2 43238, 2531-0 #### [facility] CLIA [id number] [address] [place] [address] Potassium [Moles/Vol] 4.3 mmol/L Normal 3.7-5.1 [facility] Comment on above: Order Comment: Ilene green Type: BLOOD SPECIMEN Ordering Facility: [facility] Address: [address] [place], [place] [address] Performed By: #### 2 4323-06, 0 #### [facility] CLIA [id number] [address] [place] [address] 28872 Protein [Mass/Vol] 7.1 g/dL Normal 6.3-8.0 [facility] Comment on above: Order Comment: Ilene green Type: BLOOD SPECIMEN Ordering Facility: [facility] Address: [address] [place], [place] [address] Performed By: #### 2 43201-27, 0 #### [facility] CLIA [id number] [address] [place] [address] 10024 Sodium [Moles/Vol] 126 mmol/L Low 136-144 [facility] Comment on above: Order Comment: Ilene green Type: BLOOD SPECIMEN Ordering Facility: [facility] Address: [address] [place] [address] Performed By: #### 2 4328, 0 #### [facility] CLIA [id number] [address] [place] [address] 72738 Urea nitrogen [Mass/Vol] 7 mg/dL Normal 7-21 [facility] Comment on above: Order Comment: Speci men Type: BLOOD SPECIMEN Ordering Facility: [facility] Address: [address] [place] [address] Performed By: #### 2 4323-8, 2532-0 #### [facility] CLIA [id number] [address] [place] [address] Albumin [Mass/Vol] 4.2 g/dL 3.9 - 4.9 g/dL [facility] ALP [Catalytic activity/Vol] 82 U/L 34 - 123 U/L [facility] ALT [Catalytic activity/Vol] 28 U/L 7 - 38 U/L [facility] Anion gap [Moles/Vol] 10 mmol/L 9 - 18 mmol/L [facility] AST [Catalytic activity/Vol] 30 U/L 13 - 35 U/L [facility] Bilirubin [Mass/Vol] 0.3 mg/dL 0.2 - 1 .3 mg/dL [facility] Calcium [Mass/Vol] 9.3 mg/dL 8.5 - 10. 2 mg/dL [facility] Chloride [Moles/Vol] 91 mmol/L Low 97 - 10 5 mmol/L [facility] CO2 [Moles/Vol] 25 mmol/L 22 - 30 mmol/L [facility] Creatinine [Mass/Vol] 0.48 mg/dL Low 0.58 - 0.96 mg/dL [facility] Estimated Glomerular Filtration Rate 102 mL/min/1.73m >=60 mL/min/1.[address] [facility] Glucose [Mass/Vol] 116 mg/dL High 74 - 99 mg/dL [facility] Potassium [Moles/Vol] 4.3 mmol/L 3.7 - 5.1 mmol/L [facility] Protein [Mass/Vol] 7.1 g/dL 6.3 - 8.0 g/dL [facility] Sodium [Moles/Vol] 126 mmol/L Low 136 - 144 mmol/L [facility] Urea nitrogen [Mass/Vol] 7 mg/dL 7 - 21 mg/dL [facility] LD LACTATE DEHYDROon 024 LDH [Catalytic activity/Vol] 277 U/L High 135 - 214 U/L [facility] LDH SerPl-cCncon 02-10-2024 LDH [Catalytic activity/Vol] 277 U/L High 135-214 [facility] Comment on above: Order Comment: Speci men Type: BLOOD SPECIMEN Ordering Facility: [facility] Address: [address] [place] [address] Performed By: #### 2 4323-8, 2532-0 #### [facility] CLIA [id number] [address] [place] [address] 70342 CNPDalia 02-07-2024 CNPN Telephone ([place]) KARIN MIX ([id number]) 1955 F Date Time Provider Department 02/07/24 ATILIO BARRAGAN During your visit today, we recorded the following information about you: Atilio Barragan RN 02/07/2024 2:[address] Trevino, [facility] ED called with abnormal CT results. Pt in today for cough, URI symptoms. Perihilar mass with mediastinal involvement and multiple lung nodules. (Pt with h/o Breast cancer, on Tamoxifen). [place]: please obtain records/images PSS: please call to get scheduled with BRM BRM: FLOR Jones Jodi 02/07/2024 2:11 PM Signed Patient scheduled February 09 at 845am. Confirmed date and time with Nina Elam 02/08/2024 9:35 AM Signed Records scanned. Images requested. Allergies As of Date: 02/07/2024 Noted Allergy Reaction LORATADINE-PSEUDOEPHEDR INE 07/21/2019 14 - Other: See Comments Comments: keeps me up all night Date Reviewed: 11/11/2023 Reviewed by: Emily Lewis MA - Fully Assessed Reason for Visit: Abnormal CT Chest [Other] Prescriptions as of 02/08/2024 - tamoxifen (NOLVADEX) 20 mg tablet TAKE 1 TABLET BY MOUTH ONCE DAILY - metoprolol succinate ER (TOPROL XL) 100 mg Take 100 mg by mouth once daily. 100mg in AM, 50mg in PM - venlafaxine ER (EFFEXOR XR) 37.5 mg 24 hr capsule Take 1 capsule by mouth once daily. - ibuprofen (MOTRIN) 800 mg tablet TAKE ONE TABLET BY MOUTH EVERY 8 HOUR NEEDED FOR PAIN - calcium carbonate 600 mg-cholecalciferol 400 units 600 mg(1,500mg) -400 unit tab Take 1 tablet by mouth once daily. - nystatin (MYCOSTATIN) cream Apply to affected area as needed. - irbesartan (AVAPRO) 300 mg tablet Take 300 mg by mouth once daily. - fluticasone (FLONASE) 50 mcg/actuation nasal spray 1 [place] as needed. Problem List As Of Date: 02/07/2024 (None) Encounter Status:Closed by ATILIO BARRAGAN on 02/08/24 Normal [facility] CBC W Auto Differential pane l (Bld)on 11-11-2023 Basophils (Bld) [#/Vol] 0.05 10*3/uL Normal <0.11 [facility] Comment on above: Order Comment: Speci men Type: BLOOD SPECIMEN Ordering Facility: [facility] Address: [address] [place] [address] Performed By: #### 2 4323-8, 2531-0 #### [facility] CLIA [id number] [address] [place] [address] 32750 Basophils/100 WBC (Bld) 0.5 % Normal [facility] Comment on above: Order Comment: Speci men Type: BLOOD SPECIMEN Ordering Facility: [facility] Address: [address] [place] [address] Performed By: #### 2 4323-8, 2531-0 #### [facility] CLIA [id number] [address] [place] [address] 48026 Differential cell count method Nom (Bld) Auto Normal [facility] Comment on above: Order Comment: Speci men Type: BLOOD SPECIMEN Ordering Facility: [facility] Address: [address] [place] [address] Performed By: #### 2 4328, 2531-0 #### [facility] CLIA [id number] [address] [place] [address] 23630 Eosinophils (Bld) [#/Vol] 0.09 10*3/uL Normal <0.46 [facility] Comment on above: Order Comment: Speci men Type: BLOOD SPECIMEN Ordering Facility: [facility] Address: [address] [place] [address] Performed By: #### 2 4328, 2531-0 #### [facility] CLIA [id number] [address] [place] [address] 13021 Eosinophils/100 WBC (Bld) 0.9 % Normal [facility] Comment on above: Order Comment: Speci men Type: BLOOD SPECIMEN Ordering Facility: [facility] Address: [address] [place] [address] Performed By: #### 2 4323-06, 2531-0 #### [facility] CLIA [id number] [address] [place] [address] 58016 Erythrocyte distribution width (RBC) [Ratio] 12.1 % Normal 11.5-15.0 [facility] Comment on above: Order Comment: Speci men Type: BLOOD SPECIMEN Ordering Facility: [facility] Address: [address] [place] [address] Performed By: #### 2 8, 2531-0 #### [facility] CLIA [id number] [address] [place] [address] 41624 Hematocrit (Bld) [Volume fraction] 41.2 % Normal 36.0-46.0 [facility] Comment on above: Order Comment: Speci men Type: BLOOD SPECIMEN Ordering Facility: [facility] Address: [address] [place] [address] Performed By: #### 2 4328, 2531-0 #### [facility] CLIA [id number] [address] [place] [address] 69331 Hemoglobin (Bld) [Mass/Vol] 14.3 g/dL Normal 11.5-15.5 [facility] Comment on above: Order Comment: Speci men Type: BLOOD SPECIMEN Ordering Facility: [facility] Address: [address] [place] [address] Performed By: #### 2 4323-8, 2532-0 #### [facility] CLIA [id number] [address] [place] [address] 66155 Immature granulocytes (Bld) [#/Vol] 10*3/uL Normal <0.10 [facility] Comment on above: Order Comment: Speci men Type: BLOOD SPECIMEN Ordering Facility: [facility] Address: [address] [place] [address] Performed By: #### 2 432-8, 2-0 #### [facility] CLIA [id number] [address] [place] [address] 46664 Immature granulocytes/100 WBC (Bld) 0.2 % Normal [facility] Comment on above: Order Comment: Speci men Type: BLOOD SPECIMEN Ordering Facility: [facility] Address: [address] [place] [address] Performed By: #### 2 432-8, 2-0 #### [facility] CLIA [id number] [address] [place] [address] 57554 Lymphocytes (Bld) [#/Vol] 2.43 10*3/uL Normal 1.00-4.00 [facility] Comment on above: Order Comment: Speci men Type: BLOOD SPECIMEN Ordering Facility: [facility] Address: [address] [place] [address] Performed By: #### 2 432-8, 2532-0 #### [facility] CLIA [id number] [address] [place] [address] 86915 Lymphocytes/100 WBC (Bld) 24.4 % Normal [facility] Comment on above: Order Comment: Speci men Type: BLOOD SPECIMEN Ordering Facility: [facility] Address: [address] [place], [place] [address] Performed By: #### 2 4328, 2531-0 #### [facility] CLIA [id number] [address] [place] [address] 74970 MCH (RBC) [Entitic mass] 32.4 pg Normal 26.0-34.0 [facility] Comment on above: Order Comment: Speci men Type: BLOOD SPECIMEN Ordering Facility: [facility] Address: [address] [place] [address] Performed By: #### 2 4328, 2531-0 #### [facility] CLIA [id number] [address] [place] [address] 89407 MCHC (RBC) [Mass/Vol] 34.7 g/dL Normal 30.5-36.0 [facility] Comment on above: Order Comment: Speci men Type: BLOOD SPECIMEN Ordering Facility: [facility] Address: [address] [place] [address] Performed By: #### 2 4328, 2531-0 #### [facility] CLIA [id number] [address] [place] [address] 18934 MCV (RBC) [Entitic vol] 93.2 fL Normal 80.0-100.0 [facility] Comment on above: Order Comment: Speci men Type: BLOOD SPECIMEN Ordering Facility: [facility] Address: [address] [place] [address] Performed By: #### 2 4328, 2531-0 #### [facility] CLIA [id number] [address] [place] [address] 77832 Monocytes (Bld) [#/Vol] 0.75 10*3/uL Normal <0.87 [facility] Comment on above: Order Comment: Speci men Type: BLOOD SPECIMEN Ordering Facility: [facility] Address: [address] [place] [address] Performed By: #### 2 4328, 2531-0 #### [facility] CLIA [id number] [address] [place] [address] 21195 Monocytes/100 WBC (Bld) 7.5 % Normal C [facility] Comment on above: Order Comment: Speci men Type: BLOOD SPECIMEN Ordering Facility: [facility] Address: [address] [place], [place] [address] Performed By: #### 2 4323-8, 2532-0 #### [facility] CLIA [id number] [address] [place] [address] 15352 Neutrophils (Bld) [#/Vol] 6.61 10*3/uL Normal 1.45-7.50 [facility] Comment on above: Order Comment: Speci men Type: BLOOD SPECIMEN Ordering Facility: [facility] Address: [address] [place] [address] Performed By: #### 2 4323-8, 2532-0 #### [facility] CLIA [id number] [address] [place] [address] 76699 Neutrophils/100 WBC (Bld) 66.5 % Normal [facility] Comment on above: Order Comment: Speci men Type: BLOOD SPECIMEN Ordering Facility: [facility] Address: [address] [place] [address] Performed By: #### 2 4323-8, 2532-0 #### [facility] CLIA [id number] [address] [place] [address] 56150 Nucleated RBC (Bld) [#/Vol] 10*3/uL Normal <0.01 [facility] Comment on above: Order Comment: Speci men Type: BLOOD SPECIMEN Ordering Facility: [facility] Address: [address] [place] [address] Performed By: #### 2 4323-8, 2532-0 #### [facility] CLIA [id number] [address] [place] [address] 05857 Nucleated RBC/100 WBC (Bld) [Ratio] 0.0 /100 WBC Normal [facility] Comment on above: Order Comment: Speci men Type: BLOOD SPECIMEN Ordering Facility: [facility] Address: [address] [place] [address], [place] [address] Performed By: #### 2 432-8, 2-0 #### [facility] CLIA [id number] [address] [place] [address] 05581 Platelet mean volume (Bld) [Entitic vol] 8.7 fL Low 9.0-12.7 [facility] Comment on above: Order Comment: Speci men Type: BLOOD SPECIMEN Ordering Facility[facility] Address: [address] [place] [address] Performed By: #### 2 4328, 2-0 #### [facility] CLIA [id number] [address] [place] [address] 42452 Platelets (Bld) [#/Vol] 442 10*3/uL High 150-400 [facility] Comment on above: Order Comment: Speci men Type: BLOOD SPECIMEN Ordering Facility[facility] Address: [address] [place] [address] Performed By: #### 2 4328, 2531-0 #### [facility] CLIA [id number] [address] [place] [address] 60145 RBC (Bld) [#/Vol] 4.42 10*6/uL Normal 3.90-5.20 [facility] Comment on above: Order Comment: Speci men Type: BLOOD SPECIMEN Ordering Facility[facility] Address: [address] [place] [address] Performed By: #### 2 4328, 2531-0 #### [facility] CLIA [id number] [address] [place] [address] 40199 WBC (Bld) [#/Vol] 9.95 10*3/uL Normal 3.70-11.00 [facility] Comment on above: Order Comment: Speci men Type: BLOOD SPECIMEN Ordering Facility[facility] Address: [address] [place] [address] Performed By: #### 2 4328, 2-0 #### [facility] CLIA [id number] [address] [place] [address] 54066 CNOVSPon 11-11-2023 CNOVSP Visit (SP) Office ([place]) KARIN MIX ([id number]) 1955 F Date Time Provider Department 11/11/23 1:45 PM MARCO PURCELL During your visit today, we recorded the following information about you: Temperature Pulse Respiration Blood pressure 97.6 degrees 80/minute 16/minute 180/73 Weight Height 53.7 kg 1.472 m Marco Purcell MD 11/11/2023 8:42 PM Signed PATIENT NAME: Karin Mix DATE: 11/11/2023 PRIMARY CARE PHYSICIAN: Dr. Tariq Paul OTHER PHYSICIANS: Dr. Kaur, Dr. Peres, Dr. Jack Rees Portions of this encounter note have been copied from the note from 06/03/2023 and has been updated where appropriate, and reflect my current medical decision making from today. CC: This is a 67 year old female with a history of left-sided breast cancer, seen for scheduled follow-up. INTERIM HISTORY: Since the patient's last visit here she has had no significant medical changes. She remains on tamoxifen which she is tolerating well. She has noticed no change in her breast. No abdominal pain or other GI symptoms. Overall feels well with no particular complaints. MEDICATIONS: tamoxifen (NOLVADEX) 20 mg tablet Take 1 tablet (20 mg) by mouth once daily. metoprolol succinate ER (TOPROL XL) 100 mg Take 100 mg by mouth once daily. 100mg in AM, 50mg in PM venlafaxine ER (EFFEXOR XR) 37.5 mg 24 hr capsule Take 1 capsule by mouth once daily. ibuprofen (MOTRIN) 800 mg tablet TAKE ONE TABLET BY MOUTH EVERY 8 HOUR NEEDED FOR PAIN calcium carbonate 600 mg-cholecalciferol 400 units 600 mg(1,500mg) -400 unit tab Take 1 tablet by mouth once daily. nystatin (MYCOSTATIN) cream Apply to affected area as needed. irbesartan (AVAPRO) 300 mg tablet Take 300 mg by mouth once daily. (Patient not taking: Reported on 12/03/2022) fluticasone (FLONASE) 50 mcg/actuation nasal spray 1 [place] as needed. 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 Positive hot flashes. HEENT: Negative for frequent or significant headaches. No changes in hearing or vision, no nose bleeds or other nasal problems. Respiratory: Negative for cough, wheezing or shortness of breath. Cardiovascular: Negative for chest pain, leg swelling or palpitations. GI: Negative for abdominal discomfort, blood in stools or black stools or change in bowel habits. : No history of dysuria, frequency or incontinence. Musculoskeletal: Negative for joint pain or swelling, back pain and muscle pain. Skin: Negative for lesions, rash and itching. Hematology/Lymphology: Negative for prolonged bleeding, bruising easily or swollen nodes. Neuro: No history of headaches, syncope, paralysis, seizures or tremors. PHYSICAL EXAM: Vitals: BP 180/73 Pulse 80 Temp 36.4 ?C (97.6 ?F) (Temporal) Resp 16 Ht 147.2 cm (4' 9.95 ) Wt 53.7 kg (118 lb 6.2 oz) SpO2 96% BMI 24.78 kg/m? ECOG 0 Exam limited to gross visualization where appropriate due to COVID-19. Gen.: This is an age-appropriate patient in no acute distress. Head: Appears atraumatic with no visible lesions. Eyes: Pupils equally round and reactive to light, extraocular muscles are intact. Neck: Supple. Mouth: Mucous membranes appeared to be moist. Respiratory: Appears to be respiring comfortably. Neurologic: Nonfocal to gross visualization. Alert and oriented ?3. Psychiatric: No evidence of inappropriate anxiety or depression. Skin: Visible areas of skin without rash, lesions, wounds or petechiae. RADIOLOGIC DATA: 11/03/2023 Diagnostic Right Mammogram ([facility]) Impression: No mammographic evidence of malignancy in the right breast. Recommendations: Continue annual screening mammography. 11/02/2022 CT abdomen/pelvis ([facility]) No upper collecting system abnormalities identified to explain the patient's hematuria. Abnormal endometrial thickening of 16 mm. Endometrial hyperplasia or malignancy cannot be excluded. 07/12/2020 MRI cervical spine ([facility]) Broad-based disc bulging at C5 through C6 with severe bilateral neural foraminal narrowing and moderate spinal stenosis. 07/28/2019 Bone density exam Osteopenia LABORATORY DATA: Hemoglobin (g/dL) Date Value 11/11/2023 14.3 01/15/2022 13.5 Hematocrit (%) Date Value 11/11/2023 41.2 01/15/2022 41.4 WBC (k/uL) Date Value 11/11/2023 9.95 01/15/2022 8.94 Platelet Count (k/uL) Date Value 11/11/2023 442 01/15/2022 346 ASSESSMENT/PLAN: 1. 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 Status post lum (more content not included)... Normal [facility] Cancer Ag27-29 SerPl-aCncon 11-11-2023 Cancer Ag 27-29 Qn 24.7 [arb'U]/mL Normal <38.6 [facility] Comment on above: Order Comment: Speci men Type: BLOOD SPECIMEN Ordering Facility: [facility] Address: [address] [place] [address] Result Comment: The CA27.29 test was performed using the Siemens Centaur XP chemiluminometric immunoassay method. Results obtained with different assay methods or kits cannot be used interchangeably. Performed By: #### 2 4323-8, 2532-0 #### [facility] CLIA [id number] [address] [place] [address] Comprehensive metabolic 2000 panelon 11-11-2023 Albumin [Mass/Vol] 4.4 g/dL Normal 3.9-4.9 [facility] Comment on above: Order Comment: Speci men Type: BLOOD SPECIMEN Ordering Facility: [facility] Address: [address] [place] [address] Performed By: #### 2 4323-8, 2531-0 #### [facility] CLIA [id number] [address] [place] [address] ALP [Catalytic activity/Vol] 76 U/L Normal 34-123 [facility] Comment on above: Order Comment: Speci men Type: BLOOD SPECIMEN Ordering Facility: [facility] Address: [address] [place] [address] Performed By: #### 2 432-8, 2531-0 #### [facility] CLIA [id number] [address] [place] [address] ALT [Catalytic activity/Vol] 16 U/L Normal 7-38 [facility] Comment on above: Order Comment: Speci men Type: BLOOD SPECIMEN Ordering Facility: [facility] Address: [address] [place] [address] Performed By: #### 2 8, 2531-0 #### [facility] CLIA [id number] [address] [place] [address] Anion gap [Moles/Vol] 11 mmol/L Normal 9-18 [facility] Comment on above: Order Comment: Speci men Type: BLOOD SPECIMEN Ordering Facility: [facility] Address: [address] [place] [address] Performed By: #### 2 8, 2531-0 #### [facility] CLIA [id number] [address] [place] [address] AST [Catalytic activity/Vol] 25 U/L Normal 13-35 [facility] Comment on above: Order Comment: Speci men Type: BLOOD SPECIMEN Ordering Facility: [facility] Address: [address] [place] [address] Performed By: #### 2 432-8, 2-0 #### [facility] CLIA [id number] [address] [place] [address] Bilirubin [Mass/Vol] 0.2 mg/dL Normal 0.2-1.3 [facility] Comment on above: Order Comment: Speci men Type: BLOOD SPECIMEN Ordering Facility: [facility] Address: [address] [place] [address] Performed By: #### 2 4323-8, 2532-0 #### [facility] CLIA [id number] [address] [place] [address] Calcium [Mass/Vol] 9.7 mg/dL Normal 8.5-10.2 [facility] Comment on above: Order Comment: Speci men Type: BLOOD SPECIMEN Ordering Facility: [facility] Address: [address] [place] [address] Performed By: #### 2 4323-8, 2532-0 #### [facility] CLIA [id number] [address] [place] [address] Chloride [Moles/Vol] 93 mmol/L Low 97-105 [facility] Comment on above: Order Comment: Speci men Type: BLOOD SPECIMEN Ordering Facility: [facility] Address: [address] [place] [address] Performed By: #### 2 4323-8, 2532-0 #### [facility] CLIA [id number] [address] [place] [address] CO2 [Moles/Vol] 27 mmol/L Normal 22-30 [facility] Comment on above: Order Comment: Speci men Type: BLOOD SPECIMEN Ordering Facility: [facility] Address: [address] [place] [address] Performed By: #### 2 4323-8, 2532-0 #### [facility] CLIA [id number] [address] [place] [address] Creatinine [Mass/Vol] 0.55 mg/dL Low 0.58-0.96 [facility] Comment on above: Order Comment: Speci men Type: BLOOD SPECIMEN Ordering Facility: [facility] Address: [address] [id number] Performed By: #### 2 4323-8, 0 #### [facility] CLIA [id number] [address] [place] [address] Creatinine and Glomerular filtration rate.predicted panel (S/P/Bld) 99 mL/min/1.73m??? Normal >=60 [facility] Comment on above: Order Comment: Ilene green Type: BLOOD SPECIMEN Ordering Facility: [facility] Address: [address] [place] [address] Result Comment: Radha mated Glomerular Filtration Rate (eGFR) is calculated using the 2020 CKD-EPI creatinine equation. This equation utilizes serum creatinine, sex, and age as parameters. The creatinine assay has traceable calibration to isotope dilution-mass spectrometry. Refer to KDIGO guidelines for clinical interpretation. In patients with unstable renal function, e.g. those with acute kidney injury, the eGFR may not accurately reflect actual GFR. Performed By: #### 2 4323-8, 0 #### [facility] CLIA [id number] [address] [place] [address] Glucose [Mass/Vol] 117 mg/dL High 74-99 [facility] Comment on above: Order Comment: Ilene green Type: BLOOD SPECIMEN Ordering Facility: [facility] Address: [address] [place] [address] Result Comment: The [place] Diabetes Association (ADA) provides guidance for cutoff values for fasting glucose and random glucose. The ADA defines fasting as no caloric intake for at least 8 hours. Fasting plasma glucose results between 100 to 125 mg/dL indicate increased risk for diabetes (prediabetes). Fasting plasma glucose results greater than or equal to 126 mg/dL meet the criteria for diagnosis of diabetes. In the absence of unequivocal hyperglycemia, results should be confirmed by repeat testing. In a patient with classic symptoms of hyperglycemia or hyperglycemic crisis, random plasma glucose results greater than or equal to 200 mg/dL meet the criteria for diagnosis of diabetes. Reference: Standards of Medical Care in Diabetes 2016, [place] Diabetes Association. Diabetes Care. 2016.39(Suppl 1). Performed By: #### 2 4323-8, 2532-0 #### [facility] CLIA [id number] [address] [place] [address] Potassium [Moles/Vol] 4.1 mmol/L Normal 3.7-5.1 [facility] Comment on above: Order Comment: Speci men Type: BLOOD SPECIMEN Ordering Facility: [facility] Address: [address] [place] [address] Performed By: #### 2 4323-8, 2531-0 #### [facility] CLIA [id number] [address] [place] [address] Protein [Mass/Vol] 7.3 g/dL Normal 6.3-8.0 [facility] Comment on above: Order Comment: Speci men Type: BLOOD SPECIMEN Ordering Facility: [facility] Address: [address] [place] [address] Performed By: #### 2 4328, 2531-0 #### [facility] CLIA [id number] [address] [place] [address] Sodium [Moles/Vol] 131 mmol/L Low 136-144 [facility] Comment on above: Order Comment: Speci men Type: BLOOD SPECIMEN Ordering Facility: [facility] Address: [address] [place], [place] [address] Performed By: #### 2 43238, 2531-0 #### [facility] CLIA [id number] [address] [place] [address] Urea nitrogen [Mass/Vol] 8 mg/dL Normal 7-21 [facility] Comment on above: Order Comment: Speci men Type: BLOOD SPECIMEN Ordering Facility: [facility] Address: [address] [place] [address] Performed By: #### 2 4323-8, 2531-0 #### [facility] CLIA [id number] [address] [place] [address] MM diagnostic mammo RT w/CAD on 11-03-2023 MM diagnostic mammo RT w/CAD [facility] [address] [place] [address] Mammography Report Signed Patient: Karin Mix MR#: [id number] : 1955 Acct:[id number] Age/Sex: 67 / F ADM Date: 11/03/23 Loc: ID Room: Type: [facility] Attending Dr: Ramsey Kaur DO Copies to: MD Mirian Jones,DO Ramsey Kaur DO Ordering Provider: Ramsey Kaur DO Date of Service: 11/03/23 MM/MM diagnostic mammo RT w/CAD: Z85.3 DIAGNOSTIC ? MAMMOGRAM - FULL FIELD DIGITAL WITH TOMOSYNTHESIS CLINICAL DATA: History of left-sided breast cancer status post mastectomy Tomosynthesis Craniocaudal and mediolateral oblique views of the right breast were obtained using low-dose digital technique. Comparison is made to prior studies from 07/08/2020. This examination was reviewed with the aid of CAD. Benign-appearing lymph nodes are noted along the left chest wall. There are a few punctate benign- appearing calcifications. There is scattered fiber glandular tissue. There are no dominant masses, typically malignant calcifications or architectural distortion. There has been no significant interval change. MM/MM diagnostic mammo RT w/CAD IMPRESSION: NO MAMMOGRAPHIC EVIDENCE OF MALIGNANCY. ROUTINE FOLLOW-UP IS RECOMMENDED IN ONE YEAR. RESULT CODE: 2 Benign Findings(s) DENSITY CODE: 2 (approximately 25-50% glandular) FOLLOW UP: 1YR The false-negative rate of mammography is approximately 10-percent. Management of a palpable abnormality must be based on clinical grounds. Impression dictated by: Amalia Dominguez M.D.11/03/2023 1:47 PM Dictation Location: [facility] Transcribed By: [facility] 11/03/23 134 Dictated By: Amalia Dominguez II, MD 11/03/23 134 Signed By: 11/03/23 134 [facility] CBC W Auto Differential pane l (Bld)on 06-03-2023 Basophils (Bld) [#/Vol] 0.03 10*3/uL Normal <0.11 [facility] Comment on above: Order Comment: Speci men Type: BLOOD SPECIMENOrdering Facility: [facility] Address: [address] [address] Performed By: #### 5 7021-8 ####[facility] [id number] [place] [address] Basophils/100 WBC (Bld) 0.3 % Normal [facility] Comment on above: Order Comment: Speci men Type: BLOOD SPECIMENOrdering Facility: [facility] Address: [address] [place] [address] Performed By: #### 5 7021-8 ####[facility] [id number] [place] [address] Differential cell count method Nom (Bld) Auto Normal [facility] Comment on above: Order Comment: Speci men Type: BLOOD SPECIMENOrdering Facility: [facility] Address: [address] [place] [address] Performed By: #### 5 7021-8 ####[facility] [id number] [place] [address] Eosinophils (Bld) [#/Vol] 0.08 10*3/uL Normal <0.46 [facility] Comment on above: Order Comment: Speci men Type: BLOOD SPECIMENOrdering Facility: [facility] Address: [address] [place] [address] Performed By: #### 5 7021-8 ####[facility] [id number] [place] [address] Eosinophils/100 WBC (Bld) 0.8 % Normal [facility] Comment on above: Order Comment: Speci men Type: BLOOD SPECIMENOrdering Facility: [facility] Address: [address] [place] [address] Performed By: #### 5 7021-8 ####[facility] [id number] [place] [address] Erythrocyte distribution width (RBC) [Ratio] 12.6 % Normal 11.5-15.0 [facility] Comment on above: Order Comment: Speci men Type: BLOOD SPECIMENOrdering Facility: [facility] Address: [address] [place] [address] Performed By: #### 5 7021-8 ####[facility]IA [id number] [place] [address] Hematocrit (Bld) [Volume fraction] 42.9 % Normal 36.0-46.0 [facility] Comment on above: Order Comment: Speci men Type: BLOOD SPECIMENOrdering Facility: [facility] Address: [address] [place] [address] Performed By: #### 5 7021-8 ####[facility] [id number] [place] [address] Hemoglobin (Bld) [Mass/Vol] 14.3 g/dL Normal 11.5-15.5 [facility] Comment on above: Order Comment: Speci men Type: BLOOD SPECIMENOrdering Facility: [facility] Address: [address] [place] [address] Performed By: #### 5 7021-8 ####[facility] [id number] [place] [address] Immature granulocytes (Bld) [#/Vol] 0.03 10*3/uL Normal <0.10 [facility] Comment on above: Order Comment: Speci men Type: BLOOD SPECIMENOrdering Facility: [facility] Address: [address] [place] [address] Performed By: #### 5 7021-8 ####[facility] [id number] [place] [address] Immature granulocytes/100 WBC (Bld) 0.3 % Normal [facility] Comment on above: Order Comment: Speci men Type: BLOOD SPECIMENOrdering Facility: [facility] Address: [address] [place] [address] Performed By: #### 5 7021-8 ####[facility] [id number] [place] [address] Lymphocytes (Bld) [#/Vol] 2.69 10*3/uL Normal 1.00-4.00 [facility] Comment on above: Order Comment: Speci men Type: BLOOD SPECIMENOrdering Facility: [facility] Address: [address] [place] [address] Performed By: #### 5 7021-8 ####[facility] [id number] [place] [address] Lymphocytes/100 WBC (Bld) 25.9 % Normal [facility] Comment on above: Order Comment: Speci men Type: BLOOD SPECIMENOrdering Facility: [facility] Address: [address] [place] [address] Performed By: #### 5 7021-8 ####[facility] [id number] [place] [address] MCH (RBC) [Entitic mass] 32.4 pg Normal 26.0-34.0 [facility] Comment on above: Order Comment: Speci men Type: BLOOD SPECIMENOrdering Facility: [facility] Address: [address] [place] [address] Performed By: #### 5 7021-8 ####[facility]IA [id number] [place] [address] MCHC (RBC) [Mass/Vol] 33.3 g/dL Normal 30.5-36.0 [facility] Comment on above: Order Comment: Speci men Type: BLOOD SPECIMENOrdering Facility: [facility] Address: [address] [place] [address] Performed By: #### 5 7021-8 ####[facility]CLIA [id number] [place] [address] MCV (RBC) [Entitic vol] 97.1 fL Normal 80.0-100.0 [facility] Comment on above: Order Comment: Speci men Type: BLOOD SPECIMENOrdering Facility: [facility] Address: [address] [place] [address] Performed By: #### 5 7021-8 ####[facility] LABCLIA [id number] [place] [address] Monocytes (Bld) [#/Vol] 1.07 10*3/uL High <0.87 [facility] Comment on above: Order Comment: Speci men Type: BLOOD SPECIMENOrdering Facility: [facility] Address: [address] [address] Performed By: #### 5 7021-8 ####[facility] [id number] [place] [address] Monocytes/100 WBC (Bld) 10.3 % Normal [facility] Comment on above: Order Comment: Speci men Type: BLOOD SPECIMENOrdering Facility: [facility] Address: [address] [address] Performed By: #### 5 7021-8 ####[facility]IA [id number] [place] [address] Neutrophils (Bld) [#/Vol] 6.49 10*3/uL Normal 1.45-7.50 [facility] Comment on above: Order Comment: Speci men Type: BLOOD SPECIMENOrdering Facility: [facility] Address: [address] [address] Performed By: #### 5 7021-8 ####[facility]IA [id number] [place] [address] Neutrophils/100 WBC (Bld) 62.4 % Normal [facility] Comment on above: Order Comment: Speci men Type: BLOOD SPECIMENOrdering Facility: [facility] Address: [address] [address] Performed By: #### 5 7021-8 ####[facility]CLIA [id number] [place] [address] Nucleated RBC (Bld) [#/Vol] 10*3/uL Normal <0.01 [facility] Comment on above: Order Comment: Speci men Type: BLOOD SPECIMENOrdering Facility: [facility] Address: [address] [place] [address] Performed By: #### 5 7021-8 ####[facility]CLIA [id number] [place] [address] Nucleated RBC/100 WBC (Bld) [Ratio] 0.0 /100 WBC Normal [facility] Comment on above: Order Comment: Speci men Type: BLOOD SPECIMENOrdering Facility: [facility] Address: [address] [place] [address] Performed By: #### 5 7021-8 ####[facility]CLIA [id number] [place] [address] Platelet mean volume (Bld) [Entitic vol] 10.1 fL Normal 9.0-12.7 [facility] Comment on above: Order Comment: Speci men Type: BLOOD SPECIMENOrdering Facility: [facility] Address: [address] [place] [address] Performed By: #### 5 7021-8 ####[facility]CLIA [id number] [place] [address] Platelets (Bld) [#/Vol] 288 10*3/uL Normal 150-400 [facility] Comment on above: Order Comment: Speci men Type: BLOOD SPECIMENOrdering Facility: [facility] Address: [address] [place] [address] Performed By: #### 5 7021-8 ####[facility]IA [id number] [place] [address] RBC (Bld) [#/Vol] 4.42 10*6/uL Normal 3.90-5.20 [facility] Comment on above: Order Comment: Speci men Type: BLOOD SPECIMENOrdering Facility: [facility] Address: [address] [address] Performed By: #### 5 7021-8 ####[facility]CLIA [id number] [place] [address] WBC (Bld) [#/Vol] 10.39 10*3/uL Normal 3.70-11.00 [facility] Comment on above: Order Comment: Speci men Type: BLOOD SPECIMENOrdering Facility: [facility] Address: [address] [address] Performed By: #### 5 7021-8 ####[facility] LABCLIA [id number] [place] [address] Basophils (Bld) [#/Vol] 0.03 10*3/uL <0.11 k/uL [facility] Basophils/100 WBC (Bld) 0.3 % [facility] Differential cell count method Nom (Bld) Auto [facility] Eosinophils (Bld) [#/Vol] 0.08 10*3/uL <0.46 k/uL [facility] Eosinophils/100 WBC (Bld) 0.8 % [facility] Erythrocyte distribution width (RBC) [Ratio] 12.6 % 11.5 - 15.0 % [facility] Hematocrit (Bld) [Volume fraction] 42.9 % 36.0 - 46.0 % [facility] Hemoglobin (Bld) [Mass/Vol] 14.3 g/dL 11.5 - 15.5 g/dL [facility] Immature granulocytes (Bld) [#/Vol] 0.03 10*3/uL <0.10 k/uL [facility] Immature granulocytes/100 WBC (Bld) 0.3 % [facility] Lymphocytes (Bld) [#/Vol] 2.69 10*3/uL 1.00 - 4.00 k/uL [facility] Lymphocytes/100 WBC (Bld) 25.9 % [facility] MCH (RBC) [Entitic mass] 32.4 pg 26.0 - 34.[address] [facility] MCHC (RBC) [Mass/Vol] 33.3 g/dL 30.5 - 36.0 g/dL [facility] MCV (RBC) [Entitic vol] 97.1 fL 80.0 - 100.[address] [facility] Monocytes (Bld) [#/Vol] 1.07 10*3/uL High <0.87 k/uL [facility] Monocytes/100 WBC (Bld) 10.3 % [facility] Neutrophils (Bld) [#/Vol] 6.49 10*3/uL 1.45 - 7.50 k/uL [facility] Neutrophils/100 WBC (Bld) 62.4 % [facility] Nucleated RBC (Bld) [#/Vol] <0.01 k/uL [facility] Nucleated RBC/100 WBC (Bld) [Ratio] 0.0 /[address] [facility] Platelet mean volume (Bld) [Entitic vol] 10.1 fL 9.0 - 12.[address] [facility] Platelets (Bld) [#/Vol] 288 10*3/uL 150 - 400 k/uL [facility] RBC (Bld) [#/Vol] 4.42 10*6/uL 3.90 - 5.2 0 m/uL [facility] WBC (Bld) [#/Vol] 10.39 10*3/uL 3.70 - 11.00 k/uL [facility] CNOVSPon 06-03-2023 CNOVSP Visit (SP) Office ([facility]) MIXKARIN FAGAN ([id number]) 1955 F Date Time Provider Department 06/03/23 3:00 PM MARCO PURCELL During your visit today, we recorded the following information about you: Temperature Pulse Respiration Blood pressure 97.7 degrees 68/minute 16/minute 179/77 Weight Height 53.6 kg 1.472 m Marco Purcell MD 06/04/2023 7:08 AM Signed PATIENT NAME: Karin Mix DATE: 06/03/2023 PRIMARY CARE PHYSICIAN: Dr. Tariq Paul OTHER PHYSICIANS: Dr. Kaur, Dr. Peres, Dr. Jack Rees Portions of this encounter note have been copied from the note from 12/03/2022 and has been updated where appropriate, and reflect my current medical decision making from today. CC: This is a 67 year old female with a history of left-sided breast cancer, seen for scheduled follow-up and continue management INTERIM HISTORY: Since the patient's last visit here seen she was seen by her advertising campaign manager (Dr. Rees) on 12/29/2022 for evaluation of the endometrial thickening identified on her CT scan October 2022. Apparently her examination was unremarkable, and endometrial biopsy was negative. Throughout this time she has had no suspicious symptoms. She has had no other medical changes. She remains on tamoxifen and is tolerating it well. MEDICATIONS: tamoxifen (NOLVADEX) 20 mg tablet Take 1 tablet (20 mg) by mouth once daily. metoprolol succinate ER (TOPROL XL) 100 mg Take 100 mg by mouth once daily. 100mg in AM, 50mg in PM venlafaxine ER (EFFEXOR XR) 37.5 mg 24 hr capsule Take 1 capsule by mouth once daily. ibuprofen (MOTRIN) 800 mg tablet TAKE ONE TABLET BY MOUTH EVERY 8 HOUR NEEDED FOR PAIN calcium carbonate 600 mg-cholecalciferol 400 units 600 mg(1,500mg) -400 unit tab Take 1 tablet by mouth once daily. nystatin (MYCOSTATIN) cream Apply to affected area as needed. irbesartan (AVAPRO) 300 mg tablet Take 300 mg by mouth once daily. (Patient not taking: Reported on 12/03/2022) fluticasone (FLONASE) 50 mcg/actuation nasal spray 1 [place] as needed. 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 Positive hot flashes. HEENT: Negative for frequent or significant headaches. No changes in hearing or vision, no nose bleeds or other nasal problems. Respiratory: Negative for cough, wheezing or shortness of breath. Cardiovascular: Negative for chest pain, leg swelling or palpitations. GI: Negative for abdominal discomfort, blood in stools or black stools or change in bowel habits. : No history of dysuria, frequency or incontinence. Musculoskeletal: Negative for joint pain or swelling, back pain and muscle pain. Skin: Negative for lesions, rash and itching. Hematology/Lymphology: Negative for prolonged bleeding, bruising easily or swollen nodes. Neuro: No history of headaches, syncope, paralysis, seizures or tremors. PHYSICAL EXAM: Vitals: Temp 36.5 ?C (97.7 ?F) (Temporal) Resp 16 Ht 147.2 cm (4' 9.95 ) Wt 53.6 kg (118 lb 3.2 oz) SpO2 96% BMI 24.74 kg/m? ECOG 0 Exam limited to gross visualization where appropriate due to COVID-19. Gen.: This is an age-appropriate patient in no acute distress. Head: Appears atraumatic with no visible lesions. Eyes: Pupils equally round and reactive to light, extraocular muscles are intact. Neck: Supple. Mouth: Mucous membranes appeared to be moist. Respiratory: Appears to be respiring comfortably. Neurologic: Nonfocal to gross visualization. Alert and oriented ?3. Psychiatric: No evidence of inappropriate anxiety or depression. Skin: Visible areas of skin without rash, lesions, wounds or petechiae. RADIOLOGIC DATA: 11/05/2022 Diagnostic Right Mammogram ([facility]) Impression: No mammographic evidence of malignancy in the right breast. Recommendations: Continue annual screening mammography. 11/02/2022 CT abdomen/pelvis ([facility]) No upper collecting system abnormalities identified to explain the patient's hematuria. Abnormal endometrial thickening of 16 mm. Endometrial hyperplasia or malignancy cannot be excluded. 07/12/2020 MRI cervical spine ([facility]) Broad-based disc bulging at C5 through C6 with severe bilateral neural foraminal narrowing and moderate spinal stenosis. 07/28/2019 Bone density exam Osteopenia LABORATORY DATA: Hemoglobin (g/dL) Date Value 06/03/2023 14.3 01/15/2022 13.5 Hematocrit (%) Date Value 06/03/2023 42.9 01/15/2022 41.4 WBC (k/uL) Date Value 06/03/2023 10.39 01/15/2022 8.94 Platelet Count (k/uL) Date Value 06/03/2023 288 01/15/2022 346 ASSESSMENT/PLAN: Natan Daniels (more content not included)... Normal [facility] Cancer Ag27-29 SerPl-aCncon 06-03-2023 Cancer Ag 27-29 Qn 20.9 [arb'U]/mL Normal <38.6 [facility] Comment on above: Order Comment: Speci men Type: BLOOD SPECIMENOrdering Facility: [facility] Address: [address] [place] [address] Result Comment: The CA27.29 test was performed using the [employer] XP chemiluminometric immunoassay method. Results obtained with different assay methods or kits cannot be used interchangeably. Performed By: #### 1 7842-6 ####[facility] [id number] [address] [address] [place] [facility] Comprehensive metabolic 2000 panelon 06-03-2023 Albumin [Mass/Vol] 4.5 g/dL Normal 3.9-4.9 [facility] Comment on above: Order Comment: Speci men Type: BLOOD SPECIMEN [facility] Address: [address] [place] [address] Performed By: #### 2 4323-8, 2532-0 #### [facility] CLIA [id number] [address] [place] [address] ALP [Catalytic activity/Vol] 66 U/L Normal 34-123 [facility] Comment on above: Order Comment: Speci men Type: BLOOD SPECIMEN [facility] Address: [address] [place] [address] Performed By: #### 2 4323-8, 2532-0 #### [facility] CLIA [id number] [address] [place] [address] ALT [Catalytic activity/Vol] 16 U/L Normal 7-38 [facility] Comment on above: Order Comment: Speci men Type: BLOOD SPECIMEN [facility] Address: [address] [place] [address] Performed By: #### 2 4323-8, 2-0 #### [facility] CLIA [id number] [address] [place] [address] Anion gap [Moles/Vol] 8 mmol/L Low 9-18 [facility] Comment on above: Order Comment: Speci men Type: BLOOD SPECIMEN [facility] Address: [address] [place] [id number] Performed By: #### 2 432-8, 2-0 #### [facility] CLIA [id number] [address] [place] [address] AST [Catalytic activity/Vol] 30 U/L Normal 13-35 [facility] Comment on above: Order Comment: Speci men Type: BLOOD SPECIMEN [facility] Address: [address] [place] [address] Performed By: #### 2 4328, 2531-0 #### [facility] CLIA [id number] [address] [place] [address] Bilirubin [Mass/Vol] 0.3 mg/dL Normal 0.2-1.3 [facility] Comment on above: Order Comment: Speci men Type: BLOOD SPECIMEN [facility] Address: [address] [place] [address] Performed By: #### 2 432-8, 2531-0 #### [facility] CLIA [id number] [address] [place] [address] Calcium [Mass/Vol] 9.6 mg/dL Normal 8.5-10.2 [facility] Comment on above: Order Comment: Speci men Type: BLOOD SPECIMEN [facility] Address: [address] [place] [address] Performed By: #### 2 4323-8, 2532-0 #### [facility] CLIA [id number] [address] [place] [address] Chloride [Moles/Vol] 99 mmol/L Normal 97-105 [facility] Comment on above: Order Comment: Speci men Type: BLOOD SPECIMEN [facility] Address: [address] [id number] Performed By: #### 2 4323-8, 2531-0 #### [facility] CLIA [id number] [address] [place] [address] CO2 [Moles/Vol] 25 mmol/L Normal 22-30 [facility] Comment on above: Order Comment: Speci men Type: BLOOD SPECIMEN [facility] Address: [address] [place] [address] Performed By: #### 2 4323-8, 0 #### [facility] CLIA [id number] [address] [place] [address] Creatinine [Mass/Vol] 0.51 mg/dL Low 0.58-0.96 [facility] Comment on above: Order Comment: Speci men Type: BLOOD SPECIMEN [facility] Address: [address] [place] [address] Performed By: #### 2 4323-8, 0 #### [facility] CLIA [id number] [address] [place] [address] ESTIMATED GLOMERULAR FILTRATION RATE 101 mL/min/1.73m??? Normal >=60 [facility] Comment on above: Order Comment: Speci men Type: BLOOD SPECIMEN [facility] Address: [address] [place] [address] Result Comment: Radha mated Glomerular Filtration Rate (eGFR) is calculated using the 2020 CKD-EPI creatinine equation. This equation utilizes serum creatinine, sex, and age as parameters. The creatinine assay has traceable calibration to isotope dilution-mass spectrometry. Refer to KDIGO guidelines for clinical interpretation. In patients with unstable renal function, e.g. those with acute kidney injury, the eGFR may not accurately reflect actual GFR. Performed By: #### 2 4323-8, 2531-0 #### [facility] CLIA [id number] [address] [place] [address] Glucose [Mass/Vol] 103 mg/dL High 74-99 [facility] Comment on above: Order Comment: Ilene green Type: BLOOD SPECIMEN [facility] Address: [address] [place] [address] Result Comment: The [place] Diabetes Association (ADA) provides guidance for cutoff values for fasting glucose and random glucose. The ADA defines fasting as no caloric intake for at least 8 hours. Fasting plasma glucose results between 100 to 125 mg/dL indicate increased risk for diabetes (prediabetes). Fasting plasma glucose results greater than or equal to 126 mg/dL meet the criteria for diagnosis of diabetes. In the absence of unequivocal hyperglycemia, results should be confirmed by repeat testing. In a patient with classic symptoms of hyperglycemia or hyperglycemic crisis, random plasma glucose results greater than or equal to 200 mg/dL meet the criteria for diagnosis of diabetes. Reference: Standards of Medical Care in Diabetes 2016, [place] Diabetes Association. Diabetes Care. 2016.39(Suppl 1). Performed By: #### 2 4323-8, 2531-0 #### [facility] CLIA [id number] [address] [place] [address] Potassium [Moles/Vol] 4.5 mmol/L Normal 3.7-5.1 [facility] Comment on above: Order Comment: Ilene green Type: BLOOD SPECIMEN [facility] Address: [address] [place] [address] Performed By: #### 2 4323-8, 2531-0 #### [facility] CLIA [id number] [address] [place] [address] Protein [Mass/Vol] 7.3 g/dL Normal 6.3-8.0 [facility] Comment on above: Order Comment: Ilene green Type: BLOOD SPECIMEN [facility] Address: [address] [place] [address] Performed By: #### 2 4323-8, 2531-0 #### [facility] CLIA [id number] [address] [place] [address] Sodium [Moles/Vol] 132 mmol/L Low 136-144 [facility] Comment on above: Order Comment: Speci men Type: BLOOD SPECIMEN [facility] Address: [address] [place] [address] Performed By: #### 2 4323-8, 2-0 #### [facility] CLIA [id number] [address] [place] [address] Urea nitrogen [Mass/Vol] 8 mg/dL Normal 7-21 [facility] Comment on above: Order Comment: Speci men Type: BLOOD SPECIMEN [facility] Address: [address] [place], [place] [address] [address] Performed By: #### 2 4323-8, 2531-0 #### [facility] CLIA [id number] [address] [place] [address] Albumin [Mass/Vol] 4.5 g/dL 3.9 - 4.9 g/dL [facility] ALP [Catalytic activity/Vol] 66 U/L 34 - 123 U/L [facility] ALT [Catalytic activity/Vol] 16 U/L 7 - 38 U/L [facility] Anion gap [Moles/Vol] 8 mmol/L Low 9 - 18 mmol/L [facility] AST [Catalytic activity/Vol] 30 U/L 13 - 35 U/L [facility] Bilirubin [Mass/Vol] 0.3 mg/dL 0.2 - 1 .3 mg/dL [facility] Calcium [Mass/Vol] 9.6 mg/dL 8.5 - 10. 2 mg/dL [facility] Chloride [Moles/Vol] 99 mmol/L 97 - 10 5 mmol/L [facility] CO2 [Moles/Vol] 25 mmol/L 22 - 30 mmol/L [facility] Creatinine [Mass/Vol] 0.51 mg/dL Low 0.58 - 0.96 mg/dL [facility] Estimated Glomerular Filtration Rate 101 mL/min/1.73m >=60 mL/min/1.[address] [facility] Glucose [Mass/Vol] 103 mg/dL High 74 - 99 mg/dL [facility] Potassium [Moles/Vol] 4.5 mmol/L 3.7 - 5.1 mmol/L [facility] Protein [Mass/Vol] 7.3 g/dL 6.3 - 8.0 g/dL [facility] Sodium [Moles/Vol] 132 mmol/L Low 136 - 144 mmol/L [facility] Urea nitrogen [Mass/Vol] 8 mg/dL 7 - 21 mg/dL [facility] Consent for Procedure/Surger yon 12-09-2022 Consent for Procedure/Surgery [id number] D:127 Normal [facility] Screenson 12-09-2022 Screens [id number] CD:127 Normal [facility] Ambulatory Visit Summaryon 0 12-08-2022 Ambulatory Visit Summary KARIN MIX :1955 Visit Date:12/08/2022 Ambulatory Visit Instructions Your Diagnosis Asymptomatic microscopic hematuria Stress incontinence, female Current smoker History of UTI Vaginal atrophy Your Care Team Attending Physician - Merissa Santizo MD Primary Care Physician - Mirian Castillo DO This Is Your Medications List Contact prescribing physician if questions or concerns metoprolol (metoprolol 100 mg ER Tab) tamoxifen Procedures Performed Cystoscopy (12/08/2022), Cystoscopy (11/10/2022), Colonoscopy, Gallbladder, Mastectomy of left breast, Tonsillectomy, Tubal ligation. Discharge Vitals Heart Rate (Peripheral) 72 Blood Pressure 130/81 Height 153 cm Height 60 in Weight 55 kg Weight 121 lb BMI 23.5 What to do next Scheduled Follow-Up Appointments Wednesday 1:30 PM EDT With: Merissa Santizo MD Where: [facility] Urology Office/Clinic Noteon 12-08-2022 Urology Office/Clinic Note Chief Complaint Pt is here for cystoscopy HPI Staff Karin is a 66 y.o. female here for cystoscopy. History of Present Illness Tests reviewed: cytology. I have reviewed the previous health record information and history for this patient from Dr. Santizo. I have reviewed and verified the staff HPI to be accurate for this encounter. There have been no associated fever, chills, flank pain, or blood in the urine. Denies any urinary infections since last encounter. Review of Systems PHQ Score Initial Depression Screen Score: 0 ROS - Provider Constitutional: denies weight loss, denies hot flashes. Eyes: denies eye problems. Gastrointestinal: denies nausea, denies vomiting. Cardiovascular: denies chest pain or angina. Integumentary: no dryness Musculoskeletal: denies musculoskeletal symptoms. ENMT: denies otolaryngeal symptoms. Respiratory: no shortness of breath. Heme/Lymph: denies easy bleeding tendency, denies easy bruising tendency. Psychiatric: no confusion, no anxiety. Genitourinary: See HPI. Physical Exam Vitals & Measurements HR: 72(Peripheral) BP: 130/81 HT: 60 in HT: 153 cm WT: 55 kg WT: 121 lb BMI: 23.5 General Appearance: alert , no acute distress, well nourished, well developed female. Genitourinary: bladder nonpalpable, no flank pain. Procedure Operative Information Anesthesia Type: Local Procedure: Local Cystoscopy Complications: None Surgical risks, benefits, details of the procedure have been explained to the patient. Full informed consent has been obtained. Intraoperative Information Prepped: Patient is brought back to the endoscopy suite. Patient is placed in supine/frog leg position. Patient prepped in the usual fashion with Betadine solution. 2% Xylocaine Jelly is placed per Urethra. After waiting several minutes, the Cystoscope is introduced. The Urethra is: Normal The Bladder: Normal, Posterior bulge probably from stool. No bladder tumors or stones. Trabeculated: None (0) The Ureteral orifices: Show efflux of clear urine Specimens Removed: None Removal: Cystoscope is removed. The patient tolerated it well. Postoperative Information Patient is discharged home. Follow up arranged. Assessment/Plan 1. Asymptomatic microscopic hematuria (R31.21: Asymptomatic microscopic hematuria) UA done 07/28/22 shows 3-4 RBCs. UA done 08/05/22 shows 5-9 RBCs. Cyto done 11/17/22 was negative. AUA HIGH risk based on age and smoking hx. CTU done 11/02/22 shows no upper collecting system abnormalities identified to explain the pt's hematuria. Abnormal endometrial thickening of 16mm. Endometrial hyperplasia or malignancy cannot be excluded. Pt had IO cysto without complications today. - prior areas of inflammation resolved. Prior Cytology negative. Follow up in 1 year with UA, or sooner if problems arise. -Previously referred pt to her manager of sales Dr. Rees for endometrial thickening finding on CTU, has f/u coming up 2. Stress incontinence, female (N39.3: Stress incontinence (female) (male)) ICIQ-SF today 4, previously 4 on 11/10/22 and 7 on 10/23/22. PVR 0cc on 11/10/22. Denies bother Not on exam today -PFPT at home 3. Current smoker (F17.200: Nicotine dependence, unspecified, uncomplicated) 1/2 PPD. 50 years. Risk for malignancy. Having a hard time quitting, declined assistance 4. History of UTI (Z87.440: Personal history of urinary (tract) infections) Pos cx on 11/10/22: 100,000 cfu/ml Enterococcus faecalis, 1,000 cfu/ml mixed skin containments. Treated with Cipro 250 mg BID x 7 days starting 11/18/22. Dysuria and other mild sx resolved. Pt denies any more infections since last infection. Only 3 UTIs in lifetime Cont conservative mgmt, cranberry pills, fluids, bowel regimen 5. Vaginal atrophy (N95.2: Postmenopausal atrophic vaginitis) Noted on cysto from 11/10/22 and today. Unable to take estrace, on tamoxifen. Discussed OTC vaginal lubricants if becomes bothersome or with recurrent UTIs Follow-up With When Contact Information Sukhdev WOLFE, Merissa Keita, URL, URO Additional Instructions: Follow up in 1 year with UA Patient Education I, Irena Toledo, personally scribed for Dr. Santizo on 12/08/2022 10:08:03. . Documentation recorded by the scribe, Irena Toledo, accurately reflects the services(s) I performed and decisions made by me. Authenticated by Dr. Santizo on 12/08/2022 10:32:49. Problem List/Past Medical History Ongoing Arthritis Asymptomatic microscopic hematuria Breast cancer Current smoker Cystitis cystica Gall stone History of UTI HTN (hypertension) Hyperthyroidism Stress incontinence, female Vaginal atrophy Historical No qualifying data Procedure/Surgical History Cystoscopy (12/08/2022), Cystoscopy (11/10/2022), Colonoscopy, Gallbladder, Mastectomy of left breast, Tonsillectomy, Tubal ligation. Medications metoprolol 100 mg ER Tab, Oral, Daily tamoxifen, Oral Allergies (more content not included)... Normal [facility] Comment on above: Result Comment: Elec tronically Signed By: Merissa Santizo MD\.br\Date and Time Signed: 12/08/22 10:32 EST\.br\Electronically Co-Signed By: Irena Toledo\.br\Date and Time Co-Signed: 12/08/22 10:08 EST CBC W Auto Differential pane l (Bld)on 12-03-2022 Basophils (Bld) [#/Vol] 0.05 10*3/uL <0.11 k/uL [facility] Basophils/100 WBC (Bld) 0.5 % [facility] Differential cell count method Nom (Bld) Auto [facility] Eosinophils (Bld) [#/Vol] 0.10 10*3/uL <0.46 k/uL [facility] Eosinophils/100 WBC (Bld) 0.9 % [facility] Erythrocyte distribution width (RBC) [Ratio] 13.4 % 11.5 - 15.0 % [facility] Hematocrit (Bld) [Volume fraction] 44.1 % 36.0 - 46.0 % [facility] Hemoglobin (Bld) [Mass/Vol] 14.1 g/dL 11.5 - 15.5 g/dL [facility] Immature granulocytes (Bld) [#/Vol] <0.10 k/uL [facility] Immature granulocytes/100 WBC (Bld) 0.2 % [facility] Lymphocytes (Bld) [#/Vol] 3.69 10*3/uL 1.00 - 4.00 k/uL [facility] Lymphocytes/100 WBC (Bld) 34.6 % [facility] MCH (RBC) [Entitic mass] 31.6 pg 26.0 - 34.[address] [facility] MCHC (RBC) [Mass/Vol] 32.0 g/dL 30.5 - 36.0 g/dL [facility] MCV (RBC) [Entitic vol] 98.9 fL 80.0 - 100.[address] [facility] Monocytes (Bld) [#/Vol] 1.07 10*3/uL High <0.87 k/uL [facility] Monocytes/100 WBC (Bld) 10.0 % [facility] Neutrophils (Bld) [#/Vol] 5.73 10*3/uL 1.45 - 7.50 k/uL [facility] Neutrophils/100 WBC (Bld) 53.8 % [facility] Nucleated RBC (Bld) [#/Vol] <0.01 k/uL [facility] Nucleated RBC/100 WBC (Bld) [Ratio] 0.0 /[address] [facility] Platelet mean volume (Bld) [Entitic vol] 10.0 fL 9.0 - 12.[address] [facility] Platelets (Bld) [#/Vol] 245 10*3/uL 150 - 400 k/uL [facility] RBC (Bld) [#/Vol] 4.46 10*6/uL 3.90 - 5.2 0 m/uL [facility] WBC (Bld) [#/Vol] 10.66 10*3/uL 3.70 - 11.00 k/uL [facility] Pre-Certification Formon Pre-Certification Form [id number]#[id number] D:127 Normal [facility] Urine Cytology ([facility])on 01-18-2022 Urine Cytology Diagnosis Info Invalid Interpretation Code [facility] Comment on above: Result Comment: A:Ur ine,Urine:Voided Interpretation - MicroScopic Description - Adequacy - Gross Description Site ID:A color Light Yellow fixative Alcohol Specimen designated Urine received in alcohol preservative and labeled with the patient?s name, consists of 90ml clear light yellow fluid. Electronically signed by : on: 11/17/2022 10:53:29 Performed By: #### 1 [id number] ####[facility] [id number] [place] [address] Coding Summary.on 11-13-2022 Coding Summary. [id number] Gh0 bWw+PGhlYWQ+IE8WPSIjB01 wiSSjgO5QI3pPXX1ALDJYKA PFQM9LKA1efJQ3ZMsgE8Nqo iAv RdtmpVNgGK56PSq9IAI6iRw nWGffqL5jyPQnV6e1ArHtZN 48hQ33DGnqVXAnMcG6ZgYrf jsgbWFy D9ubEjJqhBIbSeq+PHRhYmx lIHdpZHRoPScxMDAlJyBzdH iyHN4fXl1sRFKpVUDrsSzpo HNlOiBj p3joUKHkBRknKP8ybFuaS9F ujKV7ETFus0t8Hw66dUU+PH GfFOF7rMiuWMxau715XvRrj 2vlDJI0 dPScMLlbYPP1Y57vn4G3PNO yEAPuYIS0hMN5hK7btQsrej khU7XloAQkAeY0LXW1aMKcn S9vdBcd wmzibR5hMxf+Z13PUL1UTKS XXM2PLha3J0ZhArtirMC+PC 99QMGfVJ09rDIeeKTkz3txj Fc5YsVg EOZcJRF1cNvsNSscn7ZgDOY uK48ejDSxi7L4HLPecXcjxF QpJfWglJF7bN5lUPzclyjnt 2hvdzsn Nrfkm2bqgh24uQ24W96jWZs nYYKtGRT4PZJfOVTjuZbhjt 9vwZ7rJa5+LNqxh7lgf5tmy Ji4JpSg JUNtucIpgFlnUMS4a2HwRl7 6A1YpaXnod5VoNar4os50iT Vcs4S3kWP8WCikIVYbgR4vE WxlZnQ6 ZKTnPtUhiM57nHCbWRyqSy0 ymCuacZkmHE9bMHJmsatyXV YxjC9nCFIapKMjzVfkZK0gD TBpbjtm x254FzPgEJP4UDKiwEBrX2Y axM2uQtKaLKTwKRDeI2TcvC BzEMzcY752NWthLjA9OGWhk kGcU0Dz KOCirBwzVcZ9z8E2Ty6Of4I mghnoHWF2QIdxBBYpTfZkSj XlPfO9Z5PtUce3DQFchCqfA D0gF5An CXRgvcohpsnhtQS3ZMLmMZC ylE69xWScSQcaLa7pl3I8m8 60ECCkVXBygA95Yo3uzZunZ TBwdCBU jC2rfgwza0kasheaXpGrLED hFZx0ZIt3CUMfqXdmArRfPM Y0UwM6QTJ6mMKuiW8koJqtn mbidR1z Oyc+J30uyH8sZXK7LZL4sou mUSQskqSyHW89ZQ76M7PlZb wvdGFibGU+PGRpdiBzdHlsZ R9lCwGl c0mko7YyPHqkI6SdNAPfUJr yHxv0LWYrDON6pRR7xH1wZI SoRBnxo6N1fRF2D0GptzMyc b5gk1um HWIsYLyhI29jcAUwv3Y3LQU jqCR3KCMopMagLfTeoZ27Mq c+YXZskDuwf7RsRxbca5plf 2yvwRf4 XaWhQMJxufQwdDlvOWL3m1Y lBe86C20zHHjtEMKzDZHeDT IiRVXwmWhzrl6imT1kLq5+P GNvbCB3 xXY7qH2jPNOuIzE7UChmP24 1YzChjLEjCcssv6tox6yblT a7TxNiXJJfhpCklDwzFEE3p 1RdHo73 F47sJWvpITJkSSUpMALnCLZ yqItlbq8wdE2nAr7+PC9jb2 djea65bH10yUP+ODJyGJZ8u WxlPSdw MNDuqE6qBYsmDgO7GRMlHzN otD00vZPpILpvLn9gsGmwfU icFZ5jCAYlzainh072DwQvx 2xkIDEw nMLiWKdlIYN3S26ub4S0OYE wFMNvHUO6oEQ3hC1bjHzyyf ogbGVmdDsgdmVydGljYWwtY OdxJ734 IHRvcDsnPlBhdGllbnQgTmF fXGo7V4GhUyx7MHUurKexFP 6gzBLqVXodHh9noVainTrrX K2uCYLl zcplx433RdIwt4cgPMOicOT zAAesPZI9Z62be1M1CSQlPZ MeXEZ7tZJ3yV1mnTiuhlxfq GVmdDsg dmRuoNhaGGqoXWgfM253LRC pvDbiUbZigwCnYISvdJV3PP 23DQ18xIEmc5U2pLB1X2KbP GRpbmct jtwbmUF9LNJxYJXajY62Bp7 chQpaNp4jBADgQXX3KFSwgD OtZ6CmrU2wBxRnYVDsKNFcW 3RleHQt ZHsrD699UXfxWpE0PKNzuvY pL5IwCNQqdEgmCnC6g7Y7Ll 8HV9B2DP78UG53gADty9U4d PV4N5Dc RKGpvbdupayvoEH1NKUwSAE nsQ95Hd9xgIhqSp7vYYRuFS U6GIMihEUsP5HdrE1mZiBqO DAwMDAw P5AqlMTwEXboB278DIivEoG 1GZBpppBjV7BeQKMzmFyaYp X7u9Z2Os4NYKs6YR68SW61e BWhe3L4 uIL4C9NsYFBbnxkbgfqoaWW 7JOZxHTCvzC98Zv8ocNfoUw 1vURKkCEN6DUVyeFUkI3Ivc D1kYsIm RQNxDXMcK9TbfRHuLDgvK62 0VQitTfO7ZNRtcvYeX8HiLT OuwMmpAiX2u3O3Bm4JFPKjF S03RIY6 eZD7ZT29BB38Y4QiIfmplQS ibGU+PHRhYmxlIHdpZHRoPS ohAMBwGnVdcVryXW7bKh6tE GVyLWNv qFzsjPEgPpNqs1wqWSBvBNu uUL4kvDtzA4DnqCA5HBCuo8 f0Hb00Q19qT5PvhXN+PGNvb VC6dBJ5 hT3jXtPvNsJ5SKnxZ024ExM gjHMoWecqy9qeg9cijHx8Oi L1JKEwtbFtlCruQIX6l1RhM d61V74s IHdpZHRoPSIxNSUiIHZhbGl eit6zbU4kTj7+KMXpjFZ0fX F5gX8iXhQlJpM2TBzkU586P nRvcCIv Mezgb3qnp5yafZn0EbJrRAI hiqUqtYrdVGW6t8GmCx42O7 LdwUzee3EgAih7dt93sMDsz 9B4wWA1 P9VmFIYqsklnyCUxmHfjOV2 yLNBcugfcZFYdgF6hDBAjS6 l2WxGvPbY7YErrP8UnqlJ1I DEwcHQg RKnmCAK2O41jy0W8QBUzBEK gJWR8fFN1aO8cuCteawxxtZ VmdDsgdmVydGljYWwtYWxpZ 246IHRv fDbyJORixC6tPROccYPacIx yDA5aUMEyatglSubVQxQhTR jJLiQFHJC7V7WuSkr3NGLtw MbgYJ5m qICkKBrrZx5smIyjyQmfLT0 nFFNdndzlOCBtfC5vKQTwvG ZcnCfyVK3lVXDdeiftt035M iAxMHB0 OLDtvWArV3YlyJ6kHjEhWPO nQAVrA1VisIWeVFwpO407JQ vvSdV1VZUxesUdH5AiPJXsl WduOiB0 w5D6Ug7wZk3pLB0uPOL6FL0 0KX62gHHpf9H1bLS2D6WdZO FlcrcdqaesaTJ5FLQeQFDvy Q65eBXk NBbfKl8jb8L8i061VPWaFNM ptJ60Vq0aiYplSCVbwSTOuL 6fenwen3yfyromKrNkSNVtB Mf0KRr7 ZNVfmEyeXrGdPZD1CrR4VTZ 7uTZhvQ0flJdxioosxK9rFw c+AnyxNJXasuI4X4KfXjz8D CBzdHls YA0ufJIvCNnlGg9xbRwqaKv qVK0iHYYmiinvEHNhiO6aBI JxjGTxiVqwSH3pGRYmpxegq 250OiAx NRB8AYAnnWQqB5TwoS5mPfC eFHLpRGYaV8JvsWFpYBqtN9 45ZVvcPpC8UXKlosAoI9OfI WFsaWdu CzR5n5H2Tv2ASH4fjPC7O6W hAso1AILrfIxgRW5dpDMnBV pvRg8ueFvccDteZR3gKWOxq jtwYWRk sQ8aZMYrbKNqsYkzHA5nUNP wimqki212FiHcOSR4WRYyuM WjA4TjoP1tUcXlFUAmMNBaX 3RleHQt WSaxV607IAvtCmU7XTHotzX dV1NkBKOacGoeKkM3g5L4Hi 4ZSNOzDHIwxKSeTqK4G4YeD jwvdHI+ YM35GHCiEL64yFAjrKLtz8t axWy1KyNzHXFjGRQ8yWvoGY xzc6SlKWZsM41nmFLwo9D2R GNvbGxh oBKaYfPgcSK6aF7iQOxfkwm od8lmxlifAppor0pctv20xF 45C40yRCxzYMSgWZUcZDHtM HZhbGln lw3noW3aKb7+SXJnqZP6oWS 9yV4fYsCtRsE1EVlkJ974Pb DxcYVsVengs5xud8jkuXc7S jIwJSIg qyXnhNgmNYO4n4FtIa55D58 sIHdpZHRoPSIyMCUiIHZhbG vuga8dhO2rAp1+VQ9vq4soi v05hX13 dHI+KTRwSXS0cKziMKyySCK ksR6fZJrxFqU7WHYlOzShuL 13iNWtSAgbEk8clZjjiPjbW Q8vZRXz vgnsc011ZbRyh5mnOELasXC hVPhsMMK6T55ge8G2STIhPR JfXMC2rVI0uM1gxRwfuajlp GVmdDsg njHbrKkuEPytAQxxB217LSF sqEqdMxJrjEQmB8sbztDNUJ 1lOjwvdGQ+YPZyGLY1fLojG SdwYWRk cP6kBFFbV0z8AhZhIzM5PNx zZ9IjkyN1HGVkiAZtOAKorX TUwO3mrlgvk0anxyflApYzF DAwMDt0 YPa7QPUteRasOlDrAWY5MhW 7BUB0fGImvS4mvDqcxasbeX 9wOyc+RklOOjwvdGQ+PHRkI FJ2sElf CUfjKAAjrB3sNSNhH1s6GfG uAtW1QOaeB3PaukF1UBMzwL AcZBWfrDLUjY2vzeavp9yze jogIzAw KWMdFWb9KEa4KSScxLzyKuV oYDI5HlV0KZJ4eYHsuK1iqL mvdyvodF8bEdy+TVJOOjwvd GQ+PHRk CRL9nXuaFAiaNATeaB1gUHE wB3k4OlTsZjH1PGqsW6Eqaj H9GVArcHWhAAOkrYMUwR9hn dixa9bx jsaeKyDoLIGeITq9DUd7EZY boNaiYiKjKMD0XgC6UGA5bK HisJ4ymHawnqzjeK8tSkq+U XY6ZRY4 HU33NA57K0NlFrewmXDnaDQ +PHRhYmxlIHdpZHRoPScxMD FoIjKveHvbUJ8oHv6sPCHmM WNvbGxh cHNl (more content not included)... Normal [facility] C Urineon 11-12-2022 Bacteria identified Cx Nom (U) Microbiology PROCEDURE: Urine Culture [R1] SOURCE: U CleanCatch BODY SITE: COLLECTED DATE/TIME: 11/10/2022 12:54 EST RECEIVED DATE/TIME: 11/10/2022 21:33 EST START DATE/TIME: 11/10/2022 21:33 EST FREE TEXT SOURCE: Sukhdev WOLFE, Merissa Santizo MD, Merissa Keita FINAL REPORTS Final Report [] Verified Date/Time: 11/12/2022 08:48 EST >100,000 cfu/ml Enterococcus faecalis 1,000 cfu/ml Mixed skin contaminants SUSCEPTIBILITY RESULTS ___ LEGEND: S=Susceptible, N/R=Not Reported, Blank=Data not available, or drug not advisable or tested, I=Intermediate, ESBL=Extended spectrum beta-lactamase, R=Resistant, TFG=Thymidine-dependent strain, VIN=Beta-lactamase positive, MICHAEL=mcg/m;(mg/L), S*=Predicted susceptible interp, R*=Predicted resistant interp ___ Entfaeca Antibiotic MICHAEL Dilutn MICHAEL Interp Ampicillin <=2 S Ciprofloxacin <=1 S Daptomycin <=1 S Levofloxacin 2 S Linezolid <=2 S Nitrofurantoin <=32 S Penicillin 2 S Rifampin >2 R Tetracycline <=4 S Vancomycin 1 S Performing Locations R1: This test was performed at: [facility], [address] [place] [address], [id number] , [place], Normal [facility] Comment on above: Performed By: #### 2 [id number] ####[facility] [address] [place] [id number] Consent for Procedure/Surger yon 11-11-2022 Consent for Procedure/Surgery [id number]#1.00C D:127 Normal [facility] Screenson 11-11-2022 Screens [id number] CD:127 Normal [facility] Patient Educationon 11-10-20 Patient Education Urology Hematuria, Adult Hematuria is blood in the urine. Blood may be visible in the urine, or it may be identified with a test. This condition can be caused by infections of the bladder, urethra, kidney, or prostate. Other possible causes include: ? Kidney stones. ? Cancer of the urinary tract. ? Too much calcium in the urine. ? Conditions that are passed from parent to child (inherited conditions). ? Exercise that requires a lot of energy. Infections can usually be treated with medicine, and a kidney stone usually will pass through your urine. If neither of these is the cause of your hematuria, more tests may be needed to identify the cause of your symptoms. It is very important to tell your health care provider about any blood in your urine, even if it is painless or the blood stops without treatment. Blood in the urine, when it happens and then stops and then happens again, can be a symptom of a very serious condition, including cancer. There is no pain in the initial stages of many urinary cancers. Follow these instructions at home: Medicines ? Take crkg-jgz-wpqhbmd and prescription medicines only as told by your health care provider. ? If you were prescribed an antibiotic medicine, take it as told by your health care provider. Do not stop taking the antibiotic even if you start to feel better. Eating and drinking ? Drink enough fluid to keep your urine clear or pale yellow. It is recommended that you drink 3?4 quarts (2.8?3.8 L) a day. If you have been diagnosed with an infection, it is recommended that you drink cranberry juice in addition to large amounts of water. ? Avoid caffeine, tea, and carbonated beverages. These tend to irritate the bladder. ? Avoid alcohol because it may irritate the prostate (men). General instructions ? If you have been diagnosed with a kidney stone, follow your health care provider's instructions about straining your urine to catch the stone. ? Empty your bladder often. Avoid holding urine for long periods of time. ? If you are female: ? After a bowel movement, wipe from front to back and use each piece of toilet paper only once. ? Empty your bladder before and after sex. ? Pay attention to any changes in your symptoms. Tell your health care provider about any changes or any new symptoms. ? It is your responsibility to get your test results. Ask your health care provider, or the department performing the test, when your results will be ready. ? Keep all follow-up visits as told by your health care provider. This is important. Contact a health care provider if: ? You develop back pain. ? You have a fever. ? You have nausea or vomiting. ? Your symptoms do not improve after 3 days. ? Your symptoms get worse. Get help right away if: ? You develop severe vomiting and are unable take medicine without vomiting. ? You develop severe pain in your back or abdomen even though you are taking medicine. ? You pass a large amount of blood in your urine. ? You pass blood clots in your urine. ? You feel very weak or like you might faint. ? You faint. Summary ? Hematuria is blood in the urine. It has many possible causes. ? It is very important that you tell your health care provider about any blood in your urine, even if it is painless or the blood stops without treatment. ? Take mxqa-wuk-rjhxocz and prescription medicines only as told by your health care provider. ? Drink enough fluid to keep your urine clear or pale yellow. This information is not intended to replace advice given to you by your health care provider. Make sure you discuss any questions you have with your health care provider. Document Released: 11/08/2006 Document Revised: 04/03/2020 Document Reviewed: 12/11/2017 [employer] Patient Education ? 2019 [employer] Normal [facility] URINALYSISOrdered By: Brayden cooper on 11-10-2022 Bilirubin Ql (U) Negative (11/10/22 1:12 PM) Normal Negative [facility] UA Auto SS Clarity (U) Clear (11/10/22 1:12 PM) Normal Clear [facility] UA Auto SS Color (U) Yellow (11/10/22 1:12 PM) Normal Yellow [facility] UA Auto SS Epithelial cells.squamous LM.HPF (Urine sed) [#/Area] 0-2 /HPF Normal 0-2/HPF [facility] UA Aut o SS Glucose Test strip (U) [Mass/Vol] Negative (11/10/22 1:12 PM) Normal Negative [facility] UA Auto SS Hemoglobin Ql (U) Negative (11/10/22 1:12 PM) Normal Negative [facility] UA Auto SS Ketones (U) [Mass/Vol] Negative (11/10/22 1:12 PM) Normal Negative [facility] UA Auto SS Repton.plasma/Repton. RBC (Bld) [Mass ratio] 0-3 /HPF Normal 0-3/HPF [facility] UA A uto SS Nitrite Ql (U) Negative (11/10/22 1:12 PM) Normal Negative [facility] UA Auto SS pH (U) 6.0 *NA* (11/10/22 1:12 PM) Invalid Interpretation Code 5.0 - 9.0 [facility] UA Auto SS Protein (U) [Mass/Vol] Negative (11/10/22 1:12 PM) Normal Negative [facility] UA Auto SS Specific gravity (U) [Rel density] <=1.005 *NA* (11/10/22 1:12 PM) Invalid Interpretation Code 1.005 - 1.030 [facility] UA Auto SS UA Spec Desc Clean Catch (11/10/22 1:12 PM) Normal [facility] UA Auto SS Urobilinogen Qn (U) 0.2084200 {Ryan'U}/dL Normal 0.0 - 1.0 EU/dL [facility] UA Auto SS WBC Auto Ql (U) Negative (11/10/22 1:12 PM) Normal Negative [facility] UA Auto SS WBC LM.HPF (Urine sed) [#/Area] 0-5 /HPF Normal 0-5/HPF [facility] UA Auto SS Urinalysison 11-10-2022 Bilirubin Ql (U) Negative Normal Negative [facility] Comment on above: Performed By: #### 1 [id number] ####[facility] [address] [place] [address] Clarity (U) CLEAR Normal Clear [facility] Comment on above: Performed By: #### 1 [id number] ####[address] [address] Color (U) YELLOW Normal Yellow [facility] Comment on above: Performed By: #### 1 [id number] ####[address] [address] Epithelial cells.squamous LM.HPF (Urine sed) [#/Area] 0-2 Normal 0-2 [facility] Comment on above: Performed By: #### 1 [id number] ####[address] [address] Glucose Test strip (U) [Mass/Vol] Negative Normal Negative [facility] Comment on above: Performed By: #### 1 [id number] ####[address] [address] Hemoglobin Ql (U) Negative Normal Negative [facility] Comment on above: Performed By: #### 1 [id number] ####[facility] [address] [place] [address] Ketones (U) [Mass/Vol] Negative Normal Negative [facility] Comment on above: Performed By: #### 1 [id number] ####[facility] [address] [place] [address] Repton.plasma/Repton. RBC (Bld) [Mass ratio] 0-3 Normal 0-3 [facility] Comment on above: Performed By: #### 1 [id number] ####[facility] [address] [place] [address] Nitrite Ql (U) Negative Normal Negative [facility] Comment on above: Performed By: #### 1 [id number] ####[facility] [address] [place] [address] pH (U) 6.0 [pH] Invalid Interpretation Code 5.0-9.0 [facility] Comment on above: Performed By: #### 1 [id number] ####[address] [address] Protein (U) [Mass/Vol] Negative Normal Negative [facility] Comment on above: Performed By: #### 1 [id number] ####[address] [address] Specific gravity (U) [Rel density] <=1.005 Invalid Interpretation Code 1.005-1.030 [facility] Comment on above: Performed By: #### 1 [id number] ####[address] [address] Type of Urine collection method Clean Catch Normal [facility] Comment on above: Performed By: #### 1 [id number] ####[address] [address] Urobilinogen Qn (U) 0.2 {Ryan'U}/dL Normal 0.0-1.0 [facility] Comment on above: Performed By: #### 1 [id number] ####[address] [address] WBC Auto Ql (U) Negative Normal Negative [facility] Comment on above: Performed By: #### 1 [id number] ####[address] [address] WBC LM.HPF (Urine sed) [#/Area] 0-5 Normal 0-5 [facility] Comment on above: Performed By: #### 1 [id number] ####[address] [address] Urine Cytology ([facility])on 01-11-2022 UC Method of Extraction [facility]ed [facility] Comment on above: Performed By: #### 1 [id number] ####[place] [address] [place] [address] Number of Jars 1 Invalid Interpretation Code [facility] Comment on above: Performed By: #### 1 [id number] ####[facility] [address] [place] [address] Specimen Urine Normal [facility] Comment on above: Performed By: #### 1 [id number] ####[facility] [address] [place] [address] Type of Service Technical Only Normal [facility] Comment on above: Performed By: #### 1 [id number] ####[facility] [address] [place] [address] Urology Office/Clinic Noteon 11-10-2022 Urology Office/Clinic Note Chief Complaint Pt is here today for Cysto HPI Staff Pt is here today for Cysto. History of Present Illness Tests reviewed: CTU. I have reviewed the previous health record information and history for this patient from Dr. Santizo. I have reviewed and verified the staff HPI to be accurate for this encounter. There have been no associated fever, chills, flank pain, or blood in the urine. Denies any urinary infections since last encounter. Review of Systems PHQ Score Initial Depression Screen Score: 0 ROS - Provider Constitutional: denies weight loss, denies hot flashes. Eyes: denies eye problems. Gastrointestinal: denies nausea, denies vomiting. Cardiovascular: denies chest pain or angina. Integumentary: no dryness Musculoskeletal: denies musculoskeletal symptoms. ENMT: denies otolaryngeal symptoms. Respiratory: no shortness of breath. Heme/Lymph: denies easy bleeding tendency, denies easy bruising tendency. Psychiatric: no confusion, no anxiety. Genitourinary: See HPI. Physical Exam Vitals & Measurements HR: 78(Peripheral) BP: 197/91 WT: 55.8 kg WT: 122.76 lb General Appearance: alert , no acute distress, well nourished, well developed female. Genitourinary: bladder nonpalpable, no flank pain. Procedure Operative Information Anesthesia Type: Local Procedure: Local Cystoscopy Complications: None Surgical risks, benefits, details of the procedure have been explained to the patient. Full informed consent has been obtained. Intraoperative Information Prepped: Patient is brought back to the endoscopy suite. Patient is placed in supine frogleg position. Patient prepped in the usual fashion with Betadine solution. 2% Xylocaine Jelly is placed per Urethra. After waiting several minutes, the Cystoscope is introduced. The Urethra is: Normal The Bladder: _, Scattered cystitis cystica on the posterior and inferior bladder wall. Squamous metaplasia on trigone. No bladder tumors or stones. Scattered inflammation. Trabeculated: None (0) The Ureteral orifices: Show efflux of clear urine Specimens Removed: Bladder wash sent for Cytology test Removal: Cystoscope is removed. The patient tolerated it well. Vaginal examination: Vaginal mucosa: There is severe vaginal atrophy The urethra is patent, orthotopic, minimal caruncle. There are no masses or lesions. There is mild urethral hypermobility and FEMRIN is not seen. She is able to correctly identify her pelvic muscles with coaching. Non tender, no masses palpable. No significant anterior/posterior prolapse Postoperative Information Patient is discharged home with antibiotic coverage. Follow up arranged. Assessment/Plan 1. Asymptomatic microscopic hematuria (R31.21: Asymptomatic microscopic hematuria) UA done 07/28/22 shows 3-4 RBCs. UA done 08/05/22 shows 5-9 RBC. Pt denies any incidence of gross blood. Pt is a current smoker, 1/2 PPD, 50 years. AUA HIGH risk. CTU done 11/02/22 shows no upper collecting system abnormalities identified to explain the pt's hematuria. Abnormal endometrial thickening of 16mm. Endometrial hyperplasia or malignancy cannot be excluded. Pt had IO cysto without complications today. - Bladder wash will be sent for cytology and UAUCx. -Will tx if cx is positive then follow with repeat cystoscopy in 1 month. Discussed CTU, will refer to her Group Chief Operator Dr. Rees, for finding on CTU about endometrial thickening All questions/concerns were discussed. Pt to call the office if sheencounters any issues prior. Pt acknowledges understanding and agrees with plan. Follow up 2. Stress incontinence, female (N39.3: Stress incontinence (female) (male)) ICIQ-SF 4 today, previously 7 on 10/23/22. Leaks a small amount 2-3 x/week according to ICIQ-SF. PVR today 0 cc. -PFPT at home 3. Current smoker (F17.200: Nicotine dependence, unspecified, uncomplicated) 1/2 PPD. 50 years. Risk for malignancy Follow-up With When Contact Information Sukhdev WOLFE, Merissa Keita, URL, URO Additional Instructions: f/u pending cyto and cx results Patient Education Hematuria, Adult I, Irenayoli Toledo, personally scribed for Dr. Santizo on 11/10/2022 11:14:56. . Documentation recorded by the scribe, Irena Toledo, accurately reflects the services(s) I performed and decisions made by me. Authenticated by Dr. Santizo on 11/10/2022 11:35:15. Problem List/Past Medical History Ongoing Arthritis Asymptomatic microscopic hematuria Breast cancer Current smoker Gall stone HTN (hypertension) Hyperthyroidism Stress incontinence, female Historical No qualifying data Procedure/Surgical History Cystoscopy (11/10/2022), Colonoscopy, Gallbladder, Mastectomy of left breast, Tonsillectomy, Tubal ligation. Medications metoprolol 100 mg ER Tab, Oral, Daily tamoxifen, Oral Allergies No Known Allergies Social History Tobacco 5-9 cigarettes (between 1/4 to 1/2 pack)/day in last 30 days Tobacco (more content not included)... Normal [facility] Comment on above: Result Comment: Elec tronically Signed By: Merissa Santizo MD\.br\Date and Time Signed: 11/10/22 11:35 EST\.br\Electronically Co-Signed By: Irena Toledo\.br\Date and Time Co-Signed: 11/10/22 11:25 EST\.br\Electronically Co-Signed By: Irena Toledo\.br\Date and Time Co-Signed: 11/10/22 11:25 EST RAD - CT Reporton 11-06-2022 RAD - CT Report [id number]#1.00C D:127 Normal [facility] Creatinine (Bld) [Mass/Vol]O rdered By: Merissa Santizo on 11-02-2022 Creatinine [Mass/Vol] 0.5 mg/dL 0.6-1.3 [facility] Comment on above: ER/ESD physician is notified/shown all ISTAT results.Critical values may be confirmed by laboratory testing ifdeemed necessary by ER attending doctor. No Panel InformationOrdered By: Merissa Santizo on 11-02-2022 POC Estimated GFR > 60 [facility] Comment on above: GFR estimated refere nce range: According to KDOQI guidelines, <60 ml/min/1.73m2 is sufficient to diagnose a patient with chronic kidney disease. POC Estimated GFR Non- Amer > 60 [facility] Pre-Certification Formon Pre-Certification Form [id number]#1.00C D:127 Normal [facility] Formson 10-26-2022 Forms [id number]#1.00C D:127 Normal [facility] Physician Referralon 022 Physician Referral [id number]#1.00C D:127 Normal [facility] Screenson 10-26-2022 Screens [id number]#1.00C D:127 Normal [facility] Patient Educationon 10-23-20 22 Patient Education Urology Hematuria, Adult Hematuria is blood in the urine. Blood may be visible in the urine, or it may be identified with a test. This condition can be caused by infections of the bladder, urethra, kidney, or prostate. Other possible causes include: ? Kidney stones. ? Cancer of the urinary tract. ? Too much calcium in the urine. ? Conditions that are passed from parent to child (inherited conditions). ? Exercise that requires a lot of energy. Infections can usually be treated with medicine, and a kidney stone usually will pass through your urine. If neither of these is the cause of your hematuria, more tests may be needed to identify the cause of your symptoms. It is very important to tell your health care provider about any blood in your urine, even if it is painless or the blood stops without treatment. Blood in the urine, when it happens and then stops and then happens again, can be a symptom of a very serious condition, including cancer. There is no pain in the initial stages of many urinary cancers. Follow these instructions at home: Medicines ? Take ijoq-mki-tspiaut and prescription medicines only as told by your health care provider. ? If you were prescribed an antibiotic medicine, take it as told by your health care provider. Do not stop taking the antibiotic even if you start to feel better. Eating and drinking ? Drink enough fluid to keep your urine clear or pale yellow. It is recommended that you drink 3?4 quarts (2.8?3.8 L) a day. If you have been diagnosed with an infection, it is recommended that you drink cranberry juice in addition to large amounts of water. ? Avoid caffeine, tea, and carbonated beverages. These tend to irritate the bladder. ? Avoid alcohol because it may irritate the prostate (men). General instructions ? If you have been diagnosed with a kidney stone, follow your health care provider's instructions about straining your urine to catch the stone. ? Empty your bladder often. Avoid holding urine for long periods of time. ? If you are female: ? After a bowel movement, wipe from front to back and use each piece of toilet paper only once. ? Empty your bladder before and after sex. ? Pay attention to any changes in your symptoms. Tell your health care provider about any changes or any new symptoms. ? It is your responsibility to get your test results. Ask your health care provider, or the department performing the test, when your results will be ready. ? Keep all follow-up visits as told by your health care provider. This is important. Contact a health care provider if: ? You develop back pain. ? You have a fever. ? You have nausea or vomiting. ? Your symptoms do not improve after 3 days. ? Your symptoms get worse. Get help right away if: ? You develop severe vomiting and are unable take medicine without vomiting. ? You develop severe pain in your back or abdomen even though you are taking medicine. ? You pass a large amount of blood in your urine. ? You pass blood clots in your urine. ? You feel very weak or like you might faint. ? You faint. Summary ? Hematuria is blood in the urine. It has many possible causes. ? It is very important that you tell your health care provider about any blood in your urine, even if it is painless or the blood stops without treatment. ? Take wtan-zic-hrqbkxt and prescription medicines only as told by your health care provider. ? Drink enough fluid to keep your urine clear or pale yellow. This information is not intended to replace advice given to you by your health care provider. Make sure you discuss any questions you have with your health care provider. Document Released: 11/08/2006 Document Revised: 04/03/2020 Document Reviewed: 12/11/2017 [employer] Patient Education ? 2019 [employer]. [facility] Urology Office/Clinic Noteon 10-23-2022 Urology Office/Clinic Note Chief Complaint Pt referred due to hematuria HPI Staff Pt referred due to hematuria. Pt unable to give urine sample today. Dysuria: denies pain and burning Incomplete bladder emptying: denies Hematuria: denies visible blood Frequency: 12x a day Urgency: denies Nocturia: maybe once a night Stream: denies hesitancy, okay stream Leaking: yes Post void dripping: yes Wearing pads/ Depends: denies Urge incontinence: denies Stress incontinence: yes Incontinence without Sensory Awareness: denies Abdominal pain: denies Flank pain: denies Sexual complaints: denies History of Present Illness Tests reviewed: reviewed UA, external referral records including labs, UA I have reviewed the previous health record information and history for this patient from PCP I have reviewed and verified the staff HPI to be accurate for this encounter. There have been no associated fever, chills, flank pain, or blood in the urine. Denies any urinary infections since last encounter. Review of Systems PHQ Score Initial Depression Screen Score: 0 ROS - Provider Constitutional: denies weight loss, denies hot flashes. Eyes: denies eye problems. Gastrointestinal: denies nausea, denies vomiting. Cardiovascular: denies chest pain or angina. Integumentary: no dryness Musculoskeletal: denies musculoskeletal symptoms. ENMT: denies otolaryngeal symptoms. Respiratory: no shortness of breath. Heme/Lymph: denies easy bleeding tendency, denies easy bruising tendency. Psychiatric: no confusion, no anxiety. Genitourinary: See HPI. Physical Exam Vitals & Measurements HR: 74(Peripheral) BP: 169/86 WT: 55.8 kg WT: 122.76 lb General Appearance: alert , no acute distress, well nourished, well developed female. Head: normocephalic . Eyes: normal orbit and globe. ENMT: normal examination of external ears. Chest: symmetric chest rise, respirations non labored . Cardiovascular: regular rate and rhythm. Abdomen: soft, non distended, no tenderness Genitourinary: bladder nonpalpable, no flank tenderness. Skin: warm, dry, no bruising. Psychiatric: cooperative, affect appropriate for age, normal judgement, euthymic mood. Assessment/Plan 1. Asymptomatic microscopic hematuria (R31.21: Asymptomatic microscopic hematuria) New patient referred by Mirian Castillo for microscopic hematuria. UA done 07/28/22 shows 3-4 RBCs. UA done 08/05/22 shows 5-9 RBC. Pt confirms clean catch. No UA provided today. Pt denies any incidence of gross blood. Pt is a current smoker, 1/2 PPD, 48 years. Asymptomatic microscopic hematuria: > 3 RBCs/HPF in absence of obvious benign cause, such as infection, menstruation, vigorous exercise, medical renal disease, viral illness, trauma or recent urological procedures. Risk factors for malignancy include male gender, age > 35 years, past/current tobacco use, exposure to chemicals/dyes (benzenes or aromatic amines) or carcinogenic agents, analgesic abuse, hx gross hematuria, urologic disease, LUTS, pelvic radiation, and chronic UTIs/indwelling ramos. AUA microhematuria risk assessment: age FM & M >60 : high smoking hx >30 pack years : high RBCs on UA 3-10 RBCs : low additional risk factors : irritative LUTS no family hx cancer no occupational exposure no hx chronic indwelling foreign body in urinary tract no previously low risk with no prior imaging/cysto : no, first episode based on the above risk assessment the pt is considered HIGH risk - will order cysto and CTU. -Obtain CT Urogram at [facility] -Will schedule cystoscopy with urine cytology (given current smoking and frequency). The risks and benefits for cystoscopy have been discussed. The risks include bleeding, infection, and irritation of the bladder and urinary channel, among others. The patient, after being informed of procedural details and after questions have been answered, wishes to proceed. Full informed consent has been obtained. Will order Local anesthesia. All questions/concerns were discussed. Pt. to call the office if she encounters any issues prior. Pt. acknowledges understanding. 2. Stress incontinence, female (N39.3: Stress incontinence (female) (male)) [id number] 7. Mild leaking and PVD. Denies bothersome urinary habits. Denies hx of UTIs (2 in life), vaginal delivery (had c-sections). -Discussed Kegels, educational pamphlet provided. 3. Current smoker (F17.200: Nicotine dependence, unspecified, uncomplicated) 1/2 PPD. 50 years. Discussed how this is a risk factor for urothelial malignancy. Encouraged smoking cessation Follow-up With When Contact Information Merissa Santizo MD, URL, URO Additional Instructions: schedule cysto, CTU Patient Education Hematuria, Adult I, Irena Toledo, personally scribed for Dr. Santizo on 10/23/2022 13:43:45. . Documentation recorded by the scribe, Irena Toledo, accurately reflects the services(s) I performed and decisions made by me. A (more content not included)... Normal [facility] Comment on above: Result Comment: Elec tronically Signed By: Merissa Santizo MD\.br\Date and Time Signed: 10/23/22 13:50 EST Urine culture routineOrdered By: Mirian Castillo on 08-21-2022 Bacteria identified Cx Nom (U) 2 Days [facility] Automated erythrocytes count in urine sediment (number/area)Ordered By: Mirian Castillo on 08-19-2022 RBC Auto (Urine sed) [#/Area] 5-9 [HPF] 0-4 [facility] Automated leukocytes count i n urine sediment (number/area)Ordered By: Mirian Castillo on 08-19-2022 WBC Auto (Urine sed) [#/Area] 5-9 [HPF] 0-4 [facility] Bilirubin Test strip Ql (U)O rdered By: Mirian Castillo on 08-19-2022 Bilirubin Ql (U) Negative Negative [facility] Casts typing in urine sedime nt by light microscopyOrdered By: Mirian Castillo on 08-19-2022 Casts LM Nom (Urine sed) N/A [facility] Color Auto (U)Ordered By: Igor Castillo on 09-28-2022 Color (U) Yellow Yellow [facility] Creatinine and Glomerular fi ltration rate.predicted panel (S/P/Bld)Ordered By: Mirian Castillo on 08-19-2022 Creatinine [Mass/Vol] 0.52 mg/dL 0.44-1.03 [facility] Estimated glomerular filtrat ion rate (GFR) non- AmericanOrdered By: Mirian Castillo on 08-19-2022 GFR/1.73 sq M.predicted among non-blacks MDRD (S/P/Bld) [Vol rate/Area] > 60 mL/Min [facility] Ketones Auto test strip (U) [Mass/Vol]Ordered By: Mirian Castillo on 08-19-2022 Ketones (U) [Mass/Vol] Negative Negative [facility] Laboratory - UrinalysisOrder ed By: Mirian Castillo on 08-19-2022 Hyaline casts LM Ql (Urine sed) N/A [facility] Nitrite Test strip Ql (U)Ord ered By: Mirian Castillo on 08-19-2022 Nitrite Ql (U) Negative Negative [facility] No Panel InformationOrdered By: Mirian Castillo on 08-19-2022 Estimated GFR () > 60 mL/Min [facility] Comment on above: GFR estimated refere nce range: According to KDOQI guidelines, <60 ml/min/1.73m2 is sufficient to diagnose a patient with chronic kidney disease. Pharmacy Creatinine Clearance (Chem N/A [facility] Protein Auto test strip (U) [Mass/Vol]Ordered By: Mirian Castillo on 08-19-2022 Protein (U) [Mass/Vol] 30 mg/dL Negative [facility] Serum or plasma anion gap de terminationOrdered By: Mirian Castillo on 08-19-2022 Anion gap [Moles/Vol] 14.3 mmol/L 6.0-15.0 [facility] Serum or plasma calcium eligio urement (mass/volume)Ordered By: Mirian Castillo on 08-19-2022 Calcium [Mass/Vol] 9.2 mg/dL 8.2-10.2 [facility] Serum or plasma chloride ramiro surement (moles/volume)Ordered By: Mirian Castillo on 08-19-2022 Chloride [Moles/Vol] 90 mmol/L 95-114 [facility] Serum or plasma glucose eligio urement (mass/volume)Ordered By: Mirian Castillo on 08-19-2022 Glucose [Mass/Vol] 116 mg/dL 70-100 [facility] Comment on above: ADA recommended refe rence rangeRandom Glucose Reference Range is dependent on time and content of last meal. Glucose of more than 200 mg/dL in a nonstressed, ambulatory subject supports the diagnosis of Diabetes Mellitus. Serum or plasma potassium me asurement (moles/volume)Ordered By: Mirian Castillo on 08-19-2022 Potassium [Moles/Vol] 4.0 mmol/L 3.5-5.1 [facility] Serum or plasma sodium measu rement (moles/volume)Ordered By: Mirian Castillo on 08-19-2022 Sodium [Moles/Vol] 125 mmol/L 136-146 [facility] Serum or plasma total carbon dioxide measurement (moles/volume)Ordered By: Mirian Castillo on 08-19-2022 CO2 [Moles/Vol] 24.7 mmol/L 22.0-30.0 [facility] Serum or plasma urea nitroge n measurement (mass/volume)Ordered By: Mirian Castillo on 08-19-2022 Urea nitrogen [Mass/Vol] 4 mg/dL 9-23 [facility] Specific gravity Auto test s trip (U) [Rel density]Ordered By: Mirian Castillo on 08-19-2022 Specific gravity (U) [Rel density] 1.012 1.001-1.030 [facility] Squamous epithelial cells de tection in urine sediment by light microscopyOrdered By: Mirian Castillo on 08-19-2022 Epithelial cells.squamous LM Ql (Urine sed) 5-9 [HPF] 0-2 [facility] Urine bacteria detection by automated methodOrdered By: Mirian Castillo on 08-19-2022 Bacteria Auto Ql (U) 1+ None Seen [facility] Urine clarity by refractomet ry automatedOrdered By: Mirian Castillo on 08-19-2022 Clarity Refractometry automated (U) Cloudy Clear [facility] Urine glucose measurement by automated test strip (mass/volume)Ordered By: Mirian Castillo on 08-19-2022 Glucose Auto test strip (U) [Mass/Vol] Normal mg/dL Normal [facility] Urine hemoglobin detection b y automated test stripOrdered By: Mirian Castillo on 08-19-2022 Hemoglobin Auto test strip Ql (U) Negative Negative [facility] Urine leukocyte esterase det ection by automated test stripOrdered By: Mirian Castillo on 08-19-2022 Leukocyte esterase Auto test strip Ql (U) Negative Negative [facility] Urobilinogen Auto test strip (U) [Mass/Vol]Ordered By: Mirian Castillo on 08-19-2022 Urobilinogen (U) [Mass/Vol] Normal mg/dL Normal [facility] pH Auto test strip (U)Ordere d By: Mirian Castillo on 08-19-2022 pH (U) 6.5 [pH] 5.0-9.0 [facility] Urine culture routineOrdered By: Mirian Castillo on 07-30-2022 Bacteria identified Cx Nom (U) 2 Days [facility] Automated erythrocytes count in urine sediment (number/area)Ordered By: Mirian Castillo on 07-28-2022 RBC Auto (Urine sed) [#/Area] 3-4 [HPF] 0-4 [facility] Automated leukocytes count i n urine sediment (number/area)Ordered By: Mirian Castillo on 07-28-2022 WBC Auto (Urine sed) [#/Area] 1-2 [HPF] 0-4 [facility] Automated urine hyaline cast s count (number/volume)Ordered By: Mirian Castillo on 07-28-2022 Hyaline casts Auto (U) [#/Vol] 3-4 [LPF] 0-1 [facility] Basophils Auto (Bld) [#/Vol] Ordered By: Mirian Castillo on 07-28-2022 Basophils (Bld) [#/Vol] 0.1 10*3/uL 0.0-0.2 [facility] Basophils/100 WBC Auto (Bld) Ordered By: Mirian Castillo on 07-28-2022 Basophils/100 WBC (Bld) 0.7 % . [facility] Bilirubin Test strip Ql (U)O rdered By: Mirian Castillo on 07-28-2022 Bilirubin Ql (U) Negative Negative [facility] Blood hemoglobin measurement (mass/volume)Ordered By: Mirian Castillo on 07-28-2022 Hemoglobin (Bld) [Mass/Vol] 14.7 g/dL 11.8-15.4 [facility] Blood leukocytes automated c ount (number/volume)Ordered By: Mirian Castillo on 07-28-2022 WBC (Bld) [#/Vol] 9.2 10*3/uL 4.5-11.0 [facility] Body fluid albumin measureme nt (mass/volume)Ordered By: Mirian Castillo on 07-28-2022 Albumin (Body fld) [Mass/Vol] 4.1 g/dL 3.2-5.5 [facility] Casts typing in urine sedime nt by light microscopyOrdered By: Mirian Castillo on 07-28-2022 Casts LM Nom (Urine sed) None seen [LPF] None Seen [facility] Cholesterol [Mass/volume] in Serum or PlasmaOrdered By: Mirian Castillo on 07-28-2022 Cholesterol [Mass/Vol] 142 mg/dL 140-200 [facility] Comment on above: Chol less than 200 m g/dl low risk Chol 201-239 mg/dl borderline risk Chol 240 mg/dl and greater high risk Chol less than 200 m g/dl low riskChol 201-239 mg/dl borderline riskChol 240 mg/dl and greater high risk Cholesterol in LDL Calc [Mas s/Vol]Ordered By: Mirian Castillo on 07-28-2022 Cholesterol in LDL [Mass/Vol] 64 mg/dL 0-100 [facility] Comment on above: LDL ATP III CLASSIFI CATION LDL less than 100 mg/dL Optimal LDL 100-129 mg/dL Near or above optimal LDL 130-159 mg/dL Borderline high LDL 160-189 mg/dL High LDL greater than 189 mg/dL Very high LDL ATP III CLASSIFI CATIONLDL less than 100 mg/dL OptimalLDL 100-129 mg/dL Near or above optimalLDL 130-159 mg/dL Borderline highLDL 160-189 mg/dL HighLDL greater than 189 mg/dL Very high Cholesterol in VLDL Calc [Ma ss/Vol]Ordered By: Mirian Castillo on 09-06-2022 Cholesterol in VLDL [Mass/Vol] 22 mg/dL [facility] Color Auto (U)Ordered By: Igor horn Pritesh on 07-28-2022 Color (U) Yellow Yellow [facility] Creatinine and Glomerular fi ltration rate.predicted panel (S/P/Bld)Ordered By: Mirian Castillo on 07-28-2022 Creatinine [Mass/Vol] 0.51 mg/dL 0.44-1.[address] [facility] Eosinophils Auto (Bld) [#/Vo l]Ordered By: Mirian Castillo on 07-28-2022 Eosinophils (Bld) [#/Vol] 0.2 10*3/uL 0.0-0.45 [facility] Eosinophils/100 WBC Auto (Bl d)Ordered By: Mirian Castillo on 07-28-2022 Eosinophils/100 WBC (Bld) 2.2 % . [facility] Erythrocyte distribution wid th Auto (RBC) [Ratio]Ordered By: Mirian Castillo on 07-28-2022 Erythrocyte distribution width (RBC) [Ratio] 13.4 % 11.9-15.3 [facility] Estimated glomerular filtrat ion rate (GFR) non- AmericanOrdered By: Mirian Castillo on 07-28-2022 GFR/1.73 sq M.predicted among non-blacks MDRD (S/P/Bld) [Vol rate/Area] > 60 mL/Min [facility] Globulin Calc (S) [Mass/Vol] Ordered By: Mirian Castillo on 07-28-2022 Globulin (S) [Mass/Vol] 2.6 g/dL [facility] Hematocrit Auto (Bld) [Volum e fraction]Ordered By: Mirian Castillo on 07-28-2022 Hematocrit (Bld) [Volume fraction] 43.9 % 34.0-46.4 [facility] Ketones Auto test strip (U) [Mass/Vol]Ordered By: Mirian Castillo on 07-28-2022 Ketones (U) [Mass/Vol] Negative [facility]ematology and Cell countsOrdered By: Mirian Castillo on 07-28-2022 Nucleated RBC/100 WBC (Bld) [Ratio] 0.0 % 0-0.5 [facility] Lymphocytes Auto (Bld) [#/Vo l]Ordered By: Mirian Castillo on 07-28-2022 Lymphocytes (Bld) [#/Vol] 2.8 10*3/uL 1.00-4.8 [facility] Lymphocytes/100 WBC Auto (Bl d)Ordered By: Mirian Castillo on 07-28-2022 Lymphocytes/100 WBC (Bld) 30.8 % . [facility] MCH Auto (RBC) [Entitic mass ]Ordered By: Mirian Castillo on 07-28-2022 MCH (RBC) [Entitic mass] 32.5 pg 24.7-34.3 [facility] MCHC Auto (RBC) [Mass/Vol]Or dered By: Mirian Castillo on 07-28-2022 MCHC (RBC) [Mass/Vol] 33.4 g/dL 32.0-35.0 [facility] MCV Auto (RBC) [Entitic vol] Ordered By: Mirian Castillo on 07-28-2022 MCV (RBC) [Entitic vol] 97.5 fL 80-100 [facility] Monocytes Auto (Bld) [#/Vol] Ordered By: Mirian Castillo on 07-28-2022 Monocytes (Bld) [#/Vol] 0.8 10*3/uL 0.0-0.8 [facility] Monocytes/100 WBC Auto (Bld) Ordered By: Mirian Castillo on 07-28-2022 Monocytes/100 WBC (Bld) 9.0 % . [facility] Neutrophils Auto (Bld) [#/Vo l]Ordered By: Mirian Castillo on 07-28-2022 Neutrophils (Bld) [#/Vol] 5.3 10*3/uL 1.8-7.7 [facility] Neutrophils/100 WBC Auto (Bl d)Ordered By: Mirian Castillo on 07-28-2022 Neutrophils/100 WBC (Bld) 57.3 % . [facility] Nitrite Test strip Ql (U)Ord ered By: Mirian Castillo on 07-28-2022 Nitrite Ql (U) Negative Negative [facility] No Panel InformationOrdered By: Mirian Castillo on 07-28-2022 Estimated GFR () > 60 mL/Min [facility] Comment on above: GFR estimated refere nce range: According to KDOQI guidelines, <60 ml/min/1.73m2 is sufficient to diagnose a patient with chronic kidney disease. Pharmacy Creatinine Clearance (Chem N/A [facility] Platelet mean volume Auto (B ld) [Entitic vol]Ordered By: Mirian Castillo on 07-28-2022 Platelet mean volume (Bld) [Entitic vol] 8.8 fL 6.3-10.7 [facility] Platelets Auto (Bld) [#/Vol] Ordered By: Mirian Castillo on 07-28-2022 Platelets (Bld) [#/Vol] 360 10*3/uL 150-450 [facility] Protein Auto test strip (U) [Mass/Vol]Ordered By: Mirian Castillo on 07-28-2022 Protein (U) [Mass/Vol] Trace mg/dL Negative [facility] Protein [Mass/volume] in Ser um or PlasmaOrdered By: Mirian Castillo on 07-28-2022 Protein [Mass/Vol] 6.7 g/dL 6.1-7.9 [facility] RBC Auto (Bld) [#/Vol]Ordere d By: Mirian Castillo on 07-28-2022 RBC (Bld) [#/Vol] 4.50 10*6/uL 3.60-5.00 [facility] Serum or plasma alanine fontanez otransferase measurement without P-5'-P (enzymatic activiOrdered By: Mirian Castillo on 07-28-2022 ALT No additional P-5'-P [Catalytic activity/Vol] 19 U/L 10-60 [facility] Serum or plasma albumin/glob ulin mass ratioOrdered By: Mirian Castillo on 07-28-2022 Albumin/Globulin [Mass ratio] 1.6 {ratio} [facility] Serum or plasma alkaline cameron sphatase measurement (enzymatic activity/volume)Ordered By: Mirian Castillo on 07-28-2022 ALP [Catalytic activity/Vol] 56 U/L 32-92 [facility] Serum or plasma anion gap de terminationOrdered By: Mirian Castillo on 07-28-2022 Anion gap [Moles/Vol] 20.2 mmol/L 6.0-15.0 [facility] Serum or plasma aspartate am inotransferase measurement (enzymatic activity/volume)Ordered By: Mirian Castillo on 07-28-2022 AST [Catalytic activity/Vol] 25 U/L 10-42 [facility] Serum or plasma calcium eligio urement (mass/volume)Ordered By: Mirian Castillo on 07-28-2022 Calcium [Mass/Vol] 10.1 mg/dL 8.2-10.2 [facility] Serum or plasma chloride ramiro surement (moles/volume)Ordered By: Mirian Castillo on 07-28-2022 Chloride [Moles/Vol] 100 mmol/L 95-114 [facility] Serum or plasma glucose eligio urement (mass/volume)Ordered By: Mirian Castillo on 07-28-2022 Glucose [Mass/Vol] 91 mg/dL 70-100 [facility] Comment on above: ADA recommended refe rence range Random Glucose Reference Range is dependent on time and content of last meal. Glucose of more than 200 mg/dL in a nonstressed, ambulatory subject supports the diagnosis of Diabetes Mellitus. ADA recommended refe rence rangeRandom Glucose Reference Range is dependent on time and content of last meal. Glucose of more than 200 mg/dL in a nonstressed, ambulatory subject supports the diagnosis of Diabetes Mellitus. Serum or plasma high density lipoprotein (HDL) cholesterol measurementOrdered By: Mirian Castillo on 07-28-2022 Cholesterol in HDL [Mass/Vol] 56 mg/dL 35-85 [facility] Comment on above: HDL CHOL ATP-III CLA SSIFICATION Cardiovascular Risk HDL > or equal to 60 mg/dL LOW HDL < 40 mg/dL HIGH HDL CHOL ATP-III CLA SSIFICATION Cardiovascular RiskHDL > or equal to 60 mg/dL LOWHDL < 40 mg/dL HIGH Serum or plasma potassium me asurement (moles/volume)Ordered By: Mirian Castillo on 07-28-2022 Potassium [Moles/Vol] 4.6 mmol/L 3.5-5.1 [facility] Serum or plasma sodium measu rement (moles/volume)Ordered By: Mirian Castillo on 07-28-2022 Sodium [Moles/Vol] 136 mmol/L 136-146 [facility] Serum or plasma total biliru bin measurement (mass/volume)Ordered By: Mirian Castillo on 07-28-2022 Bilirubin [Mass/Vol] 0.5 mg/dL 0.3-1.2 [facility] Serum or plasma total carbon dioxide measurement (moles/volume)Ordered By: Mirian Castillo on 07-28-2022 CO2 [Moles/Vol] 20.4 mmol/L 22.0-30.0 [facility] Serum or plasma total choles terol/high density lipoprotein (HDL) cholesterol mass ratOrdered By: Mirian Castillo on 07-28-2022 Cholesterol.total/[facility] sterol in HDL [Mass ratio] 2.5 {ratio} <5.0 [facility] Serum or plasma urea nitroge n measurement (mass/volume)Ordered By: Mirian Castillo on 07-28-2022 Urea nitrogen [Mass/Vol] 6 mg/dL 9- [facility] Specific gravity Auto test s trip (U) [Rel density]Ordered By: Mirian Castillo on 07-28-2022 Specific gravity (U) [Rel density] 1.010 1.001-1.030 [facility] Squamous epithelial cells de tection in urine sediment by light microscopyOrdered By: Mirian Castillo on 07-28-2022 Epithelial cells.squamous LM Ql (Urine sed) 5-9 [HPF] 0-2 [facility] TSH DL <= 0.005 mIU/L QnOrde red By: Mirian Castillo on 07-28-2022 TSH Qn 2.49 m[IU]/L 0.45-5.33 [facility] Triglyceride [Mass/volume] i n Serum or PlasmaOrdered By: Mirian Castillo on 07-28-2022 Triglyceride [Mass/Vol] 111 mg/dL 35-149 [facility] Comment on above: TRIG ATP III CLASSIF ICATION TRIG less than 150 mg/dL Normal TRIG 150-199 mg/dL Borderline high TRIG 200-500 mg/dL High TRIG greater than 500 mg/dL Very high Standard traceable to the Center for Disease Conrtrol and Prevention (CDC) test method. TRIG ATP III CLASSIF ICATIONTRIG less than 150 mg/dL NormalTRIG 150-199 mg/dL Borderline highTRIG 200-500 mg/dL High TRIG greater than 500 mg/dL Very highStandard traceable to the Center for Disease Conrtrol and Prevention (CDC) test method. Urine bacteria detection by automated methodOrdered By: Mirian Castillo on 07-28-2022 Bacteria Auto Ql (U) 1+ None Seen [facility] Urine clarity by refractomet ry automatedOrdered By: Mirian Castillo on 07-28-2022 Clarity Refractometry automated (U) Clear Clear [facility] Urine glucose measurement by automated test strip (mass/volume)Ordered By: Mirian Castillo on 07-28-2022 Glucose Auto test strip (U) [Mass/Vol] Normal mg/dL Normal [facility] Urine hemoglobin detection b y automated test stripOrdered By: Mirian Castillo on 07-28-2022 Hemoglobin Auto test strip Ql (U) Trace Negative [facility] Urine leukocyte esterase det ection by automated test stripOrdered By: Miiran Castillo on 07-28-2022 Leukocyte esterase Auto test strip Ql (U) Negative Negative [facility] Urobilinogen Auto test strip (U) [Mass/Vol]Ordered By: Mirian Castillo on 07-28-2022 Urobilinogen (U) [Mass/Vol] Normal mg/dL Normal [facility] pH Auto test strip (U)Ordere d By: Mirian Castillo on 07-28-2022 pH (U) 7.0 [pH] 5.0-9.0 [facility] Office Visit (Cardiology)on 08-27-2021 Follow-up visit Diagnoses/Problems Assessed Breast cancer (174.9) (C50.919) Essential hypertension, benign (401.1) (I10) 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) Current every day smoker (305.1) (F17.200) 1/2 PPD Orders Essential hypertension, benign Follow-up visit in 3 weeks Outpatient Follow-up Status: Hold For - Scheduling Requested for: 27Aug2021 Follow-up visit in 6 months Outpatient Follow-up Status: Hold For - Scheduling Requested for: 27Aug2021 Essential hypertension, benign, Idiopathic hypertrophic subaortic stenosis Start: Metoprolol Succinate ER 100 MG Oral Tablet Extended Release 24 Hour; TAKE 1 TABLET DAILY IO EKG Electrocardiogram- 12 Lead; Status:Active - Perform Order; Requested for:[id number]; SocHx: Current every day smoker You need to quit smoking.; Status:Complete; Done: [id number] Tobacco Use Screening; Status:Complete; Done: [id number] You need to stop smoking. Though it is not easy, more than half of all adult smokers have quit. We encourage you to write down all the reasons you should quit smoking and set a quit date for yourself. Ask us how we can help. You may also call 3-271-EQJB-NOW for free resources and assistance.; Status:Complete; Done: [id number] Unlinked Stop: Irbesartan 300 MG Oral Tablet Patient Instructions By signing my name below, I, Suri Castañeda LPN, Scribe, attest that this documentation has been prepared under the direction and in the presence of Dr. Jack Coelho MD. All medical record entries made by the Scribe were at my direction and personally dictated by me. I have reviewed the chart and agree that the record accurately reflects my personal performance of the history, physical exam, discussion and plan. Chief Complaint KARIN MIX is being seen for an initial evaluation of. History of Present Illness Patient is seen in consultation at the request of her primary care physician for murmur. Recently she was in the office for routine follow-up and treatment of blood pressure and the murmur was noted. Because of this an echocardiogram and carotid ultrasound were performed. 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 I cannot elicit from the patient any angina dyspnea arrhythmia or neurologic symptomatology. Her activity tolerance is good she has no complaints or symptoms. She had syncope decades ago that sounds vasovagal but nothing recently and her activity tolerance is good. She acknowledges a history of hypertension but denies diabetes or hyperlipidemia. She smokes and she was counseled in this regard. There is no family history of precocious coronary disease Advised her that her left ventricular outflow tract obstruction due to hyperdynamic left ventricle would benefit from a cessation of vasodilators and the initiation of beta-alfonso therapy instead. Because of this we will make that change and reassess blood pressure in 3 to 4 weeks and otherwise reassess her clinically in about 6 months when she returns from [place]. She and her were encouraged to call in the interim if problems arise or occur but otherwise we will plan as noted. Surgical History Problems History of Ankle surgery History of section History of Complete colonoscopy History of Gallbladder surgery History of Leg surgery History of Lumpectomy History of Mastotomy History of Tubal ligation History of Guys tooth extraction Current Meds Medication NameInstruction Irbesartan 300 MG Oral TabletTAKE 1 TABLET DAILY. Tamoxifen Citrate 20 MG Oral TabletTAKE 1 TABLET DAILY. Allergies Medication No Known Drug Allergies Recorded By: Anita Mitchell; 08/27/2021 1:29:08 PM Family History Mother No pertinent family history Social History Problems Consumes 2 to 3 servings of caffeine per day (V49.89) (Z78.9) 2 DAILY Current every day smoker (305.1) (F17.200) 1/2 PPD No illicit drug use Social alcohol use (V49.89) (Z78.9) Review of Systems Constitutional: not feeling tired. Eyes: no eyesight problems. ENT: no hearing loss and no nosebleeds. Cardiovascular: no intermittent leg claudication and as noted in HPI. Respiratory: no chronic cough and no shortness of breath. Gastrointestinal: no change in bowel habits and no blood in stools. Genitourinary: no urinary frequency. Skin: no skin rashes. Neurological: no seizures and no frequent falls. Psychiatric: no depression and not suicidal. All other systems have been reviewed and are negative for complaint. Vitals Vital Signs Recorded: 27Aug2021 01:28PM Heart Rate87, Apical Kfedapkn269, RUE, Sitting Pluhnspat48, RUE, Sitting Height4 ft 10 in Buiazx687 lb BMI Umtfuvzobp17.92 kg/m2 BSA Calculated1.49 Tobacco Usea) Yes Patient encouraged to stop using tobacco productsYes Fall Screeninga) No falls within the last year EKG DONE IN OFFICE Physical Exam (more content not included)... Normal Humanoid Tobacco Screening.on 021 Fall risk assessment a) No falls within the last year [facility] popAD 600 DO Work Phone: Tobacco use status [facility] a) Yes [facility] 600 DO Work Phone: Tobacco Screening. Yes [facility] pop[facility] 600 DO Work Phone: Vital Signs Date Time Vital Sign Value Performing Clinician Facility 03-14-2024 08:16-0400 Diastolic blood pressure 81 mm[Hg] Marco Purcell MD Work Phone: [facility] Comment on above: recheck 03-14-2024 08:16-0400 Heart rate 60 /min Marco Purcell MD Work Phone: [facility] 03-14-2024 08:16-0400 Systolic blood pressure 198 mm[Hg] Marco Purcell MD Work Phone: [facility] Comment on above: recheck 03-14-2024 08:12-0400 Body height 148.5 cm Marco Purcell MD Work Phone: [facility] 03-14-2024 08:12-0400 Body mass index (BMI) [Ratio] 23.76 kg/m2 Marco Purcell MD Work Phone: [facility] 03-14-2024 08:12-0400 Body temperature 97.81 [degF] Marco Purcell MD Work Phone: [facility] 03-14-2024 08:12-0400 Body weight 52.4 kg Marco Purcell MD Work Phone: [facility] 03-14-2024 08:12-0400 Respiratory rate 16 /min Marco Pucrell MD Work Phone: [facility] 03-14-2024 08:12-0400 SaO2% (BldA) [Mass fraction] 95 % Marco Purcell MD Work Phone: [facility] 02-29-2024 12:43-0400 Body height 148.5 cm Marco Purcell MD Work Phone: [facility] 02-29-2024 12:43-0400 Body temperature 97.59 [degF] Marco Purcell MD Work Phone: [facility] 02-29-2024 12:43-0400 Body weight 51.2 kg Marco Purcell MD Work Phone: [facility] 02-29-2024 12:43-0400 Diastolic blood pressure 70 mm[Hg] Marco Purcell MD Work Phone: [facility] 02-29-2024 12:43-0400 Heart rate 81 /min Marco Purcell MD Work Phone: [facility] 02-29-2024 12:43-0400 Respiratory rate 16 /min Marco Purcell MD Work Phone: [facility] 02-29-2024 12:43-0400 SaO2% (BldA) [Mass fraction] 97 % Marco Purcell MD Work Phone: [facility] 02-29-2024 12:43-0400 Systolic blood pressure 172 mm[Hg] Marco Purcell MD Work Phone: [facility] 02-10-2024 08:33-0400 Body height 147.2 cm Marco Purcell MD Work Phone: [facility] 02-10-2024 08:33-0400 Body temperature 97.39 [degF] Marco Purcell MD Work Phone: [facility] 02-10-2024 08:33-0400 Body weight 51.9 kg Marco Purcell MD Work Phone: [facility] 02-10-2024 08:33-0400 Diastolic blood pressure 82 mm[Hg] Marco Purcell MD Work Phone: [facility] 02-10-2024 08:33-0400 Heart rate 80 /min Marco Purcell MD Work Phone: [facility] 02-10-2024 08:33-0400 Respiratory rate 16 /min Marco Purcell MD Work Phone: [facility] 02-10-2024 08:33-0400 SaO2% (BldA) [Mass fraction] 92 % Marco Purcell MD Work Phone: [facility] 02-10-2024 08:33-0400 Systolic blood pressure 214 mm[Hg] Marco Purcell MD Work Phone: [facility] 06-03-2023 14:57-0400 Body height 147.2 cm Marco Purcell MD Work Phone: [facility] 06-03-2023 14:57-0400 Body temperature 97.7 [degF] Marco Purcell MD Work Phone: [facility] 06-03-2023 14:57-0400 Body weight 53.62 kg Marco Purcell MD Work Phone: [facility] 06-03-2023 14:57-0400 Diastolic blood pressure 77 mm[Hg] Marco Purcell MD Work Phone: [facility] 06-03-2023 14:57-0400 Heart rate 68 /min Marco Purcell MD Work Phone: [facility] 06-03-2023 14:57-0400 Respiratory rate 16 /min Marco Purcell MD Work Phone: [facility] 06-03-2023 14:57-0400 SaO2% (BldA) [Mass fraction] 96 % Marco Purcell MD Work Phone: [facility] 06-03-2023 14:57-0400 Systolic blood pressure 179 mm[Hg] Marco Purcell MD Work Phone: [facility] 12-08-2022 09:20-0500 Blood Pressure Location Merissa Lue [facility] 12-08-2022 09:20-0500 Diastolic blood pressure 81 mm[Hg] Merissa Lue [facility] 12-08-2022 09:20-0500 Heart rate 72 /min Merissa Lue [facility] 12-08-2022 09:20-0500 Systolic blood pressure 130 mm[Hg] Merissa Lue [facility] 12-03-2022 15:41-0500 Diastolic blood pressure 76 mm[Hg] Marco Purcell MD Work Phone: [facility] 12-03-2022 15:41-0500 Systolic blood pressure 184 mm[Hg] Marco Purcell MD Work Phone: [facility] 12-03-2022 15:40-0500 Body height 149.4 cm Marco Purcell MD Work Phone: [facility] 12-03-2022 15:40-0500 Body temperature 97.3 [degF] Marco Purcell MD Work Phone: [facility] 12-03-2022 15:40-0500 Body weight 54.7 kg Marco Purcell MD Work Phone: [facility] 12-03-2022 15:40-0500 Heart rate 102 /min Marco Purcell MD Work Phone: [facility] 12-03-2022 15:40-0500 Respiratory rate 16 /min Marco Purcell MD Work Phone: [facility] 12-03-2022 15:40-0500 SaO2% (BldA) [Mass fraction] 96 % Marco Purcell MD Work Phone: [facility] 11-10-2022 10:08-0500 Blood Pressure Location [facility] 11-10-2022 10:08-0500 Diastolic blood pressure 91 mm[Hg] Merissa Lue [facility] 11-10-2022 10:08-0500 Heart rate 78 /min Merissa Lue [facility] 11-10-2022 10:08-0500 Systolic blood pressure 197 mm[Hg] Merissa Lue [facility] 10-23-2022 13:03-0500 Blood Pressure Location Merissa Lue [facility] 10-23-2022 13:03-0500 Diastolic blood pressure 86 mm[Hg] Merissa Lue [facility] 10-23-2022 13:03-0500 Heart rate 74 /min Merissa Lue [facility] 10-23-2022 13:03-0500 Systolic blood pressure 169 mm[Hg] Merissa Lue [facility] 07-29-2022 13:40-0400 Body height 149.86 cm Mirian Castillo Other [facility] Other 07-29-2022 13:40-0400 Body mass index (BMI) [Ratio] 24.23 kg/m2 Mirian Castillo Other [facility] Other 07-29-2022 13:40-0400 Body temperature 97.6 [degF] Mirian Castillo Other [facility] Other 07-29-2022 13:40-0400 Body weight 54.43 kg Mirian Castillo Other [facility] Other 07-29-2022 13:40-0400 Diastolic blood pressure 78 mm[Hg] Mirian Castillo Other [facility] Other 07-29-2022 13:40-0400 Respiratory rate 18 /min Mirian Castillo Other [facility] Other 07-29-2022 13:40-0400 SaO2% (BldA) [Mass fraction] 96 % Mirian Castillo Other [facility] Other 07-29-2022 13:40-0400 Systolic blood pressure 160 mm[Hg] Mirian Castillo Other [facility] Other 08-27-2021 13:28-0400 Body height 147.32 cm Mirian Humberto Neeruarmando [facility] [place] 600 DO Work Phone: 08-27-2021 13:28-0400 Body mass index (BMI) [Ratio] 25.92 kg/m2 Mirian Humberto Pritesh [facility] [place] 600 DO Work Phone: 08-27-2021 13:28-0400 Body surface area Derived from formula 1.49 m2 Mirian Humberto Pritesh [facility] [place] 600 DO Work Phone: 08-27-2021 13:28-0400 Body weight 56.25 kg Mirian Humberto Pritesh [facility] [place] 600 DO Work Phone: 08-27-2021 13:28-0400 Diastolic blood pressure 90 mm[Hg] Mirian Paul Pritesh [facility] [place] 600 DO Work Phone: 08-27-2021 13:28-0400 Heart rate 87 /min Mirian Humberto Castillo [facility] [place] 600 DO Work Phone: 08-27-2021 13:28-0400 Systolic blood pressure 144 mm[Hg] Mirian Paul Neeruarmando [facility] 600 DO Work Phone: Encounters Encounter Date Encounter Type Care Provider Facility Start: 04-07-2024 ambulatory Merissa Santizo Facility:[facility] Start: 03-15-2024 End: 03-15-2024 ambulatory ABBEY MCKEON Facility:[facility] Start: 03-14-2024 End: 03-14-2024 ambulatory MARCO PURCELL Facility:[facility] Start: 03-14-2024 End: 03-14-2024 ambulatory Marco Purcell MD Work Phone: Hematology/Oncology Comment on above: Malignant neoplasm o f hilus of left lung (HCC) (Primary Dx); Metastasis to brain (HCC); Chronic obstructive pulmonary disease, unspecified COPD type (HCC); History of breast cancer Start: 03-14-2024 End: 03-14-2024 Patient encounter procedure Marco Purcell MD Work Phone: Hematology/Oncology Start: 03-09-2024 Telephone encounter Juliane hebert RN Work Phone: Hematology/Oncology Comment on above: Care Coordination (P ET Results) Start: 03-08-2024 Telephone encounter Juliane hebert RN Work Phone: Hematology/Oncology Comment on above: Care Coordination (H eartburn & Indigestion) Start: 03-06-2024 End: 03-06-2024 ambulatory MARCO PURCELL Facility:[facility] Start: 03-03-2024 End: 03-03-2024 ambulatory Florin Casillas MD Work Phone: Radiation Oncology Comment on above: Lung cancer metastat ic to brain (HCC) Start: 03-03-2024 End: 03-03-2024 Telemedicine consultation with patient lForin Casillas MD Work Phone: [facility] Start: 03-01-2024 Telephone encounter Atilio Shin Hematology/Oncology Comment on above: Results; Orders Start: 02-29-2024 Telephone encounter Marco schwarz MD Work Phone: Radiation Oncology Comment on above: Future Appointment Start: 02-29-2024 End: 02-29-2024 ambulatory Marco Purcell MD Work Phone: Hematology/Oncology Comment on above: Malignant neoplasm o f hilus of left lung (HCC) (Primary Dx); Metastasis to brain (HCC); History of breast cancer; Chronic obstructive pulmonary disease, unspecified COPD type (HCC) Start: 02-29-2024 End: 02-29-2024 Patient encounter procedure Marco Purcell MD Work Phone: [facility] Start: 02-24-2024 Telephone encounter [facility] Comment on above: FYI-No Action Needed (PET scan) Start: 02-22-2024 End: 02-22-2024 ambulatory MIRIAN CASTILLO Facility:[facility] Start: 02-18-2024 End: 02-18-2024 ambulatory MARCO PURCELL Facility:[facility] Start: 02-17-2024 End: 02-17-2024 ambulatory MARCO PURCELL Facility:[facility] Start: 02-10-2024 End: 02-10-2024 ambulatory Daniela Mack MD Work Phone: Pulmonary Medicine Comment on above: Bronchoscopy Schedul ing Malignant neoplasm o f hilus of left lung (HCC) (Primary Dx); Malignant neoplasm of upper-outer quadrant of left breast in female, estrogen receptor positive (HCC) Start: 02-10-2024 Telephone encounter Marco [facility]warz MD [facility] Comment on above: Consult Start: 02-10-2024 End: 02-10-2024 Patient encounter procedure Marco Purcell MD Work Phone: [facility] Start: 02-07-2024 Telephone encounter Atilio Shin Hematology/Oncology Comment on above: Abnormal CT Chest Start: 02-07-2024 End: 02-07-2024 ambulatory VALARIE MONTERROSO Not Available Start: 11-11-2023 End: 11-11-2023 ambulatory MIRIAN CASTILLO Facility:[facility] Start: 11-03-2023 End: 11-03-2023 ambulatory Mirian Castillo Facility:[facility] Start: 11-03-2023 End: 11-03-2023 ambulatory MD Marco Purcell Work Phone: [facility] Work Phone: Start: 11-03-2023 End: 11-03-2023 Patient encounter procedure MD Marco Purcell Work Phone: [facility] Work Phone: Start: 10-28-2023 End: 10-28-2023 ambulatory RAMSEY KAUR Not Available Start: 06-03-2023 End: 06-03-2023 ambulatory Marco Purcell MD Work Phone: Hematology/Oncology Comment on above: Malignant neoplasm o f upper-outer quadrant of left breast in female, estrogen receptor positive (HCC) (Primary Dx) Start: 06-03-2023 End: 06-03-2023 Patient encounter procedure Marco Purcell MD Work Phone: [facility] Start: 01-29-2023 Refill Suzie Espinoza [facility] Work Phone: Hematology/Oncology Comment on above: Refill Request Start: 12-10-2022 End: 12-10-2022 ambulatory Mirian Castillo Other [facility] Other Start: 12-10-2022 Telephone encounter Mirian Castillo [facility] Start: 12-08-2022 End: 12-09-2022 ambulatory Merissa Santizo Facility:[facility] Start: 12-08-2022 End: 12-08-2022 Patient encounter procedure Merissa Santizo [facility] Start: 12-03-2022 End: 12-03-2022 ambulatory Marco Purcell MD Work Phone: Hematology/Oncology Comment on above: Malignant neoplasm o f upper-outer quadrant of left breast in female, estrogen receptor positive (HCC) (Primary Dx) Start: 12-03-2022 End: 12-03-2022 Patient encounter procedure Marco Purcell MD Work Phone: [facility] Start: 12-02-2022 Telephone encounter Vidhya shaw APRN.CNP Work Phone: Hematology/Oncology Comment on above: Lab Orders Start: 11-10-2022 End: 11-11-2022 ambulatory Merissa Santizo Facility:[facility] Start: 11-10-2022 End: 11-10-2022 Lab Drop off Merissa Santizo [facility] Start: 11-10-2022 End: 11-11-2022 ambulatory Merissa Sahue Facility:[facility] Start: 11-10-2022 End: 11-10-2022 Patient encounter procedure Merissa Santizo [facility] Start: 11-05-2022 End: 11-05-2022 ambulatory DO Mirian Castillo Work Phone: [facility] Work Phone: Start: 11-05-2022 End: 11-05-2022 Patient encounter procedure DO Mirian Castillo Work Phone: [facility] Start: 11-02-2022 End: 11-02-2022 ambulatory DO Mirian Castillo Work Phone: [facility] Work Phone: Start: 11-02-2022 End: 11-02-2022 Patient encounter procedure DO Mirian Castillo Work Phone: [facility] [place] Start: 10-23-2022 End: 10-24-2022 ambulatory Merissa Sahue Facility:[facility] Start: 10-23-2022 End: 10-23-2022 Patient encounter procedure [facility] Start: 08-26-2022 ambulatory Merissa Lue Facility:[facility] Start: 08-19-2022 End: 08-19-2022 ambulatory DO Mirian Castillo Work Phone: [facility] Work Phone: Start: 08-19-2022 End: 08-19-2022 Patient encounter procedure DO Mirian Castillo Work Phone: [facility] [place] Start: 07-29-2022 End: 07-29-2022 ambulatory Mirian Castillo Other [place] [facility] Other Start: 07-29-2022 Office outpatient vi sit 25 minutes Mirian Castillo [facility] [place] Start: 07-29-2022 Telephone encounter Mirian Castillo [facility] Start: 07-28-2022 End: 07-28-2022 Patient encounter procedure DO Mirian Castillo Work Phone: [facility] [place] Start: 07-22-2022 End: 07-22-[address] MIRIAN CASTILLO Facility: Start: 08-27-2021 Office consultation new/estab patient 60 min Mirian Castillo -[facility] 250 DO Work Phone: Start: 08-27-2021 Patient encounter procedure Mirian Castillo -[facility] 600 DO Work Phone: Procedures Date Procedure Procedure Detail Performing Clinician Start: 02-10-2024 Blood count complete auto&auto difrntl wbc Marco Purcell MD Work Phone: Start: 02-10-2024 Immunoassay tumor an tigen quantitative ca 15-3 Marco Purcell MD Work Phone: Start: 11-03-2023 Mammography of right breast MD Marco Purcell Work Phone: Start: 12-08-2022 Cystoscopy Merissa Lue Start: 11-10-2022 Cystoscopy Merissa Lue Start: 11-05-2022 Mammography of right breast DO Mirian Castillo Work Phone: Start: 11-02-2022 CT of urinary tract DO Mirian Castillo Work Phone: Breast incision Mirian Smyth in section Mirian roberts Colonoscopy Merissa Lue Extraction of wisdom tooth D thom Castillo Gallbladder structur e (body structure) Merissa Lue Leg repair Mirian Castillo Ligation of fallopian tube Chino Castillo Ligation of fallopian tube K athy Lue Lumpectomy of breast Mirian Paul Neeruarmando Mastectomy of left breast Luis Santizo Operation on gallbladder Charles Paul Pritesh Operative procedure on ankle Mirian Paul Neeruarmando Tonsillectomy Merissa Santizo Total colonoscopy Mirian Paul Gi rvin Urine culture DO Mirian Liz n Work Phone: Urine culture DO Mirian Liz n Work Phone: Plan of Treatment Date Care Activity Detail Author Start: 03-14-2027 [facility] Start: 02-09-2027 [facility] Start: 11-11-2026 [facility] Start: 06-03-2026 DIABETES SCREEN DIABETES SCREEN [facility] Start: 12-03-2025 DIABETES SCREEN DIABETES SCREEN [facility] Start: 11-09-2024 End: 11-09-2024 Follow-up encounter 11/09/2024 2:15 PM EST Visit (SP) Office Hematology/Oncology [address] [place] [address] Marco Purcell MD [address] [place] [address] 1 year follow up lab Hematology/Oncology Comment on above: 1 year follow up lab Start: 11-09-2024 End: 11-09-2024 Patient encounter procedure 11/09/2024 2:00 PM EST Office Visit [facility] [address] [place] [address] 1 year follow up lab [facility] Comment on above: 1 year follow up lab Start: 07-23-2024 Influenza vaccination Influenz a Vaccine (Season Ended) [facility] Start: 05-02-2024 End: 05-02-2024 Patient encounter procedure 05/02/2024 2:30 PM EDT Office Visit Neurosurgery [address] [place] [address] Gloria Parry, SPECIALTY SALES CONSULTANT.PHYSICIAN OBSTETRICIAN [address] [place] [address] SCHEDULE POST GK MRI PERFUSION AND APPT IN 6-8 WEEKS Neurosurgery Comment on above: SCHEDULE POST GK MRI PERFUSION AND APPT IN 6-8 WEEKS Start: 05-02-2024 End: 05-02-2024 Patient encounter procedure 05/02/2024 12:40 PM EDT Appointment Radiology MRI [address] [place], [place] [id number] Diagnosis: Metastatic cancer to brain (HCC) [C79.31] Radiology MRI Comment on above: Diagnosis: Metastati c cancer to brain (HCC) [C79.31] Start: 03-23-2024 End: 03-23-2024 Nursing evaluation of patient and report 03/23/2024 2:00 PM EDT Nurse Visit Hematology/Oncology [address] [place] [address] [place] [address] Juliane Chandler, RN [address] [place] [address] 9 day follow up lab chemo ed carbo pem pem Hematology/Oncology Comment on above: 9 day follow up lab chemo ed carbo pem pem Start: 03-23-2024 End: 03-23-2024 Follow-up encounter 03/23/2024 1:30 PM EDT Visit (SP) Office Hematology/Oncology [address] [place] [address] Marco Purcell MD [address] [place] [address] 9 day follow up lab chemo ed carbo pem pem Hematology/Oncology Comment on above: 9 day follow up lab chemo ed carbo pem pem Start: 03-23-2024 End: 03-23-2024 Patient encounter procedure 03/23/2024 1:15 PM EDT Office Visit [facility] [address] [place] [address] 9 day follow up lab chemo ed carbo pem pem [facility] Comment on above: 9 day follow up lab chemo ed carbo pem pem Start: 03-16-2024 End: 03-16-2024 Admission to same day surgery center 03/16/2024 2:44 PM EDT - 03/16/2024 4:14 PM EDT Surgery Anesthesia [address] [address] Abbey Mckeon MD [address] [place] [address] STEREOTACTIC RADIOSURGERY 1 COMPLEX CRANIAL LESION Anesthesia Comment on above: STEREOTACTIC RADIOSU RGERY 1 COMPLEX CRANIAL LESION Start: 03-16-2024 End: 03-16-2024 Radiation delivery stereotactic cranial cobalt RADIATION TX STEREOTACTIC RADIOSURGERY (SRS) TX CRANIAL LESION(S) 1 SESSION MULTI-SOURCE COBALT Metastatic cancer to brain (HCC) 03/16/2024 2:44 PM EDT ANESTHESIA ONLY Start: 03-16-2024 End: 03-16-2024 Stereotactic radiosurgery 1 complex cranial les STEREOTACTIC RADIOSURGERY 1 COMPLEX CRANIAL LESION Metastatic cancer to brain (HCC) 03/16/2024 2:44 PM EDT [facility] ANESTHESIA ONLY Start: 03-16-2024 Subsequent hospital visit by physician 03/16/2024 2:44 PM EDT Hospital Encounter Anesthesia [address] [address] Abbey Mckeon MD [address] [place] [address] Metastatic cancer to brain (HCC) [C79.31] Anesthesia Comment on above: Metastatic cancer to brain (HCC) [C79.31] Start: 03-16-2024 End: 03-16-2024 Patient encounter procedure Radiation Oncology Comment on above: TC/LA SIM@7 MRI@820 CT Diagnosis: Metastati c cancer to brain (HCC) [C79.31] C79.31, MRI, MASK, C T TC/LA Start: 03-15-2024 End: 03-15-2024 ambulatory 03/15/2024 1:00 PM EDT [facility] [address] [place] [address] Abbey Mckeon MD [address] [place] [address] Per Email- TM [facility] Comment on above: Per Email- TM Start: 11-22-2023 Advance Directive Discussion Advance Directive Discussion [facility] Start: 11-22-2023 Behavioral Health Screening Behavioral Health Screening [facility] Start: 11-22-2023 Depression Assessment Depression Ass essment [facility] Start: 07-23-2023 Covid-19 Vaccine () Covid-19 Vaccine () [facility] Start: 07-23-2023 Influenza vaccination [facility] Start: 06-03-2023 End: 08-03-2023 Cancer Ag 27-29 [Units/volume] in Serum or Plasma [facility] Work Phone: Comment on above: Expected: 06/03/2023 , Expires: 08/03/2023 Start: 11-22-2022 ADVANCE DIRECTIVE DISCUSSION ADVANCE DIRECTIVE DISCUSSION [facility] [facility] Start: 11-22-2022 DEPRESSION ASSESSMENT DEPRESSION ASS ESSMENT [facility] Start: 07-23-2022 Influenza vaccination INFLUENZA (#1) [facility] Start: 03-11-2022 FUV, Provider: Jack Coelho, Status: Pen, Time: 2:20 PM FUV, Provider: Jack Coelho, Status: Pen, Time: 2:20 PM [facility] 600 DO Work Phone: Start: 09-24-2021 NURSEVST, Provider: SHALINI TELLEZ DIRECTOR OF CRITICAL CARE 1,[id number], Status: Pen, Time: 1:15 PM NURSEVST, Provider: SHALINI TELLEZ DIRECTOR OF CRITICAL CARE 1,[id number], Status: Pen, Time: 1:15 PM [facility] 600 DO Work Phone: Start: 07-12-2020 Pneumococcal Vaccine : 65+ (2 of 2 - PPSV23 or PCV20) Pneumococcal Vaccine: 65+ (2 of 2 - PPSV23 or PCV20) [facility] Start: 07-12-2020 PNEUMOCOCCAL: 65+ (2 - PPSV23 if available, else PCV20) PNEUMOCOCCAL: 65+ (2 - PPSV23 if available, else PCV20) [facility] Start: 07-06-2020 Screening for malign ant neoplasm of breast Mammogram Screening [facility] Start: 09-06-2019 Pneumococcal Vaccine : 65+ (2 of 2 - PPSV23 or PCV20) Pneumococcal Vaccine: 65+ (2 of 2 - PPSV23 or PCV20) [facility] Start: 09-06-2019 PNEUMOCOCCAL: 65+ (2 - PPSV23 if available, else PCV20) PNEUMOCOCCAL: 65+ (2 - PPSV23 if available, else PCV20) [facility] Start: 09-06-2019 PNEUMOCOCCAL: 65+ (2 - PPSV23 or PCV20) PNEUMOCOCCAL: 65+ (2 - PPSV23 or PCV20) [facility] Start: 2018 BONE DENSITY BONE DENSITY [facility] Start: 2018 Screening for osteoporosis Bone Density Screening [facility] Start: 2013 RSV Vaccine (1 - 1-d ose 60+ series) RSV Vaccine (1 - 1-dose 60+ series) [facility] Start: 2003 SHINGRIX VACCINE (1 of 2) SHINGRIX VACCINE (1 of 2) [facility] Start: 1998 COLOGUARD (FIT-DNA) COLOGUARD (FIT-D NA) [facility] Start: 1998 Colonoscopy COLONOSCOPY [facility] Start: 1998 COLORECTAL CANCER SCREENING COLORECTAL CANCER SCREENING [facility] Start: [address] COLONOGRAPHY [facility] Start: 1998 FECAL OCCULT BLOOD FECAL OCCULT BLOO D [facility] Start: 1998 Lipid panel Lipid Screening [facility] Start: 1998 LIPID SCREEN LIPID SCREEN [facility] Start: 1998 Screening for malign ant neoplasm of colon [facility] Start: 1998 SIGMOIDOSCOPY SIGMOIDOSCOPY [facility] Start: 1993 Mammography MAMMOGRAM [facility] Start: 1993 Screening for malign ant neoplasm of breast Mammogram Screening [facility] Start: 1972 Urine microalbumin profile 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 Start: 1971 BP Controlled (<130/80) BP Controlle d (<130/80) [facility] Start: 1971 HEPATITIS C SCREENING HEPATITIS C [facility] Start: 1971 Hepatitis C screening Hepatitis C [facility] Start: 06-26-1956 COVID-19 VACCINE (#1) COVID-19 VACCI NE (#1) [facility] Bacteria identified in Urine by Culture [facility] End: 02-09-2025 ECG COMPLETE ECG COMPLETE ECG Routine Lung mass 1 Occurrences starting 02/10/2024 until 02/09/2025 [facility] Work Phone: Comment on above: 1 Occurrences starti ng 02/10/2024 until 02/09/2025 End: 07-02-2024 HEIDI DIAGNOSTIC RIGHT HEIDI DIAGNOSTIC RIGHT Radiology Routine Malignant neoplasm of upper-outer quadrant of left breast in female, estrogen receptor positive (HCC) 1 Occurrences starting 06/03/2023 until 07/02/2024 [facility] Work Phone: Comment on above: 1 Occurrences starti ng 06/03/2023 until 07/02/2024 End: 03-11-2025 MR Brain WO and W contrast IV MRI BRAIN WO/W IVCON Radiology Routine 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) 1 Occurrences starting 02/10/2024 until 03/11/2025 [facility] Work Phone: Comment on above: 1 Occurrences starti ng 02/10/2024 until 03/11/2025 End: 03-11-2025 PET+CT Guidance for localization of tumor of Skull base to mid-thigh-- W 18F-FDG IV NM PET/CT SKULL-THIGH INITIAL Radiology Routine 1 Occurrences starting 02/10/2024 until 03/11/2025 [facility] Work Phone: Comment on above: 1 Occurrences starti ng 02/10/2024 until 03/11/2025 [facility] Immunizations Immunization Date Immunization Notes Care Provider Mariano montesinos 07-12-2019 pneumococcal conjuga te vaccine, 13 valent Mirian Castillo [facility] Payers Date Payer Category Payer Self-pay [id number] 2022 Medicare UHC MEDICARE UHC MEDICARE ADVANTAGE PPO [id number] 2022-Present [phone] [address] [address] [place] [address] PPO [id number] 2022 Private Health Insurance [id number] 1961 Medicare [id number] 1955 Unknown [id number] 1955 Unknown [id number] 1955 Unknown [id number] 1953 Unknown [id number] 1953 Unknown [id number] 1953 Unknown [id number] 1953 Unknown [id number] 1953 Unknown [id number] Private Health Insurance [id number] Unknown [employer] Unknown [place] BC/BS [id number] Unknown [id number] Social History Date Type Detail Facility Start: 12-03-2022 End: 06-03-2023 Social alcohol use Social alcohol use [facility] Comment on above: 2 DAILY; 1/2 PPD; Start: 09-15-2019 End: 02-07-2024 Tobacco smoking status NHIS Smoker (finding) [facility] Start: 1955 Sex Assigned At Female F [facility] Start: 12-03-2022 End: 06-03-2023 Sex Assigned At [facility] Start: 10-23-2022 End: 11-10-2022 Tobacco smoking status Light tobacco smoker (finding) [facility] Tobacco smoking status Never [facility] Start: 07-21-2019 End: 12-03-2022 Tobacco smoking status NHIS Smokes tobacco daily [facility] History of tobacco use Passive smoker [facility] Start: 12-03-2022 End: 02-17-2024 Tobacco use and exposure Smokeless tobacco non-user [facility] Start: 12-03-2022 End: 03-07-2024 Alcohol intake Current drinker of alcohol (finding) [facility] Start: 07-25-2019 Alcohol Comment socially [facility] Start: 1955 Sex Assigned At Not on file [facility] Start: 02-17-2024 Tobacco smoking stat us NHIS Ex-smoker [facility] Work Phone: End: 02-07-2024 History of tobacco use Cigarette Smoker [facility] Work Phone: Functional Status Date Assessment Result Facility 12-08-2022 Functional Status N/A [facility] 11-10-2022 Functional Status N/A [facility] 10-23-2022 Functional Status N/A [facility] Clinical Notes 07-29-2022 to 03-13-2024 Marco Purcell MD - 03/13/2024 9:21 PM EDTTelephone Encounter - Juliane Chandler RN - 03/09/2024 2:52 PM EDTTelephone Encounter - Juliane Chandler RN - 03/09/2024 2:32 PM EDT Note Date & Type Note Facility 03-13-2024 Note HNO ID: [id number] Author: AMRCO PURCELL MD Service: ? Author Type: Physician Type: Progress Notes Filed: 03/15/2024 06:00 Note Text: PATIENT NAME: Karin Mix DATE: 03/14/2024 PRIMARY CARE PHYSICIAN: Dr. Tariq Paul OTHER PHYSICIANS: Dr. Kaur, Dr. Peres, Dr. Jack Rees Portions of this encounter note have been copied from the note from 02/29/2024 and has been updated where appropriate, and reflect my current medical decision making from today. CC: This is a 68 year old female with recently diagnosed metastatic lung cancer, seen for scheduled follow-up. INTERIM HISTORY: Since the patient's last visit here she underwent a brain CT, which unfortunately revealed evidence of brain metastases. She was started on steroids (Decadron 4 mg twice daily) and was referred to [facility] to evaluate for gamma knife. Further staging with a PET scan revealed locally advanced disease in her left lung, as well as evidence of metastases to the left adrenal gland and mesenteric lymph nodes. She has ongoing anxiety which has been a long-term problem. Her breathing actually has improved since she stopped smoking. She remains on tamoxifen for breast cancer. She has noticed no changes in her breasts. MEDICATIONS: iv contrast (will be provided with radiology test) MRI Brain Localization Inject, intravenously, once for 1 dose.No IV access, insert saline lock prior to beginning of sedation, infusion, injection of imaging exam.Discontinue saline lock post exam. If Pt. has a central line or IVAD, may access for administration according to line specific nursing protocol.Once exam is complete flush line and de-access according to line specific nursing protocol in the MR contrast administration guidelines link iv contrast (will be provided with radiology test) MRI Brain Inject, intravenously, once for 1 dose.No IV access, insert saline lock prior to beginning of sedation, infusion, injection of imaging exam.Discontinue saline lock post exam. If Pt. has a central line or IVAD, may access for administration according to line specific nursing protocol.Once exam is complete flush line and de-access according to line specific nursing protocol in the MR contrast administration guidelines link LORazepam (ATIVAN) 0.5 mg Take 1 tablet 1 hour prior to PET; may repeat 1 tablet 15 minutes prior to PET, if needed) for up to 4 doses. dexAMETHasone (DECADRON) 4 mg tablet Take 1 tablet by mouth every 12 hours. Or as directed multivit with minerals/lutein (MULTIVITAMIN 50 PLUS ORAL) Take by mouth. Take one(1) tablet daily. gluc/chnd/om3/dha/epa/fish/str (BHCB-PJEXL-WQ3-BGN-PJF-GRND-ST ORAL) Take by mouth. 2 tabs daily tamoxifen (NOLVADEX) 20 mg tablet TAKE 1 TABLET BY MOUTH ONCE DAILY metoprolol succinate ER (TOPROL XL) 100 mg Take 100 mg by mouth once daily. 100mg in AM, 50mg in PM venlafaxine ER (EFFEXOR XR) 37.5 mg 24 hr capsule Take 1 capsule by mouth once daily. ibuprofen (MOTRIN) 800 mg tablet TAKE ONE TABLET BY MOUTH EVERY 8 HOUR NEEDED FOR PAIN calcium carbonate 600 mg-cholecalciferol 400 units 600 mg(1,500mg) -400 unit tab Take 1 tablet by mouth once daily. fluticasone (FLONASE) 50 mcg/actuation nasal spray 1 [place] as needed. 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 Positive hot flashes. HEENT: Negative for frequent or significant headaches. No changes in hearing or vision, no nose bleeds or other nasal problems. Respiratory: Negative for cough, wheezing or shortness of breath. Cardiovascular: Negative for chest pain, leg swelling or palpitations. GI: Negative for abdominal discomfort, blood in stools or black stools or change in bowel habits. : No history of dysuria, frequency or incontinence. Musculoskeletal: Negative for joint pain or swelling, back pain and muscle pain. Skin: Negative for lesions, rash and itching. Hematology/Lymphology: Negative for prolonged bleeding, bruising easily or swollen nodes. Neuro: No history of headaches, syncope, paralysis, seizures or tremors. PHYSICAL EXAM: Vitals: BP 198/81 Pulse 60 Temp 36.6 ?C (97.8 ?F) (Temporal) Resp 16 Ht 148.5 cm (4' 10.47 ) Wt 52.4 kg (115 lb 8.3 oz) SpO2 95% BMI 23.76 kg/m? ECOG 1 Exam limited to gross visualization where appropriate due to COVID-19. Gen.: This is an age-appropriate patient in no acute distress. Head: Appears atraumatic with no visible lesions. Eyes: Pupils equally round and reactive to light, extraocular muscles are (more content not included)... [facility] 03-13-2024 History of Presen t illness Narrative PATIENT NAME: Karin Mix DATE: 03/14/2024 PRIMARY CARE PHYSICIAN: Dr. Tariq Paul OTHER PHYSICIANS: Dr. Kaur, Dr. Peres, Dr. Jack Rees Portions of this encounter note have been copied from the note from 02/29/2024 and has been updated where appropriate, and reflect my current medical decision making from today. CC: This is a 68 year old female with recently diagnosed metastatic lung cancer, seen for scheduled follow-up. INTERIM HISTORY: Since the patient's last visit here she underwent a brain CT, which unfortunately revealed evidence of brain metastases. She was started on steroids (Decadron 4 mg twice daily) and was referred to [facility] to evaluate for gamma knife. Further staging with a PET scan revealed locally advanced disease in her left lung, as well as evidence of metastases to the left adrenal gland and mesenteric lymph nodes. She has ongoing anxiety which has been a long-term problem. Her breathing actually has improved since she stopped smoking. She remains on tamoxifen for breast cancer. She has noticed no changes in her breasts. MEDICATIONS: iv contrast (will be provided with radiology test) MRI Brain Localization Inject, intravenously, once for 1 dose.No IV access, insert saline lock prior to beginning of sedation, infusion, injection of imaging exam.Discontinue saline lock post exam. If Pt. has a central line or IVAD, may access for administration according to line specific nursing protocol.Once exam is complete flush line and de-access according to line specific nursing protocol in the MR contrast administration guidelines link iv contrast (will be provided with radiology test) MRI Brain Inject, intravenously, once for 1 dose.No IV access, insert saline lock prior to beginning of sedation, infusion, injection of imaging exam.Discontinue saline lock post exam. If Pt. has a central line or IVAD, may access for administration according to line specific nursing protocol.Once exam is complete flush line and de-access according to line specific nursing protocol in the MR contrast administration guidelines link LORazepam (ATIVAN) 0.5 mg Take 1 tablet 1 hour prior to PET; may repeat 1 tablet 15 minutes prior to PET, if needed) for up to 4 doses. dexAMETHasone (DECADRON) 4 mg tablet Take 1 tablet by mouth every 12 hours. Or as directed multivit with minerals/lutein (MULTIVITAMIN 50 PLUS ORAL) Take by mouth. Take one(1) tablet daily. gluc/chnd/om3/dha/epa/fish/str (XEKT-[id number]-ZD9-VDP-CIR-TCDR-ST ORAL) Take by mouth. 2 tabs daily tamoxifen (NOLVADEX) 20 mg tablet TAKE 1 TABLET BY MOUTH ONCE DAILY metoprolol succinate ER (TOPROL XL) 100 mg Take 100 mg by mouth once daily. 100mg in AM, 50mg in PM venlafaxine ER (EFFEXOR XR) 37.5 mg 24 hr capsule Take 1 capsule by mouth once daily. ibuprofen (MOTRIN) 800 mg tablet TAKE ONE TABLET BY MOUTH EVERY 8 HOUR NEEDED FOR PAIN calcium carbonate 600 mg-cholecalciferol 400 units 600 mg(1,500mg) -400 unit tab Take 1 tablet by mouth once daily. fluticasone (FLONASE) 50 mcg/actuation nasal spray 1 [place] as needed. 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 Positive hot flashes. HEENT: Negative for frequent or significant headaches. No changes in hearing or vision, no nose bleeds or other nasal problems. Respiratory: Negative for cough, wheezing or shortness of breath. Cardiovascular: Negative for chest pain, leg swelling or palpitations. GI: Negative for abdominal discomfort, blood in stools or black stools or change in bowel habits. : No history of dysuria, frequency or incontinence. Musculoskeletal: Negative for joint pain or swelling, back pain and muscle pain. Skin: Negative for lesions, rash and itching. Hematology/Lymphology: Negative for prolonged bleeding, bruising easily or swollen nodes. Neuro: No history of headaches, syncope, paralysis, seizures or tremors. PHYSICAL EXAM: Vitals: BP 198/81 Pulse 60 Temp 36.6 C (97.8 F) (Temporal) Resp 16 Ht 148.5 cm (4' 10.47 ) Wt 52.4 kg (115 lb 8.3 oz) SpO2 95% BMI 23.76 kg/m ECOG 1 Exam limited to gross visualization where appropriate due to COVID-19. Gen.: This is an age-appropriate patient in no acute distress. Head: Appears atraumatic with no visible lesions. Eyes: Pupils equally round and reactive to light, extraocular muscles are intact. Neck: Supple. Mouth: Mucous membranes appeared to be moist. Respiratory: Appears to be respiring comfortably. Neurologic: Nonfocal to gross visualization. Alert and oriented 3. Psychiatric: No evidence of inappropriate anxiety or depression. Skin: Visible areas of skin without rash, lesions, wounds or petechiae. Pulmonary exam: Bilateral wheezing, no rales. PATHOLOGY: 02/22/2024 Bronchoscopic EBUS biopsy lymph node, station 7: Adenocarcinoma, consistent with pulmonary origin PD-L1 analysis: PD-L1 percent ALK1: Negative NGS analysis: No actionable mutations RADIOLOGIC DATA: 03/06/2024 PET scan IMPRESSION: HEAD/NECK: * No FDG avid neoplastic process. CHEST: * FDG avid left upper lobe perihilar mass likely primary, with FDG avid enlarged mediastinal and right hilar lymphadenopathy. ABDOMEN/PELVIS: * FDG avid left adrenal lesion and mesenteric lymphadenopathy likely metastatic. MUSCULOSKELETAL: * No FDG avid neoplastic process. 02/29/2024 CT chest IMPRESSION: 1. 6.2 x 3.8 cm left upper lobe perihilar masslike opacity, stable since 02/07/24. 2. Persistent opacification of adjacent left upper lobe bronchi. Associated upper lobe reticular nodular opacities and patchy opacities may represent a combination of postobstructive pneumonia and lymphangitic carcinomatosis. 3. Moderate mediastinal and hilar lymphadenopathy, some are stable and some have increased. 4. More conspicuous 3 mm left lower lobe nodular opacity. 4. New subtle right lower lobe groundglass opacity. 02/29/2024 CT abdomen/pelvis IMPRESSION: 1. Indeterminate heterogeneous enlargement of the endometrium measuring 1.7 cm in thickness. Differential diagnosis includes second primary neoplasm (such as an endometrial neoplasm) and endometrial hyperplasia. Recommend further workup. 2. Indeterminate 1.7 cm left adrenal nodule. Consider further evaluation via PET scan, adrenal protocol CT/MRI or interval follow-up. 3. Mild mesenteric lymphadenopathy. 4. Sigmoid colon diverticulosis without evidence of diverticulitis. 02/29/2024 CT brain IMPRESSION: Right orbital frontal pole metastasis with local mass effect. 02/07/2024 Chest CTA ([facility]) There is a large left perihilar soft tissue mass invading into the mediastinum. This encases the adjacent vasculature and airways. The mass measures approximately 5 x 3.5 x 5.2 cm. There are mildly enlarged mediastinal and hilar lymph nodes, left greater than right. No enlarged axillary or supraclavicular nodes. 11/03/2023 Diagnostic Right Mammogram ([facility]) Impression: No mammographic evidence of malignancy in the right breast. Recommendations: Continue annual screening mammography. 11/02/2022 CT abdomen/pelvis ([facility]) No upper collecting system abnormalities identified to explain the patient's hematuria. Abnormal endometrial thickening of 16 mm. Endometrial hyperplasia or malignancy cannot be excluded. 07/12/2020 MRI cervical spine ([facility]) Broad-based disc bulging at C5 through C6 with severe bilateral neural foraminal narrowing and moderate spinal stenosis. 07/28/2019 Bone density exam Osteopenia LABORATORY DATA: Hemoglobin (g/dL) Date Value 02/10/2024 14.0 01/15/2022 13.5 Hematocrit (%) Date Value 02/10/2024 40.6 01/15/2022 41.4 WBC (k/uL) Date Value 02/10/2024 13.10 01/15/2022 8.94 Platelet Count (k/uL) Date Value 02/10/2024 353 01/15/2022 346 ASSESSMENT/PLAN: 1. Stage IV lung cancer (HCC) - ICD9: 162.2, ICD10: C34.02 (primary diagnosis) January 2024 the patient presented with acute shortness of breath and dry cough. Chest CT 02/07/2024 revealed a large left hilar mass invading the mediastinum with extensive regional adenopathy. Bronchoscopic biopsy 02/22/2024 confirmed regional lymph node involvement with adenocarcinoma of pulmonary origin. PET scan 03/06/2024 revealed locally advanced disease in the left lung plus metastases to the left adrenal gland and mesenteric lymph nodes. Brain CT positive for metastasis. Options for management were discussed at length with the patient and her . She will undergo gamma knife as scheduled. We will then start palliative chemotherapy with carboplatin, pemetrexed, and pembrolizumab. I will see her back in 1 week for follow-up. We will then discuss when to start chemotherapy. We will consider palliative radiation therapy to the left lung if her breathing does not improve with chemotherapy. 2. Metastasis to brain (HCC) - ICD9: 198.3, ICD10: C79.[address] 02/29/2024 revealed an isolated metastasis in the right frontal lobe of the brain. Decadron started at the time of diagnosis. Subsequently the patient was referred to [facility] radiation oncology to evaluate for gamma knife. 3. 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 Status post lumpectomy and sentinel node procedure followed by adjuvant radiation therapy to the left breast. Status post adjuvant tamoxifen 5 years completed October 2005. Abnormal left-sided mammogram June 2019. Ultrasound-guided left breast biopsy 07/13/2019 consistent with DCIS. The patient underwent a left mastectomy on 08/22/2019, and pathology revealed 2 areas of invasive ductal carcinoma (14 mm and 2.5 mm). The tumors were intermediate grade, ER/NJ positive (95%/5%), HER-2 FISH negative. Oncotype recurrence score 20 - which would predict a distant recurrence risk at 9 years of 6% with adjuvant hormonal therapy alone, and no predicted benefit with chemotherapy. Adjuvant hormonal therapy with anastrozole 1 mg daily started 09/22/2019. Due to significant adverse effects (arthralgias) Arimidex was discontinued April 2020. Subsequently the patient resumed Tamoxifen 08/09/2020. The patient will continue as is with tamoxifen for 5 years total (September 2024). Will arrange for her surveillance mammogram to be done in October 2024. 4. Hyperthyroidism - ICD9: 242.90, ICD10: E05.90 Hyperthyroidism diagnosed in the . Status post I-131 ablation November 1996. Continue management per PCP. 5. Essential hypertension - ICD9: 401.9, ICD10: I10 Continue management per PCP. 6. Chronic neck pain secondary to degenerative disc disease MRI cervical spine 07/12/2020 consistent with cervical disc disease and spinal stenosis. The patient is currently asymptomatic. Would consider referral to neurosurgery if symptoms recur. 7. Chronic obstructive pulmonary disease The patient has a long history of tobacco abuse (quit smoking January 2024). She has chronic shortness of breath with cough most likely secondary to COPD. Current symptoms exacerbated by underlying lung cancer. Continue management per PCP/pulmonary. Marco Purcell MD documented in this encounter [facility] 03-09-2024 Miscellaneous Notes Results reviewed w/ Dr Purcell. instructs to inform the pt that the scans show disease in the lung and lymph nodes which we knew about. There appears to be disease in the left adrenal gland and surrounding lymph nodes. Per Dr Purcell, this is a common site of mets in lung cancer. On a positive note, there was no disease found in the bones or liver. Will review scans is greater detail at next week's visit. Pt notified and verbalizes understanding. States that they've had plans come up and asks if she can move her appointment time to either Wednesday or earlier in the day on Wednesday. Call transferred to ADEEL Yeboah, for scheduling. Juliane Chandler RN Pt requesting her PET results. Please review and advise. Thanks! Juliane Chandler RN documented in this encounter [facility] 03-08-2024 Miscellaneous Notes Pt notified and verbalizes understanding. Juliane Chandler RN Call placed to pt. No answer. No voicemail. Unable to leave a message. Juliane Chandler RN Agree with recommendation. Thanks, Vidhya Kamara APRN.PHYSICIAN OBSTETRICIAN Pt taking Dexamethasone 4 mg BID. C/o severe heartburn and indigestion since starting the med. Pt has been taking it w/ food as suggested. Recommended she begin taking OTC Pepcid twice daily while taking the dexamethasone. Do you have any other suggestions? Juliane Chandler RN documented in this encounter [facility] 03-06-2024 Note HNO ID: [id number] Author: ATILIO BARRAGAN RN Service: ? Author Type: Registered Nurse Type: Progress Notes Filed: 03/06/2024 10:02 Note Text: Radiology Service Progress Note DATE OF SERVICE: March 06, 2024 TIME: 10:01 AM PATIENT IDENTITY VERIFICATION COMPLETED USING TWO (2) STANDARD IDENTIFIERS: Name and Date of confirmed by patient verbally. FALL SCREENING: Has the patient had 2 falls in the last year or 1 fall with injury or currently using an Ambulatory Assistive Device (Walker, Cane, Wheelchair, Crutches, etc.)? No PATIENT GENDER DATA: Female. status: : No status: NO. ALLERGIES: Reviewed and unchanged EXAM: CT -CONTRAST INDUCED NEPHROPATHY RISK FACTORS: Not applicable CREATININE: Creatinine Date Value Ref Range Status 02/10/2024 0.48 (L) 0.58 - 0.96 mg/dL Final 11/11/2023 0.55 (L) 0.58 - 0.96 mg/dL Final 06/03/2023 0.51 (L) 0.58 - 0.96 mg/dL Final Estimated Glomerular Filtration Rate Date Value Ref Range Status 02/10/2024 102 >=60 mL/min/1.73m? Final Comment: Estimated Glomerular Filtration Rate (eGFR) is calculated using the 2020 CKD-EPI creatinine equation. This equation utilizes serum creatinine, sex, and age as parameters. The creatinine assay has traceable calibration to isotope dilution-mass spectrometry. Refer to KDIGO guidelines for clinical interpretation. In patients with unstable renal function, e.g. those with acute kidney injury, the eGFR may not accurately reflect actual GFR. eGFR- Date Value Ref Range Status 01/15/2022 >60 Final P.O.C.T. RESULTS: POC done: Yes, See Lab Tab March 06, 2024 TREATMENT: N/A IV SITE: Ambulatory: A peripheral IV was started in the Right hand with a Angio cath: 24 gauge. IV SITE APPEARANCE: Clean,Dry and Intact SIGNATURE: Atilio Barragan RN PATIENT NAME: Karin Mix DATE: March 06, 2024 TIME: 10:01 AM [facility] 03-06-2024 Note HNO ID: [id number] Author: JULIANE VILLAGRAN RT(R) Service: ? Author Type: Technologist Type: Progress Notes Filed: 03/06/2024 11:06 Note Text: RADIOLOGY SERVICE PROGRESS NOTE SERVICE DATE: 03/06/2024 SERVICE TIME: 10:57 AM PATIENT IDENTITY VERIFICATION COMPLETED USING TWO (2) STANDARD IDENTIFIERS: Name and Date of confirmed by patient verbally POST EXAM PIV STATUS: Discontinued PROCEDURE TYPE: NM INJECT: PET/CT BODY SCAN. 6.8 mCi F18 FDG. No other medications given.. ADMINISTRATION TIME: 1005 PATIENT DISCHARGED TO: Ambulatory patient, left [place] department area. A Diagnostic radioactive procedure has taken place, with no further precautions necessary other than routine body substance precautions. More information regarding radiation safety can be found using this link: [email or web address]%20Nuclear%20Medicin [email or web address] SIGNATURE: RT Enrico(R) PATIENT NAME: Karin Mix DATE: March 06, 2024 TIME: 10:57 AM PAGER/CONTACT #: [facility] 03-03-2024 Note HNO ID: [id number] Author: FLORIN CASILLAS MD Service: ? Author Type: Physician Type: Progress Notes Filed: 03/04/2024 22:05 Note Text: [facility]IS[facility] This visit is a Virtual MyChart video encounter which required patient-provider interaction for the medical decision making as documented below. Persons Present: patient Karin Mix has consented to this distance health encounter. HISTORY REVIEWED (electronic chart updated): CC: This is a 68 year old female with a history of left-sided breast cancer and recently diagnosed lung cancer, seen for new brain metastasis. She was seen by [facility] pulmonary and underwent bronchoscopy with EBUS biopsy on 02/22/2024. She was found to have no endobronchial lesions. However, bronchoscopic biopsy of the regional lymph nodes revealed adenocarcinoma consistent with pulmonary origin. Further staging was a PET scan was scheduled, but the patient could not complete the scan due to anxiety/claustrophobia. Brain MRI also was scheduled, but the patient canceled the scan for fear of anxiety. Clinically she feels about the same. Chronic shortness of breath with dry cough persist. No hemoptysis. No fevers or other signs of infection. She denies any headaches or other neurological symptoms. She has ongoing anxiety which has been a long-term problem. She remains on tamoxifen for breast cancer. She has noticed no changes in her breasts. MEDICATIONS: CURRENT MEDICATIONS multivit with minerals/lutein (MULTIVITAMIN 50 PLUS ORAL) Take by mouth. Take one(1) tablet daily. gluc/chnd/om3/dha/epa/fish/str (TFOX-KCAFX-ZD4-ZGI-TTP-SIIW-ST ORAL) Take by mouth. 2 tabs daily tamoxifen (NOLVADEX) 20 mg tablet TAKE 1 TABLET BY MOUTH ONCE DAILY metoprolol succinate ER (TOPROL XL) 100 mg Take 100 mg by mouth once daily. 100mg in AM, 50mg in PM venlafaxine ER (EFFEXOR XR) 37.5 mg 24 hr capsule Take 1 capsule by mouth once daily. (Patient not taking: Reported on 02/17/2024) ibuprofen (MOTRIN) 800 mg tablet TAKE ONE TABLET BY MOUTH EVERY 8 HOUR NEEDED FOR PAIN calcium carbonate 600 mg-cholecalciferol 400 units 600 mg(1,500mg) -400 unit tab Take 1 tablet by mouth once daily. fluticasone (FLONASE) 50 mcg/actuation nasal spray 1 [place] as needed. 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 Positive hot flashes. HEENT: Negative for frequent or significant headaches. No changes in hearing or vision, no nose bleeds or other nasal problems. Respiratory: Negative for cough, wheezing or shortness of breath. Cardiovascular: Negative for chest pain, leg swelling or palpitations. GI: Negative for abdominal discomfort, blood in stools or black stools or change in bowel habits. : No history of dysuria, frequency or incontinence. Musculoskeletal: Negative for joint pain or swelling, back pain and muscle pain. Skin: Negative for lesions, rash and itching. Hematology/Lymphology: Negative for prolonged bleeding, bruising easily or swollen nodes. Neuro: No history of headaches, syncope, paralysis, seizures or tremors. VIDEO PHYSICAL EXAMINATION: (if done, performed via video enabled technology) GENERAL: alert and appropriate, in no distress, well-hydrated, well nourished, and happy, smiling, interactive SKIN: no rash noted HEAD: normocephalic, no abnormality or lesion noted EYES: visual acuity is grossly normal EARS: hearing grossly normal NOSE: external nose normal without rhinorrhea OROPHARYNX: moist mucus membranes NECK: full ROM, no cervical LNs noted RESPIRATORY: breathing non-labored CHEST: equal chest rise with normal respiratory effort EXTREMITIES: moving bilateral upper extremities well PATHOLOGY: 02/22/2024 Bronchoscopic EBUS biopsy lymph node, station 7: Adenocarcinoma, consistent with pulmonary origin PD-L1 analysis: ALK1: NGS analysis: RADIOLOGIC DATA: 02/29/2024 CT brain IMPRESSION: Right orbital frontal pole metastasis with local mass effect. 02/07/2024 Chest CTA ([facility]) There is a large left perihilar soft tissue mass invading into the mediastinum. This encases the adjacent vasculature and airways. The mass measures approximately 5 x 3.5 x 5.2 cm. There are mildly enlarged mediastinal and hilar lymph nodes, left greater than right. No enlarged axillary or supraclavicular nodes. 11/03/2023 Diagnostic Right Mammogram ([facility]) Impression: No mammographic evidence of malignancy in the right breast. Recommendations: Continue annual screening (more content not included)... [facility] 03-03-2024 History of Presen t illness Narrative [facility] This visit is a Virtual MyChart video encounter which required patient-provider interaction for the medical decision making as documented below. Persons Present: patient Karin Mix has consented to this distance health encounter. HISTORY REVIEWED (electronic chart updated): CC: This is a 68 year old female with a history of left-sided breast cancer and recently diagnosed lung cancer, seen for new brain metastasis. She was seen by [facility] pulmonary and underwent bronchoscopy with EBUS biopsy on 02/22/2024. She was found to have no endobronchial lesions. However, bronchoscopic biopsy of the regional lymph nodes revealed adenocarcinoma consistent with pulmonary origin. Further staging was a PET scan was scheduled, but the patient could not complete the scan due to anxiety/claustrophobia. Brain MRI also was scheduled, but the patient canceled the scan for fear of anxiety. Clinically she feels about the same. Chronic shortness of breath with dry cough persist. No hemoptysis. No fevers or other signs of infection. She denies any headaches or other neurological symptoms. She has ongoing anxiety which has been a long-term problem. She remains on tamoxifen for breast cancer. She has noticed no changes in her breasts. MEDICATIONS: CURRENT MEDICATIONS multivit with minerals/lutein (MULTIVITAMIN 50 PLUS ORAL) Take by mouth. Take one(1) tablet daily. gluc/chnd/om3/dha/epa/fish/str (DQYR-DXZEN-GT2-YPA-NUM-FLVW-ST ORAL) Take by mouth. 2 tabs daily tamoxifen (NOLVADEX) 20 mg tablet TAKE 1 TABLET BY MOUTH ONCE DAILY metoprolol succinate ER (TOPROL XL) 100 mg Take 100 mg by mouth once daily. 100mg in AM, 50mg in PM venlafaxine ER (EFFEXOR XR) 37.5 mg 24 hr capsule Take 1 capsule by mouth once daily. (Patient not taking: Reported on 02/17/2024) ibuprofen (MOTRIN) 800 mg tablet TAKE ONE TABLET BY MOUTH EVERY 8 HOUR NEEDED FOR PAIN calcium carbonate 600 mg-cholecalciferol 400 units 600 mg(1,500mg) -400 unit tab Take 1 tablet by mouth once daily. fluticasone (FLONASE) 50 mcg/actuation nasal spray 1 [place] as needed. 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 Positive hot flashes. HEENT: Negative for frequent or significant headaches. No changes in hearing or vision, no nose bleeds or other nasal problems. Respiratory: Negative for cough, wheezing or shortness of breath. Cardiovascular: Negative for chest pain, leg swelling or palpitations. GI: Negative for abdominal discomfort, blood in stools or black stools or change in bowel habits. : No history of dysuria, frequency or incontinence. Musculoskeletal: Negative for joint pain or swelling, back pain and muscle pain. Skin: Negative for lesions, rash and itching. Hematology/Lymphology: Negative for prolonged bleeding, bruising easily or swollen nodes. Neuro: No history of headaches, syncope, paralysis, seizures or tremors. VIDEO PHYSICAL EXAMINATION: (if done, performed via video enabled technology) GENERAL: alert and appropriate, in no distress, well-hydrated, well nourished, and happy, smiling, interactive SKIN: no rash noted HEAD: normocephalic, no abnormality or lesion noted EYES: visual acuity is grossly normal EARS: hearing grossly normal NOSE: external nose normal without rhinorrhea OROPHARYNX: moist mucus membranes NECK: full ROM, no cervical LNs noted RESPIRATORY: breathing non-labored CHEST: equal chest rise with normal respiratory effort EXTREMITIES: moving bilateral upper extremities well PATHOLOGY: 02/22/2024 Bronchoscopic EBUS biopsy lymph node, station 7: Adenocarcinoma, consistent with pulmonary origin PD-L1 analysis: ALK1: NGS analysis: RADIOLOGIC DATA: 02/29/2024 CT brain IMPRESSION: Right orbital frontal pole metastasis with local mass effect. 02/07/2024 Chest CTA ([facility]) There is a large left perihilar soft tissue mass invading into the mediastinum. This encases the adjacent vasculature and airways. The mass measures approximately 5 x 3.5 x 5.2 cm. There are mildly enlarged mediastinal and hilar lymph nodes, left greater than right. No enlarged axillary or supraclavicular nodes. 11/03/2023 Diagnostic Right Mammogram ([facility]) Impression: No mammographic evidence of malignancy in the right breast. Recommendations: Continue annual screening mammography. 11/02/2022 CT abdomen/pelvis ([facility]) No upper collecting system abnormalities identified to explain the patient's hematuria. Abnormal endometrial thickening of 16 mm. Endometrial hyperplasia or malignancy cannot be excluded. 07/12/2020 MRI cervical spine ([facility]) Broad-based disc bulging at C5 through C6 with severe bilateral neural foraminal narrowing and moderate spinal stenosis. 07/28/2019 Bone density exam Osteopenia LABORATORY DATA: Hemoglobin (g/dL) Date Value 02/10/2024 14.0 01/15/2022 13.5 Hematocrit (%) Date Value 02/10/2024 40.6 01/15/2022 41.4 WBC (k/uL) Date Value 02/10/2024 13.10 01/15/2022 8.94 Platelet Count (k/uL) Date Value 02/10/2024 353 01/15/2022 346 ASSESSMENT/PLAN: This is a 68 year old woman with metastasis to brain (HCC) - ICD9: 198.3, ICD10: C79.31. Brain CT 02/29/2024 revealed an isolated metastasis in the right frontal lobe of the brain. Decadron will be started to treat vasogenic edema. We will set her up for gamma knife radiosurgery. She is seeing Dr. Mckeon next week. We will request that she undergo a brain MRI at [facility] with sedation. Head frame will be used. Radiosurgery will be done in a single fraction using the Gamma Knife Perfexion system, which uses up to 92 beams of radiation. A head CT and brain MRI will be performed the day of the procedure. The images will be co registered for target contouring and treatment planning. The CT scan is necessary to correct for the spatial distortion of the MRI. Both scans will be evaluated by a radiologist and the results will be discussed with the patient. Signed by: Florin Casillas MD documented in this encounter [facility] 03-02-2024 Miscellaneous Notes Patient is scheduled for Pet on Wednesday and gammaknife tommoorw she is aware of all appointment dates and times. Called patient to help set up my chart, spoke with roula they are hoping to schedule patient for Wednesday to meet with the doctors,thanks Sent Email to Gammaknife team Pt has solitary brain met per CT. She did not do MRI due to claustrophobia. Dr Peres and Dr Purcell spoke. Pt needs set up for Gamma knife [facility]. They will likely need to sedate her for MRI. PSS- please coordinate with Gamma Knife team. Thank you! BRM- please sign pended Rad Onc Order. Hannah Torres, RN documented in this encounter [facility] 03-01-2024 Miscellaneous Notes Patient is scheduled for Wednesday for pet scan BRM called with orders for pt to begin Decadron 4mg (#50)BID for brain met. He discussed the results of CT CAP from yesterday. Pt will need to complete PET, as ordered, for further evaluation of endometrial and adrenal abnormal findings on CT. RX for Ativan 0.5mg (#4) to be sent to complete PET scan. I called and spoke with pt. She is overwhelmed, but agreeable to plan of care; gamma knife, PET, etc. Discussed RX's. She will come today to [facility] and begin the Decadron, as prescribed. Pt is aware she can call at any time to discuss any questions, needs concerns. BRM: please review and sign pended RX's PSS: Please call to schedule pt for PET [facility]UCHO Atilio Barragan RN documented in this encounter [facility] 02-29-2024 Note HNO ID: [id number] Author: JULIANE VILLAGRAN RT(R) Service: ? Author Type: Technologist Type: Progress Notes Filed: 03/01/2024 07:08 Note Text: RADIOLOGY SERVICE PROGRESS NOTE SERVICE DATE: 03/01/2024 SERVICE TIME: 7:07 AM PATIENT IDENTITY VERIFICATION COMPLETED USING TWO (2) STANDARD IDENTIFIERS: Name and Date of confirmed by patient verbally FALL SCREENING: Has the patient had 2 falls in the last year or 1 fall with injury or currently using an Ambulatory Assistive Device (Walker, Cane, Wheelchair, Crutches, etc.)? No PATIENT GENDER DATA: .female ALLERGIES: Reviewed and unchanged MEDICATIONS REVIEWED: Not applicable PATIENT RELEVANT IMPLANT DATA REVIEWED: Not Applicable PATIENT PRESENTS WITH AN IMPLANTABLE OR ATTACHED PSYCHOLOGICAL OPERATIONS: No CREATININE: Creatinine Date Value Ref Range Status 02/10/2024 0.48 (L) 0.58 - 0.96 mg/dL Final 11/11/2023 0.55 (L) 0.58 - 0.96 mg/dL Final 06/03/2023 0.51 (L) 0.58 - 0.96 mg/dL Final Estimated Glomerular Filtration Rate Date Value Ref Range Status 02/10/2024 102 >=60 mL/min/1.73m? Final Comment: Estimated Glomerular Filtration Rate (eGFR) is calculated using the 2020 CKD-EPI creatinine equation. This equation utilizes serum creatinine, sex, and age as parameters. The creatinine assay has traceable calibration to isotope dilution-mass spectrometry. Refer to KDIGO guidelines for clinical interpretation. In patients with unstable renal function, e.g. those with acute kidney injury, the eGFR may not accurately reflect actual GFR. eGFR- Date Value Ref Range Status 01/15/2022 >60 Final P.O.C.T. RESULTS: N/A March 01, [address] PERFORMED: Yes. RADIOLOGIST NOTIFIED?: No CONTRAST ALLERGY: NO. PREMEDICATED: Not applicable CONTRAST: IV 105 ml IV contrast (300) given and Oral Omnipaque 240 DIABETIC PATIENT: Not applicable IV SITE: Ambulatory: A peripheral IV was started in the Right forearm with a Angio cath: 22 gauge. POST EXAM PIV STATUS: Discontinued PROCEDURE TYPE: CT Brain with contrast and CT Chest/Abdomen/Pelvis with contrast PATIENT DISCHARGED TO: Ambulatory patient, left [place] department area. A Diagnostic radioactive procedure has taken place, with no further precautions necessary other than routine body substance precautions. More information regarding radiation safety can be found using this link: [email or web address]%20Nuclear%20Medicin [email or web address] SIGNATURE: RT Enrico(R) PATIENT NAME: Karin Mix DATE: March 01, 2024 TIME: 7:07 AM PAGER/CONTACT #: [facility] 02-29-2024 Note HNO ID: [id number] Author: MARCO PURCELL MD Service: ? Author Type: Physician Type: Progress Notes Filed: 02/29/2024 20:19 Note Text: PATIENT NAME: Karin Mix DATE: 02/29/2024 PRIMARY CARE PHYSICIAN: Dr. Tariq Paul OTHER PHYSICIANS: Dr. Kaur, Dr. Peres, Dr. Jack Rees Portions of this encounter note have been copied from the note from 02/10/2024 and has been updated where appropriate, and reflect my current medical decision making from today. CC: This is a 68 year old female with a history of left-sided breast cancer and recently diagnosed lung cancer, seen for scheduled follow-up. INTERIM HISTORY: Since the patient's last visit here she was seen by [facility] pulmonary and underwent bronchoscopy with EBUS biopsy on 02/22/2024. She was found to have no endobronchial lesions. However, bronchoscopic biopsy of the regional lymph nodes revealed adenocarcinoma consistent with pulmonary origin. Further staging was a PET scan was scheduled, but the patient could not complete the scan due to anxiety/claustrophobia. Brain MRI also was scheduled, but the patient canceled the scan for fear of anxiety. Clinically she feels about the same. Chronic shortness of breath with dry cough persist. No hemoptysis. No fevers or other signs of infection. She denies any headaches or other neurological symptoms. She has ongoing anxiety which has been a long-term problem. She remains on tamoxifen for breast cancer. She has noticed no changes in her breasts. MEDICATIONS: multivit with minerals/lutein (MULTIVITAMIN 50 PLUS ORAL) Take by mouth. Take one(1) tablet daily. gluc/chnd/om3/dha/epa/fish/str (ERCW-PCSPR-YT2-DFV-VSD-AHLX-ST ORAL) Take by mouth. 2 tabs daily tamoxifen (NOLVADEX) 20 mg tablet TAKE 1 TABLET BY MOUTH ONCE DAILY metoprolol succinate ER (TOPROL XL) 100 mg Take 100 mg by mouth once daily. 100mg in AM, 50mg in PM venlafaxine ER (EFFEXOR XR) 37.5 mg 24 hr capsule Take 1 capsule by mouth once daily. (Patient not taking: Reported on 02/17/2024) ibuprofen (MOTRIN) 800 mg tablet TAKE ONE TABLET BY MOUTH EVERY 8 HOUR NEEDED FOR PAIN calcium carbonate 600 mg-cholecalciferol 400 units 600 mg(1,500mg) -400 unit tab Take 1 tablet by mouth once daily. fluticasone (FLONASE) 50 mcg/actuation nasal spray 1 [place] as needed. 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 Positive hot flashes. HEENT: Negative for frequent or significant headaches. No changes in hearing or vision, no nose bleeds or other nasal problems. Respiratory: Negative for cough, wheezing or shortness of breath. Cardiovascular: Negative for chest pain, leg swelling or palpitations. GI: Negative for abdominal discomfort, blood in stools or black stools or change in bowel habits. : No history of dysuria, frequency or incontinence. Musculoskeletal: Negative for joint pain or swelling, back pain and muscle pain. Skin: Negative for lesions, rash and itching. Hematology/Lymphology: Negative for prolonged bleeding, bruising easily or swollen nodes. Neuro: No history of headaches, syncope, paralysis, seizures or tremors. PHYSICAL EXAM: Vitals: BP 172/70 Pulse 81 Temp 36.4 ?C (97.6 ?F) (Temporal) Resp 16 Ht 148.5 cm (4' 10.47 ) Wt 51.2 kg (112 lb 14 oz) SpO2 97% BMI 23.22 kg/m? ECOG 1 Exam limited to gross visualization where appropriate due to COVID-19. Gen.: This is an age-appropriate patient in no acute distress. Head: Appears atraumatic with no visible lesions. Eyes: Pupils equally round and reactive to light, extraocular muscles are intact. Neck: Supple. Mouth: Mucous membranes appeared to be moist. Respiratory: Appears to be respiring comfortably. Neurologic: Nonfocal to gross visualization. Alert and oriented ?3. Psychiatric: No evidence of inappropriate anxiety or depression. Skin: Visible areas of skin without rash, lesions, wounds or petechiae. Pulmonary exam: Bilateral wheezing, no rales. PATHOLOGY: 02/22/2024 Bronchoscopic EBUS biopsy lymph node, station 7: Adenocarcinoma, consistent with pulmonary origin PD-L1 analysis: ALK1: NGS analysis: RADIOLOGIC DATA: 02/29/2024 CT brain IMPRESSION: Right orbital frontal pole metastasis with local mass effect. 02/07/2024 Chest CTA ([facility]) There is a large left perihilar soft tissue mass invading into the mediastinum. This encases the adjacent vasculature and airways. The mass measures approximately 5 x 3.5 x 5.2 cm. There are mildly enlarged mediastinal and hilar lymph no (more content not included)... [facility] 02-29-2024 History of Presen t illness Narrative PATIENT NAME: Karin Mix DATE: 02/29/2024 PRIMARY CARE PHYSICIAN: Dr. Tariq Paul OTHER PHYSICIANS: Dr. Kaur, Dr. Peres, Dr. Jack Rees Portions of this encounter note have been copied from the note from 02/10/2024 and has been updated where appropriate, and reflect my current medical decision making from today. CC: This is a 68 year old female with a history of left-sided breast cancer and recently diagnosed lung cancer, seen for scheduled follow-up. INTERIM HISTORY: Since the patient's last visit here she was seen by [facility] and underwent bronchoscopy with EBUS biopsy on 02/22/2024. She was found to have no endobronchial lesions. However, bronchoscopic biopsy of the regional lymph nodes revealed adenocarcinoma consistent with pulmonary origin. Further staging was a PET scan was scheduled, but the patient could not complete the scan due to anxiety/claustrophobia. Brain MRI also was scheduled, but the patient canceled the scan for fear of anxiety. Clinically she feels about the same. Chronic shortness of breath with dry cough persist. No hemoptysis. No fevers or other signs of infection. She denies any headaches or other neurological symptoms. She has ongoing anxiety which has been a long-term problem. She remains on tamoxifen for breast cancer. She has noticed no changes in her breasts. MEDICATIONS: multivit with minerals/lutein (MULTIVITAMIN 50 PLUS ORAL) Take by mouth. Take one(1) tablet daily. gluc/chnd/om3/dha/epa/fish/str (QNCK-MWFBG-RO2-LCK-YMG-SWWO-ST ORAL) Take by mouth. 2 tabs daily tamoxifen (NOLVADEX) 20 mg tablet TAKE 1 TABLET BY MOUTH ONCE DAILY metoprolol succinate ER (TOPROL XL) 100 mg Take 100 mg by mouth once daily. 100mg in AM, 50mg in PM venlafaxine ER (EFFEXOR XR) 37.5 mg 24 hr capsule Take 1 capsule by mouth once daily. (Patient not taking: Reported on 02/17/2024) ibuprofen (MOTRIN) 800 mg tablet TAKE ONE TABLET BY MOUTH EVERY 8 HOUR NEEDED FOR PAIN calcium carbonate 600 mg-cholecalciferol 400 units 600 mg(1,500mg) -400 unit tab Take 1 tablet by mouth once daily. fluticasone (FLONASE) 50 mcg/actuation nasal spray 1 [place] as needed. 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 Positive hot flashes. HEENT: Negative for frequent or significant headaches. No changes in hearing or vision, no nose bleeds or other nasal problems. Respiratory: Negative for cough, wheezing or shortness of breath. Cardiovascular: Negative for chest pain, leg swelling or palpitations. GI: Negative for abdominal discomfort, blood in stools or black stools or change in bowel habits. : No history of dysuria, frequency or incontinence. Musculoskeletal: Negative for joint pain or swelling, back pain and muscle pain. Skin: Negative for lesions, rash and itching. Hematology/Lymphology: Negative for prolonged bleeding, bruising easily or swollen nodes. Neuro: No history of headaches, syncope, paralysis, seizures or tremors. PHYSICAL EXAM: Vitals: BP 172/70 Pulse 81 Temp 36.4 C (97.6 F) (Temporal) Resp 16 Ht 148.5 cm (4' 10.47 ) Wt 51.2 kg (112 lb 14 oz) SpO2 97% BMI 23.22 kg/m ECOG 1 Exam limited to gross visualization where appropriate due to COVID-19. Gen.: This is an age-appropriate patient in no acute distress. Head: Appears atraumatic with no visible lesions. Eyes: Pupils equally round and reactive to light, extraocular muscles are intact. Neck: Supple. Mouth: Mucous membranes appeared to be moist. Respiratory: Appears to be respiring comfortably. Neurologic: Nonfocal to gross visualization. Alert and oriented 3. Psychiatric: No evidence of inappropriate anxiety or depression. Skin: Visible areas of skin without rash, lesions, wounds or petechiae. Pulmonary exam: Bilateral wheezing, no rales. PATHOLOGY: 02/22/2024 Bronchoscopic EBUS biopsy lymph node, station 7: Adenocarcinoma, consistent with pulmonary origin PD-L1 analysis: ALK1: NGS analysis: RADIOLOGIC DATA: 02/29/2024 CT brain IMPRESSION: Right orbital frontal pole metastasis with local mass effect. 02/07/2024 Chest CTA ([facility]) There is a large left perihilar soft tissue mass invading into the mediastinum. This encases the adjacent vasculature and airways. The mass measures approximately 5 x 3.5 x 5.2 cm. There are mildly enlarged mediastinal and hilar lymph nodes, left greater than right. No enlarged axillary or supraclavicular nodes. 11/03/2023 Diagnostic Right Mammogram ([facility]) Impression: No mammographic evidence of malignancy in the right breast. Recommendations: Continue annual screening mammography. 11/02/2022 CT abdomen/pelvis ([facility]) No upper collecting system abnormalities identified to explain the patient's hematuria. Abnormal endometrial thickening of 16 mm. Endometrial hyperplasia or malignancy cannot be excluded. 07/12/2020 MRI cervical spine ([facility]) Broad-based disc bulging at C5 through C6 with severe bilateral neural foraminal narrowing and moderate spinal stenosis. 07/28/2019 Bone density exam Osteopenia LABORATORY DATA: Hemoglobin (g/dL) Date Value 02/10/2024 14.0 01/15/2022 13.5 Hematocrit (%) Date Value 02/10/2024 40.6 01/15/2022 41.4 WBC (k/uL) Date Value 02/10/2024 13.10 01/15/2022 8.94 Platelet Count (k/uL) Date Value 02/10/2024 353 01/15/2022 346 ASSESSMENT/PLAN: 1. 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 Chest CT 02/07/2024 revealed a large left hilar mass invading the mediastinum with extensive regional adenopathy. Bronchoscopic biopsy 02/22/2024 confirmed regional lymph node involvement with adenocarcinoma of pulmonary origin. Options for management were discussed at length with the patient and her . Unfortunately, she has refused rescheduling her PET scan. We will stage with CT scans of the chest, abdomen and pelvis CHUCHO. Based on evidence of metastatic disease we will discuss options for treatment, specifically chemotherapy +/- radiation. Will refer to radiation oncology to assist with management. Temporary return visit here in 2 weeks. 2. Metastasis to brain (HCC) - ICD9: 198.3, ICD10: C79.[address] 02/29/2024 revealed an isolated metastasis in the right frontal lobe of the brain. Decadron will be started to treat vasogenic edema. She will be referred to [facility] radiation oncology to evaluate for gamma knife. She is aware that a brain MRI is essential for evaluation. We will request that she undergo a brain MRI at [facility] with sedation. 3. 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 Status post lumpectomy and sentinel node procedure followed by adjuvant radiation therapy to the left breast. Status post adjuvant tamoxifen 5 years completed October 2005. Abnormal left-sided mammogram June 2019. Ultrasound-guided left breast biopsy 07/13/2019 consistent with DCIS. The patient underwent a left mastectomy on 08/22/2019, and pathology revealed 2 areas of invasive ductal carcinoma (14 mm and 2.5 mm). The tumors were intermediate grade, ER/NJ positive (95%/5%), HER-2 FISH negative. Oncotype recurrence score 20 - which would predict a distant recurrence risk at 9 years of 6% with adjuvant hormonal therapy alone, and no predicted benefit with chemotherapy. Adjuvant hormonal therapy with anastrozole 1 mg daily started 09/22/2019. Due to significant adverse effects (arthralgias) Arimidex was discontinued April 2020. Subsequently the patient resumed Tamoxifen 08/09/2020. The patient will continue as is with tamoxifen for 5 years total (September 2024). Will arrange for her surveillance mammogram to be done in October 2024. 4. Hyperthyroidism - ICD9: 242.90, ICD10: E05.90 Hyperthyroidism diagnosed in the . Status post I-131 ablation November 1996. Continue management per PCP. 5. Essential hypertension - ICD9: 401.9, ICD10: I10 Continue management per PCP. 6. Chronic neck pain secondary to degenerative disc disease MRI cervical spine 07/12/2020 consistent with cervical disc disease and spinal stenosis. The patient is currently asymptomatic. Would consider referral to neurosurgery if symptoms recur. 7. Chronic obstructive pulmonary disease The patient has a long history of tobacco abuse. She has chronic shortness of breath with cough most likely secondary to COPD. Current symptoms exacerbated by underlying lung cancer. Continue management per PCP/pulmonary. Marco Purcell MD documented in this encounter [facility] 02-24-2024 Miscellaneous Notes Patient on the schedule for PET scan on 02/27. Calling to confirm patient's appointment due to solar eclipse. Per patient, she wants to cancel this PET scan and not reschedule. Per patient, she just doesn't want to go through with it. She will be here as scheduled on Wednesday, 02/28 w/ [facility]. PET scan cancelled. Vania Fofana documented in this encounter [facility] 02-22-2024 Note HNO ID: [id number] Author: DILIP HART APRN.GAME DESIGN INSTRUCTOR Service: ? Author Type: Nurse Compression Molding Machine Tender Type: Anesthesia Procedure Notes Filed: 02/22/2024 10:37 Note Text: ANESTHESIOLOGY PROCEDURE NOTE Airway General Information Procedure Start Time/Medication Administration: 02/22/2024 10:33 AM Patient location during procedure: OR Timeout Performed Pre-procedure: timeout performed Consent Obtained: Yes Patient identity confirmed: arm band, care steam trap man and patient Staffing GAME DESIGN INSTRUCTOR: Dilip Hart APRN.GAME DESIGN INSTRUCTOR Performed by: anesthesiologist and GAME DESIGN INSTRUCTOR Indications and Patient Condition Indications for airway management: anesthesia Preoxygenated: yes anesthesia circuit Patient position: sniffing Method: asleep Cricoid Pressure: No Manual In-Line Stabilization: No Difficult Mask: No Final Airway Details Final airway type: supraglottic airway Number of attempts at approach: 1 Final Supraglottic Airway: i-gel Size 4 Seal Adequate: yes SIGNATURE: Dilip Hart APRN.GAME DESIGN INSTRUCTOR PATIENT NAME: Karin Mix DATE: February 22, 2024 TIME: 10:37 AM CSN: [id number] [facility] 02-22-2024 Note [facility] Patient Name: Karin Mix Procedure Date: 02/22/2024 9:44 AM Date of : 1955 Admit Type: Outpatient Age: 68 Room: [facility] Room 2 Gender: Female Attending MD: Jeanne Awad MD, [id number] Procedure: Bronchoscopy Indications: Mediastinal staging of suspected lung cancer. Providers: Jeanne Awad MD (Doctor), Hermila Macdonald RN (Assisting Nurse) Referring MD: Marco Purcell (Referring MD) Requesting Physician: Patient Profile: Refer to note in patient chart for documentation of history and physical. Imaging Source: CT of chest. Clinical Radiographic Stage: N2. The patient's ECOG performance status grade is 0 - fully active, able to carry on all pre-disease performance without restriction. Medicines: General Anesthesia, See the Anesthesia note for documentation of the administered medications Complications: No immediate complications Procedure: Pre-Anesthesia Assessment: - A History and Physical has been performed. Patient meds and allergies have been reviewed. The risks and benefits of the procedure and the sedation options and risks were discussed with the patient. All questions were answered and informed consent was obtained. Patient identification and proposed procedure were verified prior to the procedure by the physician, the nurse, the anesthesiologist and the armature rewinder in the procedure room. Mental Status Examination: normal. Airway Examination: normal oropharyngeal airway. Respiratory Examination: clear to auscultation. CV Examination: regular rate and rhythm. ASA Grade Assessment: III - A patient with severe systemic disease. After reviewing the risks and benefits, the patient was deemed in satisfactory condition to undergo the procedure. The anesthesia plan was to use general anesthesia. Immediately prior to administration of medications, the patient was re-assessed for adequacy to receive sedatives. The heart rate, respiratory rate, oxygen saturations, blood pressure, adequacy of pulmonary ventilation, and response to care were monitored throughout the procedure. The physical status of the patient was re-assessed after the procedure. After obtaining informed consent, the Bronchoscope was introduced through the mouth, via laryngeal mask airway and advanced to the tracheobronchial tree. the Bronchoscope was introduced through the mouth, via laryngeal mask airway and advanced to the tracheobronchial tree. The procedure was accomplished without difficulty. The patient tolerated the procedure well. the Bronchoscope was introduced through the and advanced to the. Findings: The laryngeal mask airway is in good position. The vocal cords appear normal. The subglottic space is normal. The trachea is of normal caliber. The myah is sharp. The tracheobronchial tree was examined to at least the first subsegmental level. Bronchial mucosa and anatomy are normal; there are no endobronchial lesions, and no secretions on the Right. Left Lung AbnormalitiesL There was airway disease with tumor infiltration noted at the ELAINE. Once the airway inspection was completed, the standard bronchoscope was withdrawn and the convex probe endobronchial ultrasound (EBUS) bronchoscope was inserted through the same route. A systematic staging of the hilum and mediastinum was performed. Lymph Nodes: The following lymph nodes were evaluated and/or sampled. Lymph node sizing was performed via endobronchial ultrasound for suspected lung cancer. Sampling by transbronchial needle aspiration was also performed using an Olympus [place] LaneiShot 2 22 gauge needle and sent for routine cytology. - The 11Rs (superior interlobar) node was 5.4 mm by EBUS, [address] and PET scan was not done. Three samples with the needle were obtained. - The 4R (lower paratracheal) node was 6.5 mm by EBUS, [address] and PET scan was not done. Five samples with the needle were obtained. - The 2R (upper paratracheal) node was 2 mm by EBUS, [address] and PET scan was not done. Sampling was not done due to size criteria (less than 5 mm). - The 7 (subcarinal) node was 8.7 mm by EBUS, [address] and PET scan was not done. Ten samples with the needle were obtained. - The 2L (upper paratracheal) node was 2.4 mm by EBUS, [address] and PET scan was not done. Sampling was not done due to size criteria (less than 5 mm). - The 4L (lower paratracheal) node was 7.1 mm by EBUS, [address] and PET scan was not done. Five samples with the needle were obtained. - The 10L (hilar) node was not evaluated by EBUS. Sampling was not done as it was not clinically indicated. - The 11L (interlobar) node was 14.8 mm by EBUS, [address] and PET scan was not done. Sampling was not done as it was not clinically indicated. Lymph Nodes: Rapid On-Site Evaluation (NEEL): Preliminary cytology was suggestive of benign-appearing lymphoid tis (more content not included)... [facility] 02-17-2024 Note HNO ID: [id number] Author: SEJAL LONGORIA RT(R) Service: Nuclear Medicine Author Type: Technologist Type: Progress Notes Filed: 02/17/2024 10:38 Note Text: RADIOLOGY SERVICE PROGRESS NOTE SERVICE DATE: 02/17/2024 SERVICE TIME: 10:37 AM PATIENT IDENTITY VERIFICATION COMPLETED USING TWO (2) STANDARD IDENTIFIERS: Name and Date of confirmed by patient verbally FALL SCREENING: Has the patient had 2 falls in the last year or 1 fall with injury or currently using an Ambulatory Assistive Device (Walker, Cane, Wheelchair, Crutches, etc.)? No PATIENT GENDER DATA: .female ALLERGIES: NA MEDICATIONS REVIEWED: Not applicable PATIENT RELEVANT IMPLANT DATA REVIEWED: Not Applicable PATIENT PRESENTS WITH AN IMPLANTABLE OR ATTACHED PSYCHOLOGICAL OPERATIONS: No CREATININE: Creatinine Date Value Ref Range Status 02/10/2024 0.48 (L) 0.58 - 0.96 mg/dL Final 11/11/2023 0.55 (L) 0.58 - 0.96 mg/dL Final 06/03/2023 0.51 (L) 0.58 - 0.96 mg/dL Final Estimated Glomerular Filtration Rate Date Value Ref Range Status 02/10/2024 102 >=60 mL/min/1.73m? Final Comment: Estimated Glomerular Filtration Rate (eGFR) is calculated using the 2020 CKD-EPI creatinine equation. This equation utilizes serum creatinine, sex, and age as parameters. The creatinine assay has traceable calibration to isotope dilution-mass spectrometry. Refer to KDIGO guidelines for clinical interpretation. In patients with unstable renal function, e.g. those with acute kidney injury, the eGFR may not accurately reflect actual GFR. eGFR- Date Value Ref Range Status 01/15/2022 >60 Final P.O.C.T. RESULTS: N/A February 17, [address] PERFORMED: No IV SITE: Ambulatory: NM only - direct IV injection in the Right antecubital site POST EXAM PIV STATUS: Discontinued PROCEDURE TYPE: NM INJECT: PET/CT BODY SCAN. 6.9 mCi F18 FDG. No other medications given.. ADMINISTRATION TIME: 1030 PATIENT DISCHARGED TO: Ambulatory patient, left NM department area. A Diagnostic radioactive procedure has taken place, with no further precautions necessary other than routine body substance precautions. More information regarding radiation safety can be found using this link: [email or web address] SIGNATURE: RT Simone(R) PATIENT NAME: Karin Mix DATE: February 17, 2024 TIME: 10:37 AM PAGER/CONTACT #: [facility] 02-17-2024 Note HNO ID: [id number] Author: SEJAL LONGORIA RT(Thea) Service: Nuclear Medicine Author Type: Technologist Type: Progress Notes Filed: 02/17/2024 11:39 Note Text: RADIOLOGY SERVICE PROGRESS NOTE DATE OF SERVICE: February 17, 2024 TIME OF SERVICE: 1135 EVENT: EXAM/PROCEDURE NOT COMPLETED - Patient refused exam/procedure. and Patient became claustrophobic, reaction was: Severe. ADDITIONAL EVENT DETAILS: Had pt. Lay down on table and performed a dry run before we start the test and pt state wasn't able to perform the scan. Will contact doctor for meds. SIGNATURE: RT Simone(R) PATIENT NAME: Karin Mix DATE: February 17, 2024 TIME: 11:36 AM PAGER/CONTACT #: [facility] 02-15-2024 Miscellaneous Notes Images from the original note were not included. Trevin Blanco, Is this appointment still in the works? Just making sure she's not missed! Thank you! Vania Munoz Fitting Room Checker, Daniela Castillo MD 4 days ago JT thank you Daniela Mack MD You; Alexander Fitting Room CheckerBella; Peyman Sesay MD 4 days ago SG Yes she needs a New patient visit with a pulmonary provider at [email or web address]. As this is just for ebus This can be me, calin or any pulmonary doctor at who ever has availability prior to 02/21 Thank you. Alexander Fitting Room CheckerBella You; Daniela Mack MD; Peyman Sesay MD 4 days ago JT Good Morning, This patient was scheduled today for a Bronchoscopy with Dr. Kay on 02/22/2024 (at [facility]). Is a New Consultation needed prior to procedure. Did you still want patient to see Dr. Mack or Dr. Sesay? Please let me know either way. thanks Dr. Marco Daigle would like to refer this patient to: Scheduling Instructions Dr Lisa Sesay or Dr Ahuja - PT NEEDS BRONCHOSCOPY Dx: Abnormal CT chest Thank you, Vania Fofana documented in this encounter [facility] 02-10-2024 Note HNO ID: [id number] Author: DANIELA MACK MD Service: ? Author Type: Physician Type: Progress Notes Filed: 02/10/2024 12:52 Note Text: Bronchoscopy Request: Please schedule patient for the following: Bronchoscopy Procedures: EBUS Pre-Procedure visit required: Yes Visit type: New Consultation Anticipated Procedure Date: 02/22/24 Physician Performing Bronchoscopy: Dr. Kay Needs Labs: No Needs EKG: Yes Needs CT: No Does the pt need cardiac clearance? No Is he/she on anticoagulants/anti-plt therapy? No Diagnosis/Reason for Bronchoscopy: Left hilar mass with hilar adenopathy, needs staging ebus for diagnosis and staging Referred by: Marco Purcell MD Reviewed by: Angela Mack MD February 10, 2024 12:49 PM [facility] 02-10-2024 History of Presen t illness Narrative Bronchoscopy Request: Please schedule patient for the following: Bronchoscopy Procedures: EBUS Pre-Procedure visit required: Yes Visit type: New Consultation Anticipated Procedure Date: 02/22/24 Physician Performing Bronchoscopy: Dr. Kay Needs Labs: No Needs EKG: Yes Needs CT: No Does the pt need cardiac clearance? No Is he/she on anticoagulants/anti-plt therapy? No Diagnosis/Reason for Bronchoscopy: Left hilar mass with hilar adenopathy, needs staging ebus for diagnosis and staging Referred by: Marco Purcell MD Reviewed by: Angela Mack MD February 10, 2024 12:49 PM documented in this encounter [facility] 02-10-2024 Nurse Note Patient states that she wet to the ER due to shortness of breath and diagnosed with acute bronchitis. Emily Lewis MA documented in this encounter [facility] 02-10-2024 Note HNO ID: [id number] Author: MARCO PURCELL MD Service: ? Author Type: Physician Type: Progress Notes Filed: 02/10/2024 17:24 Note Text: PATIENT NAME: Karin Mix DATE: 02/10/2024 PRIMARY CARE PHYSICIAN: Dr. Tariq Paul OTHER PHYSICIANS: Dr. Kaur, Dr. Peres, Dr. Jack Rees Portions of this encounter note have been copied from the note from 11/11/2023 and has been updated where appropriate, and reflect my current medical decision making from today. CC: This is a 68 year old female with a history of left-sided breast cancer, seen on an urgent basis for evaluation of abnormal chest CT. INTERIM HISTORY: Since the patient's last visit here she was seen at the [facility] emergency room on 02/07/2024 for acute shortness of breath. The patient has a long history of smoking, but has had minimal pulmonary symptoms. For just 2 to 3 days prior to arrival she developed increasing shortness of breath and a dry cough. She was found to have extensive wheezing, given bronchodilators, steroids, and a cough syrup, and her symptoms have improved significantly. However, chest CT obtained in the emergency room revealed a large left perihilar mass with regional lymphadenopathy, suspicious for malignancy. On follow-up today she feels fairly well. Still shortness of breath, not severe. She has had no hemoptysis. No unusual pain. No weight loss. She has a history of smoking 1 pack/day since age 15. She states that she quit on 02/05/2024, and has no intentions of resuming. She remains on tamoxifen for breast cancer. She has noticed no changes in her breasts. MEDICATIONS: tamoxifen (NOLVADEX) 20 mg tablet TAKE 1 TABLET BY MOUTH ONCE DAILY metoprolol succinate ER (TOPROL XL) 100 mg Take 100 mg by mouth once daily. 100mg in AM, 50mg in PM venlafaxine ER (EFFEXOR XR) 37.5 mg 24 hr capsule Take 1 capsule by mouth once daily. ibuprofen (MOTRIN) 800 mg tablet TAKE ONE TABLET BY MOUTH EVERY 8 HOUR NEEDED FOR PAIN calcium carbonate 600 mg-cholecalciferol 400 units 600 mg(1,500mg) -400 unit tab Take 1 tablet by mouth once daily. nystatin (MYCOSTATIN) cream Apply to affected area as needed. irbesartan (AVAPRO) 300 mg tablet Take 300 mg by mouth once daily. (Patient not taking: Reported on 12/03/2022) fluticasone (FLONASE) 50 mcg/actuation nasal spray 1 [place] as needed. ALLERGIES: Loratadine-Pseudoephedrine PAST MEDICAL HISTORY: PAST MEDICAL HISTORY Diagnosis Date Breast mass, left DCIS (ductal carcinoma in situ) of breast 06/2019 Lump of left breast PAST SURGICAL HISTORY: PAST SURGICAL HISTORY Procedure Laterality Date BREAST BIOPSY Left REVIEW OF SYSTEMS: General: No weight loss, malaise or fevers. Positive hot flashes. HEENT: Negative for frequent or significant headaches. No changes in hearing or vision, no nose bleeds or other nasal problems. Respiratory: Negative for cough, wheezing or shortness of breath. Cardiovascular: Negative for chest pain, leg swelling or palpitations. GI: Negative for abdominal discomfort, blood in stools or black stools or change in bowel habits. : No history of dysuria, frequency or incontinence. Musculoskeletal: Negative for joint pain or swelling, back pain and muscle pain. Skin: Negative for lesions, rash and itching. Hematology/Lymphology: Negative for prolonged bleeding, bruising easily or swollen nodes. Neuro: No history of headaches, syncope, paralysis, seizures or tremors. PHYSICAL EXAM: Vitals: BP (!) 214/82 Pulse 80 Temp 36.3 ?C (97.4 ?F) (Temporal) Resp 16 Ht 147.2 cm (4' 9.95 ) Wt 51.9 kg (114 lb 6.7 oz) SpO2 92% BMI 23.95 kg/m? ECOG 1 Exam limited to gross visualization where appropriate due to COVID-19. Gen.: This is an age-appropriate patient in no acute distress. Head: Appears atraumatic with no visible lesions. Eyes: Pupils equally round and reactive to light, extraocular muscles are intact. Neck: Supple. Mouth: Mucous membranes appeared to be moist. Respiratory: Appears to be respiring comfortably. Neurologic: Nonfocal to gross visualization. Alert and oriented ?3. Psychiatric: No evidence of inappropriate anxiety or depression. Skin: Visible areas of skin without rash, lesions, wounds or petechiae. Pulmonary exam: Bilateral wheezing, no rales. RADIOLOGIC DATA: 02/07/2024 Chest CTA ([facility]) There is a large left perihilar soft tissue mass invading into the mediastinum. This encases the adjacent vasculature and airways. The mass measures approximately 5 x 3.5 x 5.2 cm. There are mildly enlarged mediastinal and hilar lymph nodes, left greater than right. No enlarged axillary or supraclavicular nodes. 11/03/2023 Diagnostic Right Mammogram ([facility]) Impression: No mammographic evidence of malignancy in the right breast. Recommendations: Continue annual screening mammography. 11/02/2022 CT abdomen/pelvis ([facility]) No upper collecting system abnormalities iden (more content not included)... [facility] 02-10-2024 History of Presen t illness Narrative PATIENT NAME: Karin Mix DATE: 02/10/2024 PRIMARY CARE PHYSICIAN: Dr. Tariq Paul OTHER PHYSICIANS: Dr. Kaur, Dr. Peres, Dr. Jack Rees Portions of this encounter note have been copied from the note from 11/11/2023 and has been updated where appropriate, and reflect my current medical decision making from today. CC: This is a 68 year old female with a history of left-sided breast cancer, seen on an urgent basis for evaluation of abnormal chest CT. INTERIM HISTORY: Since the patient's last visit here she was seen at the [facility] emergency room on 02/07/2024 for acute shortness of breath. The patient has a long history of smoking, but has had minimal pulmonary symptoms. For just 2 to 3 days prior to arrival she developed increasing shortness of breath and a dry cough. She was found to have extensive wheezing, given bronchodilators, steroids, and a cough syrup, and her symptoms have improved significantly. However, chest CT obtained in the emergency room revealed a large left perihilar mass with regional lymphadenopathy, suspicious for malignancy. On follow-up today she feels fairly well. Still shortness of breath, not severe. She has had no hemoptysis. No unusual pain. No weight loss. She has a history of smoking 1 pack/day since age 15. She states that she quit on 02/05/2024, and has no intentions of resuming. She remains on tamoxifen for breast cancer. She has noticed no changes in her breasts. MEDICATIONS: tamoxifen (NOLVADEX) 20 mg tablet TAKE 1 TABLET BY MOUTH ONCE DAILY metoprolol succinate ER (TOPROL XL) 100 mg Take 100 mg by mouth once daily. 100mg in AM, 50mg in PM venlafaxine ER (EFFEXOR XR) 37.5 mg 24 hr capsule Take 1 capsule by mouth once daily. ibuprofen (MOTRIN) 800 mg tablet TAKE ONE TABLET BY MOUTH EVERY 8 HOUR NEEDED FOR PAIN calcium carbonate 600 mg-cholecalciferol 400 units 600 mg(1,500mg) -400 unit tab Take 1 tablet by mouth once daily. nystatin (MYCOSTATIN) cream Apply to affected area as needed. irbesartan (AVAPRO) 300 mg tablet Take 300 mg by mouth once daily. (Patient not taking: Reported on 12/03/2022) fluticasone (FLONASE) 50 mcg/actuation nasal spray 1 [place] as needed. ALLERGIES: Loratadine-Pseudoephedrine PAST MEDICAL HISTORY: PAST MEDICAL HISTORY Diagnosis Date Breast mass, left DCIS (ductal carcinoma in situ) of breast 06/2019 Lump of left breast PAST SURGICAL HISTORY: PAST SURGICAL HISTORY Procedure Laterality Date BREAST BIOPSY Left REVIEW OF SYSTEMS: General: No weight loss, malaise or fevers. Positive hot flashes. HEENT: Negative for frequent or significant headaches. No changes in hearing or vision, no nose bleeds or other nasal problems. Respiratory: Negative for cough, wheezing or shortness of breath. Cardiovascular: Negative for chest pain, leg swelling or palpitations. GI: Negative for abdominal discomfort, blood in stools or black stools or change in bowel habits. : No history of dysuria, frequency or incontinence. Musculoskeletal: Negative for joint pain or swelling, back pain and muscle pain. Skin: Negative for lesions, rash and itching. Hematology/Lymphology: Negative for prolonged bleeding, bruising easily or swollen nodes. Neuro: No history of headaches, syncope, paralysis, seizures or tremors. PHYSICAL EXAM: Vitals: BP (!) 214/82 Pulse 80 Temp 36.3 C (97.4 F) (Temporal) Resp 16 Ht 147.2 cm (4' 9.95 ) Wt 51.9 kg (114 lb 6.7 oz) SpO2 92% BMI 23.95 kg/m ECOG 1 Exam limited to gross visualization where appropriate due to COVID-19. Gen.: This is an age-appropriate patient in no acute distress. Head: Appears atraumatic with no visible lesions. Eyes: Pupils equally round and reactive to light, extraocular muscles are intact. Neck: Supple. Mouth: Mucous membranes appeared to be moist. Respiratory: Appears to be respiring comfortably. Neurologic: Nonfocal to gross visualization. Alert and oriented 3. Psychiatric: No evidence of inappropriate anxiety or depression. Skin: Visible areas of skin without rash, lesions, wounds or petechiae. Pulmonary exam: Bilateral wheezing, no rales. RADIOLOGIC DATA: 02/07/2024 Chest CTA ([facility]) There is a large left perihilar soft tissue mass invading into the mediastinum. This encases the adjacent vasculature and airways. The mass measures approximately 5 x 3.5 x 5.2 cm. There are mildly enlarged mediastinal and hilar lymph nodes, left greater than right. No enlarged axillary or supraclavicular nodes. 11/03/2023 Diagnostic Right Mammogram ([facility]) Impression: No mammographic evidence of malignancy in the right breast. Recommendations: Continue annual screening mammography. 11/02/2022 CT abdomen/pelvis ([facility]) No upper collecting system abnormalities identified to explain the patient's hematuria. Abnormal endometrial thickening of 16 mm. Endometrial hyperplasia or malignancy cannot be excluded. 07/12/2020 MRI cervical spine ([facility]) Broad-based disc bulging at C5 through C6 with severe bilateral neural foraminal narrowing and moderate spinal stenosis. 07/28/2019 Bone density exam Osteopenia LABORATORY DATA: Hemoglobin (g/dL) Date Value 02/10/2024 14.0 01/15/2022 13.5 Hematocrit (%) Date Value 02/10/2024 40.6 01/15/2022 41.4 WBC (k/uL) Date Value 02/10/2024 13.10 01/15/2022 8.94 Platelet Count (k/uL) Date Value 02/10/2024 353 01/15/2022 346 ASSESSMENT/PLAN: 1. Abnormal chest CT - ICD9: 793.2, ICD10: R93.89 (primary diagnosis) January 2024 the patient presented with acute shortness of breath and dry cough. Chest CT 02/07/2024 revealed a large left hilar mass invading the mediastinum with extensive regional adenopathy. Findings are consistent with primary lung cancer, most likely small cell carcinoma. Will check baseline labs today. Further staging with a PET scan and brain MRI. Will refer to [facility] pulmonary for bronchoscopy. The patient will then return for follow-up. If malignancy is confirmed treatment options will be discussed. 2. Malignant neoplasm of left breast (HCC) - ICD9: 174.8, V86.0, ICD10: C50.812, Z17.0 DCIS of the left breast initially diagnosed September 2000. Status post lumpectomy and sentinel node procedure followed by adjuvant radiation therapy to the left breast. Status post adjuvant tamoxifen 5 years completed October 2005. Abnormal left-sided mammogram June 2019. Ultrasound-guided left breast biopsy 07/13/2019 consistent with DCIS. The patient underwent a left mastectomy on 08/22/2019, and pathology revealed 2 areas of invasive ductal carcinoma (14 mm and 2.5 mm). The tumors were intermediate grade, ER/[place] positive (95%/5%), HER-2 FISH negative. Oncotype recurrence score 20 - which would predict a distant recurrence risk at 9 years of 6% with adjuvant hormonal therapy alone, and no predicted benefit with chemotherapy. Adjuvant hormonal therapy with anastrozole 1 mg daily started 09/22/2019. Due to significant adverse effects (arthralgias) Arimidex was discontinued April 2020. Aromasin was recommended but the patient declined. Subsequently the patient resumed Tamoxifen 08/09/2020. Currently she has no evidence of disease. The patient will continue as is with tamoxifen for 5 years total (September 2024). Will arrange for her surveillance mammogram to be done in October 2024. 3. Hyperthyroidism - ICD9: 242.90, ICD10: E05.90 Hyperthyroidism diagnosed in the . Status post I-131 ablation November 1996. Continue management per PCP. 4. Essential hypertension - ICD9: 401.9, ICD10: I10 Continue management per PCP. 5. Chronic neck pain secondary to degenerative disc disease MRI cervical spine 07/12/2020 consistent with cervical disc disease and spinal stenosis. The patient is currently asymptomatic. Would consider referral to neurosurgery if symptoms recur. Marco Purcell MD documented in this encounter [facility] 02-08-2024 Miscellaneous Notes Records scanned. Images requested. Patient scheduled February 09 at 845am. Confirmed date and time with Karin. Dr Trevino, [facility] ED called with abnormal CT results. Pt in today for cough, URI symptoms. Perihilar mass with mediastinal involvement and multiple lung nodules. (Pt with h/o Breast cancer, on Tamoxifen). [place]: please obtain records/images PSS: please call to get scheduled with [facility] BRM: FABIAN Barragan RN documented in this encounter [facility] 11-11-2023 Note HNO ID: [id number] Author: Marco Purcell MD Service: ? Author Type: Physician Type: Progress Notes Filed: 11/11/2023 8:42 PM Note Text: PATIENT NAME: Karin Mix DATE: 11/11/2023 PRIMARY CARE PHYSICIAN: Dr. Tariq Paul OTHER PHYSICIANS: Dr. Kaur, Dr. Peres, Dr. Jack Rees Portions of this encounter note have been copied from the note from 06/03/2023 and has been updated where appropriate, and reflect my current medical decision making from today. CC: This is a 67 year old female with a history of left-sided breast cancer, seen for scheduled follow-up. INTERIM HISTORY: Since the patient's last visit here she has had no significant medical changes. She remains on tamoxifen which she is tolerating well. She has noticed no change in her breast. No abdominal pain or other GI symptoms. Overall feels well with no particular complaints. MEDICATIONS: tamoxifen (NOLVADEX) 20 mg tablet Take 1 tablet (20 mg) by mouth once daily. metoprolol succinate ER (TOPROL XL) 100 mg Take 100 mg by mouth once daily. 100mg in AM, 50mg in PM venlafaxine ER (EFFEXOR XR) 37.5 mg 24 hr capsule Take 1 capsule by mouth once daily. ibuprofen (MOTRIN) 800 mg tablet TAKE ONE TABLET BY MOUTH EVERY 8 HOUR NEEDED FOR PAIN calcium carbonate 600 mg-cholecalciferol 400 units 600 mg(1,500mg) -400 unit tab Take 1 tablet by mouth once daily. nystatin (MYCOSTATIN) cream Apply to affected area as needed. irbesartan (AVAPRO) 300 mg tablet Take 300 mg by mouth once daily. (Patient not taking: Reported on 12/03/2022) fluticasone (FLONASE) 50 mcg/actuation nasal spray 1 [place] as needed. ALLERGIES: Loratadine-Pseudoephedrine PAST MEDICAL HISTORY: PAST MEDICAL HISTORY Diagnosis Date Breast mass, left DCIS (ductal carcinoma in situ) of breast 06/2019 Lump of left breast PAST SURGICAL HISTORY: PAST SURGICAL HISTORY Procedure Laterality Date BREAST BIOPSY Left REVIEW OF SYSTEMS: General: No weight loss, malaise or fevers. Positive hot flashes. HEENT: Negative for frequent or significant headaches. No changes in hearing or vision, no nose bleeds or other nasal problems. Respiratory: Negative for cough, wheezing or shortness of breath. Cardiovascular: Negative for chest pain, leg swelling or palpitations. GI: Negative for abdominal discomfort, blood in stools or black stools or change in bowel habits. : No history of dysuria, frequency or incontinence. Musculoskeletal: Negative for joint pain or swelling, back pain and muscle pain. Skin: Negative for lesions, rash and itching. Hematology/Lymphology: Negative for prolonged bleeding, bruising easily or swollen nodes. Neuro: No history of headaches, syncope, paralysis, seizures or tremors. PHYSICAL EXAM: Vitals: BP 180/73 Pulse 80 Temp 36.4 ?C (97.6 ?F) (Temporal) Resp 16 Ht 147.2 cm (4' 9.95 ) Wt 53.7 kg (118 lb 6.2 oz) SpO2 96% BMI 24.78 kg/m? ECOG 0 Exam limited to gross visualization where appropriate due to COVID-19. Gen.: This is an age-appropriate patient in no acute distress. Head: Appears atraumatic with no visible lesions. Eyes: Pupils equally round and reactive to light, extraocular muscles are intact. Neck: Supple. Mouth: Mucous membranes appeared to be moist. Respiratory: Appears to be respiring comfortably. Neurologic: Nonfocal to gross visualization. Alert and oriented ?3. Psychiatric: No evidence of inappropriate anxiety or depression. Skin: Visible areas of skin without rash, lesions, wounds or petechiae. RADIOLOGIC DATA: 11/03/2023 Diagnostic Right Mammogram ([facility]) Impression: No mammographic evidence of malignancy in the right breast. Recommendations: Continue annual screening mammography. 11/02/2022 CT abdomen/pelvis ([facility]) No upper collecting system abnormalities identified to explain the patient's hematuria. Abnormal endometrial thickening of 16 mm. Endometrial hyperplasia or malignancy cannot be excluded. 07/12/2020 MRI cervical spine ([facility]) Broad-based disc bulging at C5 through C6 with severe bilateral neural foraminal narrowing and moderate spinal stenosis. 07/28/2019 Bone density exam Osteopenia LABORATORY DATA: Hemoglobin (g/dL) Date Value 11/11/2023 14.3 01/15/2022 13.5 Hematocrit (%) Date Value 11/11/2023 41.2 01/15/2022 41.4 WBC (k/uL) Date Value 11/11/2023 9.95 01/15/2022 8.94 Platelet Count (k/uL) Date Value 11/11/2023 442 01/15/2022 346 ASSESSMENT/PLAN: 1. 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 Status post lumpectomy and sentinel node procedure followed by adjuvant radiation therapy to the left breast. Status post adjuvant tamoxifen ?5 years completed October 2005. Abnormal left-sided mammogram June 2019. Ultrasound-guided left breast biopsy 07/13/2019 consistent with DCIS. The patient underwent a left m (more content not included)... [facility] 06-03-2023 Note HNO ID: [id number] Author: Marco Purcell MD Service: ? Author Type: Physician Type: Progress Notes Filed: 06/04/2023 7:08 AM Note Text: PATIENT NAME: Karin Mix DATE: 06/03/2023 PRIMARY CARE PHYSICIAN: Dr. Tariq Paul OTHER PHYSICIANS: Dr. Kaur, Dr. Peres, Dr. Jack Rees Portions of this encounter note have been copied from the note from 12/03/2022 and has been updated where appropriate, and reflect my current medical decision making from today. CC: This is a 67 year old female with a history of left-sided breast cancer, seen for scheduled follow-up and continue management INTERIM HISTORY: Since the patient's last visit here seen she was seen by her advertising campaign manager (Dr. Rees) on 12/29/2022 for evaluation of the endometrial thickening identified on her CT scan October 2022. Apparently her examination was unremarkable, and endometrial biopsy was negative. Throughout this time she has had no suspicious symptoms. She has had no other medical changes. She remains on tamoxifen and is tolerating it well. MEDICATIONS: tamoxifen (NOLVADEX) 20 mg tablet Take 1 tablet (20 mg) by mouth once daily. metoprolol succinate ER (TOPROL XL) 100 mg Take 100 mg by mouth once daily. 100mg in AM, 50mg in PM venlafaxine ER (EFFEXOR XR) 37.5 mg 24 hr capsule Take 1 capsule by mouth once daily. ibuprofen (MOTRIN) 800 mg tablet TAKE ONE TABLET BY MOUTH EVERY 8 HOUR NEEDED FOR PAIN calcium carbonate 600 mg-cholecalciferol 400 units 600 mg(1,500mg) -400 unit tab Take 1 tablet by mouth once daily. nystatin (MYCOSTATIN) cream Apply to affected area as needed. irbesartan (AVAPRO) 300 mg tablet Take 300 mg by mouth once daily. (Patient not taking: Reported on 12/03/2022) fluticasone (FLONASE) 50 mcg/actuation nasal spray 1 [place] as needed. ALLERGIES: Loratadine-Pseudoephedrine PAST MEDICAL HISTORY: PAST MEDICAL HISTORY Diagnosis Date Breast mass, left DCIS (ductal carcinoma in situ) of breast 06/2019 Lump of left breast PAST SURGICAL HISTORY: PAST SURGICAL HISTORY Procedure Laterality Date BREAST BIOPSY Left REVIEW OF SYSTEMS: General: No weight loss, malaise or fevers. Positive hot flashes. HEENT: Negative for frequent or significant headaches. No changes in hearing or vision, no nose bleeds or other nasal problems. Respiratory: Negative for cough, wheezing or shortness of breath. Cardiovascular: Negative for chest pain, leg swelling or palpitations. GI: Negative for abdominal discomfort, blood in stools or black stools or change in bowel habits. : No history of dysuria, frequency or incontinence. Musculoskeletal: Negative for joint pain or swelling, back pain and muscle pain. Skin: Negative for lesions, rash and itching. Hematology/Lymphology: Negative for prolonged bleeding, bruising easily or swollen nodes. Neuro: No history of headaches, syncope, paralysis, seizures or tremors. PHYSICAL EXAM: Vitals: Temp 36.5 ?C (97.7 ?F) (Temporal) Resp 16 Ht 147.2 cm (4' 9.95 ) Wt 53.6 kg (118 lb 3.2 oz) SpO2 96% BMI 24.74 kg/m? ECOG 0 Exam limited to gross visualization where appropriate due to COVID-19. Gen.: This is an age-appropriate patient in no acute distress. Head: Appears atraumatic with no visible lesions. Eyes: Pupils equally round and reactive to light, extraocular muscles are intact. Neck: Supple. Mouth: Mucous membranes appeared to be moist. Respiratory: Appears to be respiring comfortably. Neurologic: Nonfocal to gross visualization. Alert and oriented ?3. Psychiatric: No evidence of inappropriate anxiety or depression. Skin: Visible areas of skin without rash, lesions, wounds or petechiae. RADIOLOGIC DATA: 11/05/2022 Diagnostic Right Mammogram ([facility]) Impression: No mammographic evidence of malignancy in the right breast. Recommendations: Continue annual screening mammography. 11/02/2022 CT abdomen/pelvis ([facility]) No upper collecting system abnormalities identified to explain the patient's hematuria. Abnormal endometrial thickening of 16 mm. Endometrial hyperplasia or malignancy cannot be excluded. 07/12/2020 MRI cervical spine ([facility]) Broad-based disc bulging at C5 through C6 with severe bilateral neural foraminal narrowing and moderate spinal stenosis. 07/28/2019 Bone density exam Osteopenia LABORATORY DATA: Hemoglobin (g/dL) Date Value 06/03/2023 14.3 01/15/2022 13.5 Hematocrit (%) Date Value 06/03/2023 42.9 01/15/2022 41.4 WBC (k/uL) Date Value 06/03/2023 10.39 01/15/2022 8.94 Platelet Count (k/uL) Date Value 06/03/2023 288 01/15/2022 346 ASSESSMENT/PLAN: 1. 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 Status post lumpectomy and sentinel node procedure followed by adjuvant radiation therapy to the left breast. Status post adjuvant tamoxifen ?5 years completed October 2005. (more content not included)... [facility] 06-03-2023 History of Presen t illness Narrative PATIENT NAME: Karin Mix DATE: 06/03/2023 PRIMARY CARE PHYSICIAN: Dr. Tariq Paul OTHER PHYSICIANS: Dr. Kaur, Dr. Peres, Dr. Jack Rees Portions of this encounter note have been copied from the note from 12/03/2022 and has been updated where appropriate, and reflect my current medical decision making from today. CC: This is a 67 year old female with a history of left-sided breast cancer, seen for scheduled follow-up and continue management INTERIM HISTORY: Since the patient's last visit here seen she was seen by her advertising campaign manager (Dr. Rees) on 12/29/2022 for evaluation of the endometrial thickening identified on her CT scan October 2022. Apparently her examination was unremarkable, and endometrial biopsy was negative. Throughout this time she has had no suspicious symptoms. She has had no other medical changes. She remains on tamoxifen and is tolerating it well. MEDICATIONS: tamoxifen (NOLVADEX) 20 mg tablet Take 1 tablet (20 mg) by mouth once daily. metoprolol succinate ER (TOPROL XL) 100 mg Take 100 mg by mouth once daily. 100mg in AM, 50mg in PM venlafaxine ER (EFFEXOR XR) 37.5 mg 24 hr capsule Take 1 capsule by mouth once daily. ibuprofen (MOTRIN) 800 mg tablet TAKE ONE TABLET BY MOUTH EVERY 8 HOUR NEEDED FOR PAIN calcium carbonate 600 mg-cholecalciferol 400 units 600 mg(1,500mg) -400 unit tab Take 1 tablet by mouth once daily. nystatin (MYCOSTATIN) cream Apply to affected area as needed. irbesartan (AVAPRO) 300 mg tablet Take 300 mg by mouth once daily. (Patient not taking: Reported on 12/03/2022) fluticasone (FLONASE) 50 mcg/actuation nasal spray 1 [place] as needed. ALLERGIES: Loratadine-Pseudoephedrine PAST MEDICAL HISTORY: PAST MEDICAL HISTORY Diagnosis Date Breast mass, left DCIS (ductal carcinoma in situ) of breast 06/2019 Lump of left breast PAST SURGICAL HISTORY: PAST SURGICAL HISTORY Procedure Laterality Date BREAST BIOPSY Left REVIEW OF SYSTEMS: General: No weight loss, malaise or fevers. Positive hot flashes. HEENT: Negative for frequent or significant headaches. No changes in hearing or vision, no nose bleeds or other nasal problems. Respiratory: Negative for cough, wheezing or shortness of breath. Cardiovascular: Negative for chest pain, leg swelling or palpitations. GI: Negative for abdominal discomfort, blood in stools or black stools or change in bowel habits. : No history of dysuria, frequency or incontinence. Musculoskeletal: Negative for joint pain or swelling, back pain and muscle pain. Skin: Negative for lesions, rash and itching. Hematology/Lymphology: Negative for prolonged bleeding, bruising easily or swollen nodes. Neuro: No history of headaches, syncope, paralysis, seizures or tremors. PHYSICAL EXAM: Vitals: Temp 36.5 C (97.7 F) (Temporal) Resp 16 Ht 147.2 cm (4' 9.95 ) Wt 53.6 kg (118 lb 3.2 oz) SpO2 96% BMI 24.74 kg/m ECOG 0 Exam limited to gross visualization where appropriate due to COVID-19. Gen.: This is an age-appropriate patient in no acute distress. Head: Appears atraumatic with no visible lesions. Eyes: Pupils equally round and reactive to light, extraocular muscles are intact. Neck: Supple. Mouth: Mucous membranes appeared to be moist. Respiratory: Appears to be respiring comfortably. Neurologic: Nonfocal to gross visualization. Alert and oriented 3. Psychiatric: No evidence of inappropriate anxiety or depression. Skin: Visible areas of skin without rash, lesions, wounds or petechiae. RADIOLOGIC DATA: 11/05/2022 Diagnostic Right Mammogram ([facility]) Impression: No mammographic evidence of malignancy in the right breast. Recommendations: Continue annual screening mammography. 11/02/2022 CT abdomen/pelvis ([facility]) No upper collecting system abnormalities identified to explain the patient's hematuria. Abnormal endometrial thickening of 16 mm. Endometrial hyperplasia or malignancy cannot be excluded. 07/12/2020 MRI cervical spine ([facility]) Broad-based disc bulging at C5 through C6 with severe bilateral neural foraminal narrowing and moderate spinal stenosis. 07/28/2019 Bone density exam Osteopenia LABORATORY DATA: Hemoglobin (g/dL) Date Value 06/03/2023 14.3 01/15/2022 13.5 Hematocrit (%) Date Value 06/03/2023 42.9 01/15/2022 41.4 WBC (k/uL) Date Value 06/03/2023 10.39 01/15/2022 8.94 Platelet Count (k/uL) Date Value 06/03/2023 288 01/15/2022 346 ASSESSMENT/PLAN: 1. 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 Status post lumpectomy and sentinel node procedure followed by adjuvant radiation therapy to the left breast. Status post adjuvant tamoxifen 5 years completed October 2005. Abnormal left-sided mammogram June 2019. Ultrasound-guided left breast biopsy 07/13/2019 consistent with DCIS. The patient underwent a left mastectomy on 08/22/2019, and pathology revealed 2 areas of invasive ductal carcinoma (14 mm and 2.5 mm). The tumors were intermediate grade, ER/NJ positive (95%/5%), HER-2 FISH negative. Oncotype recurrence score 20 - which would predict a distant recurrence risk at 9 years of 6% with adjuvant hormonal therapy alone, and no predicted benefit with chemotherapy. Adjuvant hormonal therapy with anastrozole 1 mg daily started 09/22/2019. Due to significant adverse effects (arthralgias) Arimidex was discontinued April 2020. Aromasin was recommended but the patient declined. Subsequently the patient resumed Tamoxifen 08/09/2020. Currently she has no evidence of disease. The patient will continue as is with tamoxifen for 5 years total (September 2024). We will arrange for her surveillance mammogram to be done in October 2023. She will then return for follow-up and labs. 2. Hyperthyroidism - ICD9: 242.90, ICD10: E05.90 Hyperthyroidism diagnosed in the . Status post I-131 ablation November 1996. Continue management per PCP. 3. Essential hypertension - ICD9: 401.9, ICD10: I10 Continue management per PCP. 4. Chronic neck pain secondary to degenerative disc disease MRI cervical spine 07/12/2020 consistent with cervical disc disease and spinal stenosis. The patient is currently asymptomatic. Would consider referral to neurosurgery if symptoms recur. Marco Purcell MD documented in this encounter [facility] 12-10-2022 Evaluation note Encounter Date Diagnosis Assessment Notes Nov, Hypertension (ICD-10 - I10) control not to goal Dinsmore Steele Other 01-12-2023 History of Present illness Narrative* Marco Purcell MD - 12/03/2022 11:00 AM EST PATIENT NAME: Karin Mix DATE: 12/03/2022 PRIMARY CARE PHYSICIAN: Dr. Tariq Paul OTHER PHYSICIANS: Dr. Kaur, Dr. Peres, Dr. Jack Rees Portions of this encounter note have been copied from the note from 01/15/2022 and has been updated where appropriate, and reflect my current medical decision making from today. CC: This is a 66 year old female with a history of left-sided breast cancer, seen for scheduled follow-up and continue management INTERIM HISTORY: Since the patient's last visit here routine labs obtained by her PCP revealed microscopic hematuria. She was seen by urology, and cystoscopy apparently revealed evidence of infectionbut no malignancy. However, CT abdomen/pelvis revealed endometrial thickening of unclear significance. The patient is scheduled to see her advertising campaign manager (Dr. Rees) at the end of this month for further evaluation. She has had no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 Expiration Date Visits Requested Visits Authorized [id number] Authorized Auto-Generat ed Referral 02/10/2024 03/11/2025 1 1 * MRI/CT (Routine) - Pending Review Specialty Diagnoses / Procedures Referred By Contac t Referred To Contact MR IMAGING Diagnoses 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 Summary Purpose Family History Relationship Condition Age at Onset Recorded Date/T steffi father Heart disease Unknown daughter Heart disease Unknown Not Specified Cerebrovascular accident (CVA) Unknown No Family History Records Found Advance Directives No Advanced Directives Records Found Advance Directive Response Recorded Date/ Time Advance Directives No June 22 2:27pm Advance Directive Response Recorded Date/ Time Advance Directives No June 22 1:27pm Chief Complaint and Reason for Visit Chief Complaint See order Chief Complaint R31.9 r31.21 n39.3 f17.200 Chief Complaint R31.9 r31.21 n39.3 f17.200 Z85.3 Chief Complaint z85.3 Reason for Referral Specialty Diagnoses / Procedures [facility] [place] [facility] To Contact Radiation Oncology Diagnoses 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) Procedures RAD/ONC CONSULT OFFICE/OUTPATIENT [facility] 60 MINUTES Marco Purcell MD [address] [place] [address] [place] [address] Referral ID Status Reason Start Date Expiration Date Visits Requested Visits Authorized [id number] Authorized PCP Requested Referral 02/29/2024 02/28/2025 1 1 Specialty Diagnoses / Procedures [facility] [place] [facility] Ref[facility] To Contact CT IMAGING Diagnoses Malignant neoplasm of upper lobe of left lung (HCC) Procedures CT CHEST W IVCON DIAGNOSTIC COMPUTED TOMOGRAPHY THORAX W/CONTRAST Marco Purcell MD [address] [place] [address] [place] [address] Ct Imaging [id number] Referral ID Status Reason Start Date Expiration Date V isits Requested Visits Authorized [id number] Closed Auto-Generate d Referral 02/29/2024 03/30/2025 1 1 Specialty Diagnoses / Procedures [facility] [place] [facility] Referred To Contact CT IMAGING Diagnoses Malignant neoplasm of upper lobe of left lung (HCC) Procedures CT ABD/PEL W IVCON CT ABD & PELVIS W/CONTRAST Marco Purcell MD [address] [place] [address] [place] [address] [place] [address] Referral ID Status Reason Start Date Expiration Date V isits Requested Visits Authorized [id number] Closed Auto-Generate d Referral 02/29/2024 03/30/2025 1 1 Specialty Diagnoses / Procedures Referred By Contac t Referred To Contact CT IMAGING Diagnoses Malignant neoplasm of upper lobe of left lung (HCC) Procedures CT BRAIN W IVCON CT HEAD/BRAIN W/CONTRAST MATERIAL Marco Purcell MD [address] [place] [address] [place] [address] [place] [address] Referral ID Status Reason Start Date Expiration Date V isits Requested Visits Authorized [id number] Closed Auto-Generate d Referral 02/29/2024 03/30/2025 1 1 Specialty Diagnoses / Procedures Referred By Contac t Referred To Contact Radiation Oncology Diagnoses 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) Procedures RAD/ONC CONSULT OFFICE/OUTPATIENT [facility] 60 MINUTES Marco Purcell MD [address] [place] [address] [place] [address] Referral ID Status Reason Start Date Expiration Date Visits Requested Visits Authorized [id number] Authorized PCP Requested Referral 02/29/2024 02/28/2025 1 1 Additional Source Comments INFORMATION SOURCE (unrecogn ized section and content) DATE CREATED AUTHOR 08/28/2021 [employer] DATE CREATED AUTHOR AUTHOR'S ORGANIZ ATION 07/23/2022 [facility] DATE CREATED AUTHOR AUTHOR'S ORGANIZ ATION 12/10/2022 [facility] DATE CREATED AUTHOR AUTHOR'S ORGANIZ ATION 12/31/2023 [facility] DATE CREATED AUTHOR AUTHOR'S ORGANIZ ATION 02/07/2024 [facility] EPIC DATE CREATED AUTHOR AUTHOR'S ORGANIZ ATION 03/07/2024 [facility] DATE CREATED AUTHOR AUTHOR'S ORGANIZ ATION 03/16/2024 [facility] Care Teams (unrecognized sec tion and content) Team Status: Inactive Member Role Status Dates Mirian Castillo DO Primary Care Provider, Attending Pro vider Active Team Status: Active Member Role Status Dates Mirian Castillo DO Primary Care Provider Active Team Status: Inactive Member Role Status Dates Mirain Castillo DO Primary Care Provider Active Merissa Santizo MD Attending Provider Active Team Status: Inactive Member Role Status Dates Mirian Castillo , Primary Care Provider Active Ramsey Kaur , Attending Provider Active Telehealth Case Manager Relationship Specialty Start Date End Date Mirian Castillo, DO [address] [place] [phone] PCP - [facility] 05/30/21 Telehealth Case Manager Relationship Specialty Start Date End Date Mirian Castillo, DO [address] [place] [address] PCP - [facility] 05/30/21 Telehealth Case Manager Relationship Specialty Start Date End Date Mirian Castillo DO [address] [place] [address] PCP - [facility] 05/30/21 Team Status: Inactive Member Role Status Dates Ramsey Kaur DO Attending Provider Active Marco Purcell MD Referring Provider Active Mirian Castillo DO Primary Care Provider Active Telehealth Case Manager Relationship Specialty Start Date End Date Mirian Castillo DO [address] [place] [phone] PCP [facility] 05/30/21 Telehealth Case Manager Relationship Specialty Start Date End Date Mirian Castillo DO [address] [place] [phone] PCP - [facility] 05/30/21 Telehealth Case Manager Relationship Specialty Start Date End Date Mirian Castillo DO [address] [place] [phone] PCP [facility] 05/30/21 Telehealth Case Manager Relationship Specialty Start Date End Date Girvin, Mirian C, DO [address] [place] [phone] PCP - [facility] 05/30/21 Telehealth Case Manager Relationship Specialty Start Date End Date Mirian Castillo, DO [address] [place] [phone] PCP - [facility] 05/30/21 Telehealth Case Manager Relationship Specialty Start Date End Date Mirian Castillo, DO [address] [place] [phone] PCP - [facility] 05/30/21 Telehealth Case Manager Relationship Specialty Start Date End Date Mirian Castillo, DO [address] [place] [address] PCP - [facility] 05/30/21 Telehealth Case Manager Relationship Specialty Start Date End Date Mirian Castillo, DO [address] [place] [phone] PCP - [facility] 05/30/21 Telehealth Case Manager Relationship Specialty Start Date End Date Mirian Castillo, DO [address] [place] [phone] PCP - [facility] 05/30/21 Telehealth Case Manager Relationship Specialty Start Date End Date Mirian Castillo, DO [address] [place] [phone] PCP - [facility] 05/30/21 Telehealth Case Manager Relationship Specialty Start Date End Date Mirian Castillo, DO [address] [place] [phone] PCP - [facility] 05/30/21 Telehealth Case Manager Relationship Specialty Start Date End Date Mirian Castillo DO [address] [place] [address] PCP - General [facility] 05/30/21 Goals (unrecognized section and content) Goals may be documented in a n alternate sectionNo InformationNo InformationGoals may be documented in an alternate section No data available for this sectionGoals may be documented in an alternate sectionGoals may be documented in an alternate section No data available for this section No data available for this section No data available for this sectionNo InformationGoals may be documented in an alternate section REASON FOR VISIT (unrecogniz ed section and content) Reason Comments Consult Specialty Diagnoses / Procedures Referred By Contac t Referred To Contact Radiation Oncology Diagnoses 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) Procedures RAD/ONC CONSULT OFFICE/OUTPATIENT NEW [facility]IGH [facility] 60 MINUTES Marco Purcell MD [address] [place] [address] [place] [address] Referral ID Status Reason Start Date Expiration Date V isits Requested Visits Authorized [id number] Closed PCP Requested Referral 02/29/2024 02/28/2025 1 1 Reason Comments Breast Cancer 10 month follow up Reason Comments Lab Orders Reason Onset Date Comments Refill Request 01/29/2023 Reason Comments Breast Cancer Reason Comments Abnormal CT Chest Reason Comments Bronchoscopy Scheduling Reason Comments Breast Cancer Follow up Reason Comments Lung Cancer Follow up Reason Comments Results Orders Reason Comments Future Appointment Reason Comments FYI-No Action Needed PET scan Reason Comments Care Coordination Heartburn & Indigest ion Reason Comments Care Coordination PET Results Reason Comments Lung Cancer Source Comments (unrecognize d section and content) In the event this informatio n is protected by the Federal Confidentiality of Alcohol and Drug Abuse Patient Records regulations: The Federal rules restrict any use of the information to criminally investigate or prosecute any alcohol or drug abuse patient.[facility] the event this information is protected by the Federal Confidentiality of Alcohol and Drug Abuse Patient Records regulations: The Federal rules restrict any use of the information to criminally investigate or prosecute any alcohol or drug abuse patient.[facility] the event this information is protected by the Federal Confidentiality of Alcohol and Drug Abuse Patient Records regulations: The Federal rules restrict any use of the information to criminally investigate or prosecute any alcohol or drug abuse patient.[facility] Hospital[facility] the event this information is protected by the Federal Confidentiality of Alcohol and Drug Abuse Patient Records regulations: The Federal rules restrict any use of the information to criminally investigate or prosecute any alcohol or drug abuse patient.[facility] HospitalIn the event this information is protected by the Federal Confidentiality of Alcohol and Drug Abuse Patient Records regulations: The Federal rules restrict any use of the information to criminally investigate or prosecute any alcohol or drug abuse patient.[facility] Hospital[facility] the event this information is protected by the Federal Confidentiality of Alcohol and Drug Abuse Patient Records regulations: The Federal rules restrict any use of the information to criminally investigate or prosecute any alcohol or drug abuse patient.[facility] the event this information is protected by the Federal Confidentiality of Alcohol and Drug Abuse Patient Records regulations: The Federal rules restrict any use of the information to criminally investigate or prosecute any alcohol or drug abuse patient.[facility] the event this information is protected by the Federal Confidentiality of Alcohol and Drug Abuse Patient Records regulations: The Federal rules restrict any use of the information to criminally investigate or prosecute any alcohol or drug abuse patient.[facility] HospitalIn the event this information is protected by the Federal Confidentiality of Alcohol and Drug Abuse Patient Records regulations: The Federal rules restrict any use of the information to criminally investigate or prosecute any alcohol or drug abuse patient.[facility] Hospital[facility] the event this information is protected by the Federal Confidentiality of Alcohol and Drug Abuse Patient Records regulations: The Federal rules restrict any use of the information to criminally investigate or prosecute any alcohol or drug abuse patient.[facility] Hospital[facility] the event this information is protected by the Federal Confidentiality of Alcohol and Drug Abuse Patient Records regulations: The Federal rules restrict any use of the information to criminally investigate or prosecute any alcohol or drug abuse patient.[facility] HospitalIn the event this information is protected by the Federal Confidentiality of Alcohol and Drug Abuse Patient Records regulations: The Federal rules restrict any use of the information to criminally investigate or prosecute any alcohol or drug abuse patient.[facility] HospitalIn the event this information is protected by the Federal Confidentiality of Alcohol and Drug Abuse Patient Records regulations: The Federal rules restrict any use of the information to criminally investigate or prosecute any alcohol or drug abuse patient.[facility] HospitalIn the event this information is protected by the Federal Confidentiality of Alcohol and Drug Abuse Patient Records regulations: The Federal rules restrict any use of the information to criminally investigate or prosecute any alcohol or drug abuse patient.[facility] HospitalIn the event this information is protected by the Federal Confidentiality of Alcohol and Drug Abuse Patient Records regulations: The Federal rules restrict any use of the information to criminally investigate or prosecute any alcohol or drug abuse patient.[facility] Hospital[facility] the event this information is protected by the Federal Confidentiality of Alcohol and Drug Abuse Patient Records regulations: The Federal rules restrict any use of the information to criminally investigate or prosecute any alcohol or drug abuse patient.[facility] FOR RECORDS PERTAINING TO PATIENTS WHO ARE OR HAVE BEEN ENROLLED IN A CHEMICAL DEPENDENCY/SUBSTANCEABUSE PROGRAM, SOME INFORMATION MAY BE OMITTED. This clinical summary was aggregated from multiple sources. Caution should be exercised in using it in the provision of clinical care. This summary normalizes information from multiple sources, and as a consequence, information in this document may materially change the coding, format and clinical context of patient data. In addition, data may be omitted in some cases. CLINICAL DECISIONS SHOULD BE BASED ON THE PRIMARY CLINICAL RECORDS. [facility] CenterNeural[facility]. provides no warranty or guarantee of the accuracy or completeness of information in this document.
--- NOTE | 2024-03-17 02:28 | PC.NURSE ---
0005 call made to [facility] transfer line, spoke with Melvina RAY and was told that their facilities were at their capacity and would not be able to accept a transfer in any immediate or timely manner. I explained the situation this patient was in with waiting for her transfer to and how long she has been in this ED and was told if this patient was not already established with a surgeon in the [facility] system or a post op patient of theirs that she would not take priority as a transfer. This patient's information was not given at this time for consideration for transfer. We are going to attempt transfer to [facility]. [address] [facility] transfer line. Information provided and colorectal surgery is going to call back for Dr. Gardner.
[2024-03-17] MEDS: FENTANYL CITRATE/PF 100 MCG/2 ML VIAL 50 MCG IV ×3 (04:00→10:58)
[2024-03-17] MEDS: SODIUM CHLORIDE 0.45 % 1,000 ML 75 ML IV (04:00)
[2024-03-17 04:35] LABS: Basophils Percent Auto 0.2 % (0.2-2.0); Hematocrit 37.9 % (36.0-48.0); Hemoglobin 12.3 g/dL (12.0-16.0); Immature Granulocytes Abs Auto 0.05 10^3/uL (0.00-0.03); Immature Granulocytes Pct Auto 0.5 % (0.0-0.5); Lymphocytes Absolute Auto 0.2 10^3/uL (1.2-3.8); Lymphocytes Percent Auto 1.7 % (20.5-60.0); Mean Corpuscular HGB Conc 32.5 g/dL (29.9-35.2); Mean Corpuscular Hemoglobin 31.2 pg (26.7-34.0); Mean Corpuscular Volume 96.2 fL (81.0-99.0); Mean Platelet Volume 10.2 fL (9.5-13.5); Monocytes Absolute Auto 0.4 10^3/uL (0.3-0.8); Monocytes Percent Auto 3.9 % (1.7-12.0); Neutrophils Absolute Auto 9.7 10^3/uL (1.4-6.5); Neutrophils Percent Auto 93.7 % (43.0-75.0); Platelet Count 225 10^3/uL (150-450); Red Blood Count 3.94 10^6/uL (4.20-5.40); Red Cell Distribution Width 13.9 % (11.0-15.0); White Blood Count 10.3 10^3/uL (4.0-11.0)
[2024-03-17 04:53] LABS: INR 1.04
[2024-03-17 05:03] LABS: Lactate/Lactic Acid 1.4 mmol/L (0.4-2.0); PTT Heparin Monitor 38.4 sec (48.2-68.6)
[2024-03-17 05:04] LABS: Alanine Aminotransferase 46 U/L (14-59); Albumin Globulin Ratio 0.5; Albumin Level 1.7 g/dL (3.4-5.0); Alkaline Phosphatase 167 U/L (46-116); Anion Gap 17.7; Aspartate Amino Transferase 38 U/L (15-37); BUN Creatinine Ratio 22.2; Calcium 7.9 mg/dL (8.5-10.1); Carbon Dioxide 17.7 mmol/L (21.0-32.0); Chloride 102 mmol/L (98-107); Estimated GFR (African America 37 (>=60); Estimated GFR (Non-African Ame 30 (>=60); Globulin 3.7 g/dL; Glucose 102 mg/dL (74-106); Magnesium 2.3 mg/dL (1.8-2.4); Potassium 4.4 mmol/L (3.5-5.1); Sodium 133 mmol/L (136-145); Total Protein 5.4 g/dL (6.4-8.2); Troponin I High Sensitivity 11.5 pg/mL (4.0-51.3)
[2024-03-17] MEDS: METHYLPREDNISOLONE SOD SUCC PF 125 MG/2 ML VIAL 60 MG IVP ×2 (05:32→15:28)
[2024-03-17] MEDS: PIPERACILLIN SODIUM/TAZOBACTAM 3.375 GM in 0.9 % SODIUM CHLORIDE 50 ML IV ×2 (06:30→14:30)
[2024-03-17] MEDS: HEPARIN SODIUM,PORCINE/D5W 25,000 UNIT/500 ML IV.SOLN 18 UNIT IV (06:41)
--- NOTE | 2024-03-17 08:38 | P.HP_ITS ---
HPI H&P: HPI History of Present Illness Chief complaint: Abdominal Pain Narrative: Patient is a 68 year old with recent diagnosis of lung cancer with brain metastasis. She has been getting care regularly at [facility]. She was suppose to undergo Gamma knife procedure yesterday for her brain metasis and has been on steroid therapy. She has yet to undergo chemotherapy. She presented to the ER on 03/15/24 for sudden onset abdominal pain in the left side, She was found to have diverticulitis, inflammation of sigmoid colon and active perforation with free air in the abdomen. I have reviewed the ER notes and addendum, there have been several attempts made to get her a bed at [facility] but have been unsuccessful. She has been accepted at both [facility] and [place] but no beds currently. She was sitting in our ER and was admitted to the hospitalist service last night. She has been placed on Zosyn for her active bowel perforation/peritonitis which has been improving her lactate and WBC's 10.3. She has Fentanyl on board for pain management. CT of the Chest also show large mediastinal mass with a new Left superior pulmonary vein thrombus from encasing mass. She is currently on a Heparin drip. She is requiring 2 L NC to maintain oxygen sats >90%. Blood pressure has been stable. Slight tachycardia with HR 103. Cr 1.67/ BUN 37. NS @ 75. IV steroids are still on board for brain meds/swelling. I have placed a call to [facility], I have initiated transfer there this morning, accepted by Dr. Mckenna. Patient has remained NPO since 03/15/24 I have also consulted our General Surgeon, Dr. Lopez while she is here under my care. He feels the patient is critically stable for now and not Emergent need for surgery as medications working. Patient appears in good spirits, her son and grand-daughter are at beside. Long conversation with family and patient. They agree to [facility] transfer once bed available. We will continue to provide and optimize care here at [facility] with limited resources, until bed available. Opioid HPI Opioid Management Most Recent Opioid Data: Last Pain Scale 5 03/17/24 10:58 Last Pain Assessment 03/17/24 11:00 Last ED Pain Assessment 03/16/24 08:37 Last MAR Pain Assessment 03/17/24 10:58 Last ORT Total Score 0 03/17/24 01:48 Last ORT Risk Category Low Risk 03/17/24 01:48 Review of Systems ROS Narrative ROS: a complete review of systems were reviewed with patient and are positive as below or listed in History of Chief Complaint. General:fever, chills, night sweats Head: no headache, trauma, visual changes, some nausea no vomiting Skin: no reported rashes, itching or sores Eyes: no blurriness of vision Ears: no reported hearing loss, vertigo, earache, or tinnitus Throat: no sore throat, hoarseness, swelling of neck, or tongue pain Heart: no chest pain Lungs: shortness of breath no cough GI: abdominal pain Urinary: no urinary urgency, frequency or pain Neuro: no numbness or tingling HEM: no bleeding issues or bruising ENDO: no thyroid problems Psych: anxiety no depression PFSH PFSH Medical History (Updated 03/17/24 @ 09:10 by Peggy Thacker DO) 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 ?J84.89 - Other specified interstitial pulmonary diseases (ICD-10) ?E88.9 - Metabolic disorder, unspecified (ICD-10) Metastasis to brain ?C79.31 - Secondary malignant neoplasm of brain (ICD-10) Breast cancer ?C50.919 - Malignant neoplasm of unspecified site of unspecified female breast (ICD-10) Surgical History H/O mastectomy ?Z90.10 - Acquired absence of unspecified breast and nipple (ICD-10) Social History Highest level of school completed/degree received: GED or equivalent Meds Home Medications and Allergies Home Medications ?Medication ?Instructions ?Recorded ?Confirmed ?Type albuterol sulfate 90 mcg/actuation 2 inh inhalation Q4H PRN shortness 02/07/24 03/15/24 Rx aerosol inhaler of breath or wheezing 7 days #8.5 grams metoprolol succinate 100 mg 150 mg PO DAILY 02/07/24 03/15/24 History capsule sprinkle, ext. release 24 hr tamoxifen 20 mg tablet 20 mg PO DAILY 02/07/24 03/15/24 History dexamethasone 4 mg tablet 4 mg PO DAILY 03/15/24 03/15/24 History Allergies Allergy/AdvReac Type Severity Reaction Status Date / Time cephalexin Allergy Intermediate Rash Verified 02/07/24 12:04 Exam Narrative Exam Narrative: General: Patient is alert, and oriented to person, place and time with normal affect, proper hygiene Skin: skin pallor Head: atraumatic, acephalic Eyes: PERRLA, no nystagmus present, conjunctiva clear, no scleral icterus Ears: normal Tympanic Membrane, normal gross auditory acuity Nose: symmetric, no discharge, no maxillary or frontal sinus tenderness Mouth/Throat: no erythema, exudate, or tonsillar enlargement Heart: increased rate and irregular rhythm, no murmurs/rubs/gallops Lungs: no audible wheezes, crackles and normal breath sounds all lung schwartz Abdomen: diminished bowel sounds, no distension, no rebound/guarding/ or rigidity Musculoskeletal: no swelling bilateral lower extremities Neuro: CN II-X grossly intact Constitutional Vital Signs, click to edit/add: Last Vital Signs Temp 97.6 F 03/17/24 07:58 Pulse 108 H 03/17/24 07:58 Resp 20 03/17/24 07:58 BP 143/68 H 03/17/24 01:48 Pulse Ox 3 L 03/17/24 07:58 O2 Del Method Nasal Cannula 03/17/24 07:58 O2 Flow Rate 2 03/17/24 04:30 Results Labs Labs: Short CBC 03/16/24 03/17/24 Range/Units 16:05 04:23 WBC 9.5 10.3 (4.0-11.0) 10^3/uL Hgb 14.1 12.3 (12.0-16.0) g/dL Hct 43.2 37.9 (36.0-48.0) % Plt Count 248 225 (150-450) 10^3/uL BMP 03/16/24 03/17/24 16:05 04:23 Sodium 129 L 133 L Potassium 4.4 4.4 Chloride 97 L 102 Carbon Dioxide 17.6 L 17.7 L BUN 25.0 H 37.0 H Creatinine 1.05 H 1.67 H Glucose 103 102 Calcium 8.9 7.9 L Liver Function 03/16/24 03/17/24 Range/Units 16:05 04:23 Total Bilirubin 1.4 H 1.0 (0.2-1.0) mg/dL AST 38 H 38 H (15-37) U/L ALT 58 46 (14-59) U/L Alkaline Phosphatase 126 H 167 H (46-116) U/L Albumin 1.8 L 1.7 L (3.4-5.0) g/dL Assessment and Plan Assessment and Plan (1) Diverticulitis of colon with perforation: Assessment and Plan: continue IVF, continue to monitor lactate, acute abdomen symptoms, temp, vitals. Patient currently on Zosyn. Attempts will continue to be made today for transfer higher level of care. (2) Peritonitis: Assessment and Plan: Fentanyl for pain control. Will try morphine now. (3) Sepsis: Assessment and Plan: lactate was up to 3.2 but today was 1.4. WBC's also back to normal range. JEREMY still present, tachycardic, afebrile. continue monitoring for deterioration as concern is high, IVF and Zosyn. Qualifiers: Acute renal failure type: unspecified Sepsis acute organ dysfunction status: with acute organ dysfunction Sepsis type: sepsis due to unspecified organism Severe sepsis acute organ dysfunction type: acute renal failure Severe sepsis shock status: with septic shock Qualified Code(s): A41.9 - Sepsis, unspecified organism; R65.21 - Severe sepsis with septic shock; N17.9 - Acute kidney failure, unspecified (4) Thrombus of pulmonary vein: Assessment and Plan: due to active cancer and encasing mass; currently on heparin drip, monitor oxygen saturation. May require Vascular intervention at [facility]. (5) Mass of hilum: Assessment and Plan: Will need CT surgery/Oncology services. (6) Mass of left lung: (7) Metastasis to brain: Assessment and Plan: continue IV Solumedrol. Was suppose to have gamma knife procedure, will require Neurosurgery along with collaborative oncology at [facility]. Plan Patient is a full code continue Heparin drip and IV Zosyn, fluids and pain control. Trying my best to find [facility] to accept her that has a bed. Patient is in the ICU, for closer monitoring and given severity of symptoms and concern for possible rapid deterioration is inpatient and is expected to need many more days in the hospital for medical needs. Critical Care time 60min
--- NOTE | 2024-03-17 09:18 | P.GSCN_ITS ---
History of Present Illness Consult details Consult date: 03/17/24 Reason for consult: abdominal pain Requesting physician: Peggy Thacker Narrative: Ms. Karin Choudhury is a 68F with hx of lung cancer with brain and kidney mets who presented to ED on 03/15 for abdominal pain and was found on CT to have suspected diverticulitis with perforation. She was accepted for transfer to [facility] given her comorbidities and ongoing oncology care there; she was previously scheduled for gamma knife treatment at [facility] this week. Her oncologist is Dr. Marco Purcell. Per chart review, colorectal surgery at [facility] has already opined that she is a poor surgical candidate. Surgery is consulted for local input and recommendations. On initial interview, Karin is oriented and fluent though sometimes has difficulty with word-finding. She states she often relies on her to help finish her sentences. She states her pain stays localized to left lower and left lateral abdomen with some left sided back pain, as well. Describes the pain as a punch but states pain is much better controlled than at time of presentation. Denies exacerbation with position change. Denies nausea. Denies headache, denies chest pain or tightness, denies SOB. Endorses fever/chills now resolved. Pt is not on oxygen at home but is requiring nasal cannula here. On further conversation with on the phone and son Max at bedside, pt is confused and disoriented. Discussed our agreement that Karin would not benefit from surgery; the risks are too great given her comorbidities. Pt and family are in agreement to remain on conservative approach. They assert that they would rather not be transferred if no surgery is to take place. Review of Systems ROS Status of ROS 10 or more systems reviewed and unremark able except as noted in history and below [facility] Medical History (Updated 03/17/24 @ 09:10 by Peggy Thacker, DO) 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 ?J84.89 - Other specified interstitial pulmonary diseases (ICD-10) ?E88.9 - Metabolic disorder, unspecified (ICD-10) Metastasis to brain ?C79.31 - Secondary malignant neoplasm of brain (ICD-10) Breast cancer ?C50.919 - Malignant neoplasm of unspecified site of unspecified female breast (ICD-10) Surgical History H/O mastectomy ?Z90.10 - Acquired absence of unspecified breast and nipple (ICD-10) Social History Highest level of school completed/degree received: GED or equivalent Meds Home Medications and Allergies Home Medications ?Medication ?Instructions ?Recorded ?Confirmed ?Type albuterol sulfate 90 mcg/actuation 2 inh inhalation Q4H PRN shortness 02/07/24 03/15/24 Rx aerosol inhaler of breath or wheezing 7 days #8.5 grams metoprolol succinate 100 mg 150 mg PO DAILY 02/07/24 03/15/24 History capsule sprinkle, ext. release 24 hr tamoxifen 20 mg tablet 20 mg PO DAILY 02/07/24 03/15/24 History dexamethasone 4 mg tablet 4 mg PO DAILY 03/15/24 03/15/24 History Allergies Allergy/AdvReac Type Severity Reaction Status Date / Time cephalexin Allergy Intermediate Rash Verified 02/07/24 12:04 Exam Narrative Exam Narrative: General: non-toxic appearance but in obvious discomfort HEENT: AT/NC, EOMI, symmetric facial movements. Nasal cannula in place on 4L CV: regular rate and rhythm Pulm: diffuse expiratory wheeze most prominent over left lateral lung field Abdomen: absent bowel sounds in all quadrants. Pulmonary wheeze heard throughout abdomen. Pt is tympanitic in RUQ, RLQ, and LUQ. Dullness to percussion in LLQ. Diffusely tender to palpation. Neuro: intermittent confusion, easily re-oriented. Occasional expressive aphasia Constitutional Vital Signs, click to edit/add: Last Vital Signs Temp 97.6 F 03/17/24 07:58 Pulse 106 H 03/17/24 08:30 Resp 24 H 03/17/24 08:30 BP 155/66 H 03/17/24 07:28 Pulse Ox 95 03/17/24 08:30 O2 Del Method Nasal Cannula 03/17/24 07:58 O2 Flow Rate 2 03/17/24 04:30 Results Labs Labs: Abnormal lab results 03/16/24 03/16/24 03/16/24 Range/Units 09:35 16:05 22:03 RBC (4.20-5.40) 10^6/uL Neut % (Auto) (43.0-75.0) % Lymph % (Auto) (20.5-60.0) % Eos % (Auto) (0.9-7.0) % Neut # (Auto) (1.4-6.5) 10^3/uL Lymph # (Auto) (1.2-3.8) 10^3/uL Abs Immat Gran (auto) (0.00-0.03) 10^3/uL Band Neutrophils % 33.0 H (0-5) % Lymphocytes % (Manual) 7.0 L (20.5-60.0) % Eosinophils % (Manual) 0.0 L (0.9-7.0) % Basophils % (Manual) 0.0 L (0.2-2.0) % Band Neutrophils # 3.1 H (0.0-0.3) 10^3/uL Lymphocytes # (Manual) 0.66 L (1.20-3.80) 10^3/uL Monocytes # (Manual) 0.85 H (0.30-0.80) 10^3/uL PTT (Heparin Absorb) 71.0 H* 113.2 H* (48.2-68.6) sec Sodium 129 L (136-145) mmol/L Chloride 97 L (98-107) mmol/L Carbon Dioxide 17.6 L (21.0-32.0) mmol/L BUN 25.0 H (7.0-18.0) mg/dL Creatinine 1.05 H (0.55-1.02) mg/dL Est GFR ( Amer) (>=60) Est GFR (Non-Af Amer) 52 L (>=60) Calcium (8.5-10.1) mg/dL Total Bilirubin 1.4 H (0.2-1.0) mg/dL AST 38 H (15-37) U/L Alkaline Phosphatase 126 H (46-116) U/L Total Protein 5.8 L (6.4-8.2) g/dL Albumin 1.8 L (3.4-5.0) g/dL 03/17/24 Range/Units 04:23 RBC 3.94 L (4.20-5.40) 10^6/uL Neut % (Auto) 93.7 H (43.0-75.0) % Lymph % (Auto) 1.7 L (20.5-60.0) % Eos % (Auto) 0.0 L (0.9-7.0) % Neut # (Auto) 9.7 H (1.4-6.5) 10^3/uL Lymph # (Auto) 0.2 L (1.2-3.8) 10^3/uL Abs Immat Gran (auto) 0.05 H (0.00-0.03) 10^3/uL Band Neutrophils % (0-5) % Lymphocytes % (Manual) (20.5-60.0) % Eosinophils % (Manual) (0.9-7.0) % Basophils % (Manual) (0.2-2.0) % Band Neutrophils # (0.0-0.3) 10^3/uL Lymphocytes # (Manual) (1.20-3.80) 10^3/uL Monocytes # (Manual) (0.30-0.80) 10^3/uL PTT (Heparin Absorb) 38.4 L* (48.2-68.6) sec Sodium 133 L (136-145) mmol/L Chloride (98-107) mmol/L Carbon Dioxide 17.7 L (21.0-32.0) mmol/L BUN 37.0 H (7.0-18.0) mg/dL Creatinine 1.67 H (0.55-1.02) mg/dL Est GFR ( Amer) 37 L (>=60) Est GFR (Non-Af Amer) 30 L (>=60) Calcium 7.9 L (8.5-10.1) mg/dL Total Bilirubin (0.2-1.0) mg/dL AST 38 H (15-37) U/L Alkaline Phosphatase 167 H (46-116) U/L Total Protein 5.4 L (6.4-8.2) g/dL Albumin 1.7 L (3.4-5.0) g/dL Diabetes panel 03/16/24 03/17/24 Range/Units 16:05 04:23 Sodium 129 L 133 L (136-145) mmol/L Potassium 4.4 4.4 (3.5-5.1) mmol/L Chloride 97 L 102 (98-107) mmol/L Carbon Dioxide 17.6 L 17.7 L (21.0-32.0) mmol/L BUN 25.0 H 37.0 H (7.0-18.0) mg/dL Creatinine 1.05 H 1.67 H (0.55-1.02) mg/dL Glucose 103 102 (74-106) mg/dL Calcium 8.9 7.9 L (8.5-10.1) mg/dL AST 38 H 38 H (15-37) U/L ALT 58 46 (14-59) U/L Alkaline Phosphatase 126 H 167 H (46-116) U/L Total Protein 5.8 L 5.4 L (6.4-8.2) g/dL Albumin 1.8 L 1.7 L (3.4-5.0) g/dL Calcium panel 03/16/24 03/17/24 Range/Units 16:05 04:23 Calcium 8.9 7.9 L (8.5-10.1) mg/dL Albumin 1.8 L 1.7 L (3.4-5.0) g/dL Pituitary panel 03/16/24 03/17/24 Range/Units 16:05 04:23 Sodium 129 L 133 L (136-145) mmol/L Potassium 4.4 4.4 (3.5-5.1) mmol/L Chloride 97 L 102 (98-107) mmol/L Carbon Dioxide 17.6 L 17.7 L (21.0-32.0) mmol/L BUN 25.0 H 37.0 H (7.0-18.0) mg/dL Creatinine 1.05 H 1.67 H (0.55-1.02) mg/dL Glucose 103 102 (74-106) mg/dL Calcium 8.9 7.9 L (8.5-10.1) mg/dL Adrenal panel 03/16/24 03/17/24 Range/Units 16:05 04:23 Sodium 129 L 133 L (136-145) mmol/L Potassium 4.4 4.4 (3.5-5.1) mmol/L Chloride 97 L 102 (98-107) mmol/L Carbon Dioxide 17.6 L 17.7 L (21.0-32.0) mmol/L BUN 25.0 H 37.0 H (7.0-18.0) mg/dL Creatinine 1.05 H 1.67 H (0.55-1.02) mg/dL Glucose 103 102 (74-106) mg/dL Calcium 8.9 7.9 L (8.5-10.1) mg/dL Total Bilirubin 1.4 H 1.0 (0.2-1.0) mg/dL AST 38 H 38 H (15-37) U/L ALT 58 46 (14-59) U/L Alkaline Phosphatase 126 H 167 H (46-116) U/L Total Protein 5.8 L 5.4 L (6.4-8.2) g/dL Albumin 1.8 L 1.7 L (3.4-5.0) g/dL All other labs normal. Imaging Abdomen CT scan report/results: report reviewed Additional studies: [place] [id number] CT Scan Report Signed EXAM: CT angio chest, CT angio abdomen pelvis HISTORY: Left sided chest pain . Left-sided abdominal pain. Breast cancer. COMPARISON: Prior CTA pulmonary artery study 02/07/2024. TECHNIQUE: Enhanced helical acquisition obtained during arterial phase through the chest, abdomen and the pelvis with MIP and MPR reconstructions. FINDINGS: CTA AORTA: Mild atherosclerotic disease of the thoracic aortic arch and descending thoracic aorta. The great vessels arising from the thoracic aortic arch are patent without evidence of significant stenosis. Moderate diffuse atherosclerotic disease throughout the abdominal aorta, iliac and common femoral arteries. No evidence of dissection or aneurysm. Moderate stenosis at the origin of the celiac trunk. Moderate focal stenosis of the proximal SMA secondary to noncalcified plaque. The NIKO is patent. The renal arteries are patent bilaterally without evidence of stenosis. CT CHEST: Moderate coronary arterial calcifications. Mild cardiomegaly. Large lobular left hilar soft tissue mass again identified, with the largest component currently measuring approximately 6.1 x 3.3 cm, invading into the adjacent mediastinum, encasing and severely narrowing the left superior pulmonary vein as well as the left upper lobe pulmonary artery and encasing and obstructing the left apical segmental bronchus. Enlarged left hilar lymph nodes are again noted, not significantly changed. Focal thrombus within the superior left pulmonary vein. The pleural spaces are clear. Moderate size sliding-type hiatal hernia is present with debris and fluid filling diffusely distended esophageal lumen. CT ABDOMEN: Free intraperitoneal gas within the abdomen. Extraluminal air noted adjacent to the distal sigmoid and rectosigmoid portions of the colon. Diffuse mesenteric edema with enhancement and diffuse thickening involving the small bowel throughout the abdomen and the pelvis, likely secondary to underlying peritonitis. Small volume of ascites throughout the abdomen and the pelvis. Hepatic steatosis. Prior cholecystectomy. Allowing for the early arterial phase of imaging, the spleen, pancreas and the right adrenal gland are unremarkable. Indeterminate 1.7 cm left adrenal nodule within the lateral limb. Mild to moderate left renal cortical scarring. Bilateral renal cysts. No enlarged lymph nodes within the abdomen. CT PELVIS: Normal appendix. No enlarged lymph nodes within the pelvis. Grade 1 degenerative anterolisthesis L5 on S1. Diffuse demineralization. CT/CT angio abdomen pelvis IMPRESSION: 1. Free intraperitoneal gas consistent with bowel perforation. Given extraluminal gas adjacent to the mid and distal sigmoid colon as well as thickening involving the distal sigmoid colon with pericolonic inflammation/edema, this is likely secondary to acute diverticulitis with perforation. 2. Diffuse thickening and enhancement involving small bowel throughout the abdomen and the pelvis, likely secondary to a diffuse peritonitis. Diffuse mesenteric edema is present. Small volume of ascites within the abdomen and the pelvis. 3. Interval increase size of a left hilar lobular soft tissue mass which invades the adjacent mediastinum. Encasement of the left superior pulmonary vein which is severely narrowed as well as the adjacent left upper lobe pulmonary artery. The mass encases and obstructs the left apical segmental bronchus. Stable enlarged left inferior hilar lymph nodes consistent with gurdeep metastatic disease. 4. Focal thrombus within the left superior pulmonary vein. 5. Moderate size sliding-type hernia. There is diffuse dilatation of fluid-filled and debris-filled esophagus. 6. Prior cholecystectomy. Hepatic steatosis. 7. Mild-moderate left renal cortical scarring. Bilateral renal cysts. Assessment and Plan Assessment and Plan (1) Diverticulitis of colon with perforation: (2) Peritonitis: (3) Sepsis: Qualifiers: Acute renal failure type: unspecified Sepsis acute organ dysfunction status: with acute organ dysfunction Sepsis type: sepsis due to unspecified organism Severe sepsis acute organ dysfunction type: acute renal failure Severe sepsis shock status: with septic shock Qualified Code(s): A41.9 - Sepsis, unspecified organism; R65.21 - Severe sepsis with septic shock; N17.9 - Acute kidney failure, unspecified (4) Thrombus of pulmonary vein: (5) Mass of hilum: (6) Mass of left lung: (7) Metastasis to brain: Plan Pt is a 68F in complex and progressively terminal medical condition with lung cancer metastatic to brain and kidney and currently on steroids for this. Has concurrent lung thrombus for which she is requiring supplemental oxygen and is on heparin therapy. Surgery consulted for input on diverticulitis with perforation and peritonitis. Potential risks with surgical repair of bowel perforation, including poor healing, excessive bleeding, prolonged ventilator requirements, and are not in alignment with pt's goals to maximize time with family. Lengthy discussion to remain on supportive care only with IV antibiotics. Counseled pt and family on chances that she may recover with conservative care, but there is a risk that she may succumb to her illness. Pt is currently hemodynamically stable. Labs significant for normal WBC count, normal lactate, alk phos 167, and JEREMY CT results above Plan: Continue conservative care; agree surgery is not in this pt's best interest. Prioritize comfort -Continue IV abx; consider alternative to Zosyn given pt's development of JEREMY since presentation -Currently on NPO with ice chips; can advance slowly as tolerated -Consider NG decompression for patient comfort -Consider palliative care consult to discuss goals of care, appropriateness for hospice
--- NOTE | 2024-03-17 09:24 | PC.NURSE ---
Patient reports feeling short of breath. Oxygen was increased and humidification was added.
[2024-03-17] MEDS: PANTOPRAZOLE SODIUM 40 MG VIAL IV (10:50)
[2024-03-17 11:23] LABS: PTT Heparin Monitor 76.4 sec (48.2-68.6)
--- NOTE | 2024-03-17 11:56 | CM.NOTE ---
Rounds made with Dr. Thacker, discussed with pt reason for admission, results of all testing and plan of care for transfer to higher level of care. Pt is on transfer list for [facility] or [facility] based on bed availability. Pt and family verbalize understanding of plan of care and are in agreement.
[2024-03-17] MEDS: MORPHINE SULFATE 2 MG/ML SYRINGE IV ×2 (12:02→15:29)
[2024-03-17] MEDS: ONDANSETRON PF 4 MG/2 ML VIAL IV (12:06)
[2024-03-17 12:20] LABS: Glucometer 119 mg/dL (74-106)
--- NOTE | 2024-03-17 13:00 | CM.NOTE ---
Imprtant Message From medicare discussed with pt, pt verbalizes understanding and signs paper. Origianl given to pt and copy placed on pt's chart.
--- NOTE | 2024-03-17 13:11 | ECG_ITS ---
[facility] Test Date: 2024-03-17 Pat Name: ALVIN MIX Department: Room: [facility] Gender: Female [employer]: : 1955 Requested By: [id number] Order Number: [id number] Reading MD: REILLY HOROWITZ Measurements Intervals Simpson Rate: 123 P: 78 AK: 148 QRS: 49 QRSD: 80 T: 70 QT: 314 QTc: 387 Interpretive Statements 1120 Sinus tachycardia 1474 with frequent supraventricular premature complexes 4068 Nonspecific Twave abnormality 9140 abnormal rhythm ECG Compared to ECG 03/16/2024 15:37:00 No significant changes Electronically Signed On 03-20-2024 6:50:32 EDT by REILLY HOROWITZ
--- NOTE | 2024-03-17 13:18 | SWNOTE1 ---
Plan is for transfer to another facility for higher level of care. SW spoke to pt's son, Max, in [facility] and advised to reach out if any needs arise that SW can assist with. Max voiced appreciation.
[2024-03-17] MEDS: LORAZEPAM 2 MG/ML VIAL 1 MG IV (16:21)
--- NOTE | 2024-03-17 16:58 | P.DS_ITS ---
DS: Providers Provider Date of admission: 03/17/24 01:38 Primary care physician: MIRIAN CASTILLO Admitting clinician: Peggy Thacker Consults: 03/17/24 Consult to Dietitian Routine Reason for consultation: NPO Has provider been notified: Yes 03/17/24 08:37 Consult to General Surgeon Routine Consulting Provider: Anirudh Lopez Reason for consultation: acute bowel perforation, peritonitis, management until transfer Has provider been notified: Yes Discharging clinician: Peggy Thacker DS: Diagnosis Discharge Diagnosis (1) Diverticulitis of colon with perforation: (2) Peritonitis: (3) Sepsis: Qualifiers: Acute renal failure type: unspecified Sepsis acute organ dysfunction status: with acute organ dysfunction Sepsis type: sepsis due to unspecified organism Severe sepsis acute organ dysfunction type: acute renal failure Severe sepsis shock status: with septic shock Qualified Code(s): A41.9 - Sepsis, unspecified organism; R65.21 - Severe sepsis with septic shock; N17.9 - Acute kidney failure, unspecified (4) Thrombus of pulmonary vein: (5) Mass of hilum: (6) Mass of left lung: (7) Metastasis to brain: DS: Summary Hospital Course Hospital Course: please see progress note dated 03/17/24, she Will be discharged to [facility] under the care of Dr. Mckenna, hospitalist. Status at Discharge Functional status at discharge: bed bound Time Spent with Patient Time attestation: Total time spent providing and/or coordinating discharge services: Time spent: greater than 30 minutes Exam Narrative Exam Narrative: see progress note Constitutional Vital Signs, click to edit/add: Last Vital Signs Temp 97.0 F L 03/17/24 15:18 Pulse 119 H 03/17/24 16:00 Resp 24 H 03/17/24 15:20 BP 136/82 03/17/24 15:20 Pulse Ox 99 03/17/24 15:20 O2 Del Method Nasal Cannula 03/17/24 15:18 O2 Flow Rate 4 03/17/24 15:18 DS: Data Data Completed and Pending Labs on day of discharge: Labs from last 24 hours 03/17/24 03/17/24 03/17/24 12:19 10:29 04:23 WBC 10.3 RBC 3.94 L Hgb 12.3 Hct 37.9 MCV 96.2 MCH 31.2 MCHC 32.5 RDW 13.9 Plt Count 225 MPV 10.2 Neut % (Auto) 93.7 H Lymph % (Auto) 1.7 L [place] % (Auto) 3.9 Eos % (Auto) 0.0 L Baso % (Auto) 0.2 Neut # (Auto) 9.7 H Lymph # (Auto) 0.2 L [place] # (Auto) 0.4 Eos # (Auto) 0.0 Baso # (Auto) 0.0 Abs Immat Gran (auto) 0.05 H Seg Neuts % (Manual) Band Neutrophils % Lymphocytes % (Manual) Monocytes % (Manual) Eosinophils % (Manual) Basophils % (Manual) Metamyelocytes % Imm/Tot Granulo (auto) 0.5 Neutrophils # (Manual) Band Neutrophils # Lymphocytes # (Manual) Monocytes # (Manual) Eosinophils # (Manual) Basophils # (Manual) Metamyelocytes # PT 11.0 INR 1.04 PTT (Heparin Absorb) 76.4 H* 38.4 L* Sodium 133 L Potassium 4.4 Chloride 102 Carbon Dioxide 17.7 L Anion Gap 17.7 BUN 37.0 H Creatinine 1.67 H Est GFR ( Amer) 37 L Est GFR (Non-Af Amer) 30 L BUN/Creatinine Ratio 22.2 Glucose 102 Lactate 1.4 Calcium 7.9 L Magnesium 2.3 Total Bilirubin 1.0 AST 38 H ALT 46 Alkaline Phosphatase 167 H Troponin I High Sens 11.5 NT-Pro-B Natriuret Pep 869.0 Total Protein 5.4 L Albumin 1.7 L Globulin 3.7 Albumin/Globulin Ratio 0.5 POC Glucose 119 H 03/16/24 03/16/24 22:03 16:05 WBC RBC Hgb Hct MCV MCH MCHC RDW Plt Count MPV Neut % (Auto) Lymph % (Auto) [place] % (Auto) Eos % (Auto) Baso % (Auto) Neut # (Auto) Lymph # (Auto) [place] # (Auto) Eos # (Auto) Baso # (Auto) Abs Immat Gran (auto) Seg Neuts % (Manual) 48.0 Band Neutrophils % 33.0 H Lymphocytes % (Manual) 7.0 L Monocytes % (Manual) 9.0 Eosinophils % (Manual) 0.0 L Basophils % (Manual) 0.0 L Metamyelocytes % 3.0 Imm/Tot Granulo (auto) Neutrophils # (Manual) 4.56 Band Neutrophils # 3.1 H Lymphocytes # (Manual) 0.66 L Monocytes # (Manual) 0.85 H Eosinophils # (Manual) 0.00 Basophils # (Manual) 0.00 Metamyelocytes # 0.28 PT INR PTT (Heparin Absorb) 113.2 H* Sodium Potassium Chloride Carbon Dioxide Anion Gap BUN Creatinine Est GFR ( Amer) Est GFR (Non-Af Amer) BUN/Creatinine Ratio Glucose Lactate Calcium Magnesium Total Bilirubin AST ALT Alkaline Phosphatase Troponin I High Sens NT-Pro-B Natriuret Pep Total Protein Albumin Globulin Albumin/Globulin Ratio POC Glucose Preliminary micro results at discharge 03/15/24 20:40 - Preliminary Blood NO GROWTH AT 36-48 HOURS. FINAL TO FOLLOW. 03/15/24 20:35 Blood Culture Result 1 - Preliminary Blood NO GROWTH AT 36-48 HOURS. FINAL TO FOLLOW. Discharge Plan Discharge Disposition: er Acute Care Hospital Discharge Location: [facility]
--- NOTE | 2024-03-17 17:25 | PC.NURSE ---
Addendum entered by Lizbet Bailey RN 03/17/24 17:45: Received call from [facility] [phone] inquiring if there was a change in condition of patient prior to her leaving the facility. Advised that patient left building at 1655. Paramedics were given detailed report on patinet including tachycardiac on telemetry, with frequent PVCs and PACs with her pain. Also had advised that receiving RN that patient had been having frequent PACs and PVCs. [facility] access states that patient had been started on an amiodarone gtt and she would have to find out what happened in route. Original Note: Patient was transferred to [facility] by [facility] in stable condition. Accepting physician Dr. Mckenna. Room B-552. Report was called to receiving nurse Vidhya at .
[2024-03-17 17:45] LABS: PTT Heparin Monitor 96.4 sec (48.2-68.6)
== END 2024-03-17 16:55 | disposition short-term general hospital (02) | DRG 871 ==
LOC: ER 03-16 21:17 → ICU 03-17 01:38
PROVIDERS: Emergency Medicine; Nurse Practitioner Acute Care; Physician Assistant; Admitting Provider Family Medicine; Emergency Provider Internal Medicine; PCP Family Medicine; Visit Provider Family Medicine
DX: A41.9 Sepsis, unspecified organism (principal); I26.99 Other pulmonary embolism without acute cor pulmonale; K65.9 Peritonitis, unspecified; R65.21 Severe sepsis with septic shock; K57.80 Diverticulitis of intestine, part unspecified, with perforation and abscess without bleeding; N17.9 Acute kidney failure, unspecified; E87.1 Hypo-osmolality and hyponatremia; C79.31 Secondary malignant neoplasm of brain; C34.90 Malignant neoplasm of unspecified part of unspecified bronchus or lung; C79.00 Secondary malignant neoplasm of unspecified kidney and renal pelvis; R91.8 Other nonspecific abnormal finding of lung field; R00.0 Tachycardia, unspecified; J44.9 Chronic obstructive pulmonary disease, unspecified; F17.210 Nicotine dependence, cigarettes, uncomplicated; Z90.49 Acquired absence of other specified parts of digestive tract; Z88.1 Allergy status to other antibiotic agents; Z79.818 Long term (current) use of other agents affecting estrogen receptors and estrogen levels; Z79.52 Long term (current) use of systemic steroids; Z79.899 Other long term (current) drug therapy
CPT/HCPCS: 36415; 51702; 71275; 74174; 80048; 80053; 81001; 82248; 82948; 83605; 83690; 83735; 83880; 84484; 85007; 85025; 85027; 85610; 85730; 87040; 87086; 93005; 94640; 94761; 96365; 96366; 96367; 96368; 96375; 96376; 99285; J1170; J2919; Q9967